=== PATIENT | female | born 1950 | race African-American/Black ===

== ENCOUNTER 2016-08-16 19:45 | Inpatient (IN) ==
[2016-08-16] MEDS ORDERED: ASPIRIN PO STA (20:44)
[2016-08-16 21:14] LABS: MANUAL DIFF NEEDED? NO
[2016-08-16] MEDS ORDERED: NAPROSYN PO ONE (21:27)
[2016-08-16 21:28] LABS: INR 0.93; PROTIME 9.7 Seconds (9.2-11.7); PTT 26.6 Seconds (22.0-36.0)
[2016-08-16] MEDS ORDERED: ROBAXIN PO ONE (21:28)
[2016-08-16 21:29] LABS: BASO% 1.8 % (0.0-0.8); EOS# 0.21 X1000 (0.0-0.7); EOS% 4.1 % (0.0-10.0); HEMATOCRIT 35.3 % (37.0-47.0); HEMOGLOBIN 11.6 g/dL (12.0-16.0); IMM GRAN# 0.02 X1000 (0.0-0.04); IMM GRAN% 0.4 % (0.0-0.5); LYMPH# 1.81 X1000 (1.2-3.4); LYMPH% 35.6 % (20.5-51.1); MCH 28.4 PG (27-31); MCHC 32.9 g/dL (33-37); MCV 86.5 FL (81-99); MONO% 7.9 % (1.7-9.3); MPV 11.9 FL (7.4-10.4); NEUT% 50.2 % (42.2-75.2); PLT 137 X1000 (130-400); RBC 4.08 XMIL (4.2-5.4)
[2016-08-16 21:48] LABS: ALBUMIN 4.1 g/dL (3.5-5.0); CALCIUM 8.9 mg/dL (8.8-10.2); MAGNESIUM 1.5 mg/dL (1.5-2.7); TOTAL BILIRUBIN 0.21 mg/dL (0.20-1.00); TOTAL PROTEIN 6.9 g/dL (6.3-8.3)
[2016-08-16 21:55] LABS: POTASSIUM 6.8 mmol/L (3.5-5.1)
[2016-08-16] MEDS ORDERED: LASIX IV ONE (21:58)
[2016-08-16] MEDS ORDERED: D50W SYRINGE IV ONE (21:58)
[2016-08-16] MEDS ORDERED: HUMULIN R IV ONE (21:59)
[2016-08-16] MEDS ORDERED: ZOFRAN IV ONE (22:01)
[2016-08-16 22:31] LABS: CK INDEX 2.4 (0.0-2.5); CK-MB 4.35 ng/mL (0.0-5.0)
[2016-08-16] MEDS ORDERED: SODIUM CHLORIDE 0.9% INJ ONE (23:44)
[2016-08-16] MEDS ORDERED: PHENERGAN IV ONE (23:44)
[2016-08-16] MEDS ORDERED: ROBAXIN 1,000 MG in NS 50 ML IV ONE (23:44)
[2016-08-16] MEDS ORDERED: CALCIUM CHLORIDE SYRINGE IV ONE (23:50)
--- NOTE | 2016-08-16 23:53 | PROVIDER DOCUMENTATION ---
This chart was entered by Cheyenne Farrell Scribe, acting as scribe for Bud Jameson MD. HPI-Musculoskeletal Pain/Inj - GENERAL Chief Complaint: General Adult Stated Complaint: FELL AT HOME/SHORT OF BREATH Time Seen by Provider: 08/16/16 20:51 Source: patient - HX OF PRESENT ILLNESS-MUSKULOSKELTAL Nature of Presenting Problem: 66 year old F presents to the ED with a cc of a fall with an onset of yesterday. PT states that she fell c/o upper right arm pain and chest pain with intermittent shortness of breath. Severity in ED: mild Onset/Duration: 24 hours ago Timing: still present Any recent injury?: Yes Locality of Occurance: Home Similar Symptoms Previously?: No Recently seen or treated by another doctor?: No - FALL INJURY Location of Pain/Injury: reports: chest, upper extremity Pain Radiation: reports: no radiation Reason for Fall: reports: tripped Symptoms prior to fall:: reports: none Loss of Consciousness: no loss of consciousness Injury Associated Symptoms: reports: chest pain, muscle aches Review of Systems - Adult - REVIEW OF SYSTEMS - ADULT Constitutional: denies: chills, fever Eyes: reports: no symptoms reported Ears, Nose, Mouth & Throat: reports: no symptoms reported Cardiovascular: reports: chest pain. denies: palpitations Respiratory: reports: shortness of breath. denies: cough Gastrointestinal: reports: no symptoms reported Genitourinary: reports: no symptoms reported Musculoskeletal: reports: muscle aches. denies: muscle weakness Integumentary: denies: skin sores/ulcer, skin thickening Neurological: reports: no symptoms reported Psychiatric: reports: no symptoms reported Endocrine: reports: no symptoms reported Hematologic/Lymphatic: reports: no symptoms reported Allergic/Immunologic: reports: no symptoms reported All Other Systems: Reviewed and Negative Past History - Adult - PAST MEDICAL HISTORY-ADULT Review of Records: reports: Nursing Assessment Review, Medications Reviewed Cardiovascular: reports: CAD, HTN, NC Genitourinary: reports: kidney stones Endocrine/Immune: reports: Diabetes - PRIOR SURGERIES/PROCEDURES Surgical/Procedure History: reports: EGD, colonoscopy, CABG, cardiac stent - PRIOR HOSPITALIZATIONS Prior Hospitalizations: reports: for similar symptoms - IMMUNIZATION STATUS Childhood Immunizations: See Nurse Assessment Flu Vaccine: See Nurse Assessment - FAMILY HISTORY Family History: reviewed, not pertinent - SOCIAL HISTORY Smoking: non-smoker Substance Use: none/never Alcohol Use Frequency: never Physical Exam-Injury Related - Physical Exam-Injury Related Initial Vital Signs Reviewed: Yes General Appearance: appears well, alert, no apparent distress Extremity: tenderness (right upper humerous) Integumentary: ecchymosis (right upper humerous) Psych/Mental Status: normal mood/affect, normal thought content, normal thought process, oriented x 3 Progress - PLAN OF CARE/RESULTS Progress/Plan/Lab Results: Vital Signs - 8 hr 08/16/16 19:51 08/16/16 23:11 Temperature 98.3 F Pulse Rate 65 56 L Respiratory Rate 14 18 Blood Pressure 224/86 179/97 O2 Sat by Pulse Oximetry 100 96 Laboratory Results - last 24 hr 08/16/16 08/16/16 08/16/16 20:48 20:48 20:48 WBC 5.09 RBC 4.08 L Hgb 11.6 L Hct 35.3 L MCV 86.5 MCH 28.4 MCHC 32.9 L RDW Std Deviation 13.1 Plt Count 137 MPV 11.9 H Immature Gran % (Auto) 0.4 Neut % (Auto) 50.2 Lymph % (Auto) 35.6 Bea[place]gard % (Auto) 7.9 Eos % (Auto) 4.1 Baso % (Auto) 1.8 H Immature Gran # (Auto) 0.02 Neut # (Auto) 2.56 Lymph # (Auto) 1.81 Bea[place]gard # (Auto) 0.40 Eos # (Auto) 0.21 Baso # (Auto) 0.09 PT INR PTT (Actin FS) D-Dimer 0.58 H Sodium 138 Potassium 6.8 H* Chloride 104 Carbon Dioxide 21 L Anion Gap 13 BUN 34 H Creatinine 2.1 H Estimated GFR/1.73 m2 28 BUN/Creatinine Ratio 16 Glucose 218 H POC Glucose Calculated Osmolality 290 Calcium 8.9 Magnesium 1.5 Total Bilirubin 0.21 AST 15 ALT 9 L Alkaline Phosphatase 184 H Creatine Kinase 179 H Creatine Kinase Index 2.4 CK-MB (CK-2) 4.35 Troponin T Gva-D-Lybxpwvynas Pept Total Protein 6.9 Albumin 4.1 Globulin 2.8 Albumin/Globulin Ratio 1.5 08/16/16 08/16/16 08/16/16 20:48 20:48 20:48 WBC RBC Hgb Hct MCV MCH MCHC RDW Std Deviation Plt Count MPV Immature Gran % (Auto) Neut % (Auto) Lymph % (Auto) Bea[place]gard % (Auto) Eos % (Auto) Baso % (Auto) Immature Gran # (Auto) Neut # (Auto) Lymph # (Auto) [place] # (Auto) Eos # (Auto) Baso # (Auto) PT 9.7 INR 0.93 PTT (Actin FS) 26.6 D-Dimer Sodium Potassium Chloride Carbon Dioxide Anion Gap BUN Creatinine Estimated GFR/1.73 m2 BUN/Creatinine Ratio Glucose POC Glucose Calculated Osmolality Calcium Magnesium Total Bilirubin AST ALT Alkaline Phosphatase Creatine Kinase Creatine Kinase Index CK-MB (CK-2) Troponin T < 0.010 Hkn-T-Lvogyyfdlce Pept 1673 H Total Protein Albumin Globulin Albumin/Globulin Ratio 08/16/16 23:26 WBC RBC Hgb Hct MCV MCH MCHC RDW Std Deviation Plt Count MPV Immature Gran % (Auto) Neut % (Auto) Lymph % (Auto) [place] % (Auto) Eos % (Auto) Baso % (Auto) Immature Gran # (Auto) Neut # (Auto) Lymph # (Auto) [place] # (Auto) Eos # (Auto) Baso # (Auto) PT INR PTT (Actin FS) D-Dimer Sodium Potassium Chloride Carbon Dioxide Anion Gap BUN Creatinine Estimated GFR/1.73 m2 BUN/Creatinine Ratio Glucose POC Glucose 329 H D Calculated Osmolality Calcium Magnesium Total Bilirubin AST ALT Alkaline Phosphatase Creatine Kinase Creatine Kinase Index CK-MB (CK-2) Troponin T Kfk-M-Kgoepmfrufc Pept Total Protein Albumin Globulin Albumin/Globulin Ratio Orders Category Date Time Status Cardiac Monitoring DIRECTED Care 08/16/16 20:44 Active Oxygen Therapy- ED Nursing DIRECTED Care 08/16/16 20:44 Active Saline Loc NOW Care 08/16/16 20:44 Active CHEST-2 VIEWS [RAD] Stat Exams 08/16/16 20:44 Taken CBC WITH ELECTRONIC DIFF [HEME] Stat Lab 08/16/16 20:48 Completed CK PROFILE [SP CHEM] Stat Lab 08/16/16 20:48 Completed COMPREHENSIVE METABOLIC PANEL [CHEM] Stat Lab 08/16/16 20:48 Completed D-DIMER [CHEM] Stat Lab 08/16/16 20:48 Completed MAGNESIUM [CHEM] Stat Lab 08/16/16 20:48 Completed POTASSIUM [CHEM] Stat Lab 08/16/16 22:47 Received PRO B-NATRIURETIC PEPTIDE Stat Lab 08/16/16 20:48 Completed PROTIME WITH INR [COAG] Stat Lab 08/16/16 20:48 Completed PTT [COAG] Stat Lab 08/16/16 20:48 Completed TROPONIN T Stat Lab 08/16/16 20:48 Completed Aspirin Med 08/16/16 20:44 Discontinued 325 mg PO STAT STA Calcium Chloride Syringe Med 08/16/16 23:50 Once 1 gm IV NOW ONE Dextrose 50% Syringe [D50w Syringe] Med 08/16/16 21:58 Discontinued 25 ml IV NOW ONE Furosemide [Lasix] Med 08/16/16 21:58 Discontinued 80 mg IV NOW ONE Insulin Human Regular [Humulin R] Med 08/16/16 21:59 Discontinued 10 unit IV NOW ONE Methocarbamol [Robaxin] Med 08/16/16 21:28 Discontinued 750 mg PO NOW ONE Methocarbamol [Robaxin] 1,000 mg Med 08/16/16 23:44 Ordered 0.9% Sodium Chloride Inj [Ns] 50 ml IV NOW Naproxen [Naprosyn] Med 08/16/16 21:27 Discontinued 500 mg PO NOW ONE Ondansetron [Zofran] Med 08/16/16 22:01 Discontinued 4 mg IV NOW ONE Promethazine [Phenergan] Med 08/16/16 23:44 Once 25 mg IV NOW ONE Sodium Chloride 0.9% Med 08/16/16 23:44 Once 10 ml INJ NOW ONE EKG [EKG] Stat Ther 08/16/16 19:50 Ordered Result Diagrams: 08/16/16 20:48 08/16/16 20:48 - REASSESSMENT Reassessment #1 Time Reassessed: 23:51 Status: unchanged (discussed muscle cramps and high potassium, will admit for treatment as lab is so slow tonight) - EKG 1 Time of EKG reading by physician:: 19:54 EKG Read and Signed by:: Bud Jameson EKG Interpretation (*Must complete 3 of following elements*): Abnormal Rate: 65 Rhythm: NSR Comments: possible LAE - CONSULTS/PCP/HOSPITALIST Notification #1 *Consult/PCP/Hospitalist*: Dr. López(Hospitalist) Time Discussed: 23:49 Consult Disposition: Admit Departure - Departure Date of Disposition Decision: 08/16/16 Time of Disposition Decision: 23:52 DIAGNOSIS: Hyperkalemia, Bruise Disposition: ADMITTED INPATIENT 09 Certified Medical Emergency: Emergent Condition: Stable Referrals and Follow-Ups: Sebastian James MD [Primary Care Provider] - - Critical Care Note This patient required my direct & personal management of CC.: No This chart was documented by the indicated scribe, (Cheyenne Farrell Scribe) and accurately reflects the services I performed and decisions made by me, Bud Jameson MD, as attested by the provider's signature.
[2016-08-17] MEDS ORDERED: CALCIUM GLUCONATE 1 GM in NS 50 ML IV ONE (00:21)
[2016-08-17] MEDS ORDERED: CALCIUM CHLORIDE 1 GM in NS 100 ML IV ONE (01:00)
[2016-08-17] MEDS ORDERED: NS 1,000 ML IV PRN (01:51)
[2016-08-17] MEDS ORDERED: KAYEXALATE PO ONE (01:51)
--- NOTE | 2016-08-17 02:00 | HISTORY AND PHYSICAL ---
PRIMARY CARE PHYSICIAN: Dr. James. CHIEF COMPLAINT: Status post fall, not feeling well. HISTORY OF PRESENTING ILLNESS: A 66-year-old female with a history of diabetes mellitus type 2, hypertension, coronary artery disease. Apparently, tripped over something and had a fall. She landed on her right arm. She had some bruising. She was evaluated in the ER. She was noted to have elevated potassium levels. Initially, it was thought that it was dilutional. However, repeat labs also showed that it was elevated. Subsequently, she was stabilized in the ER, she was given insulin and calcium gluconate, and it was thought that she would need hospitalization for further management. At the time of my examination, she had denied any headache, fever, chills, nausea, vomiting, diarrhea, hemoptysis, melena, weight changes. PAST MEDICAL HISTORY: Diabetes mellitus type 2, hypertension, coronary artery disease. PAST SURGICAL HISTORY: Coronary artery bypass, right BKA. ALLERGIES: Demerol and nitroglycerin. CURRENT MEDICATIONS: As listed in the MAR. SOCIAL HISTORY: She is a former smoker. Denies any history of alcohol or illicit drug use. FAMILY HISTORY: Positive for coronary artery disease in mother. REVIEW OF SYSTEMS: Twelve point review of systems is listed as in HPI. Other systems negative. PHYSICAL EXAMINATION: GENERAL: Cooperative, friendly female. She is resting comfortably now. VITAL SIGNS: Temperature 98.3 degrees, pulse 65, respiration 14. Blood pressure initially was 224/86, and repeat was 179/97. HEENT: Atraumatic, normocephalic. Extraocular movements intact. PERRLA. NECK: No masses. CHEST: Clear to auscultation. CARDIOVASCULAR: Regular rate and rhythm. ABDOMEN: Soft. Positive bowel sounds. EXTREMITIES: No edema. NEUROLOGIC: She is awake, alert, oriented x3. GENITOURINARY: No bladder distention. SKIN: Warm. LABORATORIES AND STUDIES: WBC 5.09, hemoglobin 11.6, hematocrit 35.3, platelets 137,000. Sodium 138, potassium 6.8, chloride 104, CO2 21, BUN is 34, creatinine is 2.1, glucose is 218. ASSESSMENT: A 66-year-old female with a history of diabetes mellitus type 2, hypertension, coronary artery disease, apparently tripped over something and had a fall. She landed on her right arm. She has some bruising there. She presented to our emergency department, where she was evaluated and noted to have elevated potassium level. Repeat labs were also elevated. Subsequently, she will need hospitalization for further management. 1. Hyperkalemia. 2. Diabetes mellitus type 2. 3. Hypertension. 4. Acute kidney injury. PLAN: 1. We will admit patient to medical floor with telemetry. 2. She was initially stabilized in the ER. Will continue with Kayexalate and monitor potassium. 3. We will monitor blood glucose and put patient on sliding scale insulin regimen. 4. Monitor blood pressure. Resume antihypertensive agents. 5. Monitor renal function. 6. Continue with gentle hydration. 7. Will put patient on DVT prophylaxis with SCDs. 8. We will continue to follow and reassess. cc: Johnathan López MD
--- NOTE | 2016-08-17 05:15 | EKG Report ---
Test Performed on : 08/16/2016 7:54:22 PM Test Reason : SOB Blood Pressure : / mmHG Vent. Rate : 065 BPM Atrial Rate : 065 BPM P-R Int : 154 ms QRS Dur : 086 ms QT Int : 416 ms P-R-T Axes : 057 000 041 degrees QTc Int : 432 ms Normal sinus rhythm. Possible Left atrial enlargement Borderline ECG When compared with ECG of 16-JAN-2015 01:43, No significant change was found Unconfirmed Result
[2016-08-17] MEDS: HUMULIN R SUBQ SCH ×4 (06:21→21:53)
--- NOTE | 2016-08-17 07:20 | Diag Imaging Result Doc PS360 ---
CHEST-2 VIEWS - 08/16/2016 INDICATION: CP TECHNIQUE: COMPARISON: 02/28/2015 FINDINGS: Stable CABG changes. There is moderate cardiomegaly and pulmonary vascular congestion. No infiltrates or edema. Stable calcified granulomas in the right midlung and hilum. No pneumothorax or pleural effusion. IMPRESSION: Cardiomegaly with mild pulmonary vascular congestion. Electronically signed by Chauncey Whitmore 08/17/2016 7:18 AM
[2016-08-17] MEDS ORDERED: LOPRESSOR PO SCH (09:00)
[2016-08-17] MEDS ORDERED: IMODIUM PO ONE (09:31)
[2016-08-17] MEDS: TOPROL XL PO SCH (09:44)
[2016-08-17] MEDS ORDERED: INSULIN LISPRO SUBQ SCH (09:45)
--- NOTE | 2016-08-17 09:53 | PROGRESS NOTE ---
DATE: 08/17/2016 SUBJECTIVE: The patient was admitted last night after falling. Was noted to have worsening renal insufficiency and hyperkalemia. Patient complains of diarrhea this morning after having Kayexalate. OBJECTIVE: Vital signs: 98.4, 146/66, 79, 18, 100% saturated on room air. Lungs: Clear. Cardiovascular: Regular. The patient has a fairly large area of ecchymosis on her right triceps and shoulder area from where she fell prior to admission. She has full range of motion of the shoulder and hand on both sides. ASSESSMENT AND PLAN: 1. The patient's potassium will be recheck. We have consulted Nephrology. They will likely need to be involved for long-term care. 2. The patient's home medications have been continued as previously. 3. The patient has fingerstick blood sugars with basal insulin and sliding scale insulin applied appropriately. 4. We will write for some Imodium for diarrhea. cc: Sebastian James MD
--- NOTE | 2016-08-17 10:45 | Diag Imaging Result Doc PS360 ---
US RENAL 2 (RETROPER) COMPLETE - 08/17/2016 INDICATION: decreased renal function TECHNIQUE: COMPARISON: 02/28/2015 FINDINGS: There is some minimal, questionable hydronephrosis versus peripelvic cysts on the left side. This appears identical to the prior ultrasound from 2014. Otherwise, the kidneys and urinary bladder are normal. Renal sizes are normal. The right kidney measures 11.7 x 4.6 x 5 cm. The left kidney measures 11 x 4.2 x 5.1 cm. Cortex measures 1 cm bilaterally. IMPRESSION: Stable minimal, questionable hydronephrosis versus peripelvic cysts of the left kidney. Otherwise negative. Electronically signed by Chauncey Whitmore 08/17/2016 10:42 AM
--- NOTE | 2016-08-17 10:46 | CONSULTATION ---
DATE OF CONSULTATION: 08/17/2016 REASON FOR ADMISSION: Fall, hyperkalemia, acute kidney injury, hypertension. REASON FOR CONSULTATION: Acute/chronic kidney disease, hyperkalemia. CONSULTING PHYSICIAN: Dr. James. HISTORY OF PRESENT ILLNESS: This is a 66-year-old female with a past medical history of coronary artery disease with severe vascular disease, diabetes type 2, poorly controlled, hypertension. She is known CKD with her last creatinine of 1.9 noted back in her primary care's office in May of this year. She had been about 1.4 a year ago. The patient stated that she fell. She does not know if she passed out, if her blood sugar was low, if she tripped. She landed on her arm and had some bruising and came to the emergency room for evaluation. There she was noted to have extremely high potassium levels greater than 6. She was treated with Kayexalate, calcium gluconate, insulin. Her creatinine at that time was noted to be 2.1. She was admitted to the hospital for further workup and treatment. This morning, she has been able to ambulate to the bedside commode without difficulty. She has been having multiple bowel movements after the dosing and Kayexalate. She has chronic nausea and indigestion. She denies knowing if she has retinopathy but she does have poor eyesight. She has significant vascular disease and has a right BKA. She denies any change in urine or bowel output or changing color, consistency of her urine. She has never been worked up for chronic kidney disease in the past. PAST MEDICAL HISTORY: Type 2 diabetes. Peripheral vascular disease. Hypertension, hyperlipidemia and severe coronary artery disease. PAST SURGICAL HISTORY: She has had a CABG. She has had multiple stent placements in the past. She has had a right BKA. ALLERGIES: Demerol and nitroglycerin. HOME MEDICATIONS: Pletal, Lopressor, Nexium, Livalo, Plavix, Humalog, metoprolol, Lantus. SOCIAL HISTORY: She is a former smoker. No ETOH or illicit drug use. FAMILY HISTORY: Coronary artery disease in her mother. Her mother did have dialysis briefly while she was in the hospital prior to her . REVIEW OF SYSTEMS: As noted above. PHYSICAL EXAMINATION: Vital Signs: Temperature 98.4 degrees, pulse 79, respiratory rate 18, blood pressure 146/66. Intake 480 mL. Output 300 mL. General: This is a middle-aged female, resting in bed. She is awake and alert and able to give me an appropriate history. HEENT: Normocephalic, atraumatic. Conjunctivae are pink. [place], her oral mucosa is moist. Tongue is midline. Trachea midline. She has some trace JVD. Neck: Supple. Cardiovascular: She has old sternotomy incision scar noted. She has a regular rate and rhythm. Pulmonary: She has equal excursion. She is clear bilaterally. There is no increased work of breathing. Abdomen: Soft, positive bowel sounds. : Not inspected. She is voiding. Extremities: She has a right BKA with a well-healed stump. Left lower extremity with trace pretibial edema. There is no clubbing or cyanosis noted. Integumentary: Skin is warm and dry without rash or lesion. Neuro: Grossly nonfocal. LAB DATA: WBC of 5.0, hemoglobin 11.6, hematocrit 35.3, and a platelet count of 137,000. Chemistry panel from last night: Sodium 138, potassium 6.3, chloride 104, CO2 21, BUN 34, creatinine 2.1. Calcium 8.9, magnesium 1.5, albumin 4.1. She has not had any urine studies completed yet. IMAGING: Chest x-ray with cardiomegaly and mild pulmonary vascular congestion. ASSESSMENT AND PLAN: 1. Chronic kidney disease stage 3B to 4. The patient by report with the primary has apparent progressive kidney disease over the last year. She has no indication for dialysis at this time. However we will go ahead and workup her renal function to include an ultrasound and urine studies today. We will go ahead and recheck her renal panel since she has received Kayexalate and has been stooling so we can determine if we need to further treat her potassium. The patient will most definitely need to follow up with us in the office as an outpatient. 2. Electrolytes, acid-base balance. See #1 for plan. She has had multiple stools since receiving the Kayexalate so anticipate the potassium will be down. Hyperkalemia may be just simply secondary to her chronic kidney disease. 3. Blood pressure acceptable. Continue home medications. 4. Fluid volume. She is not overloaded. Dictated by MICHAEL Garibay for Doug Padilla MD cc: MD Sebastian Dean MD
[2016-08-17 11:41] LABS: ALBUMIN 3.9 g/dL (3.5-5.0); CALCIUM 8.9 mg/dL (8.8-10.2); POTASSIUM 4.6 mmol/L (3.5-5.1)
[2016-08-17] MEDS: PLAVIX PO SCH (12:37)
[2016-08-17] MEDS: ASPIRIN PO SCH (12:37)
[2016-08-17] MEDS: PLETAL PO SCH (12:38)
[2016-08-17] MEDS: NEXIUM PO SCH (12:38)
[2016-08-17] MEDS: LANTUS SUBQ SCH ×2 (12:41→21:53)
[2016-08-17 13:55] LABS: URINE MICRO REVIEW NEEDED? NO; URINE SOURCE VOIDED
[2016-08-17 14:02] LABS: BILIRUBIN URINE NEGATIVE (NEGATIVE); BLOOD URINE NEGATIVE (NEGATIVE); COLOR YELLOW; GLUCOSE URINE 70 mg/dL (NEGATIVE); LEUKOCYTES URINE MODERATE (NEGATIVE); NITRITE URINE NEGATIVE (NEGATIVE); PH URINE 5.5; PROTEIN URINE 100 mg/dL (NEGATIVE); SP GRAVITY URINE 1.012; TURBIDITY URINE CLEAR (CLEAR); UROBILINOGEN URINE NORMAL (NORMAL)
[2016-08-17 14:04] LABS: UR EPITHELIAL CELLS <10 /HPF (<10); URINE BACTERIA NEGATIVE /HPF; URINE RBC <10 /HPF (<10)
[2016-08-17 14:12] LABS: PROTEIN CREAT RATIO 1.9; UR CREAT RANDOM 60.6 mg/dL (11-20); UR CREAT RANDOM 61.7 mg/dL (11-20); UR PROT RANDOM 115.2 mg/dL; UR PROT RANDOM 116.1 mg/dL
[2016-08-17] MEDS: LIVALO PO SCH (21:54)
[2016-08-18 05:42] LABS: MANUAL DIFF NEEDED? NO
[2016-08-18 05:57] LABS: BASO% 1.8 % (0.0-0.8); EOS# 0.27 X1000 (0.0-0.7); HEMATOCRIT 30.4 % (37.0-47.0); HEMOGLOBIN 9.7 g/dL (12.0-16.0); LYMPH# 2.74 X1000 (1.2-3.4); LYMPH% 50.3 % (20.5-51.1); MCH 27.9 PG (27-31); MCHC 31.9 g/dL (33-37); MCV 87.4 FL (81-99); MONO# 0.33 X1000 (0.11-0.59); MONO% 6.1 % (1.7-9.3); MPV 11.6 FL (7.4-10.4); NEUT% 36.8 % (42.2-75.2); PLT 118 X1000 (130-400); RBC 3.48 XMIL (4.2-5.4)
[2016-08-18 06:06] LABS: ALBUMIN 3.1 g/dL (3.5-5.0); CALCIUM 8.1 mg/dL (8.8-10.2); POTASSIUM 4.5 mmol/L (3.5-5.1)
[2016-08-18] MEDS: HUMULIN R SUBQ SCH (06:57)
[2016-08-18] MEDS: NEXIUM PO SCH (09:23)
[2016-08-18] MEDS: TOPROL XL PO SCH (09:23)
[2016-08-18] MEDS: PLAVIX PO SCH (09:23)
[2016-08-18] MEDS: PLETAL PO SCH (09:24)
[2016-08-18] MEDS: LEVAQUIN PO SCH (09:24)
[2016-08-18] MEDS: ASPIRIN PO SCH (09:24)
[2016-08-18] MEDS: LANTUS SUBQ SCH ×3 (09:27→21:44)
[2016-08-18] MEDS ORDERED: ZOFRAN PO PRN (11:33)
--- NOTE | 2016-08-18 11:40 | PROGRESS NOTE ---
DATE: 08/18/2016 SUBJECTIVE: Patient is resting in bed. She has no complaints this morning. She has been ambulatory to the bedside commode. OBJECTIVE: Vital Signs: Temperature 98.2 degrees, pulse 68, respiratory rate 14, blood pressure 114/41. Intake 1.1 L. Output 2750 mL plus multiple voids plus not measured multiple bowel movements. General: This is a middle-aged female, resting in bed. She is awake and alert, in no acute distress. HEENT: Normocephalic and atraumatic. Conjunctivae are pink. Oral mucosa moist. Neck: Supple. Trachea midline. Trace JVD. Cardiovascular: Regular rate and rhythm. There is no murmur appreciated. Pulmonary: She has equal excursion. She is clear bilaterally. She has no increased work of breathing on room air. Abdomen: Soft, with positive bowel sounds. Genitourinary: Not inspected. She is voiding without difficulty. Extremities: No pretibial edema. Right tgnpv-nnsk-ujjkrwvtns noted. Integumentary: Skin is warm and dry. LABORATORY DATA: WBC of 5.4, hemoglobin 9.7, hematocrit 30.4, and platelet count of 118,000. Sodium 145, potassium 4.5, CO2 of 23, BUN 39, creatinine 2.8, calcium 8.1, and albumin 3.1. IMAGING: She had a renal ultrasound that indicated kidney size 11 x 11 cm. The left side has a stable minimal questionable hydronephrosis versus pelvic cyst on the left kidney. These have been present since 2015. It is unchanged. ASSESSMENT AND PLAN: 1. Chronic kidney disease, stage 3B to 4. She does have diabetic nephropathy. Urine protein along with ultrasound imaging noted. She has no indication for intervention at this time. We would continue to follow her. Need to see her in the office in 2 weeks post discharge. 2. Electrolytes, acid-base balance. Her hyperkalemia is resolved. Continue to monitor. Hyperkalemia is likely secondary to her chronic kidney disease. 3. Fluid volume. She is not overloaded. 4. Blood pressure in target. Continue home medications. Dictated by MICHAEL Garibay for Doug Padilla MD cc: MD Sebastian Dean MD
[2016-08-18] MEDS ORDERED: INSULIN PEN NEEDLES ONE (11:41)
--- NOTE | 2016-08-18 13:23 | PROGRESS NOTE ---
DATE: 08/18/2016 SUBJECTIVE: The patient's chart was reviewed. In summary, patient presented to the emergency department on 08/17/2016 with a fall. Upon arrival, a full evaluation was pursued. The patient was found to have hyperkalemia, acute on chronic kidney disease, and a urinary tract infection. The patient was treated acutely for her underlying hyperkalemia with Kayexalate and calcium gluconate. The patient's potassium has improved. Her urinary tract infection is being treated with levofloxacin therapy. She denies significant symptoms. Since admission, patient states she has slowly improved. Today, she complains of weakness and some intermittent nausea, but feels better than yesterday. She denies fevers, chills, shortness of breath, and chest discomfort. P.o. intake is reasonable. OBJECTIVE: T-max 98.4 degrees, heart rate 64-79, respirations 14-18, blood pressure 111 to 146 over 41 to 66.General: Chronically ill appearing, no acute distress. Cardiovascular: Regular rate and rhythm. No significant murmurs, rubs, or gallops. Pulmonary: Clear to auscultation bilaterally. Abdomen: Soft, nontender, nondistended. Positive bowel sounds. Extremities: Moves her left lower extremity well. She is status post amputation of the right lower extremity. No clubbing, cyanosis or edema is identified. Dermatologic: Evaluation reveals no evidence of rash. LABORATORY DATA: White blood cell count 5.45, hemoglobin 9.7, hematocrit 30.4, platelet count is 118,000. Sodium 145, potassium 4.5, chloride 109, bicarb 23, BUN 39, creatinine 2.8. Glucose 155. Calcium 8.1, albumin 3.1. ASSESSMENT AND PLAN: 1. Hyperkalemia - the patient has achieved improvement. This likely was secondary to acute on chronic kidney disease. We will treat kidney dysfunction further as described below. 2. Urinary tract infection - patient's urinalysis returned slightly abnormal. She is being treated with Levaquin therapy. We will remain aware. 3. Acute on chronic kidney disease - The patient's creatinine continues to rise. Upon admission, creatinine was 2.1. Today this it is 2.8. We will start patient on a cautious hydration. We will follow this closely. We will encourage p.o. intake. 4. Diabetes - Patient has longstanding disease. We will continue Lantus therapy. We will start a lispro sliding scale. 5. Profound weakness - we will encourage activity. We will treat acute conditions as described above. 6. Coronary artery disease - patient has longstanding disease. We will continue her on optimum medical management. 7. Hypertension - patient's blood pressure is reasonably controlled at present time. We will continue her current regimen. 8. Disposition - at this point, patient continues to require intermediate care in a hospital setting. We will plan discharge home once appropriate. cc: MD Sebastian Desai MD
[2016-08-18] MEDS: HUMALOG SUBQ SCH ×2 (17:04→21:44)
[2016-08-18] MEDS: LIVALO PO SCH (21:44)
[2016-08-18] MEDS: NS 1,000 ML IV SCH (21:46)
[2016-08-19 06:09] LABS: MANUAL DIFF NEEDED? NO
[2016-08-19 06:14] LABS: BASO% 1.6 % (0.0-0.8); EOS# 0.27 X1000 (0.0-0.7); EOS% 4.8 % (0.0-10.0); HEMOGLOBIN 10.2 g/dL (12.0-16.0); LYMPH# 2.25 X1000 (1.2-3.4); LYMPH% 39.7 % (20.5-51.1); MCH 28.8 PG (27-31); MCHC 32.9 g/dL (33-37); MCV 87.6 FL (81-99); MONO# 0.36 X1000 (0.11-0.59); MONO% 6.3 % (1.7-9.3); MPV 11.6 FL (7.4-10.4); NEUT% 47.6 % (42.2-75.2); PLT 120 X1000 (130-400); RBC 3.54 XMIL (4.2-5.4)
[2016-08-19 06:36] LABS: ALBUMIN 3.5 g/dL (3.5-5.0); CALCIUM 8.3 mg/dL (8.8-10.2); POTASSIUM 4.6 mmol/L (3.5-5.1)
[2016-08-19] MEDS: HUMALOG SUBQ SCH ×4 (06:54→22:40)
[2016-08-19] MEDS: PLETAL PO SCH (09:24)
[2016-08-19] MEDS: TOPROL XL PO SCH (09:24)
[2016-08-19] MEDS: ASPIRIN PO SCH (09:24)
[2016-08-19] MEDS: PLAVIX PO SCH (09:24)
[2016-08-19] MEDS: NEXIUM PO SCH (09:24)
[2016-08-19] MEDS: LEVAQUIN PO SCH (09:24)
[2016-08-19] MEDS: LANTUS SUBQ SCH ×2 (09:25→22:40)
--- NOTE | 2016-08-19 10:22 | PROGRESS NOTE ---
DATE: 08/19/2016 SUBJECTIVE: Over the course of the last 24 hours, patient states he has done reasonably well. Yesterday, we initiated IV fluids secondary to worsening renal function. The patient's kidney function has improved, although not back to baseline. Her p.o. intake has been marginal. She remains weak, but is slowly improving. She denies fevers, chills, nausea, vomiting, shortness of breath, or chest discomfort. OBJECTIVE: Vital signs: T-max 98.5 degrees, heart rate 73-77, respirations 14-18 blood pressure 111-179 over 41-63. General: Well nourished, well developed, no acute distress. Cardiovascular: Regular rate and rhythm. No significant murmurs, rubs, or gallops. Pulmonary: Clear to auscultation bilaterally. Abdomen: Soft, nontender, nondistended. Positive bowel sounds. Extremities: Moves her left lower extremity well. She is status post amputation of the right lower extremity. No clubbing, cyanosis, or edema is identified. Dermatologic: Evaluation reveals no evidence of rash. LABORATORY DATA: White blood cell count 5.67, hemoglobin 10.2, hematocrit 31.0, platelet count 120,000. Sodium 142, potassium 4.6, chloride 108, bicarb 22, BUN 32, creatinine 2.2, glucose 219, calcium 8.3, phosphorus 3.4, albumin 3.5. ASSESSMENT AND PLAN: 1. Hyperkalemia - Patient has achieved improvement. This likely is secondary to her underlying chronic kidney disease and urinary tract infection. We will continue to follow. We will treat above-mentioned conditions as described below. 2. Urinary tract infection - Upon admission, patient's urinalysis was slightly abnormal. Her culture is pending. We will continue levofloxacin therapy for now. 3. Acute on chronic kidney disease - Yesterday, patient's creatinine had increased to 2.8. She is down to 2.2 today. Baseline appears to be between 1.2 and 1.6. For now, we will continue cautious hydration. I appreciate nephrology consultation. 4. Diabetes - The patient has longstanding disease. We will continue patient on Lantus and sliding scale insulin. 5. Profound weakness - We will continue to encourage activity. Her energy level is slowly improving. 6. Coronary artery disease - The patient has longstanding disease. We will continue to optimize her medical and nonmedical management. 7. Hypertension - Patient's blood pressure is reasonably controlled on her current regimen. 8. Prophylaxis - We will initiate Lovenox therapy. 9. Disposition - At this point, patient continues to require penitentiary care in a hospital setting. We will plan discharge home once appropriate. cc: MD Sebastian Desai MD
[2016-08-19] MEDS: LOVENOX SUBQ SCH (10:41)
[2016-08-19] MEDS ORDERED: TYLENOL PO PRN (16:22)
[2016-08-19] MEDS: NS 1,000 ML IV SCH (16:48)
--- NOTE | 2016-08-19 17:37 | PROGRESS NOTE ---
DATE: 08/19/2016 TIME SEEN: 1445 SUBJECTIVE: Ms Sanchez is resting quietly in bed. She has no complaints. She states that she is feeling well today. She denies chest pain, increased work of breathing. No nausea, vomiting. OBJECTIVE: Her most recent vital signs temperature 98.5 degrees, blood pressure 134/40, heart rate 66, respirations 16. She is on room air. Last recorded saturation 100%. She has had 248 in. She has had 0 recorded out though she states she has voided. LABORATORY DATA: Sodium 142, potassium 4.6, chloride 108, CO2 22, BUN 32, creatinine 2.2, glucose 219. Anion gap 12, calcium 8.3, phosphorus 3.4, albumin 3.5. Her PTH is 268. Urine culture is still pending. Her white count 5.67, hemoglobin 10.2, hematocrit 31, platelet count 120,000. PHYSICAL EXAMINATION: General: This is a 66-year-old female. She is currently resting in bed. She is in no acute distress. Skin: Warm and dry. HEENT: Normocephalic, atraumatic. Conjunctivae pale. She has DAKOTA. Mucous membranes moist. Neck: Supple. Trachea midline. No JVD. Cardiovascular: She is regular rate and rhythm. She has no murmur or gallop appreciated. She has a sternotomy incision scar noted. Pulmonary: Equal excursion. Clear to auscultation anterior. She is on room air. Abdomen: Soft, nontender. Positive bowel sounds. Extremities: She has a BKA on the right, well-healed stump. Left has trace pretibial edema. No clubbing or cyanosis. Integumentary: No rashes or lesions evident. Genitourinary: Not inspected. Patient is voiding adequate amount. Neurological: Alert and oriented x3. ASSESSMENT AND PLAN: 1. Chronic kidney disease stage 3B. Patient continues to have a slight improvement to her creatinine. She has had fluid volume resuscitation. We will plan to follow her electrolytes on a daily basis and plan for followup within 2 weeks on discharge with a urine electrolytes and possible 24-hour urine. 2. Electrolytes. Patient had mild hyperkalemia. She received Kayexalate and potassium is now normal range. 3. Acid-base balance. This is stable. 4. Fluid volume. Patient remains euvolemic. 5. Blood pressure. This is stable. I would like to thank you for allowing us to follow with this patient. Dictated by MICHAEL House for Doug Padilla MD cc: MICHAEL House MD Timothy P. Weirich, MD
[2016-08-19] MEDS: LIVALO PO SCH (22:41)
[2016-08-20 03:52] VITALS: BP 127/54
[2016-08-20 06:08] LABS: ALBUMIN 3.3 g/dL (3.5-5.0); CALCIUM 8.1 mg/dL (8.8-10.2); POTASSIUM 4.3 mmol/L (3.5-5.1)
[2016-08-20] MEDS: HUMALOG SUBQ SCH (07:05)
[2016-08-20] MEDS ORDERED: LANTUS SUBQ SCH (07:09)
[2016-08-20] MEDS ORDERED: INSULIN PEN NEEDLES ONE (09:09)
[2016-08-20] MEDS: ASPIRIN PO SCH (09:10)
[2016-08-20] MEDS: PLETAL PO SCH (09:10)
[2016-08-20] MEDS: LEVAQUIN PO SCH (09:11)
[2016-08-20] MEDS: LOVENOX SUBQ SCH (09:11)
[2016-08-20] MEDS: TOPROL XL PO SCH (09:11)
[2016-08-20] MEDS: PLAVIX PO SCH (09:11)
[2016-08-20] MEDS: NEXIUM PO SCH (09:11)
--- NOTE | 2016-08-20 11:42 | PROGRESS NOTE ---
DATE: 08/20/2016 SUBJECTIVE: Ms. Sanchez is resting quietly in bed. She denies chest pain or increased work of breathing. She denies any increased weakness. OBJECTIVE: Her most recent vital signs: Temperature 98.5 degrees, blood pressure 127/54, heart rate 68, respirations are 16. She is on room air. Last recorded saturation is 98%. She has had 770 in and she has voided multiple times. LABORATORY: Her most recent labs sodium 143, potassium 4.3, chloride 111, CO2 21, BUN 31, creatinine 2.1, glucose 148, her anion gap is 11, her calcium 8.1, phosphorus 3 , albumin 3.3. Previous hemoglobin was 10.2 on the . PHYSICAL EXAM: This is a 66-year-old female. She is resting quietly in bed. She is in no acute distress.Skin: Warm and dry. HEENT: Normocephalic, atraumatic. Conjunctivae pale. She has DAKOTA. Mucous membranes moist. Neck: Supple. Trachea midline. No JVD. Cardiovascular: Regular rate and rhythm. No murmur or gallop appreciated. Lungs: Clear to auscultation anteriorly. Equal excursion. Abdomen: Soft, nontender. Positive bowel sounds. Genitourinary: Not inspected. Adequate void. The patient has been getting up to go to the bathroom. Extremities: Right BKA. Left has no edema present. No clubbing, or cyanosis. Integumentary: No rashes or lesions evident. Neurological: Alert and oriented x3. ASSESSMENT AND PLAN: 1. Chronic kidney disease. Patient is not quite to her baseline as noted on previous labs in the hospital. We have discussed that if she is discharged she is to follow up in our office within 2 weeks with follow up labs. 2. Electrolytes and acid-base balance. These are stable with correction of her hyperkalemia. 3. Anemia. This remains close to target. 4. Fluid volume overload. No indications for problems. 5. Recent fall. Patient's hyperkalemia has improved. No further weakness. I would to thank you for allowing us to follow with this patient. Seen, data reviewed, discussed with Yoselyn Marei on 08/20/16. I agree with the above assessment and plan of care. rg Dictated by MICHAEL House for Doug Padilla MD cc: MICHAEL House MD Timothy P. Weirich, MD [facility]
--- NOTE | 2016-08-21 05:09 | DISCHARGE SUMMARY ---
ADMISSION DATE: 08/17/2016 DISCHARGE DATE: 08/20/2016 DISCHARGE DIAGNOSES: 1. Fall, with contusion to her right shoulder. 2. Chronic renal failure, or chronic kidney, stage 3. 3. Hypertension. 4. Diabetes mellitus, with hyperglycemia. 5. Hypercholesterolemia. 6. Peripheral vascular disease. 7. Status below the knee amputation on the right side. HOSPITAL COURSE: A 66-year-old black female who fell at home, injuring her shoulder. She came to the emergency room seeking help for that, to make sure that she had not fractured her shoulder. Apparently, x-rays were normal, but it was noted that her BUN and creatinine had crept up, and her sugar was poorly-controlled. She was also feeling very weak, and was admitted to the hospital. The patient was very slowly rehydrated, but her creatinine showed no real improvement. We consulted Dr. Padilla for help with nephrology. The patient is likely to be a chronic renal patient at some point due to her diabetes, and we wanted to get her established with him. Negative renal ultrasound, which was fairly unremarkable, and other studies, which would establish a baseline kidney function for future followup. The patient's blood sugar was out of control on her 15 units of Lantus twice daily. We upped her dose to 20 units by the time of discharge, so she will go home taking Lantus 20 units subcutaneously twice daily. The remainder of the patient's home medications remain as they were previously. She has a followup scheduled for the in my office, and we will note her progress at that time. She has been made aware that if at any time she has any problems, she may contact the office for support. The bruising on the patient's right shoulder was showing signs of distinct resolution by the time of discharge. cc: Sebastian James MD
== END 2016-08-20 10:10 | disposition home or self-care (01) ==
LOC: ED 19:45 → 4N 08-17 01:00
PROVIDERS: ADMIT Internal Medicine; ATTEND Internal Medicine

== ENCOUNTER 2018-10-17 17:14 | Inpatient (IN) ==
[2018-10-17] MEDS ORDERED: ZOFRAN IV ONE (17:33)
[2018-10-17] MEDS ORDERED: MORPHINE IV ONE (17:33)
--- NOTE | 2018-10-17 17:58 | Diag Imaging Result Doc PS360 ---
EXAM: CHEST-1 VIEW 10/17/2018 HISTORY: SOB TECHNIQUE: AP portable at 1737 COMMENT: There are bilateral pleural effusions which were not present on 05/13/2018. The heart size remains enlarged. There is increased interstitial markings. The pulmonary vascularity is prominent. IMPRESSION: Pulmonary edema, cardiomegaly and bilateral pleural effusions. Electronically signed by Misbah Kirkland 10/17/2018 5:56 PM
--- NOTE | 2018-10-17 18:13 | Diag Imaging Result Doc PS360 ---
EXAM: CT ABDOMEN/PELVIS W/O CONTRAST 10/17/2018 HISTORY: FLANK PAIN TECHNIQUE: This exam was performed using automated exposure control, adjustment of mA or kV according to patient size, and/or use of iterative reconstruction technique. COMMENT: The current study is compared with 12/30/2017. There are bilateral pleural effusions. This was not the case on the previous study. There is anasarca. There is cardiomegaly. There are vascular calcifications. There is no evidence of hydronephrosis. There is a calcified mass anterior to the left kidney which was also present at the time the previous study. The urinary bladder is not distended. There is no evidence of bowel obstruction. There are perirectal inflammatory changes present which was not the case at the time the previous study. There is some mucosal thickening in the sigmoid colon generally. This may also be true in the splenic flexure region. The regional skeleton appears to be stable. There is no evidence of appendicitis. IMPRESSION: 1. Colitis and proctitis. 2. Anasarca. Cardiomegaly and bilateral pleural effusions. Electronically signed by Misbah Kikrland 10/17/2018 6:11 PM
[2018-10-17] MEDS ORDERED: FLAGYL 500 MG/NS 500 MG/100 ML IVPB IV ONE (18:35)
--- NOTE | 2018-10-17 18:41 | PROVIDER DOCUMENTATION ---
This chart was entered by Aleena Giles Scribe, acting as scribe for Rome Crawley MD. HPI-Abdominal Pain/GI Problem - General Source: patient - History of Present Illness-ABD Nature of Presenting Problems: Patient is a 68 year old female who presents with generalized abdominal pain. States nausea, vomiting, diarrhea, weight loss and weakness. Reports being diagnosed with C. Diff and was prescribed Flagyl. Denies fever. Abdominal Pain Onset Location: reports: generalized abdomen Pain Radiation: reports: no radiation Quality of Pain: reports: aching Severity in ED: reports: mild Onset/Duration: reports: gradual Timing: reports: still present Activities at Onset: reports: light activity Associated Symptoms: reports: diarrhea, nausea, vomiting, weakness, other (weight loss) Bruising or Bleeding Gums?: No Similar Symptoms Previously?: Yes Recently seen or treated by another doctor?: Yes <Rome Crawley - Last Filed: 10/17/18 18:39> <Aurelio Luna - Last Filed: 10/17/18 20:59> - General Chief Complaint: Abdominal Pain Stated Complaint: DR SONG REFERRED Time Seen by Provider: 10/17/18 17:16 Allergies/Adverse Reactions: Patient Allergies Allergy/AdvReac Type Severity Reaction Status Date / Time meperidine HCl * Allergy Severe Unknown Verified 10/17/18 18:24 [From Demerol] nitroglycerin Allergy Intermediate Unknown Verified 10/17/18 18:24 Home Medications: Home Medication List Medication Instructions Recorded Confirmed Last Taken Type Cilostazol [Pletal] 50 mg PO BID 12/23/12 05/13/18 1 Day Ago History ~05/12/18 Esomeprazole [Nexium] 40 mg PO QAM 01/15/15 05/13/18 1 Day Ago History ~05/12/18 Metoprolol [Lopressor] 50 mg PO QAM 01/15/15 05/13/18 1 Day Ago History ~05/12/18 Pitavastatin [Livalo] 2 mg PO QHS #0 tablet 01/21/15 05/13/18 1 Day Ago Rx ~05/12/18 Aspirin 325 mg PO QAM 02/07/17 05/13/18 1 Day Ago History ~05/12/18 Clopidogrel [Plavix] 75 mg PO QAM 02/07/17 05/13/18 1 Day Ago History ~05/12/18 Spironolact/Hydrochlorothiazid 0.5 tab PO DAILY 12/04/17 05/13/18 05/12/18 History [Spironolactone-Hctz 25-25 Tab] Insulin Glargine [Basaglar] 15 unit SUBQ QHS insuln.pen 01/08/18 05/13/18 1 Day Ago Rx ~05/12/18 LISINOpril [Prinivil] 2.5 mg PO DAILY #30 tab 01/08/18 05/13/18 1 Day Ago Rx ~05/12/18 Metoclopramide [Reglan] 10 mg PO AC + HS tablet 01/08/18 05/13/18 1 Day Ago Rx ~05/12/18 Methocarbamol [Robaxin] 500 mg PO 0900,1500,2100 PRN 02/25/18 05/13/18 1 Day Ago History ~05/12/18 Acetaminophen [Tylenol] 650 mg PO Q6H PRN PRN tablet 03/02/18 05/13/18 3 Days Ago Rx ~05/10/18 Collagenase Clostridium Oint 1 gm TOP DAILY #30 oint 03/02/18 05/13/18 1 Day Ago Rx [Santyl Oint] ~05/12/18 Hydrocodone/APAP 5 mg/325 mg 0.5 each PO TID PRN PRN #15 tablet 03/02/18 05/13/18 2 Days Ago Rx [[place]-5] ~05/11/18 Mirtazapine [Remeron] 15 mg PO QHS #30 tablet 03/02/18 05/13/18 1 Day Ago Rx ~05/12/18 Nitrofurantoin Monohyd/M-Cryst 100 mg PO BID 10 Days #20 cap 05/13/18 Unknown Rx [Macrobid 100 mg Capsule] Loperamide [Imodium] 2 mg PO PRN PRN #20 cap MDD 6 10/05/18 Unknown Rx capsules Review of Systems - Adult - REVIEW OF SYSTEMS - ADULT Constitutional: reports: see HPI, weight loss. denies: chills, fever, fatique Eyes: reports: no symptoms reported Ears, Nose, Mouth & Throat: reports: no symptoms reported Cardiovascular: reports: no symptoms reported Respiratory: reports: no symptoms reported Gastrointestinal: reports: see HPI, abdominal pain (generalized), diarrhea, nausea, vomiting Genitourinary: reports: no symptoms reported Musculoskeletal: reports: see HPI, muscle weakness. denies: back pain, neck pain Integumentary: reports: no symptoms reported Neurological: reports: no symptoms reported Psychiatric: reports: no symptoms reported Endocrine: reports: no symptoms reported Hematologic/Lymphatic: reports: no symptoms reported Allergic/Immunologic: reports: no symptoms reported All Other Systems: Reviewed and Negative <Rome Crawley - Last Filed: 10/17/18 18:39> Past History - Adult - PAST MEDICAL HISTORY-ADULT Review of Records: reports: Old Records Reviewed, Nursing Assessment Review, M edications Reviewed, Social history reviewed & non-contributory. Major Childhood Illnesses: reports: denies history Cardiovascular: reports: CAD, HTN, [place] Respiratory: reports: denies history Gastrointestinal: reports: GERD Obstetrical/Gynecological: reports: denies history Genitourinary: reports: dialysis, ESRD, kidney disease, kidney stones Musculoskeletal: reports: denies history Neurological: reports: denies history Psychiatric: reports: denies history Endocrine/Immune: reports: Diabetes Other Conditions: reports: denies history - PRIOR SURGERIES/PROCEDURES Surgical/Procedure History: reports: EGD, colonoscopy, CABG, cardiac stent - PRIOR HOSPITALIZATIONS Prior Hospitalizations: reports: for similar symptoms - IMMUNIZATION STATUS Childhood Immunizations: See Nurse Assessment Flu Vaccine: See Nurse Assessment - FAMILY HISTORY Family History: reviewed, not pertinent - SOCIAL HISTORY Smoking: cigarettes (former) Substance Use: denies <Rome Crawley - Last Filed: 10/17/18 18:39> Physical Exam-General - PHYSICAL EXAM-ADULT Initial Vital Signs Reviewed: Yes - CONSTITUTIONAL General Appearance: alert, no apparent distress, thin. negative: obese - EYES Eyes: PERRL/EOMI, pink conjunctivae. negative: scleral icterus - HEAD, EARS, NOSE, MOUTH & THROAT HENMT: normocephalic/atraumatic, other (dry mucous membranes). negative: hearing deficit - RESPIRATORY Respiratory: chest non-tender, lungs clear, normal breath sounds. negative: crackles, stridor - CARDIOVASCULAR Cardiovascular: normal peripheral pulses, regular rate, rhythm. negative: tachycardia - GASTROINTESTINAL (ABDOMEN) Abdominal Exam: normal bowel sounds, soft, tenderness (diffuse). negative: guarding - MUSCULOSKELETAL Extremity: non-tender, other (right BKA). negative: erythema - SKIN Integumentary: normal color, normal turgor, warm/dry. negative: cyanosis, ecchymosis, jaundice - NEUROLOGIC Neurologic: grossly normal. negative: aphasia, facial droop - PSYCHIATRIC Psych/Mental Status: normal mood/affect, oriented x 3. negative: anxious <Rome Crawley - Last Filed: 10/17/18 18:39> Progress - PLAN OF CARE/RESULTS Progress/Plan/Lab Results: Vital Signs - 8 hr 10/17/18 17:25 Temperature 98.7 F Pulse Rate 79 Respiratory Rate 17 Blood Pressure 198/72 O2 Sat by Pulse Oximetry 92 L Orders Category Date Time Status Finger Stick Blood Sugar (ED) DIRECTED Care 10/17/18 17:17 Active Saline Loc NOW Care 10/17/18 17:17 Active CHEST-1 VIEW [RAD] Stat Exams 10/17/18 17:[address] ABDOMEN/PELVIS W/O CONTRAST [CT] Stat Exams 10/17/18 17:34 Ordered BLOOD CULTURE [BLDCUL] Stat Lab 10/17/18 17:17 Uncollected CBC WITH ELECTRONIC DIFF [HEME] Stat Lab 10/17/18 17:17 Ordered COMPREHENSIVE METABOLIC PANEL [CHEM] Stat Lab 10/17/18 17:17 Uncollected LACTATE, PLASMA [CHEM] Stat Lab 10/17/18 17:17 Uncollected Morphine Med 10/17/18 17:33 Discontinued 3 mg IV NOW ONE Ondansetron [Zofran] Med 10/17/18 17:33 Discontinued 4 mg IV NOW ONE EKG [EKG] Stat Ther 10/17/18 17:18 Ordered - CHANGE OF SHIFT REPORT (ED Provider) 1 Report Given and Care Transferred to:: DR LUNA Time of Transfer: 19:00 Items Pending: Labs <Rome Crawley - Last Filed: 10/17/18 18:39> - PLAN OF CARE/RESULTS Progress/Plan/Lab Results: Vital Signs - 8 hr 10/17/18 17:25 10/17/18 18:30 10/17/18 18:40 Temperature 98.7 F Pulse Rate 79 Respiratory Rate 17 Blood Pressure 198/72 O2 Sat by Pulse Oximetry 92 L 100 100 10/17/18 18:50 10/17/18 19:00 10/17/18 20:30 Temperature Pulse Rate Respiratory Rate Blood Pressure O2 Sat by Pulse Oximetry 100 100 100 Laboratory Results - last 24 hr 10/17/18 10/17/18 10/17/18 19:30 19:30 19:30 WBC 7.50 RBC 4.47 Hgb 12.8 Hct 40.5 MCV 90.6 MCH 28.6 MCHC 31.6 L RDW Std Deviation 13.9 Plt Count 87 L MPV 11.7 H Immature Gran % (Auto) 0.0 Neut % (Auto) 85.4 H Lymph % (Auto) 10.0 L Maverick % (Auto) 3.3 Eos % (Auto) 0.8 Baso % (Auto) 0.5 Immature Gran # (Auto) 0.00 Neut # (Auto) 6.40 Lymph # (Auto) 0.75 L Maverick # (Auto) 0.25 Eos # (Auto) 0.06 Baso # (Auto) 0.04 Sodium 140 Potassium 3.5 Chloride 100 Carbon Dioxide 30 Anion Gap 10 BUN 6 L Creatinine 2.1 H Estimated GFR/1.73 m2 28 BUN/Creatinine Ratio 3 Glucose 200 H Calculated Osmolality 283 Calcium 8.9 Total Bilirubin 0.69 AST 16 ALT 5 L Alkaline Phosphatase 77 Total Protein 6.6 Albumin 3.8 Globulin 2.8 Albumin/Globulin Ratio 1.4 Plasma Lactate 0.9 Orders Category Date Time Status Finger Stick Blood Sugar (ED) DIRECTED Care 10/17/18 17:17 Active Saline Loc NOW Care 10/17/18 17:17 Active CHEST-1 VIEW [RAD] Stat Exams 10/17/18 17:[address] ABDOMEN/PELVIS W/O CONTRAST [CT] Stat Exams 10/17/18 17:34 Completed BLOOD CULTURE [BLDCUL] Stat Lab 10/17/18 19:30 Results CBC WITH ELECTRONIC DIFF [HEME] Stat Lab 10/17/18 19:30 Completed COMPREHENSIVE METABOLIC PANEL [CHEM] Stat Lab 10/17/18 19:30 Completed LACTATE, PLASMA [CHEM] Stat Lab 10/17/18 19:30 Completed Metronidazole 500 mg/Ns [Flagyl 500 mg/Ns] Med 10/17/18 18:35 Discontinued 500 mg in 100 ml IV NOW Morphine Med 10/17/18 17:33 Discontinued 3 mg IV NOW ONE Ondansetron [Zofran] Med 10/17/18 17:33 Discontinued 4 mg IV NOW ONE EKG [EKG] Stat Ther 10/17/18 17:18 Ordered Result Diagrams: 10/17/18 19:30 10/17/18 19:30 - CONSULTS/PCP/HOSPITALIST Notification #1 *Consult/PCP/Hospitalist*: d/w DR LOJA Time Discussed: 20:54 Consult Disposition: Admit <Aurelio Luna - Last Filed: 10/17/18 20:59> Departure - Departure Date of Disposition Decision: 10/17/18 Time of Disposition Decision: 18:39 Certified Medical Emergency: Emergent - Critical Care Note This patient required my direct & personal management of CC.: No <Rome Crawley - Last Filed: 10/17/18 18:39> - Departure Time of Disposition Decision: 20:56 <Aurelio Luna - Last Filed: 10/17/18 20:59> - Departure DIAGNOSIS: C. difficile colitis, ESRD (end stage renal disease) on dialysis Disposition: ADMITTED INPATIENT 09 Condition: Fair Referrals and Follow-Ups: Sebastian James MD [Primary Care Provider] - Attestation - Physician/ BARBARA Attestation Patient care was provided by Advanced Practice Provider:: No The physician spent face to face time with patient:: Yes Advanced Practice Provider documentation review:: Supervising physician onsite and consulted in the evaluation and care of this patient. The physician did have a face to face encounter with the patient. <Rome Crawley - Last Filed: 10/17/18 18:39> This chart was documented by the indicated scribe, (Aleena Giles Scribe) and accurately reflects the services I performed and decisions made by me, Rome Crawley MD, as attested by the provider's signature.
[2018-10-17 19:53] LABS: BASO# 0.04 X1000 (0.0-0.2); BASO% 0.5 % (0.0-0.8); EOS# 0.06 X1000 (0.0-0.7); EOS% 0.8 % (0.0-10.0); HEMATOCRIT 40.5 % (37.0-47.0); HEMOGLOBIN 12.8 g/dL (12.0-16.0); LYMPH# 0.75 X1000 (1.2-3.4); MCH 28.6 PG (27-31); MCHC 31.6 g/dL (33-37); MCV 90.6 FL (81-99); MONO# 0.25 X1000 (0.11-0.59); MONO% 3.3 % (1.7-9.3); MPV 11.7 FL (7.4-10.4); NEUT% 85.4 % (42.2-75.2); PLT 87 X1000 (130-400); RBC 4.47 XMIL (4.2-5.4); RDW 13.9 % (11.5-14.5)
[2018-10-17 20:28] LABS: ALB/GLOB RATIO 1.4; ALBUMIN 3.8 g/dL (3.5-5.0); CALCIUM 8.9 mg/dL (8.8-10.2); CREATININE 2.1 mg/dL (0.5-0.9); POTASSIUM 3.5 mmol/L (3.5-5.1); TOTAL BILIRUBIN 0.69 mg/dL (0.20-1.00); TOTAL PROTEIN 6.6 g/dL (6.3-8.3)
[2018-10-17] MEDS: FLAGYL 500 MG/NS 500 MG/100 ML IVPB IV SCH (21:45)
--- NOTE | 2018-10-17 22:13 | HISTORY AND PHYSICAL ---
PRIMARY CARE PHYSICIAN: Dr. James. CHIEF COMPLAINT: Abdominal pain, nausea, vomiting and diarrhea x3 weeks. HISTORY OF PRESENTING ILLNESS: A 68-year-old female with a history of endstage renal disease, on renal dialysis Saturday, Saturday and Saturday; diabetes mellitus type 2; hypertension; coronary disease; C. difficile, currently on treatment with Flagyl. She presented to the emergency department complaining of persistent nausea, vomiting and diarrhea. She states that recently she was getting more abdominal cramping. She was evaluated in the emergency department. She had imaging done which did show colitis. Due to her presenting symptoms, it was thought that she would require admission for further management. At the time of my examination, the patient denied any headache, fever, chills, chest pain or shortness of breath, but complained of abdominal pain, nausea, vomiting and diarrhea. PAST MEDICAL HISTORY: Includes endstage renal disease, diabetes mellitus type 2, hypertension, coronary artery disease. PAST SURGICAL HISTORY: Right BKA, coronary bypass, cataract surgery. ALLERGIES: Demerol and nitroglycerin. CURRENT MEDICATIONS: Aspirin 325 mg p.o. q.a.m.; Pletal 50 mg p.o. b.i.d.; Plavix 75 mg p.o. q.a.m.; Nexium 40 mg p.o. daily; [place] 5 one-half tablet p.o. t.i.d.; insulin glargine 15 units subcutaneous at bedtime; lisinopril 2.5 mg p.o. daily; metoprolol 50 mg p.o. q.a.m.; Remeron 15 mg p.o. at bedtime; Livalo 2 mg p.o. at bedtime; spironolactone/hydrochlorothiazide 20/25 half tablet p.o. daily. SOCIAL HISTORY: She is a former smoker. No history of alcohol or illicit drug use. FAMILY HISTORY: No history of coronary disease. REVIEW OF SYSTEMS: Fourteen-point review of systems is as per the HPI. Other systems negative. PHYSICAL EXAMINATION: GENERAL: Cooperative, friendly female. She is resting comfortably now. VITAL SIGNS: Temperature 98.7 degrees, pulse 79, respirations 17, blood pressure 198/72. She is saturating 92%. HEENT: Atraumatic, normocephalic. Extraocular movements intact. PERRLA. NECK: No masses. CHEST: Bibasilar rales. CARDIOVASCULAR: Regular rate and rhythm. ABDOMEN: Soft. Diffuse tenderness. EXTREMITIES: Trace edema. Right BKA. NEUROLOGIC: She is awake, alert, oriented x3. GENITOURINARY: No bladder distention. SKIN: Warm. LABORATORY DATA: Sodium 140, potassium 3.5, chloride 100, CO2 is 30, BUN is 6, creatinine is 2.1, glucose 200. WBC 7.50, hemoglobin 12.8, hematocrit 40.5, platelets 87,000. DIAGNOSTIC DATA: CT of the abdomen and pelvis shows colitis and proctitis. ASSESSMENT: A 68-year-old female with a history of endstage renal disease, diabetes mellitus type 2, hypertension, coronary artery disease and Clostridium difficile, currently on treatment with Flagyl. She presented to the emergency department complaining of worsening abdominal pain. She was evaluated in the emergency department. She had imaging done which did show colitis and proctitis. Due to her presenting symptoms, she will require admission for further management. 1. Nausea, vomiting, diarrhea. Currently on treatment for Clostridium difficile. 2. Colitis. 3. Diabetes mellitus type 2. 4. Endstage renal disease. 5. Hypertension. PLAN: 1. We will admit the patient to the medical floor with telemetry. 2. We will put the patient in C. difficile isolation. 3. Continue with IV Flagyl. 4. We will consult Gastroenterology. 5. Consult Nephrology for dialysis. 6. We will put the patient on glycemic protocol with sliding scale insulin regimen. 7. Monitor blood pressure. Resume antihypertensive agent. 8. We will continue the patient on DVT prophylaxis with heparin. 9. We will continue to follow and reassess, and make further recommendation based on the patient's clinical course. cc: Johnathan López MD MTDD
[2018-10-18] MEDS: MORPHINE IV PRN ×2 (04:00→09:41)
[2018-10-18] MEDS: HUMULIN R SUBQ SCH ×4 (05:59→21:01)
[2018-10-18 07:20] LABS: BASO# 0.04 X1000 (0.0-0.2); BASO% 0.4 % (0.0-0.8); EOS# 0.08 X1000 (0.0-0.7); EOS% 0.9 % (0.0-10.0); HEMATOCRIT 34.2 % (37.0-47.0); HEMOGLOBIN 10.7 g/dL (12.0-16.0); LYMPH# 1.05 X1000 (1.2-3.4); LYMPH% 11.2 % (20.5-51.1); MCH 28.4 PG (27-31); MCHC 31.3 g/dL (33-37); MCV 90.7 FL (81-99); MONO# 0.51 X1000 (0.11-0.59); MONO% 5.4 % (1.7-9.3); MPV 11.9 FL (7.4-10.4); NEUT% 82.1 % (42.2-75.2); PLT 70 X1000 (130-400); RBC 3.77 XMIL (4.2-5.4); RDW 13.9 % (11.5-14.5); WBC 9.38 X1000 (4.8-10.8)
[2018-10-18 07:28] LABS: CALCIUM 7.9 mg/dL (8.8-10.2); CREATININE 2.3 mg/dL (0.5-0.9); POTASSIUM 2.7 mmol/L (3.5-5.1)
[2018-10-18] MEDS ORDERED: TYLENOL PO PRN (08:44)
[2018-10-18] MEDS ORDERED: VANCOCIN PO SCH (08:45)
[2018-10-18] MEDS ORDERED: KLOR-CON PO ONE (08:52)
[2018-10-18] MEDS ORDERED: ASPIRIN PO SCH (09:00)
[2018-10-18] MEDS ORDERED: PLAVIX PO SCH (09:00)
[2018-10-18] MEDS: FLAGYL 500 MG/NS 500 MG/100 ML IVPB IV SCH ×2 (09:41→16:08)
[2018-10-18] MEDS: CULTURELLE PO SCH ×2 (09:42→21:01)
[2018-10-18] MEDS: LOPRESSOR PO SCH (09:42)
[2018-10-18] MEDS: PLETAL PO SCH ×2 (09:42→21:01)
--- NOTE | 2018-10-18 09:42 | PROGRESS NOTE ---
DATE: 10/18/2018 SUBJECTIVE: Mrs. Sanchez was admitted to [facility] with crampy abdominal pain and explosive watery diarrhea. She had just completed a 2 week course of oral Flagyl for C. difficile colitis. She had been taking Imodium and Lomotil to prevent the diarrhea. Repeat stool studies were positive for both C. difficile toxin and antigen. She continues with crampy abdominal pain and explosive diarrhea. She does have a longstanding history of hypertension. Her blood pressure is fluctuating. Systolic blood pressures have ranged from 170 to 185 whereas her diastolic blood pressures have been in the 60s. She denies any chest pain, palpitations, or anginal equivalents. OBJECTIVE: Vital signs: Temperature 98.5 degrees, pulse 78, respirations 20, blood pressure 170/67. Cardiovascular: Regular rate and rhythm. Lungs: Faint crackles in the bases bilaterally. Abdomen: Soft, diffusely tender. No rebound or guarding. She has good bowel sounds. LABORATORY DATA: Various laboratory studies were obtained. A BMP demonstrates the following. Sodium 139, potassium 2.7, chloride 99, BUN 7, creatinine 2.3, glucose 128. A CBC demonstrated a white count 9.38, hemoglobin 10.7, hematocrit 34.2 and a platelet count of 70,00. ASSESSMENT AND PLAN: 1. Clostridium difficile colitis. Stool studies were positive for C difficile toxin and antigen and a CT scan of the abdomen and pelvis demonstrated colitis and proctitis. I will continue Flagyl 500 mg IV q.8 hours and add Vancocin 125 mg p.o. q.6 hours as she failed outpatient therapy with oral Flagyl. We will stop all medicines such as ammonium on Lomotil which will only prolong the colitis. We will begin Culturelle 1 packet b.i.d. We will advance her diet as tolerated. 2. Essential hypertension. Blood pressure is quite labile. I will resume lisinopril 2.5 mg daily, metoprolol XR 50 mg daily. We will monitor her blood pressure closely. 3. Hypokalemia. I will give her KCl 40 mEq p.o. x1 dose and recheck a BMP in the morning. 4. Thrombocytopenia. I will hold aspirin, Plavix and Lovenox. We will use intermittent compression hose on the lower extremity. I will recheck a CBC in the morning. cc: M. MD Sebastian Almazan MD
[2018-10-18] MEDS: PRINIVIL PO SCH (09:43)
[2018-10-18] MEDS ORDERED: DILAUDID IV PRN (13:29)
[2018-10-18] MEDS ORDERED: DIFICID PO ONE (15:12)
--- NOTE | 2018-10-18 16:00 | NEPHROLOGY CONSULTATION ---
DATE: 10/18/2018 REASON FOR CONSULTATION: ESRD/dialysis. HISTORY OF PRESENT ILLNESS: Ms Sanchez is a 68-year-old woman who is well known to us. She has diabetes, hypertension, coronary disease, CKD 5D, peripheral vascular disease status post amputation. She currently has clostridium enterocolitis diagnosed on October 05. She states her diarrhea is no better. She is anorexic, nauseated with poor p.o. intake. As such, she was directed to the emergency room and admitted. She currently has no shortness of breath, nausea, vomiting. Diarrhea still present but improved. Generalized abdominal discomfort is persistent. She underwent CT of the abdomen which demonstrated colitis and proctitis as well as anasarca. OBJECTIVE: Vital Signs: Blood pressure 150/54, heart rate 61, respiration 18, afebrile. General: She is a thin, chronically ill-appearing woman in no acute distress. Skin is warm and dry. Conjunctivae are pink. Neck veins are distended. Pupils are equal. Heart: Regular. Murmur present. No gallops. Lungs: Have equal breath sounds shallow. No crackles. Abdomen: Soft, mildly tender diffusely. Bowel sounds present. Extremities: With minimal edema. No clubbing or cyanosis. IMPRESSION: 1. Chronic kidney disease 5D. She had her routine dialysis yesterday so we will withhold treatment today. She is clinically volume overloaded so I will not add IV fluids. Dialysis is needed for management of her volume status. 2. I have reviewed her medications and no changes are required currently. She is receiving morphine and so I will change that to hydromorphone. cc: MD Sebastian Dean MD
--- NOTE | 2018-10-18 18:22 | GASTROENTEROLOGY CONSULTATION ---
DATE: 10/18/2018 CONSULTING PHYSICIAN: Dr. James. REASON FOR CONSULT: Diarrhea and abdominal pain. HISTORY: This is a 68-year-old, -[place] lady, with multiple medical problems. She has a history of renal failure, currently on hemodialysis. She also has underlying history of diabetes, peripheral vascular disease, coronary artery disease, status post coronary artery bypass graft and stent placed earlier. She tells me that she was in good health considering all of the other medical issues. She started having some diarrhea 3 weeks ago, which has persisted. Now, the diarrhea is worse and she is also complaining of some abdominal pain. She points towards the upper part of the abdomen across. She tells me the pain is cramp-like with no radiation. The diarrhea and cramps has continued despite treatment. She denies any fever or chills. She has been feeling weak, and has not had any nausea or vomiting associated with it. She denies any blood or mucus in her stool. Her appetite is poor because of the pain and discomfort as well as diarrhea. With these complaints, she was brought to the emergency room and a CT scan of the abdomen done, which revealed evidence of colitis involving the left colon, and her stool studies confirmed C. difficile colitis toxins still present in her stool. She was admitted for further evaluation and treatment. Since admission, she has been hydrated and has felt some better, but continues to have some abdominal pain. PAST MEDICAL HISTORY: Again, significant for diabetes, hypertension, peripheral vascular disease, coronary artery disease, and end-stage renal disease, currently on hemodialysis. PAST SURGICAL HISTORY: She has had cataract surgery, coronary artery bypass graft surgery and stent placement. Also, has a history of right below-knee amputation. MEDICATIONS: Prior to hospitalization, she has been on Livalo, Zofran, Remeron, Lopressor, Robaxin, Imodium, Prinivil, also gets insulin, Nexium, [place], Plavix, Pletal, and Tylenol. She is also on regular dose aspirin. ALLERGIES: Claims to be allergic to Demerol and nitroglycerin. SOCIAL HISTORY: She is and lives by herself. She does not smoke. Does not drink. No illicit drugs. FAMILY HISTORY: Noncontributory. REVIEW OF SYSTEMS: As per HPI as above. PHYSICAL EXAMINATION: General: A very pleasant, -[place] female. I know her from my practice as well as her working in the hospital. 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 Patient is conscious, alert, appears to be in no distress. vital signs: Temperature 98.2 degrees, pulse 61 per minute, breathing at 18, blood pressure is 150/54. HEENT: Head is atraumatic, normocephalic. Eyes: Conjunctivae normal. Sclerae anicteric. Nares are patent, no discharge. Mouth: Buccal mucosa is moist. Throat is normal. Neck: Supple. No lymphadenopathy or thyromegaly. Chest: Bilaterally symmetrical. It is moving with respirations. Breath sounds audible bilaterally. No rhonchi or crepitations could be heard. Heart: Audible. No murmur could be appreciated. Abdomen: Slightly distended, soft, but tender. She has diffuse tenderness on palpation, but no rebound tenderness or guarding noted. Bowel sounds are audible. No pedal edema, cyanosis, clubbing is noted. Central nervous system: Grossly intact. No sensory or motor deficit. There is evidence of right below-knee amputation. LABORATORY: Reviewed, which showed WBC of 9.838, hemoglobin 10.7, hematocrit 34.2, MCV is 90.7, platelets are 70,000. Sodium 139, potassium 2.7, chloride 99, bicarbonate is 28, BUN is 7, creatinine 2.3. LFTs done yesterday were normal. Stool C. difficile toxin was positive. Blood cultures so far, preliminary results were negative. IMPRESSION/PLAN: This is a 68-year-old, -[place] female, with multiple medical problems. She has presented with abdominal pain and diarrhea. She has a history of peripheral vascular disease and has multiple other medical problems. Considering her age, considering her comorbid condition, and her Clostridium difficile toxin, she appears to have severe Clostridium difficile colitis, and she has high risk disease. She needs to be treated appropriately and has been started on Flagyl as well as p.o. vancomycin, and that needs to be continued. In the meantime, we need to check and replenish electrolytes, hydrate her appropriately considering her renal failure, but I would change her vancomycin to Dificid because of dose alteration that has to be done for vancomycin because of her renal failure, whereas Dificid does not require that. I would continue her on a full liquid diet at this point, advised her to avoid milk and cheese for now, and encourage her to take p.o. as much as possible, especially fluids. Continue her other medical treatment. Will follow and depending on her progress, we will decide further plans. I have explained the findings and plan to the patient. She understands. All pertinent questions were answered. cc: MD Sebastian Mcmahon MD
[2018-10-18] MEDS: LIVALO PO SCH (21:01)
[2018-10-18] MEDS: DIFICID PO SCH (21:01)
[2018-10-18] MEDS ORDERED: SODIUM CHLORIDE 0.9% INJ PRN (21:14)
[2018-10-18] MEDS: PHENERGAN IV PRN (22:24)
[2018-10-19] MEDS: FLAGYL 500 MG/NS 500 MG/100 ML IVPB IV SCH ×4 (02:21→23:54)
[2018-10-19] MEDS: HUMULIN R SUBQ SCH ×4 (06:28→20:22)
[2018-10-19 08:08] LABS: HEMATOCRIT 35.3 % (37.0-47.0); MCH 28.3 PG (27-31); MCHC 31.2 g/dL (33-37); MCV 90.7 FL (81-99); MPV 12.1 FL (7.4-10.4); RBC 3.89 XMIL (4.2-5.4); RDW 13.6 % (11.5-14.5); WBC 9.27 X1000 (4.8-10.8)
[2018-10-19] MEDS: PRINIVIL PO SCH (08:10)
[2018-10-19] MEDS: CULTURELLE PO SCH ×2 (08:10→20:21)
[2018-10-19] MEDS: PLETAL PO SCH ×2 (08:11→20:21)
[2018-10-19] MEDS: DIFICID PO SCH ×2 (08:11→20:21)
[2018-10-19] MEDS: LOPRESSOR PO SCH (08:12)
[2018-10-19 08:22] LABS: CALCIUM 8.3 mg/dL (8.8-10.2); CREATININE 3.3 mg/dL (0.5-0.9)
[2018-10-19] MEDS ORDERED: KLOR-CON PO ONE (09:05)
--- NOTE | 2018-10-19 09:31 | PROGRESS NOTE ---
DATE: 10/19/2018 Ms. Sanchez was admitted to [facility] with C. difficile colitis. She is currently taking intravenous Flagyl as well as Dificid 200 mg b.i.d. She reports that she has less abdominal cramping and diarrhea this morning. She reports that her appetite is improved. Her nausea and vomiting are better with intravenous Phenergan. Her blood pressure is still fluctuating. This morning, her blood pressure was 158/50. We had resumed both the metoprolol and lisinopril yesterday. PHYSICAL EXAMINATION: Temperature 98.1 degrees, pulse 57, respirations 18, BP 158/50. CV: Regular rate and rhythm. Lungs: Clear. Abdomen: Soft. Less tenderness is noted. No rebound or guarding. She has good bowel sounds. LABS: Various laboratory studies were obtained. A CBC demonstrated a white count of 9.2, hemoglobin 11, hematocrit 35.3, and a platelet count of 72,000. Electrolytes demonstrated the following: Sodium 139, potassium 3.0, carbon dioxide 26, chloride 102, BUN 11, creatinine 3.3. ASSESSMENT AND PLAN: 1. Clostridium difficile colitis. Clinically, she seems a little bit better this morning. We will continue a full liquid diet, as well as Flagyl 500 mg intravenous every 6 hours and Dificid 200 mg twice a day. We will advance her diet as tolerated. 2. Blood pressure is trending down. We will continue lisinopril and metoprolol, and adjust her medicines as needed. 3. Hypokalemia. I will give her KCl 20 mEq by mouth x1 dose now. 4. End-stage renal disease. She dialyzes on Saturday, Saturday, and Saturday. Dr. Padilla is seeing her in consultation. cc: MD Sebastian Siegel MD
--- NOTE | 2018-10-19 12:19 | GASTROENTEROLOGY PROGRESS NOTE ---
DATE: 10/19/2018 SUBJECTIVE: The patient states she has had less diarrhea today. She is receiving Flagyl and Dificid. She has had some problems with elevated blood pressure. Dr. Haider has resumed her blood pressure medication. OBJECTIVE: Vital Signs: Temperature 98.1 degrees, pulse 57, respirations 18, blood pressure 158/50. General: The patient is awake and alert, in no acute distress. So far today, she states she has had 2 loose stools. Laboratory: Hematology: WBC 9.27, hemoglobin 11.0, hematocrit 35.3, MCV 90.7, platelets 72,000. Chemistry: Sodium 139, potassium 3.0, chloride 102, CO2 of 26, BUN 11, creatinine 3.3, glucose 110. ASSESSMENT AND PLAN: 1. Clostridium difficile colitis. Continue antibiotics, Flagyl and Dificid. 2. Diarrhea is improving. 3. Hypertension. Patient has been restarted on her blood pressure medications. 4. End-stage renal disease. Dr. Padilla is following. PLAN: Continue liquid diet for now, avoiding dairy products. Continue antibiotics. We will continue to monitor. Further plans to be made according to her progress. I have discussed this case with Dr. Figueroa. Dictated by MICHAEL Gloria for Celio Figueroa MD cc: MICHAEL Mora MD Timothy P. Weirich, MD
[2018-10-19] MEDS: LIVALO PO SCH (20:21)
[2018-10-20] MEDS: HUMULIN R SUBQ SCH ×4 (06:25→21:00)
[2018-10-20] MEDS: PHENERGAN IV PRN (06:29)
[2018-10-20 07:12] LABS: AGAP 12; BUN 14 mg/dL (8-22); CALCIUM 7.9 mg/dL (8.8-10.2); CHLORIDE 106 mmol/L (98-107); COSMO 273; GLUCOSE 79 mg/dL (70-104); POTASSIUM 3.1 mmol/L (3.5-5.1); SODIUM 137 mmol/L (136-145); TCO2 19 mmol/L (25-35)
[2018-10-20 07:13] LABS: CREATININE 3.8 mg/dL (0.5-0.9)
[2018-10-20] MEDS ORDERED: TIGHT: 0.2 ML/HR FOR DIALYSIS MISC PRN (07:17)
[2018-10-20] MEDS ORDERED: HEPARIN IV PRN (07:17)
[2018-10-20] MEDS ORDERED: NS 2,000 ML MISC PRN (07:17)
[2018-10-20] MEDS: PRINIVIL PO SCH (08:54)
[2018-10-20] MEDS: LOPRESSOR PO SCH (08:54)
[2018-10-20] MEDS: FLAGYL 500 MG/NS 500 MG/100 ML IVPB IV SCH ×3 (08:54→23:59)
[2018-10-20] MEDS: CULTURELLE PO SCH ×2 (08:54→20:48)
[2018-10-20] MEDS: DIFICID PO SCH ×2 (08:54→20:48)
[2018-10-20] MEDS: PLETAL PO SCH ×2 (08:54→20:48)
--- NOTE | 2018-10-20 11:25 | NEPHROLOGY PROGRESS NOTE ---
DATE: 10/20/2018 SUBJECTIVE: The patient is resting in bed. She states that her abdomen hurts significantly. OBJECTIVE: Vital Signs: Temperature 97.5 degrees, pulse 59, respiratory rate 18, blood pressure 156/42. Intake and output: Intake 1.4 L. Output not measured. She continues with liquid stools. General: This is a chronically ill-appearing, elderly female, resting in bed. She is in no acute distress. HEENT: Normocephalic, atraumatic. Her conjunctivae are pink. Oral mucosa is dry. Neck: Supple. She does have positive JVD. Cardiovascular: Regular rate and rhythm with a systolic murmur. Pulmonary: Equal excursion. She has decreased breath sounds, but no wheeze or rhonchi. Abdomen: Soft, with mild tenderness throughout. Genitourinary: Minimal void. Extremities: She has a right BKA. Integumentary: Skin is warm and dry. Neurologic: Grossly nonfocal. LABORATORY DATA: Sodium 137, potassium 3.1, CO2 of 19, creatinine 3.8. ASSESSMENT AND PLAN: 1. Chronic kidney disease, 5D. Today is her routine dialysis day. She will dialyze on a 3 K bath/UF to her dry weight, 3-1/2-hour treatment. 2. Electrolytes, acid-base balance. See above for plan. 3. Medication review. No changes are needed for current medications. Dictated by MICHAEL Garibay for Doug Padilla MD Face to face encounter, data reviewed, discussed with Jessica Patel on 10/20/18. I agree with the above assessment and plan of care. cc: MD Sebastian Dean MD [facility] [place]
--- NOTE | 2018-10-20 13:25 | GASTROENTEROLOGY PROGRESS NOTE ---
DATE: 10/20/2018 SUBJECTIVE: The patient was asleep at the time of my evaluation. She was in no acute distress. I have spoken with the nurse, who states she has had 2 loose stools today. OBJECTIVE: Vital Signs: Temperature 98 degrees, pulse 66, respirations 15, blood pressure 172/65. General: The patient was asleep, in no acute distress. LABORATORY DATA: Hematology: WBC 9.27, hemoglobin 11.0, hematocrit 35.3, MCV 90.7. Chemistry: Sodium 137, potassium 3.1, chloride 106, CO2 of 19, BUN 14, creatinine 3.8, glucose 79, calcium 7.9. ASSESSMENT AND PLAN: 1. Clostridium difficile colitis. Continuing on antibiotics, Flagyl and Dificid. 2. Diarrhea is improving. 3. End-stage renal disease. She has been seen by Dr. Padilla. I believe she will have her routine dialysis today. 4. Her diarrhea is improving. Continue liquid diet, and avoiding dairy products for now. Continue antibiotics. Will continue to follow, and further plans will be made according to her progress. I have discussed this case with Dr. Figueroa. Dictated by MICHAEL Gloria for Celio Figueroa MD cc: MICHAEL Mora MD Timothy P. Weirich, MD
--- NOTE | 2018-10-20 15:06 | PROGRESS NOTE ---
DATE: 10/20/2018 SUBJECTIVE: The patient states, that she still feels terrible, that her abdomen hurts. She had some diarrhea this morning. She feels nauseated but has not vomited this morning. OBJECTIVE: Vital Signs: Temperature 97.5, pulse 59, blood pressure 156/42, saturating 100% on room air. Lungs: Clear. Cardiovascular: Regular. General: It appears that she has lost weight and she is down to only a shadow of her former self. LABORATORY DATA: Potassium 3.1, BUN 14, creatinine 3.8, blood sugar 79. ASSESSMENT AND PLAN: 1. The patient has documented Clostridium difficile positivity. We will continue to maintain her in Isolation. I am going to order a stool fat and pancreatic elastase to see if she has any pancreatic enzymes, as this may be contributing to her symptomatology, but of course not to her Clostridium difficile. She is on appropriate medications and followed by Gastroenterology. 2. The patient's blood sugar is well controlled. 3. Hypertension, well controlled. 4. End-stage renal disease. The patient has Saturday, Saturday, and Saturday dialysis. Dr. Padilla and his team is following. cc: Sebastian James MD
[2018-10-20] MEDS: LIVALO PO SCH (20:48)
[2018-10-21] MEDS: FLAGYL 500 MG/NS 500 MG/100 ML IVPB IV SCH ×3 (03:56→18:42)
[2018-10-21] MEDS: HUMULIN R SUBQ SCH ×3 (07:00→18:43)
--- NOTE | 2018-10-21 08:49 | NEPHROLOGY PROGRESS NOTE ---
DATE: 10/21/2018 SUBJECTIVE: Patient resting in bed. She states her blood sugars have been dropping in the middle of the night. She remains on a clear liquid diet. OBJECTIVE: Vital Signs: Temperature 98.5 degrees, pulse 68, respiratory rate 17, blood pressure 184/54. Intake 478 mL, output 2 L. General: Elderly female resting in bed, chronically ill- appearing. She has no acute distress. HEENT: Normocephalic, atraumatic. [place]. Neck: Supple with trace JVD. Cardiovascular: Regular rate and rhythm with a murmur. Pulmonary: She has equal excursion, clear bilaterally. Abdomen: Soft, with positive bowel sounds. Continues with mild tenderness. : Minimal void. Extremities: Right BKA. Integumentary: Skin is warm and dry. LAB DATA: Pending. ASSESSMENT AND PLAN: 1. Chronic kidney disease 5D. She dialyzed yesterday. She had 2 L removed on hemodialysis. Plan to dialyze her again tomorrow. 2. Clostridium difficile colitis. Followed by Primary and GI. She remains on clear liquid diet. States that her diarrhea has improved slightly. 3. Fluid volumes. Again, we removed 2 L yesterday. Will plan to dialyze again tomorrow to help with fluid management. Dictated by MICHAEL Garibay for Doug Padilla MD Face to face encounter, data reviewed, discussed with Jessica Patel on 10/21/18. I agree with the above assessment and plan of care. cc: MD Sebastian Dean MD [facility]
[2018-10-21] MEDS: CULTURELLE PO SCH ×2 (09:39→20:35)
[2018-10-21] MEDS: DIFICID PO SCH ×2 (09:39→20:35)
[2018-10-21] MEDS: PRINIVIL PO SCH (09:40)
[2018-10-21] MEDS: PLETAL PO SCH ×2 (09:40→20:35)
[2018-10-21] MEDS: LOPRESSOR PO SCH (09:40)
[2018-10-21] MEDS: DILAUDID IV PRN (09:57)
--- NOTE | 2018-10-21 13:31 | GASTROENTEROLOGY PROGRESS NOTE ---
DATE: 10/21/2018 SUBJECTIVE: The patient was awake, alert and in no acute distress. She states she has had 2 loose stools today. She still reports some abdominal pain, but it has improved. OBJECTIVE: Vital Signs: Temperature 98.5 degrees, pulse 92, respirations 16, blood pressure 172/67. General: Patient is awake, alert, in no acute distress. LABORATORY: Hematology: WBC 9.27, hemoglobin 11.0, hematocrit 35.3, MCV 90.7. Chemistry: Sodium 137, potassium 3.1, chloride 106, CO2 19. BUN 14, creatinine 3.8, glucose 79, calcium 7.9. ASSESSMENT AND PLAN: 1. Clostridium difficile colitis. Continuing on antibiotics, Flagyl and Dificid. 2. Diarrhea is improving. 3. End-stage renal disease, following with Dr. Padilla. Following her routine dialysis. 4. Diarrhea, improving. 5. Abdominal pain, improving. Continue current medications. Avoid dairy products for now. Will continue to follow. Further plans will be made according to her progress. I have discussed this case with Dr. Figueroa. Dictated by MICHAEL Gloria for Celio Figueroa MD cc: MICHAEL Mora MD Timothy P. Weirich, MD
--- NOTE | 2018-10-21 19:22 | PROGRESS NOTE ---
DATE: 10/21/2018 SUBJECTIVE: The patient states that she is feeling a little bit better, and her abdominal pain has decreased slightly. Her appetite is poor. She is still a bit nauseated. She had 2 diarrheal stools yesterday. OBJECTIVE: Vital Signs: 97.4, 66, 18, 181/57, 100% saturated on 2 L nasal cannula. Lungs: Clear. Cardiovascular: Regular with ectopy. Extremities: No peripheral edema. LABORATORY: No laboratory scheduled today, but she did have several blood sugar checks. These were ranging rather low at 103, 67, and 73. ASSESSMENT/PLAN: 1. Clostridium difficile colitis continues. She is improving clinically and desires for us to advance her diet. Hopefully, if she is going to eat more, then her blood sugars will perk up as well. I want to hold her sliding scale insulin until she starts eating a little bit better. 2. Stool fat and pancreatic elastase studies are pending. 3. The patient's blood sugars are trending low. 4. Hypertension. The patient's blood pressure shows a wide pulse pressure. This seems to fluctuate with her fluid volume status between dialysis. 5. The patient continues with Saturday, Saturday, Saturday dialysis per Dr. Padilla and his team. cc: Sebastian James MD
[2018-10-21] MEDS: LIVALO PO SCH (21:53)
[2018-10-22] MEDS: PHENERGAN IV PRN (00:57)
[2018-10-22] MEDS: FLAGYL 500 MG/NS 500 MG/100 ML IVPB IV SCH ×3 (01:00→18:30)
[2018-10-22] MEDS ORDERED: HEPARIN IV PRN (06:20)
[2018-10-22] MEDS ORDERED: TIGHT: 0.2 ML/HR FOR DIALYSIS MISC PRN (06:20)
[2018-10-22] MEDS ORDERED: NS 2,000 ML MISC PRN (06:20)
--- NOTE | 2018-10-22 08:57 | PROGRESS NOTE ---
DATE: 10/22/2018 SUBJECTIVE: The patient states that she had a really rough night. She states "I feel like I was dying". She stated that her abdominal pain was bad last night and she was very uncomfortable. She became nauseated at one point, but did not vomit. She states that she has loose bowel movements every morning. PHYSICAL EXAMINATION: Vital Signs: 99.3 degrees, 71, 18, 209/72. Lungs: Clear. Cardiovascular: Regular. Extremities: Show no peripheral edema. The patient is alert, oriented, conversive and appropriate. LABORATORY: Fingerstick blood sugar was 86. ASSESSMENT AND PLAN: 1. Dr. Figueroa advanced the patient's diet yesterday, although she is still not having any dairy. Her Clostridium difficile colitis continues. She is on appropriate antibiotics and medications for relief of that. 2. Stool fat pancreatic elastase and lactoferrin are still pending. 3. Blood sugars continue to be in acceptable range. I held her insulin yesterday and will continue to do so until she is eating a little bit better. 4. The patient's blood pressure fluctuates pretty wildly depending on her level of pain and where she is in her cycle of dialyses during the week. 5. The patient has dialysis today. cc: Sebastian James MD
[2018-10-22] MEDS: PLETAL PO SCH ×2 (09:50→20:20)
[2018-10-22] MEDS: DIFICID PO SCH ×2 (09:50→20:20)
[2018-10-22] MEDS: LOPRESSOR PO SCH (09:50)
[2018-10-22] MEDS: PRINIVIL PO SCH (09:51)
[2018-10-22] MEDS: CULTURELLE PO SCH ×2 (09:51→20:20)
--- NOTE | 2018-10-22 13:44 | NEPHROLOGY PROGRESS NOTE ---
DATE: 10/22/2018 SUBJECTIVE: Patient states that her diarrhea became worse overnight. She continues with some low blood sugars. OBJECTIVE: Vital Signs: Temperature 98.4 degrees, pulse 63, respiratory rate 18, blood pressure 145/52. Intake 1.2 L. Output none other than liquid stool. General: Chronically ill-appearing elderly female, sitting up on the side of the bed. She is awake and alert. She appears to feel poorly but no acute distress. HEENT: Normocephalic, atraumatic. Oral mucosa dry. Neck: Supple. No JVD. Cardiovascular: Regular rate and rhythm with a murmur. Pulmonary: She has equal excursion. She has no increased work of breathing and is clear. Abdomen: Soft, with positive bowel sounds. : Minimal void. Extremities: Right BKA. Left, no edema. Integumentary: Skin is warm and dry. LAB DATA: Pending. PLAN: 1. Chronic kidney disease 5D. Today is her routine dialysis day. We will have dialysis nurses give her a couple of liters during HD. Today it appears that she is actually in negative territory secondary to the liquid stools that have worsened. 2. Clostridium difficile colitis. Followed by primary and GI. Dictated by MICHAEL Garibay for Doug Padilla MD Face to face encounter, data reviewed, discussed with Jessica Patel on 10/22/18. I agree with the above assessment and plan of care. cc: MD Sebastian Dean MD [facility]
--- NOTE | 2018-10-22 14:02 | GASTROENTEROLOGY PROGRESS NOTE ---
DATE: 10/22/2018 SUBJECTIVE: Patient states she is feeling better now. She states she had a bad night with some nausea and some abdominal pain. She reports having 2 loose stools today. She is asking about advancing her diet. She seemed to be in good spirits today. She is on the phone talking to a friend or family member at the time on my visit. OBJECTIVE: Vital Signs: Temperature 98.2 degrees, pulse 67, respirations 18, blood pressure 138/87. General: Patient is awake, alert, in no acute distress. LABORATORY: Hematology: WBC 9.27, hemoglobin 11.0 hematocrit 35.3, MCV 90.7. Chemistry: Sodium 137, potassium 3.1 chloride 106, CO2 19, BUN 14, creatinine 3.8, glucose 79. ASSESSMENT AND PLAN: 1. Clostridium difficile colitis, on antibiotics. 2. Abdominal pain, nausea. Seemed to have improved. 3. End-stage renal disease. Patient receiving her regularly scheduled dialysis. PLAN: Patient is asking for advancement of her diet. We will advance to a GI soft diet but avoid milk or dairy products except for she can have yogurt. Further plans to be made according to her progress. I have discussed this case with Dr. Figueroa. Dictated by MICHAEL Gloria for Celio Figueroa MD cc: MICHAEL Mora MD Timothy P. Weirich, MD
[2018-10-22] MEDS: LIVALO PO SCH (20:20)
[2018-10-22] MEDS: HUMULIN R SUBQ SCH (21:22)
[2018-10-23] MEDS: FLAGYL 500 MG/NS 500 MG/100 ML IVPB IV SCH ×2 (02:58→09:14)
[2018-10-23] MEDS: HUMULIN R SUBQ SCH ×2 (06:50→19:02)
[2018-10-23 08:54] LABS: BASO# 0.13 X1000 (0.0-0.2); BASO% 3.4 % (0.0-0.8); EOS# 0.07 X1000 (0.0-0.7); EOS% 1.8 % (0.0-10.0); HEMATOCRIT 36.4 % (37.0-47.0); HEMOGLOBIN 11.4 g/dL (12.0-16.0); IMM GRAN# 0.04 X1000 (0.0-0.04); LYMPH# 1.08 X1000 (1.2-3.4); LYMPH% 28.1 % (20.5-51.1); MCH 28.2 PG (27-31); MCHC 31.3 g/dL (33-37); MCV 90.1 FL (81-99); MONO# 0.31 X1000 (0.11-0.59); MONO% 8.1 % (1.7-9.3); MPV 11.5 FL (7.4-10.4); NEUT# 2.21 X1000 (1.4-6.5); NEUT% 57.6 % (42.2-75.2); PLT 87 X1000 (130-400); RBC 4.04 XMIL (4.2-5.4); RDW 13.1 % (11.5-14.5); WBC 3.84 X1000 (4.8-10.8)
[2018-10-23] MEDS: PRINIVIL PO SCH (09:11)
[2018-10-23] MEDS: DIFICID PO SCH ×2 (09:12→21:35)
[2018-10-23] MEDS: CULTURELLE PO SCH ×2 (09:12→21:35)
[2018-10-23] MEDS: LOPRESSOR PO SCH (09:12)
[2018-10-23] MEDS: PLETAL PO SCH ×2 (09:12→21:35)
--- NOTE | 2018-10-23 14:22 | GASTROENTEROLOGY PROGRESS NOTE ---
DATE: 10/23/2018 The patient was resting comfortably. Still complaining of some nausea and has had mild abdominal pain, mostly in the right side but denies any vomiting. She has had 3 loose bowel movements today. Overall, she is feeling better and wants to eat regular diet. She was prescribed a GI soft diet last night. Apparently, she has not gotten it yet.Vital signs: Temperature 98.7 degrees, pulse 72 per minute, breathing 12, blood pressure 187/68. Abdomen: Full, soft, mildly tender right lower quadrant area. No rebound, tenderness, guarding noted. Bowel sounds are audible. LABORATORIES: Reviewed which showed WBC now is 3.84, hemoglobin 11.4, hematocrit 36.4, MCV is 90.5, and platelets were 87. IMPRESSION: Clostridium difficile colitis. The frequency of her bowel movements have come down to 2 to 3 bowel movements a day but consistency remains loose. She has been on combination of IV Flagyl and Dificid. She continues to have nausea and does not feel good. I would stop her Flagyl. I think at this point, Dificid alone will suffice. In the meantime, I would advance her diet and encourage her to ambulate. Of course, she has below-knee amputation. She needs assistance with ambulation and she can ambulate in the room and when she gets stabilized enough, she can be discharged to be followed up at the office. cc: MD Sebastian Mcmahon MD
--- NOTE | 2018-10-23 14:24 | NEPHROLOGY PROGRESS NOTE ---
DATE: 10/23/2018 SUBJECTIVE: Patient states that her diarrhea has returned. She states that her blood sugars have dropped, but not as badly overnight. OBJECTIVE: Vital Signs: Temperature 99.4 degrees, pulse 78, respiratory rate 18, blood pressure 160/56. Intake and Output: Intake 2.5 L. 2 L of this was given in hemodialysis per plan yesterday. General: Elderly female, resting in bed. Awake and alert. She is in no acute distress. HEENT: Normocephalic, atraumatic. D[place]. Neck: Supple with no JVD. Cardiovascular: Regular rate and rhythm with no murmur. Pulmonary: Clear bilaterally, has equal excursion. Abdomen: Soft with slight tenderness. Genitourinary: Not inspected. Minimal void. Extremities: She has a right BKA. Continues with no edema. Integumentary: Skin remains warm and dry. DIAGNOSTIC STUDIES: WBC is 3.8, Hemoglobin 11.4. ASSESSMENT AND PLAN: 1. Chronic kidney disease, stage 5D. We will continue her on her Saturday/Saturday/Saturday schedule while she remains in the hospital. We will need to monitor for her fluids while she is here, and she may require additional treatment if she continues with significantly liquid stools. 2. Clostridium difficile colitis. Followed by primary and Gastroenterology. There is some question as far as whether she has cleared the C difficile or not. We will order a specimen. If she has cleared the C difficile, then it may adjust our treatment plan. Dictated by MICHAEL Garibay for Doug Padilla MD Face to face encounter, data reviewed, discussed with Jessica Patel on 10/23/18. I agree with the above assessment and plan of care. cc: MD Sebastian Dean MD [facility]
--- NOTE | 2018-10-23 21:24 | PROGRESS NOTE ---
DATE: 10/23/2018 SUBJECTIVE: The patient states that she is feeling a little bit better today. Her abdominal pain is less. She still has loose stools. Her appetite is slightly improved. OBJECTIVE: Vital Signs: Temperature 98.7, 75, 16, 200/70, 93% saturated on room air. OBJECTIVE: Lungs: Clear. Cardiovascular: Regular. Neuropsychiatric: The patient is alert, oriented, conversive, and appropriate. LABORATORY: White cell count 3.8, hematocrit 36.4. ASSESSMENT AND PLAN: 1. The patient's diet continues to advance. She is still having antibiotics. We will probably check a surveillance stool sample for C. difficile. Abdominal pain is improving. 2. Stool fat and pancreatic elastase are still pending, but lactoferrin was positive. 3. Blood sugars continue to be low considering the fact that she is on no insulin. We will continue to hold insulin until she is eating better. 4. The patient's blood pressure in wildly erratic with elevated pulse pressure. 5. Dr. Padilla and his team are following in relation to end-stage renal disease and dialysis treatment. cc: Sebastian James MD
[2018-10-23] MEDS: LIVALO PO SCH (21:35)
[2018-10-24] MEDS ORDERED: TIGHT: 0.2 ML/HR FOR DIALYSIS MISC PRN (07:24)
[2018-10-24] MEDS ORDERED: HEPARIN IV PRN (07:24)
[2018-10-24] MEDS ORDERED: NS 2,000 ML MISC PRN (07:24)
--- NOTE | 2018-10-24 10:06 | PROGRESS NOTE ---
DATE: 10/24/2018 SUBJECTIVE: The patient states that she is feeling a little bit better. This was made evident by the fact that she was sitting up in the chair. She had her prosthetic leg on and was eating breakfast. She states that she still has diarrhea, which usually occurs in the morning and seems to correlate with drops in blood sugar. This occurred this morning as well. OBJECTIVE: Vital Signs: 98.3, 74, 16, 192/73, 100% saturated on 2 L nasal cannula. General: On physical examination, the patient is alert, oriented, conversive and appropriate. Lungs: Clear. Cardiovascular: Regular. LABORATORY: None. Blood sugar this morning was 64. ASSESSMENT AND PLAN: 1. The patient's diet has been advanced. She is still on antibiotics for Clostridium difficile. Her most recent Clostridium difficile toxin monitoring was negative. Her abdominal pain is improving. She still has diarrhea. 2. Stool fat and pancreatic elastase are still pending. 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 I am going to start her empirically on some Creon 3 times a day to see if this will improve her nutritional status. It would certainly fit the total picture in a certain sense that her weight loss was due to malabsorption. 3. Blood sugars continue to trend low and sometimes she has symptomatic hypoglycemia as she did this morning. She has not had any insulin in multiple days. If she indeed has a full pancreatic burnout, I find it almost hard to believe that the only thing functioning of that organ is her alpha cells. 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 We will continue to hold her insulin. 4. Patient's blood pressure continues, but is very sporadic in its levels. I am not terribly comfortable trying to reduce her systolic blood pressure because the pulse pressure is so wide. 5. Dr. Padilla and his team are handling her end-stage renal disease. 6. As I was leaving, the patient mentioned that she was having some "breakdown" on her bottom from having diarrhea. I want to have enterostomal nurse therapist look at that or at least a direct support specialist and get their opinion. We may want to launch some physical therapy as well. cc: Sebastian James MD
[2018-10-24] MEDS: LOPRESSOR PO SCH (11:04)
--- NOTE | 2018-10-24 12:21 | GASTROENTEROLOGY PROGRESS NOTE ---
DATE: 10/24/2018 SUBJECTIVE: The patient was seen in the Dialysis Unit. She was receiving dialysis at that time of my evaluation. She states her abdominal pain has improved some. So far, today she has had 4 loose stools. She states her blood sugar has been low, and she was given orange juice and noticed some increased diarrhea after that. She had a repeat Clostridium difficile toxin stool test on 10/23/2018 that was negative. She is continued on antibiotics. OBJECTIVE: Vital Signs: Temperature 98.8 degrees, pulse 74, respirations 16, blood pressure 192/73. General: On physical exam, patient is awake and alert, in no acute distress. She is currently receiving dialysis. LABORATORY: Hematology on 10/23/2018: WBC 3.84, hemoglobin 11.4, hematocrit 36.4, MCV 90.1. Chemistry: Sodium 137, potassium 3.1, chloride 106, CO2 19. BUN 14, creatinine 3.8, glucose 79, calcium 7.9. Her blood sugar this morning was 64. ASSESSMENT: 1. Clostridium difficile colitis on antibiotics. Repeat Clostridium difficile toxin was negative. Abdominal pain has improved. She has had some increased diarrhea today. 2. Hypoglycemia. 3. End-stage renal disease on dialysis. The patient is currently having her routine dialysis at the time of my evaluation. 4. Hypertension. PLAN: Continue current antibiotics. Continue to avoid milk or dairy products for now. Clostridium difficile toxin stool test on 10/23 was negative. We will continue symptomatic management and treatment, along with antibiotics. Will continue to follow. Further plans will be made according to her progress. I have discussed this case with Dr. Figueroa. Dictated by MICHAEL Gloria for Celio Figueroa MD cc: MICHAEL Mora MD Timothy P. Weirich, MD
[2018-10-24] MEDS: CREON PO SCH ×2 (14:00→17:02)
[2018-10-24] MEDS: PRINIVIL PO SCH (14:00)
[2018-10-24] MEDS: CULTURELLE PO SCH ×2 (14:00→20:08)
[2018-10-24] MEDS: PLETAL PO SCH ×2 (14:01→20:07)
[2018-10-24] MEDS: DIFICID PO SCH ×2 (14:01→20:08)
--- NOTE | 2018-10-24 14:19 | NEPHROLOGY PROGRESS NOTE ---
DATE: 10/24/2018 SUBJECTIVE: She is about the same. She is having 2 to 3 liquid bowel movement today. She states she already has 3 bowel movements this morning. Her right lower quadrant remains tender. OBJECTIVE: Vital Signs: Blood pressure 192/73, heart rate 74, respirations 16, afebrile. General: No acute distress. Skin: Warm and dry. Neck: Neck veins are not distended. Heart: Regular. Gallop is present. Lungs: Equal. No crackles. Abdomen: Soft. Minimally tender. Bowel sounds present. Extremities: Have no edema, clubbing or cyanosis. IMPRESSION: Chronic kidney disease, 5D. Today is her routine dialysis day. A 3 K bath. Minimal UF. Anemia is within target. Euvolemic. No other changes. cc: MD Sebastian Dean MD
[2018-10-24] MEDS: LIVALO PO SCH (20:08)
[2018-10-25] MEDS: CATAPRES PO PRN (01:51)
[2018-10-25] MEDS: NORVASC PO SCH (08:55)
[2018-10-25] MEDS: LOPRESSOR PO SCH (08:56)
[2018-10-25] MEDS: PLETAL PO SCH ×2 (08:56→20:12)
[2018-10-25] MEDS: DIFICID PO SCH ×2 (08:56→20:12)
[2018-10-25] MEDS: CREON PO SCH ×3 (08:56→16:21)
[2018-10-25] MEDS: CULTURELLE PO SCH ×2 (08:56→20:12)
[2018-10-25] MEDS: PRINIVIL PO SCH (08:57)
[2018-10-25] MEDS: LIVALO PO SCH (20:12)
[2018-10-25] MEDS: PHENERGAN IV PRN (20:12)
[2018-10-25] MEDS: DILAUDID IV PRN (20:12)
[2018-10-25] MEDS: HUMULIN R SUBQ SCH (22:02)
[2018-10-26] MEDS: HUMULIN R SUBQ SCH ×4 (06:26→21:10)
[2018-10-26] MEDS: CREON PO SCH ×3 (07:56→16:08)
[2018-10-26] MEDS: CULTURELLE PO SCH ×2 (08:23→21:11)
[2018-10-26] MEDS: PRINIVIL PO SCH (08:23)
[2018-10-26] MEDS: DIFICID PO SCH ×2 (08:23→21:11)
[2018-10-26] MEDS: NORVASC PO SCH (08:24)
[2018-10-26] MEDS: PLETAL PO SCH ×2 (08:26→21:11)
[2018-10-26] MEDS: LOPRESSOR PO SCH (08:26)
--- NOTE | 2018-10-26 14:38 | EKG Report ---
Test Performed on : 10/26/2018 06:30:50 AM Test Reason : irregular HR Blood Pressure : / mmHG Vent. Rate : 070 BPM Atrial Rate : 070 BPM P-R Int : 150 ms QRS Dur : 084 ms QT Int : 402 ms P-R-T Axes : 078 004 075 degrees QTc Int : 434 ms Sinus rhythm. with premature supraventricular complexes. Nonspecific T wave abnormality Abnormal ECG When compared with ECG of 13-MAY-2018 12:37, Nonspecific T wave abnormality now evident in Inferior leads T wave inversion no longer evident in Anterior leads QT has shortened Confirmed by Vitaly CRYSTAL MZoë Iyer ([id number]) on 10/28/2018 12:05:57 PM
[2018-10-26] MEDS: LIVALO PO SCH (21:11)
[2018-10-27] MEDS: PHENERGAN IV PRN (02:19)
[2018-10-27] MEDS ORDERED: TIGHT: 0.2 ML/HR FOR DIALYSIS MISC PRN (06:24)
[2018-10-27] MEDS ORDERED: HEPARIN IV PRN (06:24)
[2018-10-27] MEDS ORDERED: NS 2,000 ML MISC PRN (06:24)
[2018-10-27] MEDS: HUMULIN R SUBQ SCH ×4 (06:57→20:58)
[2018-10-27 08:06] LABS: ALBUMIN 3.2 g/dL (3.5-5.0); CALCIUM 8.6 mg/dL (8.8-10.2); CREATININE 4.3 mg/dL (0.5-0.9); POTASSIUM 3.1 mmol/L (3.5-5.1)
--- NOTE | 2018-10-27 10:05 | NEPHROLOGY PROGRESS NOTE ---
DATE: 10/27/2018 TIME SEEN: 0740. SUBJECTIVE: Ms. Sanchez is resting quietly in bed. She has been sleeping soundly. She has no complaints, thinks she is feeling better. LABORATORY DATA: Sodium is 140, potassium 3.1, chloride 103, CO2 of 27, BUN 20, creatinine 4.3, glucose 182. Her anion gap is 10, calcium 8.6, phosphorus 2, albumin 3.2. Previous hemoglobin 11.4. OBJECTIVE: Vital Signs: Temperature 98.4 degrees, blood pressure 176/79, heart rate is 77, respirations 20. She is on room air. Last recorded saturation 95%. She has had 650 in. She has had 0 out with need for dialysis. General: This is a 68-year-old female, resting quietly in bed. No acute distress. Skin: Warm and dry. HEENT: Atraumatic. Conjunctiva pale, pink. She has D[place]. Mucous membranes dry. Neck: Supple. Trachea midline. She does have trace JVD. Cardiovascular: She is regular rate and rhythm. Slightly tachycardic. Lungs: Clear to auscultation bilaterally. Equal excursion. Abdomen: Soft, nontender. Genitourinary: Not inspected. Minimal void with dialysis assist. Neurological: Alert and oriented x3. ASSESSMENT AND PLAN: 1. Chronic kidney disease stage 5D. Today is the patient's routine dialysis treatment today. We will place her on a 3-potassium bath. She is to dialyze for 3-1/2 hours. We will pull her to her outpatient dry weight. 2. Electrolytes and acid-base balance with correction on dialysis. 3. Anemia. This is acceptable. 4. Positive Clostridium difficile. This continues to be followed by Dr. Figueroa. Her last Clostridium difficile toxin stool test was negative on 10/23/2018. She does remain slightly symptomatic. No note of continued antibiotics at this time. She does remain on lactobacillus, Culturelle. I would like to thank you for allowing us to follow with this patient. Dictated by MICHAEL House for Doug Padilla MD Face to face encounter, data reviewed, discussed with Yoselyn Marie on 10/27/18. I agree with the above assessment and plan of care. cc: MICHAEL House MD Sebastian P. Weirich, MD [facility]
[2018-10-27] MEDS: LOPRESSOR PO SCH (10:19)
[2018-10-27] MEDS: NORVASC PO SCH (10:19)
[2018-10-27] MEDS: DIFICID PO SCH ×2 (10:20→20:58)
[2018-10-27] MEDS: CULTURELLE PO SCH ×2 (10:20→20:58)
[2018-10-27] MEDS: PLETAL PO SCH ×2 (10:20→20:58)
[2018-10-27] MEDS: PRINIVIL PO SCH (10:20)
[2018-10-27] MEDS: CREON PO SCH ×2 (12:19→18:11)
--- NOTE | 2018-10-27 13:43 | GASTROENTEROLOGY PROGRESS NOTE ---
DATE: 10/27/2018 SUBJECTIVE: The patient reports still having some loose stools. She usually has about 2 to 3 loose stools daily. She reports some right-side abdominal pain. I believe she will receive her regularly scheduled dialysis today. OBJECTIVE: Vital Signs: Temperature 98.3 degrees, pulse 77, respirations 20, blood pressure 163/77. General: Patient is awake and alert. No acute distress. LABORATORY: Hematology: WBC 3.84, hemoglobin 11.4, hematocrit 36.4. Chemistry: Sodium 140, potassium 3.1, chloride 103, CO2 27, BUN 20, creatinine 4.3. Glucose 182. ASSESSMENT AND PLAN: 1. Clostridium difficile colitis. Flagyl was discontinued due to some side effects. Continue Dificid and probiotics. 2. End-stage renal disease. I believe she will have her routine dialysis today. PLAN: Continue current diet. Avoid milk or dairy products for now. Her Clostridium difficile toxin stool test on 10/23 was negative. Continue Dificid. We will continue to follow during her hospital course and further plans will be made according to her progress. I have discussed this case with Dr. Figueroa. Dictated by MICHAEL Gloria for Celio Figueroa MD cc: MICHAEL Mora MD Timothy P. Weirich, MD
--- NOTE | 2018-10-27 16:47 | PROGRESS NOTE ---
DATE: 10/27/2018 SUBJECTIVE: The patient states she is feeling better. She has less abdominal pain. She continues to have diarrheal stools, typically after eating. She has not had any fever. She has not vomited any. Her p.o. intake has gone up some and so has her blood sugar. She is back on sliding scale. OBJECTIVE: Vital Signs: 98.4, 70, 15, 173/59, 98% saturated on room air. Lungs: Clear. Cardiovascular: Regular. Neuropsychiatric: The patient is more animated than she has been in previous days. She clearly is eating more of her food and is a little more energized. We discussed discharge planning for a day or 2 in the future. LABORATORIES: BUN 20, creatinine 4.3. Blood sugar has ranged from 93 to 192. She has received sliding scale insulin in small doses. ASSESSMENT AND PLAN: 1. The patient's Clostridium difficile colitis seems to be improving. She also has exocrine pancreatic insufficiency and is on appropriate medications for that. We will continue antibiotics per the GI team and the patient's diet is advanced and she will continue to eat that. We will monitor for further diarrhea. I have asked the nursing staff to make sure that her pancreatic enzyme replacement is given prior to meals. 2. The patient's blood sugar has come up with increased p.o. intake. None of the levels are dangerous. I still am not settled as to how much if any insulin to send her home on when that time comes. I would like to have a couple more days to decide just how much insulin she actually needs. 3. End-stage renal disease. Per Dr. Padilla and his team. cc: Sebastian James MD
[2018-10-27] MEDS: LIVALO PO SCH (20:58)
[2018-10-28] MEDS: PHENERGAN IV PRN (00:24)
[2018-10-28] MEDS: HUMULIN R SUBQ SCH ×4 (06:12→21:18)
[2018-10-28 08:06] LABS: ALBUMIN 3.4 g/dL (3.5-5.0); CALCIUM 8.2 mg/dL (8.8-10.2); CREATININE 3.1 mg/dL (0.5-0.9); PHOSPHORUS 1.3 mg/dL (2.7-4.5); POTASSIUM 3.1 mmol/L (3.5-5.1)
[2018-10-28] MEDS: LOPRESSOR PO SCH (08:48)
[2018-10-28] MEDS: CREON PO SCH ×3 (08:48→17:05)
[2018-10-28] MEDS: PRINIVIL PO SCH (08:49)
[2018-10-28] MEDS: CULTURELLE PO SCH ×2 (08:49→21:18)
[2018-10-28] MEDS: DIFICID PO SCH ×2 (08:49→21:18)
[2018-10-28] MEDS: NORVASC PO SCH (08:49)
[2018-10-28] MEDS: PLETAL PO SCH ×2 (08:49→21:18)
[2018-10-28] MEDS ORDERED: KLOR-CON PO ONE (12:39)
--- NOTE | 2018-10-28 13:24 | NEPHROLOGY PROGRESS NOTE ---
DATE: 10/28/2018 SUBJECTIVE: Ms. Sanchez is resting quietly in bed. She states that she is very weak. She has had over 9 stools during the night and is just fatigued. OBJECTIVE: Temperature 98.5 degrees, blood pressure 174/54, heart rate 72, respirations 16. She is on room air. Last recorded saturation 99%. She has had 240 in, she has had 0 recorded out. LABORATORY DATA: Sodium 142, potassium 3.1, chloride 105, CO2 30, BUN 12, creatinine 3.1, glucose 214. Her anion gap is 7, calcium 8.2, phosphorus 1.3, albumin 3.4. Previous hemoglobin 11.4. PHYSICAL EXAMINATION: General: This is a 68-year-old female resting quietly in bed. She appears in no acute distress though she appears chronically ill. Skin: Warm and dry. HEENT: Normocephalic, atraumatic. Conjunctiva is pale. She has D[place]. Mucous membranes dry. Neck: Supple. Trachea midline. No JVD. Cardiovascular: Regular rate and rhythm. Slightly tachycardic overnight, stable this a.m. Lungs: Clear to auscultation bilaterally. Equal excursion on room air. Abdomen: Soft, nontender, positive bowel sounds. Genitourinary: Not inspected. Minimal void with dialysis assist. Neurological: Alert and oriented x3. ASSESSMENT AND PLAN: 1. Chronic kidney disease stage 5D. Patient tolerated her dialysis treatment yesterday. We will plan for treatment again in the a.m. 2. Electrolytes and acid-base balance. Patient's potassium is at 3.1. We will give her potassium supplement with correction again on dialysis in the morning. 3. Acid-base balance. This is stable. 4. Anemia. This is close to target. 5. Positive C. difficile. The patient did have a negative stool test on 10/23/2008. Continues with loose stools overnight, worse in the last 24 hours. Followed by primary care and GI. I would like to thank you for allowing us to follow with this patient. Dictated by MICHAEL House for Doug Padilla MD Face to face encounter, data reviewed, discussed with Yoselyn Marie on 10/28/18. I agree with the above assessment and plan of care. cc: MICHAEL House MD Timothy P. Weirich, MD [facility]
--- NOTE | 2018-10-28 13:43 | GASTROENTEROLOGY PROGRESS NOTE ---
DATE: 10/28/2018 The patient was asleep at the time of my evaluation. She was in no acute distress. Per intake and output reports, she has had 3 loose stools today. Recent repeat stool for C. difficile toxin was negative. OBJECTIVE: Vital Signs: Temperature 98.2 degrees, pulse 72, respirations 20, blood pressure 168/61. General: The patient was asleep, in no acute distress. LABORATORY: Chemistry: Sodium 142, potassium 3.1 chloride 105, CO2 30, BUN 12, creatinine 3.1, glucose 214, calcium 8.2, phosphorus 1.3, albumin 3.4. ASSESSMENT AND PLAN: 1. Clostridium difficile colitis, improving. Continue on Dificid. Also continuing on Creon for pancreatic insufficiency. 2. Hypokalemia has improved. Continue current management. 3. End-stage renal disease. She receives dialysis on Saturday, Saturday, and Saturday, continuing to follow with Dr. Padilla. Gastroenterology will continue to follow. Symptoms are improving as far as GI is concerned, I believe what is holding her in the hospital is regulation of her insulin. Further plans will be made according to her progress. I have discussed this case with Dr. Figueroa. Dictated by MICHAEL Gloria for Celio Figueroa MD cc: MICHAEL Mora MD Timothy P. Weirich, MD
--- NOTE | 2018-10-28 16:32 | PROGRESS NOTE ---
DATE: 10/28/2018 SUBJECTIVE: The patient complains of having a bad night. She had multiple diarrheal stools last night, although she did not have any abdominal pain, nausea, or vomiting. In fact, her p.o. intake according to nursing records shows that she is eating a lot more and doing quite well with it. The patient had no other complaints. OBJECTIVE: Vital signs: Temperature 98.4, 72, 22, 147/53, and 95% saturated on room air. Lungs: Clear. Cardiovascular: Regular. Neuropsychiatric: Patient is alert, oriented, conversive, and appropriate. LABORATORY: BUN 12 and creatinine 3.1. Blood sugars have ranged from 129 to 218. ASSESSMENT AND PLAN: 1. I am rather surprised that the patient's diarrhea has continued. Her C. Diff has been treated rather definitively and her exocrine pancreatic insufficiency has been addressed with enzyme replacement. She has less in the way of abdominal pain and certainly has been advancing in her diet quite well. I will wait for any other recommendations by the GI team. 2. The patient's blood sugar is running up compared to previous days, but she is really requiring minimal insulin. I am not sure how we are going to address her insulin use at home. We may have to talk with Dr. Padilla as to see if he has any recommendations given her 3 times a week dialysis. 3. The patient continues Saturday, Saturday, Saturday dialysis per Dr. Padilla and his team. cc: Sebastian James MD
[2018-10-28] MEDS: LIVALO PO SCH (21:18)
[2018-10-29] MEDS ORDERED: NS 2,000 ML MISC PRN (06:10)
[2018-10-29] MEDS ORDERED: HEPARIN IV PRN (06:10)
[2018-10-29] MEDS ORDERED: TIGHT: 0.2 ML/HR FOR DIALYSIS MISC PRN (06:10)
[2018-10-29] MEDS: HUMULIN R SUBQ SCH ×4 (06:33→20:29)
[2018-10-29 07:49] LABS: CALCIUM 8.2 mg/dL (8.8-10.2); CREATININE 4.3 mg/dL (0.5-0.9); PHOSPHORUS 1.7 mg/dL (2.7-4.5); POTASSIUM 3.6 mmol/L (3.5-5.1)
--- NOTE | 2018-10-29 08:53 | NEPHROLOGY PROGRESS NOTE ---
DATE: 10/29/2018 DATE AND TIME OF EXAM: 10/29/2018 at 0710 hours. SUBJECTIVE: Ms. Sanchez is resting quietly in bed. States that she had a better evening last night, though this a.m. she has continued with her diarrhea stools. Continues to state she feels weak. OBJECTIVE: Vital Signs: Temperature 98.7 degrees, blood pressure 161/68, heart rate 77 respirations 14. She is on room air. Last recorded saturation 96%. She has had 120 in; she has had 100 out with need for dialysis today. General: This is a 68-year-old female. She is resting quietly in bed. She appears chronically ill. She is in no acute distress. Skin: Warm and dry. HEENT: Normocephalic, atraumatic. Conjunctiva is pale. She has DAK[place]. Mucous membranes are dry. Neck: Supple. Trachea midline. No evidence of JVD. Cardiovascular: She is regular rate and rhythm. No murmur or gallop. Lungs: Clear to auscultation bilaterally. Equal excursion. She is on room air. Abdomen: Soft, slight tenderness noted to the left lower quadrant upon palpation. Genitourinary: Not inspected. Minimal void with dialysis assist. Neurological: She is alert and oriented x3. LABS: Her sodium is 140, her potassium is 3.6, her chlorides are 107, CO2 of 26, BUN of 20, creatinine of 4.3 with a glucose of 203. Patient's anion gap is 8, calcium is 8.2, phosphorus is 1.7, albumin of 3. Previous hemoglobin 11.4. ASSESSMENT AND PLAN: 1. Chronic kidney disease stage 5 D. Patient is in need of her dialysis treatment today. We will place her on a 4 potassium bath; she is to dialyze for 3-1/2 hours. We will attempt to pull her to her last patient dry weight. 2. Electrolytes and acid-base balance with correction on dialysis. 3. Anemia. This remains fairly stable at 11.4. 4. Diarrhea. Clostridium difficile was negative on last check of stool. She continues to be followed by primary care and Dr. Colunga. I would like to thank you for allowing us to follow with this patient. Dictated by MICHAEL House for Doug Padilla MD Face to face encounter, data reviewed, discussed with Yoselyn Marie on 10/29/18. I agree with the above assessment and plan of care. cc: MICHAEL House MD Timothy P. Weirich, MD MTDD
[2018-10-29] MEDS: LOPRESSOR PO SCH (10:37)
[2018-10-29] MEDS: PLETAL PO SCH ×2 (10:37→20:28)
[2018-10-29] MEDS: NORVASC PO SCH (10:37)
[2018-10-29] MEDS: CULTURELLE PO SCH ×2 (10:38→20:28)
[2018-10-29] MEDS: DIFICID PO SCH ×2 (10:38→20:28)
[2018-10-29] MEDS: PRINIVIL PO SCH (10:38)
[2018-10-29] MEDS: CREON PO SCH ×3 (10:40→17:39)
[2018-10-29] MEDS: LANTUS INSULIN SUBQ SCH (10:52)
--- NOTE | 2018-10-29 15:06 | GASTROENTEROLOGY PROGRESS NOTE ---
DATE: 10/29/2018 SUBJECTIVE: Patient is sitting up in a chair, in no acute distress. She states she feels better today. So far she states she has only had 1 loose stool today. She is tolerating some of her diet. OBJECTIVE: Vital Signs: Temperature 98.1 degrees, pulse 72, respirations 15, blood pressure 175/64. General: Patient is awake and alert. Sitting up in a chair, in no acute distress. LABORATORY: Chemistry: Sodium 141, potassium 3.6, chloride 107, CO2 26, BUN 20, creatinine 4.3, glucose 203, calcium 8.2, phosphorus 1.7, albumin 3.0. ASSESSMENT AND PLAN: 1. Clostridium difficile colitis, on antibiotics. Recent C. difficile toxin stool test was negative. Continue current medications. 2. Pancreatic insufficiency. Patient is receiving Creon. 3. Diarrhea seems to have improved some today. Continue current medications. Will continue to follow. 4. End-stage renal disease, on dialysis. Following with Nephrology. 5. We will continue to follow during her hospital course. Her diarrhea seems to be improving. Further plans will be made according to her progress. She is hoping to go home by the end of the week. I have discussed this case with Dr. Figueroa. Dictated by MICHAEL Gloria for Celio Figueroa MD cc: MICHAEL Mora MD Timothy P. Weirich, MD
--- NOTE | 2018-10-29 17:22 | PROGRESS NOTE ---
DATE: 10/29/2018 SUBJECTIVE: The patient states that she is feeling a little bit better. She stated that she only had 2 stools overnight. The nursing notes are somewhat confusing in the way that they had noted her bowel movements, and they have listed more than Ms. Sanchez actually claims to have had. Nevertheless, the patient is having less in the way of abdominal pain. She is eating. Her blood sugars have come up. OBJECTIVE: Vital Signs: 97.2, 55, 150/50, 98% saturated on room air. General: The patient is lying in bed. She is easily aroused. She answers questions appropriately. Lungs: Clear. Cardiovascular: Regular. ASSESSMENT AND PLAN: 1. Clostridium difficile has been treated appropriately. She still has a little bit of diarrhea. I plan to increase her Creon dose and hopefully stem further diarrhea. She has less abdominal pain. 2. Blood sugar has come up a bit. I want to start her on 10 units of Lantus daily and see how that goes. 3. The patient continues Saturday, Saturday, and Saturday dialysis. 4. The patient seems to be doing fairly well with physical therapy, according to the notes provided in the chart. Hopeful for discharge Saturday. cc: Sebastian James MD
[2018-10-29] MEDS: LIVALO PO SCH (20:28)
[2018-10-30] MEDS: HUMULIN R SUBQ SCH ×4 (06:14→20:26)
[2018-10-30 07:38] LABS: ALBUMIN 2.9 g/dL (3.5-5.0); CALCIUM 7.4 mg/dL (8.8-10.2); CREATININE 2.8 mg/dL (0.5-0.9); PHOSPHORUS 1.7 mg/dL (2.7-4.5); POTASSIUM 4.2 mmol/L (3.5-5.1)
[2018-10-30] MEDS: CREON PO SCH ×3 (09:09→17:37)
[2018-10-30] MEDS: DIFICID PO SCH ×2 (09:09→20:21)
[2018-10-30] MEDS: LOPRESSOR PO SCH (09:10)
[2018-10-30] MEDS: NORVASC PO SCH (09:10)
[2018-10-30] MEDS: CULTURELLE PO SCH ×2 (09:10→20:21)
[2018-10-30] MEDS: PRINIVIL PO SCH (09:10)
[2018-10-30] MEDS: PLETAL PO SCH ×2 (09:17→20:21)
[2018-10-30] MEDS: LANTUS INSULIN SUBQ SCH (09:18)
--- NOTE | 2018-10-30 10:22 | PROGRESS NOTE ---
DATE: 10/30/2018 SUBJECTIVE: The patient had no complaints. She said she only had one diarrheal stool yesterday. She has not had any abdominal pain. She is eating reasonably well. No problems with her blood sugar. OBJECTIVE: 98.4, 72, 20, 167/61, and 96% saturated on room air. PHYSICAL EXAMINATION: The patient is alert, oriented, conversive and appropriate.Lungs: Clear. Cardiovascular: Regular. Extremities: No edema. ASSESSMENT AND PLAN: 1. C. Difficile colitis and pancreatic exocrine insufficiency have been addressed, and she seems to be improving on a nearly daily basis. She had no abdominal pain yesterday. Her overall appetite is still somewhat marginal at times. 2. Blood sugar was well controlled on 10 units of Lantus daily. This will likely be her discharge dosing. 3. Saturday, Saturday, Saturday dialysis. 4. A consult was put in for home health by social work. I was told this by the home health agency who contacted our office. Ms. Sanchez said that no one had come by yet. I will put the order in again myself, and make sure that that is followed prior to discharge. 5. Overall disposition: If the patient continues along this path, hopefully we can discharge her home after dialysis tomorrow. cc: Sebastian James MD
[2018-10-30] MEDS: CATAPRES PO PRN (11:25)
--- NOTE | 2018-10-30 18:20 | NEPHROLOGY PROGRESS NOTE ---
DATE: 10/30/2018 TIME SEEN: 0720. SUBJECTIVE: Ms. Sanchez is resting in bed. She has no complaints. States that she is hoping to go home tomorrow. She does continue with diarrhea stools, less during the night than the night before. Her most recent vital signs, temperature 98.4 degrees, blood pressure 155/44, heart rate 67, respirations 20. She is on room air. Last recorded saturation is 100%. She has had 460 in, 0 recorded out. LABORATORY: Sodium 142, potassium 4.2, chloride is 107, CO2 is 29, BUN 13, creatinine 2.8, glucose is 160, anion gap is 6, her calcium is 7.4, phosphorus 1.7, albumin 2.9. The patient has a previous hemoglobin of 11.4 on the . PHYSICAL EXAMINATION: This is a 68-year-old, -[place] female, resting quietly in bed. She appears chronically ill, in no acute distress.Skin: Warm and dry. HEENT: Normocephalic, atraumatic. Conjunctivae pale. She has D[place]. Mucous membranes dry. Neck: Supple. Trachea midline. No JVD. Cardiovascular: Regular rate and rhythm. She is without murmur or gallop. Lungs: Clear to auscultation bilaterally. Equal excursion on room air. Abdomen: Soft, nontender. Positive bowel sounds today. Genitourinary: Not inspected. Minimal void with dialysis assist. Integumentary: No rashes or lesions noted. 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 Neurologic: Alert and oriented x3. ASSESSMENT AND PLAN: 1. Chronic kidney disease stage 5D. The patient had her routine dialysis treatment yesterday. She tolerated this well. We will plan for dialysis in the a.m. 2. Electrolytes, acid-base balance, with plans for correction on dialysis. 3. Anemia. This has been stable. 4. Diarrhea with Clostridium difficile. Negative on last stool check. Followed by Dr. Colunga and the primary care. I would like to thank you for allowing us to follow with this patient. Dictated by MICHAEL House for Doug Padilla MD Face to face encounter, data reviewed, discussed with Yoselyn Marie on 10/30/18. I agree with the above assessment and plan of care. cc: MICHAEL House MD Timothy P. Weirich, MD MTDD
--- NOTE | 2018-10-30 19:19 | GASTROENTEROLOGY PROGRESS NOTE ---
DATE: 10/30/2018 SUBJECTIVE: Patient was awake and alert. No acute distress. She states so far, she has only had 1 bowel movement today. OBJECTIVE: Vital Signs: Temperature 98.1 degrees, pulse 61, respirations 20, blood pressure 150/61. General: The patient was awake and alert in no acute distress. LABORATORY: Chemistry: Sodium 142, potassium 4.2, chloride 107, CO2 29, BUN 13, creatinine 2.8, glucose 160. ASSESSMENT AND PLAN: 1. Clostridium difficile colitis on antibiotics. Diarrhea has improved. 2. Pancreatic insufficiency. Patient is receiving Creon. 3. Diarrhea has improved. 4. End-stage renal disease on dialysis. Following with Nephrology. PLAN: We will continue to follow. Her diarrhea has improved. Continue current medications. Further plans to be made as needed. I have discussed this case with Dr. Figueroa. Dictated by MICHAEL Gloria for Celio Figueroa MD cc: MICHAEL Mora MD Timothy P. Weirich, MD MTDD
[2018-10-30] MEDS: LIVALO PO SCH (20:21)
[2018-10-31] MEDS: HUMULIN R SUBQ SCH ×2 (06:02→13:48)
[2018-10-31] MEDS ORDERED: TIGHT: 0.2 ML/HR FOR DIALYSIS MISC PRN (07:06)
[2018-10-31] MEDS ORDERED: HEPARIN IV PRN (07:06)
[2018-10-31] MEDS ORDERED: NS 2,000 ML MISC PRN (07:06)
--- NOTE | 2018-10-31 07:15 | DISCHARGE SUMMARY ---
ADMISSION DATE: 10/17/2018 DISCHARGE DATE: 10/31/2018 DISCHARGE DIAGNOSES: 1. Clostridium difficile colitis. 2. Pancreatic exocrine insufficiency with steatorrhea. 3. Diabetes mellitus. 4. End-stage renal disease on dialysis. 5. Chronic ischemic heart disease. 6. Peripheral vascular disease of the lower extremities. 7. Weight loss. CONSULTATIONS: Dr. Figueroa and Dr. Padilla. HOSPITAL COURSE: A 68-year-old black female who was admitted with diarrhea. She was found to be C. Diff positive, and was put in appropriate contact isolation. GI Medicine was consulted, and had her on a probiotic agent as well as BIficid. She had slow improvement with this. Because her diabetes had been so difficult in the past, I wondered if she had exocrine pancreatic insufficiency and ordered a pancreatic elastase and stool fat. Her stool fat was high and pancreatic elastase was non-existent. She was started on some Creon in higher doses and seemed to improve even more at this point. Her recovery was slow. She continued to have diarrhea at night, but this has dissipated on the day prior to discharge. Dr. Padilla and his team managed her Saturday, Saturday, Saturday dialysis, and she seemed to tolerate this fairly well. She did have a little bit of difficulty with blood pressure lability, but that was handled with her usual home medications, and this too settled down over the course of her hospitalization. When the patient presented, she was noted that she had lost considerable weight and hopefully that the pancreatic enzyme replacement will afford her an opportunity to get some of this weight back. She is encouraged to eat. The patient's diabetes has always been brittle, but she has required less and less in the way of insulin over time. We actually held her insulin for several days here when she was not eating well, and she really did not have any difficulty with that. We eventually settled upon the Lantus 10 mg daily as long as she is eating, and this kept her within a reasonable range. We will see if this holds true at home, but she was not on much more than that to begin with. The patient reached maximal hospital benefit, and was discharged home after dialysis on Saturday. I am going to leave further prescription of antibiotics for the C. Diff as a decision point for the GI team prior to discharge. cc: Sebastian James MD [facility]
[2018-10-31 07:30] LABS: ALBUMIN 2.9 g/dL (3.5-5.0); CALCIUM 7.9 mg/dL (8.8-10.2); CREATININE 3.9 mg/dL (0.5-0.9); PHOSPHORUS 2.9 mg/dL (2.7-4.5); POTASSIUM 4.1 mmol/L (3.5-5.1)
[2018-10-31 07:56] VITALS: BP 151/68
[2018-10-31] MEDS: CULTURELLE PO SCH (08:02)
[2018-10-31] MEDS: CREON PO SCH ×2 (08:02→13:49)
[2018-10-31] MEDS: DIFICID PO SCH (08:02)
[2018-10-31] MEDS: PRINIVIL PO SCH (08:02)
[2018-10-31] MEDS: NORVASC PO SCH (08:02)
[2018-10-31] MEDS: PLETAL PO SCH (08:02)
[2018-10-31] MEDS: LOPRESSOR PO SCH (08:03)
[2018-10-31] MEDS: LANTUS INSULIN SUBQ SCH (08:07)
--- NOTE | 2018-10-31 12:05 | NEPHROLOGY PROGRESS NOTE ---
DATE: 10/31/2018 SUBJECTIVE: She states she is doing better. She has been able to ambulate in the hallway. Less diarrhea. She is anticipating discharge after dialysis. OBJECTIVE: Vital Signs: Blood pressure 151/68, heart rate 66, respirations 19, afebrile. General: No acute distress. Skin: Warm and dry. Neck: Neck veins are not distended. Heart: Regular. Lungs: Equal. No crackles. Abdomen: Soft, nontender. Bowel sounds present. Extremities: No edema, clubbing or cyanosis. IMPRESSION: Chronic kidney disease 5D. She will have her routine dialysis today. A 3K bath today. Okay for discharge from my perspective after her treatment is completed. Electrolytes/acid base/anemia all in target. cc: MD Sebastian Dean MD
--- NOTE | 2018-10-31 13:21 | GASTROENTEROLOGY PROGRESS NOTE ---
DATE: 10/31/2018 SUBJECTIVE: Patient states she is feeling better. She is having less diarrhea. She states the plans are for her to be discharged home after her dialysis today. Patient was seen in the dialysis unit. OBJECTIVE: Vital Signs: Temperature 98.2 degrees, pulse 66, respirations 19, blood pressure 151/68. General: Patient is awake, alert, no acute distress. LABORATORY: Chemistry: Sodium 138, potassium 4.1, chloride 106, CO2 25, BUN 23, creatinine 3.9, glucose 167. ASSESSMENT AND PLAN: 1. C. difficile colitis. Patient has received 14 days of Dificid. Dificid antibiotic can be stopped now. She does not need further antibiotics. A stool for C. difficile toxin on 10/23/2018 was negative. 2. Chronic kidney disease. Patient receives routine dialysis on Mondays, Wednesdays, and Fridays. The patient is currently receiving dialysis today and hopefully will be discharged after her dialysis treatment. 3. Diarrhea has improved. 4. Dificid has been stopped. Patient has received 14 days of Dificid. Recommend she continue to follow a soft diet over the next week or so. Continue to hold milk or dairy products for now and slowly advance as her symptoms improve. I have given her contact information to make a follow up appointment as needed. I have discussed this case with Dr. Figueroa. Dictated by MICHAEL Gloria for Celio Figueroa MD cc: MICHAEL Mora MD Timothy P. Weirich, MD
== END 2018-10-31 14:20 | disposition home health service (06) | DRG 371 ==
LOC: ED 17:14 → 3N 22:20 → SUATTDRO 22:20 → 1N 10-18 18:43
PROVIDERS: ADMIT Internal Medicine; ATTEND Internal Medicine

== ENCOUNTER 2018-12-04 22:31 | Inpatient (IN) ==
[2018-12-04 23:54] LABS: BASO# 0.08 X1000 (0.0-0.2); BASO% 1.5 % (0.0-0.8); EOS# 0.12 X1000 (0.0-0.7); EOS% 2.3 % (0.0-10.0); HEMATOCRIT 30.5 % (37.0-47.0); HEMOGLOBIN 9.6 g/dL (12.0-16.0); IMM GRAN# 0.02 X1000 (0.0-0.04); IMM GRAN% 0.4 % (0.0-0.5); LYMPH# 1.67 X1000 (1.2-3.4); LYMPH% 32.1 % (20.5-51.1); MCH 28.8 PG (27-31); MCHC 31.5 g/dL (33-37); MCV 91.6 FL (81-99); MONO# 0.48 X1000 (0.11-0.59); MONO% 9.2 % (1.7-9.3); MPV 12.5 FL (7.4-10.4); NEUT# 2.84 X1000 (1.4-6.5); NEUT% 54.5 % (42.2-75.2); PLT 92 X1000 (130-400); RBC 3.33 XMIL (4.2-5.4); RDW 15.3 % (11.5-14.5); WBC 5.21 X1000 (4.8-10.8)
[2018-12-05] LABS: INR 1.12; PROTIME 14.6 Seconds (11.0-16.0)
[2018-12-05 00:01] LABS: PTT 30.5 Seconds (22.3-41.8)
--- NOTE | 2018-12-05 00:15 | EKG Report ---
Test Performed on : 12/04/2018 10:42:34 PM Test Reason : sob Blood Pressure : / mmHG Vent. Rate : 069 BPM Atrial Rate : 069 BPM P-R Int : 160 ms QRS Dur : 084 ms QT Int : 432 ms P-R-T Axes : 046 007 033 degrees QTc Int : 462 ms Normal sinus rhythm. Nonspecific T wave abnormality Abnormal ECG When compared with ECG of 03-DEC-2018 02:59, (Unconfirmed) T wave inversion no longer evident in Anterior leads Unconfirmed Result
[2018-12-05] MEDS ORDERED: HUMULIN R IV ONE (00:54)
[2018-12-05 00:55] LABS: ALB/GLOB RATIO 1.8; ALBUMIN 4.2 g/dL (3.5-5.0); CALCIUM 8.6 mg/dL (8.8-10.2); CREATININE 4.1 mg/dL (0.5-0.9); POTASSIUM 4.3 mmol/L (3.5-5.1); TOTAL BILIRUBIN 0.55 mg/dL (0.20-1.00); TOTAL PROTEIN 6.6 g/dL (6.3-8.3)
--- NOTE | 2018-12-05 01:17 | PROVIDER DOCUMENTATION ---
This chart was entered by Aylin Lopez Scribe, acting as scribe for Migue Diaz MD. HPI-Respiratory General - General Chief Complaint: Shortness of Breath Stated Complaint: STRUGGLING TO BREATHE Time Seen by Provider: 12/04/18 22:51 Source: patient Allergies/Adverse Reactions: Patient Allergies Allergy/AdvReac Type Severity Reaction Status Date / Time meperidine HCl * Allergy Intermediate RASH Verified 12/03/18 03:33 [From Demerol] nitroglycerin AdvReac Intermediate HYPOTENSION Verified 12/03/18 03:33 Home Medications: Home Medication List Medication Instructions Recorded Confirmed Last Taken Type Cilostazol [Pletal] 50 mg PO BID 12/23/12 12/03/18 1 Day Ago History ~05/12/18 Esomeprazole [Nexium] 40 mg PO QAM 01/15/15 12/03/18 1 Day Ago History ~05/12/18 Metoprolol [Lopressor] 50 mg PO QAM 01/15/15 12/03/18 1 Day Ago History ~05/12/18 Pitavastatin [Livalo] 2 mg PO QHS #0 tablet 01/21/15 12/03/18 1 Day Ago Rx ~05/12/18 Aspirin 325 mg PO QAM 02/07/17 12/03/18 1 Day Ago History ~05/12/18 Clopidogrel [Plavix] 75 mg PO QAM 02/07/17 12/03/18 1 Day Ago History ~05/12/18 LISINOpril [Prinivil] 2.5 mg PO DAILY #30 tab 01/08/18 12/03/18 1 Day Ago Rx ~05/12/18 Mirtazapine [Remeron] 15 mg PO QHS #30 tablet 03/02/18 12/03/18 1 Day Ago Rx ~05/12/18 Ondansetron Odt [Zofran Odt] 4 mg PO Q6H PRN PRN 10/17/18 12/03/18 Unknown History Amlodipine [Norvasc] 2.5 mg PO DAILY #30 tab 10/30/18 12/03/18 Unknown Rx Insulin Glargine [Lantus Insulin] 10 unit SUBQ DAILY unit 10/30/18 12/03/18 Unknown Rx Lactobacillus Rhamnosus GG 1 ea PO BID #60 cap 10/30/18 12/03/18 Unknown Rx [Culturelle] Lipase/Protease/Amylase [Creon] 24,000 units PO TID CC #180 cap 10/30/18 12/03/18 Unknown Rx Nitrofurantoin Monohyd/M-Cryst 100 mg PO BID 10 Days #20 cap 12/03/18 Unknown Rx [Macrobid 100 mg Capsule] - History of Present Illness-Resp Nature of Presenting Problem: pt is a 68 yr old female presenting with complaint of worsening shortness of breath. pt reports she has some dyspnea today but it had improved, tonight after jayson to bed she woke having worsened dyspnea. pt denies chest pain. pt admits worsening edema. pt is a MWF dialysis pt, next tx tomorrow. Quality of Pain: reports: none Severity in ED: reports: moderate Onset/Duration: reports: just prior to arrival Timing: reports: still present Exposure: reports: unknown cause Cough Quality/Degree: reports: no cough Episode Frequency: frequent episodes Current Respiratory Medication Therapy: Initiated see nurses note Modifying Factors: improves with: exertion (worsens), deep breath (no improvement), lying down (worsens), oxygen (no improvement) Associated Symptoms: reports: shortness of breath. denies: chest pain/soreness, cough, fever/chills Similar Symptoms Previously?: Yes Recently seen or treated by another doctor?: Yes Review of Systems - Adult - REVIEW OF SYSTEMS - ADULT Constitutional: reports: margie. denies: fever Eyes: reports: no symptoms reported Ears, Nose, Mouth & Throat: reports: no symptoms reported Cardiovascular: denies: chest pain, palpitations, syncope Respiratory: reports: dyspnea on exertion, shortness of breath, wheezing Gastrointestinal: reports: abdominal pain. denies: diarrhea, nausea, vomiting Genitourinary: reports: no symptoms reported Musculoskeletal: reports: no symptoms reported Integumentary: reports: no symptoms reported Neurological: denies: dizziness/vertigo, headache/migraines Psychiatric: reports: no symptoms reported Endocrine: reports: no symptoms reported Hematologic/Lymphatic: reports: no symptoms reported Allergic/Immunologic: reports: no symptoms reported All Other Systems: Reviewed and Negative Past History - Adult - PAST MEDICAL HISTORY-ADULT Review of Records: reports: Old Records Reviewed, Nursing Assessment Review, Medications Reviewed, Social history reviewed & non-contributory. Major Childhood Illnesses: reports: denies history Cardiovascular: reports: CAD, HTN, [place] Respiratory: reports: denies history Gastrointestinal: reports: GERD Obstetrical/Gynecological: reports: denies history Genitourinary: reports: dialysis, ESRD, kidney disease, kidney stones Musculoskeletal: reports: denies history Neurological: reports: denies history Psychiatric: reports: denies history Endocrine/Immune: reports: Diabetes Other Conditions: reports: denies history - PRIOR SURGERIES/PROCEDURES Surgical/Procedure History: reports: EGD, colonoscopy, CABG, cardiac stent - PRIOR HOSPITALIZATIONS Prior Hospitalizations: reports: for similar symptoms - IMMUNIZATION STATUS Childhood Immunizations: See Nurse Assessment Flu Vaccine: See Nurse Assessment - FAMILY HISTORY Family History: reviewed, not pertinent - SOCIAL HISTORY Smoking: denies Substance Use: denies Living Situation: family Physical Exam-General - PHYSICAL EXAM-ADULT Initial Vital Signs Reviewed: Yes - CONSTITUTIONAL General Appearance: appears well, alert, no apparent distress - EYES Eyes: PERRL/EOMI - HEAD, EARS, NOSE, MOUTH & THROAT HENMT: normocephalic/atraumatic, moist mucous membranes, normal ENT inspection - NECK Neck: non-tender, full range of motion, supple, normal inspection - RESPIRATORY Respiratory: chest non-tender, lungs clear, decreased breath sounds - CARDIOVASCULAR Cardiovascular: normal peripheral pulses, regular rate, rhythm, no edema - GASTROINTESTINAL (ABDOMEN) Abdominal Exam: normal bowel sounds, non tender, soft - LYMPHATIC Lymphatic: no adenopathy - MUSCULOSKELETAL Back Exam: normal inspection, no CVA tenderness, no vertebral tenderness Extremity: normal range of motion, non-tender, normal capillary refill, pedal edema, other (RAKA, 3+pitting edema LLE) - SKIN Integumentary: normal color, normal turgor, warm/dry - NEUROLOGIC Neurologic: grossly normal - PSYCHIATRIC Psych/Mental Status: normal mood/affect Progress - PLAN OF CARE/RESULTS Progress/Plan/Lab Results: Vital Signs - 8 hr 12/04/18 22:35 12/04/18 23:02 12/04/18 23:05 Temperature 97.8 F Pulse Rate 66 69 71 Respiratory Rate 22 25 H 20 Blood Pressure 207/71 194/84 O2 Sat by Pulse Oximetry 96 100 100 12/04/18 23:15 12/04/18 23:30 12/04/18 23:45 Temperature Pulse Rate 69 68 66 Respiratory Rate 17 16 15 Blood Pressure O2 Sat by Pulse Oximetry 100 100 100 12/05/18 00:00 Temperature Pulse Rate 68 Respiratory Rate 20 Blood Pressure O2 Sat by Pulse Oximetry 100 Laboratory Results - last 24 hr 12/04/18 12/04/18 12/04/18 23:27 23:27 23:27 WBC 5.21 RBC 3.33 L Hgb 9.6 L D Hct 30.5 L MCV 91.6 MCH 28.8 MCHC 31.5 L RDW Std Deviation 15.3 H Plt Count 92 L MPV 12.5 H Immature Gran % (Auto) 0.4 Neut % (Auto) 54.5 Lymph % (Auto) 32.1 [place] % (Auto) 9.2 Eos % (Auto) 2.3 Baso % (Auto) 1.5 H Immature Gran # (Auto) 0.02 Neut # (Auto) 2.84 Lymph # (Auto) 1.67 [place] # (Auto) 0.48 Eos # (Auto) 0.12 Baso # (Auto) 0.08 PT INR PTT (Actin FS) Sodium 132 L Potassium 4.3 D Chloride 91 L Carbon Dioxide 24 L Anion Gap 17 BUN 27 H Creatinine 4.1 H Estimated GFR/1.73 m2 13 BUN/Creatinine Ratio 7 Glucose 455 H* D Calculated Osmolality 290 Calcium 8.6 L Total Bilirubin 0.55 AST 17 ALT 22 Alkaline Phosphatase 108 H Troponin T Fzi-A-Kagnebhuhlv Pept > 59578 H Total Protein 6.6 Albumin 4.2 Globulin 2.4 Albumin/Globulin Ratio 1.8 12/04/18 12/04/18 23:27 23:27 WBC RBC Hgb Hct MCV MCH MCHC RDW Std Deviation Plt Count MPV Immature Gran % (Auto) Neut % (Auto) Lymph % (Auto) [place] % (Auto) Eos % (Auto) Baso % (Auto) Immature Gran # (Auto) Neut # (Auto) Lymph # (Auto) [place] # (Auto) Eos # (Auto) Baso # (Auto) PT 14.6 INR 1.12 PTT (Actin FS) 30.5 Sodium Potassium Chloride Carbon Dioxide Anion Gap BUN Creatinine Estimated GFR/1.73 m2 BUN/Creatinine Ratio Glucose Calculated Osmolality Calcium Total Bilirubin AST ALT Alkaline Phosphatase Troponin T 0.018 Mvs-E-Psmsigirlhi Pept Total Protein Albumin Globulin Albumin/Globulin Ratio Orders Category Date Time Status FSBS [Finger Stick Blood Sugar (ED)] DIRECTED Care 12/05/18 00:54 Active CHEST-1 VIEW [RAD] Stat Exams 12/04/18 22:52 Taken BNP [PRO B-NATRIURETIC PEPTIDE] Stat Lab 12/04/18 23:27 Completed CBC WITH ELECTRONIC DIFF [HEME] Stat Lab 12/04/18 23:27 Completed COMPREHENSIVE METABOLIC PANEL [CHEM] Stat Lab 12/04/18 23:27 Completed PROTIME WITH INR [COAG] Stat Lab 12/04/18 23:27 Completed PTT [COAG] Stat Lab 12/04/18 23:27 Completed TROPONIN T Stat Lab 12/04/18 23:27 Completed URINALYSIS W/POSS RFLX CULT [URINALYSIS] Stat Lab 12/04/18 22:52 Uncollected Insulin Human Regular [Humulin R] Med 12/05/18 00:54 Discontinued 10 unit IV NOW ONE EKG [EKG] Stat Ther 12/04/18 22:35 Draft Result Diagrams: 12/04/18 23:27 12/04/18 23:27 - EKG 1 Time of EKG reading by physician:: 22:42 EKG Read and Signed by:: Migue Diaz EKG Interpretation (*Must complete 3 of following elements*): Abnormal (non specific t wave abnormality) Rate: 69 Rhythm: nsr [place]: normal QRS: normal [place] Interval: normal - XRAY 1 XRAY Study: Chest Impression: See EMR Report - CONSULTS/PCP/HOSPITALIST Notification #1 *Consult/PCP/Hospitalist*: Dr López Time Discussed: 01:10 Reason/Comments: discussed plan of care for pt admit Consult Disposition: Admit Departure - Departure Date of Disposition Decision: 12/05/18 Time of Disposition Decision: 01:15 DIAGNOSIS: ESRD (end stage renal disease) on dialysis, CHF (congestive heart failure), Uncontrolled diabetes mellitus, Anemia, Hyponatremia Disposition: ADMITTED INPATIENT 09 Certified Medical Emergency: Emergent Condition: Fair Referrals and Follow-Ups: Cameron Tipton MD [Primary Care Provider] - - Critical Care Note This patient required my direct & personal management of CC.: No Attestation - Physician/ BARBARA Attestation Patient care was provided by Advanced Practice Provider:: No The physician spent face to face time with patient:: Yes Advanced Practice Provider documentation review:: Supervising physician onsite and consulted in the evaluation and care of this patient. The physician did have a face to face encounter with the patient. This chart was documented by the indicated scribe, (Aylin Lopez Scribe) and accurately reflects the services I performed and decisions made by me, Migue Diaz MD, as attested by the provider's signature.
--- NOTE | 2018-12-05 02:26 | HISTORY AND PHYSICAL ---
PRIMARY CARE PHYSICIAN: Dr. James. CHIEF COMPLAINT: Shortness of breath. HISTORY OF PRESENTING ILLNESS: A 68-year-old female with a history of end-stage renal disease, diabetes mellitus type 2, hypertension, coronary artery disease, who presented to the emergency department with several days history of worsening shortness of breath. The patient states that she was having difficulty breathing. Patient states that she had her dialysis done on Saturday, however, she did not feel it was complete. She was evaluated in the emergency department. Seemed that the patient was volume overloaded and due to her presenting symptoms, it was thought that she would need admission for further management. At the time of my examination, patient denied any headache, fever, chills, chest pain, hemoptysis, melena, but complained of shortness of breath. PAST MEDICAL HISTORY: Includes end-stage renal disease, on renal dialysis Saturday, Saturday, Saturday, diabetes mellitus type 2, hypertension, coronary artery disease. PAST SURGICAL HISTORY: Right BKA, coronary bypass, cataract surgery. ALLERGIES: Demerol and nitroglycerin. CURRENT MEDICATIONS: Amlodipine 2.5 mg p.o. daily, aspirin 325 mg p.o. q.a.m. Pletal 50 mg p.o. b.i.d., Plavix 75 mg p.o. q.p.m. Nexium 40 mg p.o. q.a.m., Lantus 10 units subcu daily, lisinopril 2.5 mg p.o. daily, metoprolol 50 mg p.o. q.a.m. Remeron 15 mg p.o. at bedtime, Livalo 2 mg p.o. at bedtime. SOCIAL HISTORY: She is a former smoker. No history of alcohol or illicit drug use. FAMILY HISTORY: No history of coronary disease. REVIEW OF SYSTEMS: Fourteen-point review of systems is as in HPI. Other systems negative. PHYSICAL EXAMINATION: GENERAL: Cooperative, friendly female. She is resting more comfortably now. VITAL SIGNS: Temperature 97.8 degrees, pulse 66, respirations 22, blood pressure 207/71. HEENT: Atraumatic, normocephalic. Extraocular movements intact. PERRLA. NECK: No masses. CHEST: Bibasilar rales. CARDIOVASCULAR: Regular rate and rhythm. ABDOMEN: Soft, positive bowel sounds. EXTREMITIES: She has a right BKA. GENITOURINARY: No bladder distention. NEUROLOGIC: Nonfocal. SKIN: Warm. LABORATORIES AND STUDIES: WBCs 5.21, hemoglobin 9.6, hematocrit 30.5, platelets 92,000. Sodium 132, potassium 4.3, chloride 91, CO2 is 24, BUN 27, creatinine 4.1. Glucose is 455. ProBNP is 35,000. ASSESSMENT: A 68-year-old female with a history of end-stage renal disease, diabetes mellitus type 2, hypertension, coronary artery disease, had presented to the emergency department with complaint shortness of breath for the past day or so. She was evaluated in the emergency department. It was suspected she was volume overloaded, and subsequently, she will require admission for further management. 1. Shortness of breath/volume overload. 2. End-stage renal disease. 3. Diabetes mellitus type 2 with hyperglycemia. 4. Hypertension. PLAN: 1. We will admit patient to medical floor with telemetry. 2. We will consult Nephrology for dialysis. 3. Put patient on supplemental oxygen. 4. Monitor blood glucose and put patient on sliding scale insulin regimen. 5. Monitor blood pressure. Resume antihypertensive agent. 6. We will use heparin for DVT prophylaxis. 7. We will continue to follow and reassess, make further recommendation based on patient's clinical course. cc: Johnathan López MD
[2018-12-05] MEDS: NORCO-7.5 PO PRN ×2 (04:09→11:37)
--- NOTE | 2018-12-05 06:11 | Diag Imaging Result Doc PS360 ---
EXAM: CHEST-1 VIEW HISTORY: sob TECHNIQUE: Chest single view COMPARISON: 10/17/2018 FINDINGS: The lungs are well expanded. The heart is enlarged. There are sternal wires and surgical clips. The vessels are distended. There are no infiltrates. No effusion identified. IMPRESSION: Cardiomegaly with pulmonary edema. Follow-up PA and lateral recommended. Electronically signed by Pierre Zapata 12/05/2018 6:09 AM
[2018-12-05] MEDS: HUMULIN R SUBQ SCH ×4 (06:23→20:33)
[2018-12-05] MEDS ORDERED: TIGHT: 0.2 ML/HR FOR DIALYSIS MISC PRN (07:38)
[2018-12-05] MEDS ORDERED: NS 2,000 ML MISC PRN (07:38)
[2018-12-05] MEDS ORDERED: HEPARIN IV PRN (07:38)
--- NOTE | 2018-12-05 10:37 | PROGRESS NOTE ---
DATE: 12/05/2018 SUBJECTIVE: The patient's history was reviewed. She states that she had been short of breath for a day or so. She may or may not have had some type of chest pain associated with that as she stated that she had been coughing. Today, she is breathing a little bit better. She is scheduled for dialysis. OBJECTIVE: Vital Signs: 97.9, 62, 20, 185/65, 100% saturated on room air. General: On physical examination, the patient is alert, oriented, conversive. She seems appropriate and oriented. Lungs: There are slightly diminished breath sounds in both bases, which may be consistent with a pleural effusion. I do not hear any wet crackling which would correlate with her x-ray findings of acute pulmonary edema and cardiomegaly. Cardiovascular: Regular. Extremities: There is no peripheral edema. LABORATORY: Pertinent findings from yesterday include a proBNP of greater than 35,000. BUN of 27, creatinine 4.1, glucose was 455. ASSESSMENT AND PLAN: 1. I think the patient's shortness of breath is indicative of some fluid overload and pulmonary edema. We will see if they can take a significant amount of fluid off of her, whether this relieves her symptomatology. Over the past several weeks, since she got out of the hospital the last time, she has had a recurring issue with elevated blood pressure the day after dialysis and acceptable blood pressures on days of dialysis after the procedure. This may have put some stress on her already-diseased heart and caused a fluid overload state where she cannot breathe. If this does not relieve her symptomatology, we will have to consult Cardiology to get their input on any further workup. Because of her multiple disease insults that are ongoing, including end-stage renal disease, ischemic heart disease, cardiomegaly with congestive failure, and insulin-dependent diabetes which is poorly controlled, she will be difficult to manage, but hopefully this is simple fluid overload that can be addressed through dialysis. 2. The patient's blood sugar earlier this week had dropped as low as 38, even though we have dropped her insulin requirements to nearly non-existent levels. Since that time of course, her blood sugar has been running high. It is going to be difficult to manage with her renal failure, but we will have to reduce her baseline long-acting insulin yet again. 3. The patient's blood pressure has been quite fluctuant over the last few weeks. We will monitor this and see if there is any other way we can stabilize it. cc: Sebastian James MD
--- NOTE | 2018-12-05 13:54 | NEPHROLOGY CONSULTATION ---
DATE: 12/05/2018 REASON FOR ADMISSION: Shortness of breath. REASON FOR CONSULTATION: Assist with management, ESRD, fluid volume overload. CONSULTING PHYSICIAN: Dr. López. HISTORY OF PRESENT ILLNESS: This is a 68-year-old female known to our service for end-stage renal disease on dialysis Saturday, Saturday, Saturday. She presented to the dialysis clinic on Saturday but felt so poorly, was not able to complete her treatment. She had approximately 2 hours of therapy. She presented to the emergency room on with severe hypoglycemia. The patient was discharged at that time but then presented back later with severe shortness of breath and was found to be in fluid overload. She was admitted to the hospital for further workup and treatment. When I see her this morning, she is sitting up in bed. She obviously does not feel well. She has increased work of breathing and is on O2 supplementation. PAST MEDICAL HISTORY: End-stage renal disease, diabetes, hypertension, coronary artery disease. SURGICAL HISTORY: She has had a right BKA. She has had coronary bypass surgery multiple times. She has had multiple cardiac stenting. She has a cataract surgery. ALLERGIES: Demerol and nitroglycerin. HOME MEDICATIONS: Listed as amlodipine, aspirin, Pletal, Plavix, Nexium, lisinopril, metoprolol, and Livalo. See Medication Reconcillation for final list. SOCIAL HISTORY: Former smoker. No ETOH, tobacco or illicit drug use current. FAMILY HISTORY: None. REVIEW OF SYSTEMS: Pertinent positives noted above in the HPI. PHYSICAL EXAMINATION: Vital Signs: Temperature 97.4 degrees, pulse 68, respiratory rate 15, blood pressure 188/67. Intake and output not documented. General: This is a chronically ill- appearing, elderly female, sitting up in bed who obviously feels poorly today, is quite lethargic. HEENT: Normocephalic, atraumatic. [place]. Conjunctivae are pale. Her oral mucosa is dry. Neck: Supple. Positive JVD. Cardiovascular: Regular rate and rhythm. Pulmonary: She has significantly decreased breath sound but no rales. Abdomen: Soft with positive bowel sounds. Genitourinary: Not inspected. Extremities: Right BKA. Left lower extremity with trace edema. Integumentary: Skin is warm and dry. Neurologic: Drowsy but nonfocal. LABORATORY DATA: WBC of 5.2, hemoglobin 9.6. Sodium 132, potassium 4.3, CO2 24, creatinine 4.1. ASSESSMENT AND PLAN: 1. Chronic kidney disease 5D. We will dialyze her today. It is her routine dialysis day but because she has missed part of a treatment on Saturday, we will evaluate her Saturday morning and if we need to dialyze again for ultrafiltration only, we will be able to do that. 2. Electrolytes, acid-base balance, anemia. These are stable. 3. Fluid volume. See above for plan. Dictated by MICHAEL Garibay for Doug Padilla MD cc: MD Sebastian Dean MD MTDD
[2018-12-05] MEDS ORDERED: ZOFRAN ODT PO PRN (15:34)
[2018-12-05] MEDS ORDERED: LANTUS INSULIN SUBQ SCH (15:45)
[2018-12-05] MEDS ORDERED: LOPRESSOR PO ONE (15:53)
[2018-12-05] MEDS: NEXIUM PO SCH (18:58)
[2018-12-05] MEDS: CREON PO SCH (18:59)
[2018-12-05] MEDS: PRINIVIL PO SCH (18:59)
[2018-12-05] MEDS: NORVASC PO SCH (18:59)
[2018-12-05] MEDS: PLAVIX PO SCH (18:59)
[2018-12-05] MEDS: ASPIRIN PO SCH (19:02)
[2018-12-05] MEDS: LOPRESSOR PO SCH (19:03)
[2018-12-05] MEDS: REMERON PO SCH (20:33)
[2018-12-05] MEDS: PLETAL PO SCH (20:33)
[2018-12-05] MEDS: CULTURELLE PO SCH (20:33)
[2018-12-05] MEDS: MACROBID PO SCH (20:33)
[2018-12-05] MEDS: LIVALO PO SCH (20:33)
[2018-12-06 01:47] LABS: URINE SOURCE CLEAN CATCH
[2018-12-06 01:50] LABS: BILIRUBIN URINE NEGATIVE (NEGATIVE); BLOOD URINE SMALL (NEGATIVE); COLOR YELLOW; GLUCOSE URINE TRACE mg/dL (NEGATIVE); KETONE URINE NEGATIVE (NEGATIVE); LEUKOCYTES URINE LARGE (NEGATIVE); NITRITE URINE NEGATIVE (NEGATIVE); PH URINE 6.5; PROTEIN URINE 600 mg/dL (NEGATIVE); SP GRAVITY URINE 1.011; TURBIDITY URINE HAZY (CLEAR); UROBILINOGEN URINE NORMAL (NORMAL)
[2018-12-06 01:51] LABS: UR EPITHELIAL CELLS <10 /HPF (<10); URINE BACTERIA 1+ /HPF; URINE RBC <10 /HPF (<10); URINE WBC TNTC /HPF (<10)
[2018-12-06] MEDS: HUMULIN R SUBQ SCH ×4 (06:01→21:16)
--- NOTE | 2018-12-06 08:22 | Diag Imaging Result Doc PS360 ---
EXAM: CHEST-1 VIEW 12/06/2018 HISTORY: fluid overload TECHNIQUE: AP portable upright at 0808 COMMENT: Compared to the previous study of 12/04/2018 there is blunting of the left costophrenic angle which was not present previously and the effusion on the right which was present previously has apparently diminished. There continues to be cardiomegaly. There is patchy alveolar and interstitial opacity. IMPRESSION: Cardiomegaly and pulmonary edema with left pleural effusion plus minus lower lobe atelectasis. Electronically signed by Misbah Kirkland 12/06/2018 8:20 AM
[2018-12-06] MEDS ORDERED: TIGHT: 0.2 ML/HR FOR DIALYSIS MISC PRN (09:02)
[2018-12-06] MEDS ORDERED: HEPARIN IV PRN (09:02)
[2018-12-06] MEDS ORDERED: NS 2,000 ML MISC PRN (09:02)
--- NOTE | 2018-12-06 10:27 | PROGRESS NOTE ---
DATE: 12/06/2018 SUBJECTIVE: The patient states that she is feeling some better, that her breathing is not as labored. I reviewed yesterday's happenings with her and she seemed to understand. The dialysis nurse that was present, stated they took 3.5 L off yesterday and plan to take 3 L off today. OBJECTIVE: Vital Signs: 98.1, 62, 18, 160/44, 100% saturated on nasal cannula. PHYSICAL EXAM: Lungs: Clear. Cardiovascular: Is regular. Neuropsych: The patient is alert, oriented, conversive and appropriate. ASSESSMENT AND PLAN: 1. Attempts will be made today to pull another 3 L off which should improve the patient's blood pressure as well as improve her breathing. Repeat chest x-ray from today still showed pleural effusion and pulmonary edema. Hopefully, the removal of fluid volume will work towards improving her breathing overall. I had been unaware that she had not completed her dialysis on Saturday, which may have been a factor in her fluid overload. 2. The patient's blood sugar earlier this week was very low in the emergency room. She has not taken any insulin since then. We are monitoring this and will apply a very tiny bit of sliding scale insulin as needed. Her blood sugar is highly fluctuant. 3. Blood pressure has also been fluctuating over the last several weeks. I received a phone call at my office yesterday with a family member who was informing us that the patient has not been taking her blood pressure medication as prescribed and in fact has been refusing a lot of her medication of late. I asked the patient about this and she steadfastly denied it. Stated that she did need a refill of her Toprol, but beyond that she has been compliant. She states she has not taken any insulin since the ER visit. We will continue to monitor her blood pressure and such during her hospitalization and see that her usual medication regimen is reinforced to her prior to discharge. 4. A urinalysis was drawn yesterday, which showed bacteria and other white cell products. The patient is asymptomatic. I am very reluctant to start antibiotics given her history of C. difficile, which has been so difficult to manage. She has shown no other sign of infection including fever or elevation in white cell count. cc: Sebastian James MD
[2018-12-06] MEDS: CREON PO SCH ×3 (12:35→16:53)
[2018-12-06] MEDS: ASPIRIN PO SCH (13:05)
[2018-12-06] MEDS: LOPRESSOR PO SCH (13:06)
[2018-12-06] MEDS: CULTURELLE PO SCH ×2 (13:06→20:32)
[2018-12-06] MEDS: NEXIUM PO SCH (13:07)
[2018-12-06] MEDS: MACROBID PO SCH ×2 (13:07→20:32)
[2018-12-06] MEDS: NORVASC PO SCH (13:07)
[2018-12-06] MEDS: PLAVIX PO SCH (13:08)
[2018-12-06] MEDS: PRINIVIL PO SCH (13:09)
[2018-12-06] MEDS: PLETAL PO SCH ×2 (13:09→20:32)
--- NOTE | 2018-12-06 13:43 | NEPHROLOGY PROGRESS NOTE ---
DATE: 12/06/2018 SUBJECTIVE: Patient is sitting up in bed. She appears to just feel poorly. She continues to have modestly increased work of breathing. OBJECTIVE: Vital Signs: Temperature 98.1 degrees, pulse 62, respiratory rate 18, blood pressure 160/44. Intake 400 mL. Output 3.5 L. General: Elderly female, sitting up in the bed. She is trying to eat breakfast. She appears extremely tired and does have some work of breathing. HEENT: Normocephalic, atraumatic. [place]. Neck: Supple. Trachea midline. Cardiovascular: Regular rate and rhythm. There is a systolic murmur. Pulmonary: Decreased breath sounds. No rales. Slight increase of breathing. Abdomen: Soft, positive bowel sounds. : Not inspected. Extremities: Right BKA. Left lower extremity continues with trace edema. Integumentary: Skin is warm and dry. Neurologic: Again slightly drowsy, nonfocal and is alert, oriented and understanding of current events. LAB DATA: Have none today. IMAGING: We ordered a chest x-ray, it showed continued pulmonary edema and pleural effusion. ASSESSMENT AND PLAN: 1. Chronic kidney disease 5D in the setting of fluid volume overload. We dialyzed yesterday, removed right at 3-1/2 L off of her. We will dialyze again today for UF removal only in an effort to remove 3 more L for fluid management and see if this will assist with her fluid volumes and respiratory status. Her next routine treatment will be on Saturday after today. 2. Electrolytes, acid-base balance, anemia. These have been acceptable. 3. Hypertension. She had significantly elevated blood pressure yesterday during dialysis with a systolic greater than 200. Her nurses called me and orders were given to restart her home blood pressure medications and to go ahead and give her dose of metoprolol during dialysis. Blood pressure has been marginal but elevated since. Hopefully fluid removal today will assist with that. 4. Fluid volume. Again, see above for plan. 5. UTI. Agree with holding antibiotics unless she has other symptoms secondary to her recent episode of resistant C. diff. Dictated by MICHAEL Garibay for Doug Padilla MD cc: MD Sebastian Dean MD
[2018-12-06] MEDS: REMERON PO SCH (20:31)
[2018-12-06] MEDS: LIVALO PO SCH (20:32)
[2018-12-07] MEDS: HUMULIN R SUBQ SCH ×4 (06:02→20:24)
[2018-12-07] MEDS: CREON PO SCH ×3 (07:42→17:25)
[2018-12-07] MEDS: ASPIRIN PO SCH (09:17)
[2018-12-07] MEDS: CULTURELLE PO SCH ×2 (09:17→20:24)
[2018-12-07] MEDS: LOPRESSOR PO SCH (09:18)
[2018-12-07] MEDS: LANTUS INSULIN SUBQ SCH (09:18)
[2018-12-07] MEDS: NEXIUM PO SCH (09:18)
[2018-12-07] MEDS: MACROBID PO SCH ×3 (09:20→20:24)
[2018-12-07] MEDS: PLAVIX PO SCH (09:20)
[2018-12-07] MEDS: NORVASC PO SCH (09:20)
[2018-12-07] MEDS: PLETAL PO SCH ×2 (09:20→20:24)
[2018-12-07] MEDS: PRINIVIL PO SCH (09:24)
--- NOTE | 2018-12-07 10:28 | PROGRESS NOTE ---
DATE: 12/07/2018 SUBJECTIVE: The patient states that she is feeling better. She is having no trouble breathing. She is eating quite well as evidenced by her empty plate and her elevation in blood sugars. The patient had dialysis yesterday with approximately 3 L pulled off. That gives her a total of 6+ L removed over her 2 dialysis sessions. She is scheduled again tomorrow. OBJECTIVE: Vital Signs: Temperature 99.1 degrees, 66, 18, 170/47. Lungs: The patient has somewhat dry crackles in the bases of both lungs. She has good air movement. She is not tachypneic at all. There is no wheezing. Cardiovascular: Regular, approximately 72 beats per minute at time of my examination. Extremities: Show no peripheral edema. The patient had a prosthesis off. ASSESSMENT AND PLAN: 1. I will plan to recheck a chest x-ray today and then have her go to dialysis tomorrow. If we can pull off more fluid, we will see if that is adequate and hopefully be able to discharge her home in the afternoon. 2. The patient's blood sugar has been elevated. Earlier this week, she had an episode of hypoglycemia and she has been very difficult to control even on very low doses of Lantus. I reduced her Lantus dose and of course, she is eating quite well now and her blood sugars in the 300s and 400s continuously. She is still on sliding scale. I do not think she has ever really grasped the importance of scheduled eating along with her insulin and this leads her to eat inconsistently and to eat inconsistent quality of food, which affects her blood sugar greatly. I do not think she is aware of just how fluctuant her blood sugar actually is. We discussed this multiple times, but I do not think that the concept has sunk in very well. 3. Blood pressure again has been fluctuant. It is generally high despite having multiple sessions of dialysis and removal of fluid. We are going to continue to monitor her blood pressure and make adjustments as appropriate. 4. The patient's urinalysis showed infection. The Nephrology team started her on nitrofurantoin, which is hopefully unlikely to exacerbate her previous episodes of Clostridium difficile. cc: Sebastian James MD
--- NOTE | 2018-12-07 15:26 | NEPHROLOGY PROGRESS NOTE ---
DATE: 12/07/2018 SUBJECTIVE: Patient is sitting up in bed. She states that her breathing is significantly better. We were able to remove almost 3 L again yesterday. OBJECTIVE: Vital Signs: Temperature 99.1, pulse 66, respiratory rate 18, blood pressure 172/47. Intake 340 mL. Output 2.9 L. General: This is a chronically ill-appearing, elderly female, sitting up in bed. She is awake and alert. She is in no acute distress. She has been able to eat breakfast without difficulty this morning. HEENT: Normocephalic, atraumatic. Oral mucosa moist. Neck: Supple without JVD. Cardiovascular: Regular rate and rhythm with a systolic murmur. Pulmonary: Some slight decrease in both lungs, particularly posterior, and perhaps some crackles. No rales or wheezes. Abdomen: Soft, with positive bowel sounds. : Not inspected. Minimal void. Extremities: Right BKA. Left lower extremity, no edema. Moving all extremities otherwise. Integumentary: Skin is warm and dry. Neurologic: Grossly nonfocal. LABORATORY DATA: None today. ASSESSMENT AND PLAN: 1. Chronic kidney disease 5D in the setting of fluid volume overload. We ran her on UF yesterday as an extra treatment and we were able to remove right at 3 L. We have been able to get greater than 6 L off over the course of the last 48 hours. No dialysis today. We will plan to dialyze her tomorrow. Have labs ordered to determine her dialysis bath. 2. Hypertension, improved. 3. Fluid volume. Significantly improved. Plan to dialyze tomorrow. 4. Urinary tract infection. We have restarted her home medications of the nitrofurantoin. Unclear how much benefit she will actually get secondary to her kidney function. Again, agree with trying to withhold other antibiotics if able secondary to her recent resistant Clostridium difficile. 5. Electrolytes, acid-base balance, anemia. These have been stable. Again, we will check labs in the morning to determine her dialysis bath. Dictated by MICHAEL Garibay for Doug Padilla MD cc: MD Sebastian Dean MD
[2018-12-07] MEDS: LIVALO PO SCH (20:24)
[2018-12-07] MEDS: REMERON PO SCH (20:24)
[2018-12-08 05:37] LABS: HEMATOCRIT 30.3 % (37.0-47.0); HEMOGLOBIN 9.3 g/dL (12.0-16.0); MCH 28.5 PG (27-31); MCHC 30.7 g/dL (33-37); MCV 92.9 FL (81-99); MPV 11.9 FL (7.4-10.4); RBC 3.26 XMIL (4.2-5.4); RDW 15.5 % (11.5-14.5); WBC 5.56 X1000 (4.8-10.8)
[2018-12-08] MEDS: HUMULIN R SUBQ SCH ×2 (06:03→14:26)
[2018-12-08 06:17] LABS: ALBUMIN 3.3 g/dL (3.5-5.0); CALCIUM 8.1 mg/dL (8.8-10.2); PHOSPHORUS 5.3 mg/dL (2.7-4.5); POTASSIUM 4.5 mmol/L (3.5-5.1)
[2018-12-08] MEDS ORDERED: TIGHT: 0.2 ML/HR FOR DIALYSIS MISC PRN (06:18)
[2018-12-08] MEDS ORDERED: HEPARIN IV PRN (06:18)
[2018-12-08] MEDS ORDERED: NS 2,000 ML MISC PRN (06:18)
--- NOTE | 2018-12-08 09:55 | NEPHROLOGY PROGRESS NOTE ---
DATE: 12/08/2018 TIME SEEN: 0710. SUBJECTIVE: Ms. Sanchez is resting quietly on the side of the bed. She states that she is feeling much better. She denies nausea or vomiting. Isolated diarrhea stool. LABORATORY DATA: Sodium is 136, potassium 4.5, chloride 98, CO2 of 23, BUN 40, creatinine 5, glucose 155. Her anion gap is 15, calcium 8.1, phosphorus 5.3, albumin 3.3. White count 5.5, hemoglobin 9.3, hematocrit 30.3, with a platelet count of 104,000. The patient had a urinalysis with gram-negative rods. OBJECTIVE: Vital Signs: Temperature 97.7 degrees, blood pressure 143/47, heart rate 63, respirations 18. She is on 2 L nasal cannula. Last recorded saturation was 100% after recheck. She has had 595 in. She has had 500 out to void. General: This is a 68-year-old, frail, female, who is awake and alert, in no acute distress. Skin: Warm and dry. HEENT: Normocephalic, atraumatic. Mucous membranes are moist. Neck: Supple. Trachea midline. No evidence of JVD. Cardiovascular: She is regular rate and rhythm. S4 is present. Lungs: The patient has a bibasilar crackles on O2 at 2 L nasal cannula. Abdomen: Soft, nontender. Positive bowel sounds. Genitourinary: Not inspected. The patient has voided adequate amount with dialysis assist. Extremities: Trace edema to the left extremity. Otherwise, she has a BKA to the right. Neurological: She is alert and oriented x3. ASSESSMENT AND PLAN: 1. Chronic kidney disease stage 5D in the context of fluid volume overload. The patient has dialyzed Saturday and Saturday inpatient with a total of greater than 6 liters of ultrafiltration. We will plan for dialysis today. She is to dialyze for 3.[address] her on a 2-potassium bath. We will attempt to challenge her dry weight. 2. Electrolytes and acid-base balance with correction on dialysis. 3. Anemia. This remains low, but stable. 4. Urinary tract infection. The patient is started on nitrofurantoin, followed by the primary care. 5. Fluid volume overload. We will check an CXR this am. May need an extra dialysis treatment tomorrow. I would like to thank you for allowing us to follow with this patient. Dictated by MICHAEL House for Doug Padilla MD Face to face encounter, data reviewed, discussed with Yoselyn Marie on 12/08/18. I agree with the above assessment and plan of care. cc: MICHAEL House MD Timothy P. Weirich, MD [facility]
[2018-12-08] MEDS ORDERED: MONUROL PO ONE (11:32)
[2018-12-08 14:08] VITALS: BP 173/64
[2018-12-08] MEDS: CREON PO SCH ×2 (14:25→15:04)
[2018-12-08] MEDS: ASPIRIN PO SCH (14:25)
[2018-12-08] MEDS: LOPRESSOR PO SCH (14:25)
[2018-12-08] MEDS: NEXIUM PO SCH (14:25)
[2018-12-08] MEDS: NORVASC PO SCH (14:26)
[2018-12-08] MEDS: PRINIVIL PO SCH (14:26)
[2018-12-08] MEDS: PLAVIX PO SCH (14:26)
[2018-12-08] MEDS: CULTURELLE PO SCH (15:05)
[2018-12-08] MEDS: LANTUS INSULIN SUBQ SCH (15:05)
[2018-12-08] MEDS: PLETAL PO SCH (15:06)
--- NOTE | 2018-12-08 22:46 | DISCHARGE SUMMARY ---
ADMISSION DATE: 12/05/2018 DISCHARGE DATE: 12/08/2018 DISCHARGE DIAGNOSES: 1. Acute pulmonary edema. 2. Congestive heart failure. 3. End-stage renal disease on dialysis, stage 5. 4. Brittle diabetes mellitus requiring insulin. 5. Diabetes type 1 with neurovascular complications. 6. Ischemic heart disease. 7. Peripheral vascular disease. 8. Hypertension. CONSULTATIONS: Doug Padilla. HOSPITAL COURSE: This 68-year-old black female with an extensive medical history had presented to the emergency room Saturday with hypoglycemia. She was treated there but as a result, not able to complete her dialysis on Saturday. She presented in the days following with increasing shortness of breath and signs and symptoms consistent with fluid overload and pulmonary edema. The patient was admitted to the hospital and Dr. Padilla was consulted. He dialyzed her 2 times on Saturday and Saturday removing approximately 6 L of fluid. Over the course of that treatment plan her breathing improved quite a bit. Followup chest x-ray still showed some pulmonary edema and cardiomegaly, but this is baseline. The patient had been struggling with brittle diabetes and had a couple of hypoglycemic episodes in the hospital despite reduced doses of Lantus. It was pretty clear that the even small doses of sliding scale insulin were throwing her into hypoglycemia despite a good appetite and some rather high sugars to boot. The patient's urine culture which was sent off showed Proteus mirabilis with a almost complete resistance pattern except high potency antibiotics typically used to treat resistant bacteria. Unfortunately, due to her recent history of C difficile, I do not feel confident that use of high potency antibiotics would be judicious in an otherwise asymptomatic patient. The patient had been given nitrofurantoin for several days by the nephrology team. I gave her a dose of Monurol prior to discharge. The patient underwent dialysis on Saturday and tolerated this well and she was discharged home in her baseline condition. She is aware that she needs follow up in 2 weeks with me and follow up with Dr. Padilla and the dialysis team regularly. cc: MD ALLEGRA Osuna
== END 2018-12-08 15:07 | disposition home health service (06) | DRG 291 ==
LOC: ED 22:31 → SUATTDRO 12-05 02:08 → EDIPHOLD 12-05 02:08 → 3N 12-05 04:50 → 1N 12-05 15:07
PROVIDERS: ADMIT Internal Medicine; ATTEND Internal Medicine

== ENCOUNTER 2019-01-13 14:22 | Inpatient (IN) ==
[2019-01-13] MEDS ORDERED: SALINE LOCK IV FLUID XX ONE (15:04)
[2019-01-13 15:34] LABS: BASO# 0.03 X1000 (0.0-0.2); BASO% 0.4 % (0.0-0.8); EOS# 0.01 X1000 (0.0-0.7); EOS% 0.1 % (0.0-10.0); HEMATOCRIT 39.5 % (37.0-47.0); HEMOGLOBIN 12.4 g/dL (12.0-16.0); IMM GRAN# 0.02 X1000 (0.0-0.04); IMM GRAN% 0.3 % (0.0-0.5); LYMPH# 0.63 X1000 (1.2-3.4); LYMPH% 8.2 % (20.5-51.1); MCH 28.9 PG (27-31); MCHC 31.4 g/dL (33-37); MCV 92.1 FL (81-99); MONO# 0.64 X1000 (0.11-0.59); MONO% 8.3 % (1.7-9.3); MPV 12.7 FL (7.4-10.4); NEUT# 6.37 X1000 (1.4-6.5); NEUT% 82.7 % (42.2-75.2); PLT 50 X1000 (130-400); RBC 4.29 XMIL (4.2-5.4); RDW 13.5 % (11.5-14.5)
[2019-01-13] MEDS: DUONEB (A & A) INH SCH ×2 (15:35→22:55)
[2019-01-13 15:51] LABS: ALB/GLOB RATIO 1.2; ALBUMIN 3.6 g/dL (3.5-5.0); CALCIUM 8.4 mg/dL (8.8-10.2); CREATININE 3.9 mg/dL (0.5-0.9); TOTAL BILIRUBIN 0.95 mg/dL (0.20-1.00); TOTAL PROTEIN 6.7 g/dL (6.3-8.3)
[2019-01-13] MEDS: ROCEPHIN 1 GM in NS 50 ML IV SCH (17:00)
[2019-01-13] MEDS: TYLENOL PO PRN (18:13)
[2019-01-14] MEDS: ZOFRAN IV PRN (04:09)
[2019-01-14] MEDS ORDERED: NS 2,000 ML MISC PRN (06:34)
[2019-01-14] MEDS ORDERED: TIGHT: 0.2 ML/HR FOR DIALYSIS MISC PRN (06:34)
[2019-01-14] MEDS ORDERED: HEPARIN IV PRN (06:34)
[2019-01-14] MEDS: DUONEB (A & A) INH SCH ×5 (08:19→23:05)
[2019-01-14] MEDS ORDERED: NORVASC PO SCH (09:00)
[2019-01-14] MEDS ORDERED: PLETAL PO SCH (09:00)
[2019-01-14] MEDS ORDERED: PRINIVIL PO SCH (09:00)
--- NOTE | 2019-01-14 09:24 | Diag Imaging Result Doc PS360 ---
EXAM: CHEST-2 VIEWS 01/14/2019 HISTORY: bronchitis TECHNIQUE: PA and lateral chest COMMENT: There is cardiomegaly. The lungs are better expanded than on 12/06/2018. There is apparently less pleural fluid on the left. There is still patchy ill-defined opacity in both lungs consistent with pulmonary edema plus minus pneumonia. IMPRESSION: Cardiomegaly with pulmonary edema. Electronically signed by Misbah Kirkland 01/14/2019 9:22 AM
[2019-01-14] MEDS: CREON PO SCH ×3 (10:00→17:29)
[2019-01-14] MEDS: CULTURELLE PO SCH ×2 (10:00→20:29)
[2019-01-14] MEDS: ASPIRIN PO SCH (10:01)
[2019-01-14] MEDS: PLAVIX PO SCH (10:01)
[2019-01-14] MEDS: LOPRESSOR PO SCH (10:01)
[2019-01-14] MEDS: NEXIUM PO SCH (10:07)
[2019-01-14] MEDS: LANTUS INSULIN SUBQ SCH (10:39)
[2019-01-14] MEDS: ROBITUSSIN-AC PO PRN (10:51)
[2019-01-14] MEDS: HUMALOG SUBQ SCH ×3 (12:01→20:22)
--- NOTE | 2019-01-14 14:34 | NEPHROLOGY CONSULTATION ---
DATE: 01/14/2019 Chief complaint: I have bronchitis, been sick about a week. HPI: Ms. Sanchez is a 68-year-old -[place] female known to our service for chronic kidney disease stage 5D with Dialysis on Saturday, Saturday, and Saturday. She reports a one-week history of nasal drainage, nausea, cough with productive clear sputum, and a low-grade temp. She had a niece that she lives with Who had the same symptoms last week. She went to her primary doctor yesterday and they diagnosed her with bronchitis and suggested she come to the emergency department. Currently she denies any fever or chills, vomiting, or chest pain. She has been having some nausea that is relieved with Zofran. She admits to having right sided pain upon inspiration with cough. In the summer she had Cdiff that caused weight loss. She voices having an appetite and eating however she continues to lose weight. Past medical history: chronic kidney disease stage 5D, diabetes mellitus type two, hypertension, coronary artery disease. Past surgical history: right BKA, coronary bypass surgery, multiple cardiac stenting, cataract surgery. Social history: Lives at home with her niece. Former smoker, denies alcohol, tobacco, and illicit drug use currently. Family history: positive for coronary artery disease. Allergies: demerol and nitroglycerin. Home medications: Norvasc, aspirin, Pletal, Plavix, Nexium, Lantus, culturelle, CREON, lisinopril, lopressor, Remeron, Livalo. Review of systems: neurological: Denies altered mental status and confusion. Eyes: denies blurriness, dryness, or change in visual acuity. ENT: denies tinnitus or change in hearing. Admits to nasal congestion.Integumentary: denies color change, rash or itch. Respiratory: admits to shortness of breath, denies orthopnea. Admits to productive cough last week but non productive today. Cardiovascular: denies palpitations or chest pain. GI: Denies constipation, nausea and vomiting, or abdominal distention. : denies any color change amount or odor in urine. Endocrine: denies excessive thirst or hunger. Musculoskeletal: denies any increase in weakness or general malaise. Labs: WBC 7.70, hemoglobin 12.4, hematocrit 39.5, platelet count 50, sodium 138, potassium 4, chloride 95, carbon dioxide 27, anion gap 16, BUN 16, creatinine 3.9, calcium 8.4, albumin 3.6. Intake 120, output zero. Imaging: chest x-ray shows cardiomegaly with pulmonary edema. Physical exam: vitals. Temperature 97.7, pulse 70, respirations 14, blood pressure 176/58, O2 sat 100% on 2 L nasal cannula. General: chronic Ill appearing elderly -[place] female lying in bed in no acute distress. HEENT: Normocephalic, atraumatic. Trachea midline. Mucous membranes dry. Pupils equal and reactive. Skin: thin, warm and dry. Neck: supple, No JVD. Cardiovascular: S1, S2, S4, regular rate. No gallop or murmur. Respiratory: Audible wheezing, good air movement, few inspiratory wheezes and crackles anteriorly Abdomen: soft, nontender, nondistended. Bowel sounds present. : non-inspected Extremities: No edema, clubbing, or cyanosis. Right fistula noted with positive thrill and bruit. Neurological: alert, oriented to person, place, and time. Assessment and Plan: CKD 5D. She will have her routine hemodialysis today. Seen during treatment. 15:30. Fluid volume status. Euvolemic on exam. Ordered an echocardiogram. Electrolytes and acid base balance. Stable. cc: MD Sebastian Dean MD MTDD
--- NOTE | 2019-01-14 14:38 | ECHO REPORT ---
ORDER DATE: 01/14/2019 INDICATION: Volume overload. FINDINGS: 1. The right atrium appears normal in size at 3.3 cm. 2. Mild tricuspid regurgitation. RV systolic pressure of 64 suggesting pulmonary hypertension. 3. Normal RV size with mild reduction in RV systolic function. 4. No significant pulmonic insufficiency. 5. Severe left atrial enlargement with a volume index of 50. 6. No mitral prolapse. Mild mitral regurgitation. Likely mild mitral stenosis with a mean gradient of 4.6. 7. Normal LV size, end-diastolic dimension of 4.7. Mild left ventricular hypertrophy with a posterior and interventricular septal wall thickness of 1.2 cm each. There is reduction in LV systolic function with an estimated EF of 40% and global hypokinesis. 8. Aortic valve opens well. There is mild insufficiency. No stenosis. 9. Aorta appears normal in visualized segments. 10. No pericardial effusion seen. 11. There is a suggestion of right to left shunting with injection of agitated saline contrast suggesting a possible PFO. cc: MD Doug Dunbar MD Timothy P. Weirich, MD
--- NOTE | 2019-01-14 15:35 | EKG Report ---
Test Performed on : 01/14/2019 3:30:11 PM Test Reason : dyspnea Blood Pressure : / mmHG Vent. Rate : 066 BPM Atrial Rate : 066 BPM P-R Int : 130 ms QRS Dur : 088 ms QT Int : 428 ms P-R-T Axes : 069 013 111 degrees QTc Int : 448 ms Sinus rhythm. with premature atrial complexes. Possible Left atrial enlargement ST & T wave abnormality, consider anterolateral ischemia Abnormal ECG Unconfirmed Result
--- NOTE | 2019-01-14 15:42 | CARDIOLOGY CONSULTATION ---
DATE: 01/14/2019 HISTORY OF PRESENT ILLNESS: Ms. Sanchez is a 68-year-old Afro-Micronesian lady with history of coronary artery disease, coronary artery bypass grafting, brittle diabetes, on insulin, peripheral vascular disease, end-stage renal disease, on dialysis, is admitted with increasing shortness of breath. The patient has been having cough with shortness of breath and left- sided chest pain for the last 1 week. Chest x-ray revealed pulmonary edema. She has some cough. There is no mucopurulent expectoration. She does not complain of any hemoptysis. There is no history of palpitations. There is no history of dizziness or syncope. She was orthopneic when she was admitted. As far as chest pains are concerned, there is no radiation to the back or down the arms. She was last admitted and discharged on 12/08/2018 with acute pulmonary edema. She had an echocardiogram done today which revealed LV dysfunction, ejection fraction of 40%, please see detailed echocardiogram report, change from previous echocardiogram. REVIEW OF SYSTEM: A 14-point review of systems was done. GI System: There is no history of nausea, vomiting, diarrhea. There is no history of hematemesis or melena. Central nervous system: No focal weakness to suggest a CVA or TIA. Genitourinary: There is no dysuria or hematuria. PAST MEDICAL HISTORY: 1. Coronary artery disease, status post coronary artery bypass grafting 01/22/2014 with HOOKER to left anterior descending artery, saphenous vein graft to OM2, saphenous vein graft to RCA. 2. Brittle diabetes, on insulin. 3. History of pulmonary edema, congestive heart failure. 4. Chronic kidney disease status post dialysis which she has been undergoing since February 2018. 5. Hypertension. 6. Hyperlipidemia. 7. Hypertriglyceridemia. SOCIAL HISTORY: She does not smoke. Does not drink. HOME MEDICATIONS: Include Pletal 50 mg p.o. b.i.d., metoprolol 50 mg q.a.m., Nexium 40 mg a day, Livalo 2 mg p.o. at bedtime, Plavix 75 mg a day, lisinopril 2.5 mg a day, Creon, amlodipine 2.5 mg a day, insulin as directed, aspirin 81 mg a day. ALLERGIES: She is allergic to meperidine. PHYSICAL EXAMINATION: Vital signs: Blood pressure was 174/47. Cardiovascular: First and second heart sounds were heard. There was a soft murmur. Respiratory: Bilateral inspiratory crepitations over both lung cazares noted. Abdomen: Soft non tender, bowel sounds heard. Central nervous system: Alert, oriented. Was moving all 4 extremities. Extremities: Examination of extremities revealed mild pedal edema. Patient was undergoing dialysis. LABORATORY: Sodium 138, potassium 4.0, BUN 16, creatinine 3.9, glucose 400. WBC 7.7, hemoglobin 12.4, hematocrit 39.5, platelet count of 50,000. Chest x-ray: Pulmonary edema with cardiomegaly. ASSESSMENT AND PLAN: Ms. Agueda Sanchez is a 68-year-old Afro-[place]ron[place] lady with a history of brittle diabetes, on dialysis, hypertension, coronary artery disease, status post coronary artery bypass grafting, 3 vessel, was recently admitted and discharged with acute pulmonary edema. This was in November 2018. She is admitted with increasing shortness of breath, cough with left-sided chest pain. Patient is in pulmonary edema and is undergoing dialysis. She has LV dysfunction which is new compared to the previous old echocardiograms. RECOMMENDATIONS: 1. We will get an electrocardiogram. We will get serial cardiac enzymes. 2. Given her recurrent heart failure, past medical history, once she is euvolemic we will plan for a left heart catheterization to evaluate her coronary anatomy and her grafts as well. 3. As far as her current medications are concerned, her blood pressure was elevated. However, she had not received her morning medicines. I have not made any changes at the present time. We will continue all of her home medications. 4. Diabetes. Continue with insulin. 5. She is on Livalo for her hyperlipidemia and as an outpatient we can plan for Repatha or praluent depending on her lipid profile. We will check a fasting lipid profile in the morning. 6. She has new LV dysfunction. She is on beta-blockers and ARLYN inhibitors. I have not made any changes. Would recommend stopping her Norvasc and adjusting her ARLYN inhibitors given her new LV dysfunction. Thank you for the consult. We will follow hospital course. cc: MD Sebastian Cruz MD MTDD
[2019-01-14] MEDS: ROCEPHIN 1 GM in NS 50 ML IV SCH (17:29)
[2019-01-14] MEDS: PRINIVIL PO SCH (17:29)
[2019-01-14] MEDS: LIVALO PO SCH (20:29)
--- NOTE | 2019-01-14 20:52 | PROGRESS NOTE ---
DATE: 01/14/2019 SUBJECTIVE: This morning when I came in, the patient was still coughing pretty badly. She was wheezing, but more so on the right. She stated she had not slept all night because of the cough. OBJECTIVE: Vital Signs: 97.7, 70, 14, 176/58. Lungs: The patient continues to have a rattly cough which is somewhat uncontrollable. The right lung has more wheezing than the left, but there some on both sides. She is moving air fairly well, although struggling because of the cough. Cardiovascular: Regular. Neuropsychiatric: She is alert, oriented, conversive, and appropriate. LABORATORY: From yesterday: White cell count 7.7, hematocrit 39.5, BUN 16, creatinine 3.9. Initial glucose was 391. ASSESSMENT AND PLAN: 1. I still think the patient has reactive airway disease, most likely acute bronchitis, which is driving her cough. There is a possibility of congestive failure, but she otherwise shows very little in the way of fluid overload. She is scheduled for dialysis today, and if that is of any question, then hopefully they can draw off a little more fluid. Certainly, her blood pressure would support it at this point. 2. The patient's diabetes is being handled with sliding scale insulin only. I am not sure how much she is eating. We have to monitor blood sugars closely. She is on protocol. 3. Hypertension. As from previous visits, the patient's blood pressure fluctuates pretty wildly based on how far she is out from dialysis. We will continue to monitor this closely. She is on telemetry. 4. The patient has a history of Clostridium difficile and exocrine pancreatic insufficiency. Those medications have been continued. We will monitor for signs of any downturn. cc: Sebastian James MD MTDD
[2019-01-15] MEDS: DUONEB (A & A) INH SCH ×6 (03:23→23:18)
[2019-01-15] MEDS: ROBITUSSIN-AC PO PRN (04:13)
[2019-01-15 05:50] LABS: CHOLESTEROL 95 mg/dL (0-200); HDL 49 mg/dL (45-65); LDL 30 mg/dL; TRIGLYCERIDES 78 mg/dL (35-135); VLDL 16 mg/dL
[2019-01-15] MEDS: NEXIUM PO SCH (06:00)
[2019-01-15] MEDS: HUMALOG SUBQ SCH ×4 (06:01→20:36)
[2019-01-15] MEDS ORDERED: NS 2,000 ML MISC PRN (06:15)
[2019-01-15] MEDS ORDERED: HEPARIN IV PRN (06:15)
[2019-01-15] MEDS ORDERED: TIGHT: 0.2 ML/HR FOR DIALYSIS MISC PRN (06:15)
--- NOTE | 2019-01-15 07:32 | EKG Report ---
Test Performed on : 01/15/2019 06:42:22 AM Test Reason : dyspnea Blood Pressure : / mmHG Vent. Rate : 087 BPM Atrial Rate : 087 BPM P-R Int : 144 ms QRS Dur : 098 ms QT Int : 358 ms P-R-T Axes : 039 -10 032 degrees QTc Int : 430 ms Sinus rhythm. with premature atrial complexes. Minimal voltage criteria for LVH, may be normal variant Nonspecific T wave abnormality Abnormal ECG Unconfirmed Result
[2019-01-15] MEDS: LANTUS INSULIN SUBQ SCH ×2 (10:46→10:51)
[2019-01-15] MEDS: PRINIVIL PO SCH (10:47)
[2019-01-15] MEDS: PLAVIX PO SCH (10:47)
[2019-01-15] MEDS: LOPRESSOR PO SCH (10:47)
[2019-01-15] MEDS: CULTURELLE PO SCH ×2 (10:47→22:01)
[2019-01-15] MEDS: CREON PO SCH ×3 (10:47→17:19)
[2019-01-15] MEDS: ASPIRIN PO SCH (10:47)
[2019-01-15] MEDS: PULMICORT INH SCH ×2 (11:55→20:23)
--- NOTE | 2019-01-15 14:38 | NEPHROLOGY PROGRESS NOTE ---
DATE: 01/15/2019 Subjective: patient sitting up in the bed leaning forward. Complains of shortness of breath, headache, and nausea with decreased appetite compared to yesterday. She remains on 2 1/2 L nasal cannula. Objective: vitals. Temperature 97.8, pulse 90, respirations 17, blood pressure 157/53, O2 sat 100% on 2 L nasal cannula. General: chronic Ill appearing elderly -[place] female lying in bed in no acute distress. HEENT: Normocephalic, atraumatic. Trachea midline. Mucous membranes dry. Pupils equal and reactive. Skin: thin, warm and dry. Neck: supple, 6 cm JVD. Cardiovascular: S1, S2, S4, regular rate. No gallop or murmur. Respiratory: Audible wheezing, good air movement, few inspiratory wheezes and crackles anteriorly and prominent throughout posterior. Abdomen: soft, nontender, nondistended. Bowel sounds present. : non-inspected Extremities: No edema, clubbing, or cyanosis. Right fistula noted with positive thrill and bruit. Neurological: alert, oriented to person, place, and time. Labs: CK 49, troponin 0.036, intake 650, output 484. Assessment and Plan: Chronic kidney disease stage 5D. She received her routine hemodialysis yesterday but because of fluid volume status and echocardiogram results, we will dialyze her again today. Electrolytes and acid base balance. Stable. Blood pressure. Slightly above target. Will continue to monitor for now as we challenge her volume status. cc: MD Sebastian Dean MD MTDD
[2019-01-15] MEDS: ROCEPHIN 1 GM in NS 50 ML IV SCH (17:19)
[2019-01-15] MEDS: ZOFRAN IV PRN (17:19)
--- NOTE | 2019-01-15 17:40 | PROGRESS NOTE ---
DATE: 01/15/2019 SUBJECTIVE: The patient states that she feels a little bit better. She is coughing a little bit less. She stated that she did not feel that she was wheezing any more. She had a low sugar yesterday which she blamed on the fact that sliding scale called for 10 units of Humalog which was just simply too much for her. I promised her that we would make adjustments in this regard. OBJECTIVE: Vital Signs: 98.3, 59, 14, 149/54. Lungs: The patient has bilateral expiratory wheezes. She has fair air movement. Cardiovascular: Regular. Neuropsychiatric: She is alert, oriented, conversive, and appropriate. LABORATORY: Lowest blood sugar was 45, highest was in the 390s, and presently she is at 211. ASSESSMENT AND PLAN: 1. The patient continues to have reactive airway. This may be all fluid driven. But she may also have a viral syndrome or other bronchitis. We will continue antibiotics. I have added some budesonide to her aerosols on a twice daily basis and we will see if this will improve her air movement. If this is driven completely by congestive failure, our only recourse is going to be to take off a little more fluid with dialysis. She was scheduled to go back for that today. 2. Cardiology consultation resulted in the determination that the patient may have additional ischemic burden and the likelihood of a heart catheterization in the near future is pretty likely. At present, we will try and equilibrate her fluid balance, manage blood pressure and other risk factors. 3. Blood pressure is reasonably controlled. 4. No problems with the gastrointestinal tract at the present time. cc: Sebastian James MD MTDJavan
[2019-01-15 19:47] LABS: URINE SOURCE CLEAN CATCH
[2019-01-15 19:51] LABS: BILIRUBIN URINE NEGATIVE (NEGATIVE); BLOOD URINE MODERATE (NEGATIVE); COLOR ORANGE; GLUCOSE URINE >1000 mg/dL (NEGATIVE); KETONE URINE NEGATIVE (NEGATIVE); LEUKOCYTES URINE LARGE (NEGATIVE); NITRITE URINE NEGATIVE (NEGATIVE); PROTEIN URINE >600 mg/dL (NEGATIVE); SP GRAVITY URINE 1.023; TURBIDITY URINE TURBID (CLEAR); UR EPITHELIAL CELLS >10 /HPF (<10); URINE BACTERIA 4+ /HPF; URINE RBC <10 /HPF (<10); URINE WBC TNTC /HPF (<10); UROBILINOGEN URINE NORMAL (NORMAL)
[2019-01-15] MEDS: LIVALO PO SCH (22:01)
[2019-01-16] MEDS: DUONEB (A & A) INH SCH ×6 (03:08→23:19)
[2019-01-16 05:25] LABS: HEMATOCRIT 35.6 % (37.0-47.0); HEMOGLOBIN 11.1 g/dL (12.0-16.0); MCH 28.9 PG (27-31); MCHC 31.2 g/dL (33-37); MCV 92.7 FL (81-99); MPV 13.1 FL (7.4-10.4); RBC 3.84 XMIL (4.2-5.4); RDW 13.6 % (11.5-14.5); WBC 4.55 X1000 (4.8-10.8)
[2019-01-16 05:49] LABS: ALBUMIN 3.2 g/dL (3.5-5.0); CALCIUM 8.2 mg/dL (8.8-10.2); CREATININE 2.7 mg/dL (0.5-0.9); PHOSPHORUS 2.9 mg/dL (2.7-4.5); POTASSIUM 2.9 mmol/L (3.5-5.1)
[2019-01-16] MEDS: HUMALOG SUBQ SCH ×4 (06:34→20:15)
[2019-01-16] MEDS: NEXIUM PO SCH (06:34)
--- NOTE | 2019-01-16 06:59 | Diag Imaging Result Doc PS360 ---
EXAM: CHEST-PORTABLE 01/16/2019 HISTORY: dyspnea TECHNIQUE: AP portable at 0541 COMMENT: There is cardiomegaly. There is pleural thickening bilaterally. This has not changed since 01/14/2019. The lung bases are slightly clearer than they were. IMPRESSION: Improved pulmonary edema. Electronically signed by Misbah Kirkland 01/16/2019 6:57 AM
[2019-01-16] MEDS: PULMICORT INH SCH ×2 (08:14→19:15)
[2019-01-16] MEDS ORDERED: KLOR-CON PO ONE (08:53)
[2019-01-16] MEDS: LANTUS INSULIN SUBQ SCH (09:10)
[2019-01-16] MEDS: PLAVIX PO SCH (09:10)
[2019-01-16] MEDS: CULTURELLE PO SCH ×2 (09:10→20:16)
[2019-01-16] MEDS: LOPRESSOR PO SCH (09:10)
[2019-01-16] MEDS: CREON PO SCH ×4 (09:10→17:38)
[2019-01-16] MEDS: PRINIVIL PO SCH (09:11)
[2019-01-16] MEDS: ASPIRIN PO SCH (09:11)
--- NOTE | 2019-01-16 10:11 | PROGRESS NOTE ---
DATE: 01/16/2019 SUBJECTIVE: The patient states that she feels a little bit better. She is still coughing and still wheezing. She has not had any fever. OBJECTIVE: Vital Signs: 98.1, 82, 16, 170/43, 100% saturated on 2 L nasal cannula. PHYSICAL EXAMINATION: The patient is doing an aerosol treatment at the time of my examination, which was making her cough. Nothing was coming out. Neuropsych: She is alert, oriented, conversive and appropriate. Lungs: Bilateral expiratory wheeze with only fair air movement. Cardiovascular appears regular. Slightly hyperdynamic to palpation. LABORATORY: White cell count 4.5, hemoglobin 11.1, potassium 2.9, creatinine 2.7. ASSESSMENT AND PLAN: 1. Despite improved chest x-ray, the patient continues to wheeze and cough. My initial diagnosis on admission was a bronchitis or pneumonitis of some sort, likely viral given what is in the community these days. I have covered her with some Rocephin. She has never had a fever or white count. I am going to consult Dr. Gonzalez for his help on trying to get her respiratory status improved. It is likely that the Rocephin is doing nothing and that Dr. Gonzalez may want to use other antibiotics or a different aerosol management strategy. 2. The decline in the patient's LV function is being followed by Dr. Mills and his team. There was mention of doing cardiac catheterization at some point. I do not know what that timeframe he is. She had a negative fluid balance yesterday and improved chest x-ray, but her symptomology has not improved at all. 3. Nephrology team is handling the patient's dialysis. She had about 2 L out yesterday, although I think that the floor nursing input and output are somewhat inaccurate in their totality. 4. The patient's diabetes was reasonably well controlled yesterday. I made a custom sliding scale for her. This may need to be adjusted if Dr. Gonzalez adds any steroids. 5. The patient's blood pressure continues to fluctuate. She has a wide pulse pressure. I do not hear any type of new murmur to explain this. 6. The patient has not had any diarrhea. Her appetite is fair to poor. We will continue to monitor this. cc: Sebastian James MD
[2019-01-16] MEDS: ZOFRAN IV PRN (11:59)
--- NOTE | 2019-01-16 13:11 | Diag Imaging Result Doc PS360 ---
BA SWALLOW-ESOPHAGUS - 01/16/2019 INDICATION: dysphagia TECHNIQUE: Single contrast esophagram COMPARISON: None FINDINGS: The esophagus is extremely dilated. There was no passage of contrast through the gastroesophageal junction. This is completely obstructed. There were diffuse spastic waves throughout the esophagus itself. IMPRESSION: Complete obstruction at the gastroesophageal junction. Most likely represents severe achalasia, however stricturing esophageal cancer is not excluded. Electronically signed by Chauncey Whitmore 01/16/2019 1:08 PM
[2019-01-16] MEDS: ROCEPHIN 1 GM in NS 50 ML IV SCH (17:38)
[2019-01-16] MEDS: LIVALO PO SCH (20:16)
--- NOTE | 2019-01-16 21:16 | NEPHROLOGY PROGRESS NOTE ---
DATE: 01/16/2019 SUBJECTIVE: She is very weak today, still coughing. OBJECTIVE: Vital Signs: Blood pressure 159/68, heart rate 70, respirations 16, afebrile. General: No acute distress. Skin: Warm and dry. Neck: Neck veins are not appreciated. Heart: Regular with S4. Lungs: Have equal breath sounds with a few scattered wheezes. Abdomen: Soft, nontender. Extremities: No edema. IMPRESSION: 1. Shortness of breath and cough. Chest x-ray today with improved pulmonary edema. She is very weak and so we will hold her dialysis and treat her again tomorrow. Again we will challenge her dry weight tomorrow. 2. Hypokalemia. This may require replacement. cc: MD Sebastian Dean MD
--- NOTE | 2019-01-16 22:17 | GASTROENTEROLOGY CONSULTATION ---
DATE: 01/16/2019 REASON FOR CONSULTATION: Dysphagia. HISTORY OF PRESENT ILLNESS: Ms. Agueda Sanchez is a 68-year-old woman with past medical history of hypertension, hyperlipidemia, coronary artery disease, status post bypass in 2013, peripheral arterial disease, status post right BKA, end-stage renal disease, on hemodialysis Saturday, Saturday, Saturday; insulin-dependent diabetes, and CHF, who presents with one week of productive cough, congestion, shortness of breath, and nausea. The patient was recently hospitalized here last month with episode of C. difficile that got better with antibiotics. She reports having intermittent dysphagia primarily to solids over the last several months. She has lost about 40 pounds in the last 4 to 6 months. She denies any dysphagia to liquids. She denies any hematemesis, melena, or rectal bleeding. She does have some abdominal discomfort with nausea, which she attributes to gallstones. Her last EGD was about 15 to 20 years ago. Her last colonoscopy was also before the age of 49. No family history of GI malignancies. No prior workup for achalasia. She says today, she has not been able to tolerate solid foods very well and has been vomiting that up. Of note, she had an esophagram earlier today, that showed complete obstruction at the GE junction, most likely represents severe achalasia. However, stricturing esophageal cancer is not excluded. There are diffuse spastic waves throughout the esophagus itself, which is extremely dilated. REVIEW OF SYSTEMS: As per HPI. Otherwise, a 12-point review of systems is negative. PAST MEDICAL HISTORY: As per HPI. Other history includes hypertension, hypertriglyceridemia. PAST SURGICAL HISTORY: Coronary artery bypass in 2013, AV fistula in left upper extremity, a right BKA, arthrectomy of the lower legs bilaterally, pericardiectomy in 1985. SOCIAL HISTORY: She is a former smoker in the past. No alcohol or drug use. FAMILY HISTORY: No family history of GI malignancies. Positive for hypertension, heart attacks, and diabetes. HOME MEDICATIONS: Include Creon, Culturelle, Dificid which she completed, Lantus, Livalo, Norvasc, Plavix, Protonix, Toprol-XL, aspirin, calcitriol, cilostazol, Reglan, lisinopril. ALLERGIES: Demerol and nitroglycerin. PHYSICAL EXAMINATION: Vital Signs: Temperature is 98.1 degrees, heart rate 72, respiratory rate 18, blood pressure 162/56, O2 saturation 100% on 2 L nasal cannula. General: Patient is chronically ill-appearing, in no acute distress, pleasant. HEENT: Sclerae anicteric. Moist mucous membranes. Extraocular movement intact. Neck: Supple. No JVD or lymphadenopathy. Cardiac: Regular rate and rhythm. No murmurs. Lungs: Coarse breath sounds bilaterally that clear with cough. No wheezing. Abdomen: Soft, nontender, nondistended. Normoactive bowel sounds. No rebound or guarding. Extremities: She has a right BKA. No edema. Warm and well perfused. She has a left upper extremity AV fistula with palpable thrill. Neurologic: Nonfocal. LABORATORY DATA: White count is 4.5, hemoglobin is 11.1, platelets of 68,000. Sodium of 139, potassium of 2.9, chloride of 97, bicarbonate 27, BUN of 8, creatinine of 2.7, glucose of 210. LFTs from the , are within normal limits. Albumin of 3.2. UA shows proteinuria, glucose, blood, leukocytes, and epithelial cells. Urine culture is pending. IMAGING: Chest x-ray on 01/16/2019, showed improved pulmonary edema. There is pleural thickening bilaterally. This is not changed from prior. Cardiomegaly. Barium esophagram: Complete obstruction at the GE junction, most likely represents severe achalasia. However, stricturing esophageal cancer is not excluded. ASSESSMENT AND PLAN: Ms. Agueda Sanchez is a 68-year-old woman with a past medical history of coronary artery disease, status post coronary artery bypass graft, insulin- dependent diabetes, end- stage renal disease on hemodialysis, gastroesophageal reflux disease, who presents with acute bronchitis, being seen by Pulmonary, and nausea, vomiting, dysphagia. Barium esophagram shows findings classic of achalasia with bird's beak and dilated esophagus. No obvious luminal obstruction was noted. She does report having dysphagia to solids, but not liquids. Therefore, she probably does not have a complete obstruction. No evidence of food impaction based off of the esophagram. We will treat her conservatively for now with PPI and full liquids as tolerated. She will need a diagnostic EGD on Saturday, with Dr. Howell, to rule out secondary achalasia from a luminal lesion. If negative, she would likely need outpatient esophageal manometry to confirm motility disorder. Other labs notable, she has hemoglobin with anemia, normocytic of 11.1, hypokalemia of 2.9, thrombocytopenia of 68,000, unclear etiology. She has a low albumin consistent with malnutrition. Her BMI is 17. She has had abnormal weight loss concerning for possibly underlying malignancy. # Dysphagia # GERD # N/V # ESRD # Abnormal GI imaging # Anemia # Hypokalemia # Thrombocytopenia # Severe protein calorie malnutrition Thank you for this consult. We will follow with you. Please call with any questions or concerns. cc: Sebastian James MD [facility]
[2019-01-16] MEDS: ROBITUSSIN-AC PO PRN (22:43)
--- NOTE | 2019-01-17 01:08 | PULMONOLOGY CONSULTATION ---
DATE: 01/16/2019 REQUESTING CLINICIAN: Dr. Sebastian James. REASON FOR CONSULTATION: Wheezing. HISTORY OF PRESENT ILLNESS: Ms. Sanchez is a 68-year-old black female, prior history of tobacco use, coronary artery disease, peripheral vascular disease, with end-stage renal disease, who was admitted to the hospital 01/14/2019 with a several day history of cough, sputum production, and generalized weakness. She reports she has had several episodes of emesis following meals without significant nausea. PAST MEDICAL HISTORY: 1. Long history of insulin-requiring diabetes mellitus. 2. End-stage renal disease, on hemodialysis. 3. Coronary artery disease status post bypass grafting. 4. History of cardiac stenting. 5. Status post right [id number]-[id number] amputation. 6. History of cataract surgery. 7. History of C difficile colitis in November. FAMILY HISTORY: Positive for coronary artery disease. 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 She has a prior history for tobacco but none recently. No alcohol use noted. No drug history. REVIEW OF SYSTEMS: Notable for recurrent vomiting, which is sometime delayed and demonstrates material from prior meal, wheezing, cough, shortness of breath with subjective fevers. PHYSICAL EXAMINATION: General: Reveals a thin black female in no distress. Vital signs: Blood pressure 163/56, heart rate 72, respiratory rate 18, oxygen saturation 100% on 2 L per nasal cannula. HEENT: Pupils are equal and reactive. Oropharynx appears clear. Neck: Supple. Chest: Reveals scattered rhonchi and wheezing throughout all lung cazares. Cardiac: S1, S2. Abdomen: Soft. Extremities: Reveal prior amputation on the right. LABORATORIES: After history was obtained this, I obtained a barium swallow. I was notified by the radiologist that the barium swallow reveals extreme dilation of the esophagus with no passage of contrast through the GE junction, consistent with severe achalasia or esophageal stricture from malignancy. IMPRESSION: 1. Acute bronchitis. 2. Wheezing. 3. Hypoxemic respiratory failure. 4. Significant esophageal dysfunction related to achalasia or other causes of esophageal stricture. RECOMMENDATIONS: 1. NPO except for liquids at this juncture, as directed by Dr. Diaz. 2. Consult Dr. Saud Diaz. He was contacted by phone and the case was discussed, he will see her later today. 3. Anticipate need for EGD. 4. Continue bronchodilators and antibiotics. cc: MD Sebastian Wilkes MD
[2019-01-17] MEDS: DUONEB (A & A) INH SCH ×6 (03:28→23:03)
[2019-01-17] MEDS: HUMALOG SUBQ SCH ×4 (06:12→22:07)
[2019-01-17] MEDS: NEXIUM PO SCH (06:38)
[2019-01-17] MEDS ORDERED: NS 2,000 ML MISC PRN (07:19)
[2019-01-17] MEDS: CREON PO SCH ×3 (07:32→17:20)
[2019-01-17] MEDS: ZOFRAN IV PRN ×2 (07:48→12:03)
[2019-01-17] MEDS: CULTURELLE PO SCH ×2 (12:10→21:27)
[2019-01-17] MEDS: ASPIRIN PO SCH (12:10)
[2019-01-17] MEDS: LOPRESSOR PO SCH (12:11)
[2019-01-17] MEDS: LANTUS INSULIN SUBQ SCH (12:11)
[2019-01-17] MEDS: PLAVIX PO SCH (12:12)
[2019-01-17] MEDS: PRINIVIL PO SCH (12:12)
[2019-01-17] MEDS ORDERED: D50W SYRINGE ONE (12:35)
--- NOTE | 2019-01-17 13:27 | PROGRESS NOTE ---
DATE: 01/17/2019 SUBJECTIVE: Ms. Agueda Sanchez says she is not breathing any better than in yesterday, still coughing, bronchial irritation. OBJECTIVE: Vital signs: Temperature 97.5 degrees, remains afebrile, pulse 85, respirations 18, blood pressure 145/87. HEENT: Pupils are equal and round. Lungs: Clear in all lung cazares. Cardiovascular: Regular rhythm and rate without murmur or S3. LABORATORY DATA: Blood sugar 186, 13, 80 and 58. ASSESSMENT AND PLAN: 1. Acute bronchitis and wheezing, hypoxemic respiratory failure. She has significant esophageal dysfunction related to achalasia and other causes of esophageal stricture, so she is n.p.o. at this juncture. Dr. Diaz is inner turbine assembler and anticipate need for EGD. Continue bronchodilators and antibiotics. 2. Despite improved chest x-ray, patient continues to have wheezing and cough and initial diagnosis was bronchitis and questionable pneumonitis, likely viral source but covering for bacterium with Rocephin. She has never had a fever or elevated white count. 3. Decline in the patient's left ventricular function. Cardiology evaluating. 4. Nephrology is handling patient's dialysis. She had about 2 L out the day before yesterday so follow her input and output closely. 5. History of diabetes mellitus type 2. Continue blood sugar monitoring. 6. The patient has not had any further diarrhea, but appetite is poor and course having trouble swallowing. REVIEW OF ORDERS: Patient on Livalo which is pitavastatin 2 mg p.o. at bedtime, Tylenol 650 mg p.o. q.6 hours p.r.n., albuterol ipratropium inhalations q.4 hours, aspirin 81 mg a day, Pulmicort 0.5 mg b.i.d., Plavix 75 mg q.a.m., Nexium 40 mg a day, Lantus insulin 7 units subcutaneous daily, lactobacillus 1 p.o. b.i.d., lipase protease amylase combination 16575 units p.o. b.i.d. t.i.d., Prinivil 5 mg a day, Lopressor 50 mg a day. REVIEW OF LABS: Yesterday, white count 4550, hematocrit 35, blood sugars 107, 80, 66 and 58. Note platelet count is at 68,000. cc: MD Sebastian Esqueda MD
[2019-01-17] MEDS: PULMICORT INH SCH ×2 (15:05→19:12)
[2019-01-17] MEDS: PROTONIX IV SCH (15:17)
[2019-01-17] MEDS: ROCEPHIN 1 GM in NS 50 ML IV SCH (17:20)
--- NOTE | 2019-01-17 18:43 | NEPHROLOGY PROGRESS NOTE ---
DATE: 01/17/2019 SUBJECTIVE: She is still coughing, remains weak. OBJECTIVE: Blood pressure 165/61, heart rate 84, respirations 14, afebrile. Generally chronically ill, thin, in no distress. Neck veins are distended. Heart is regular. Lungs have equal breath sounds, but rhonchi and wheezes. Abdomen soft, nontender. Bowel sounds present.Extremities: Minimal edema. No clubbing or cyanosis. IMPRESSION AND PLAN: Chronic kidney disease 5 D. She still has shortness of breath. Her chest x- ray is improving, but still has evidence of pulmonary edema. We will attempt 3 L ultrafiltration today. cc: MD Sebastian Dean MD
--- NOTE | 2019-01-17 20:44 | CARDIOLOGY PROGRESS NOTE ---
DATE: 01/17/2019 SUBJECTIVE: Patient denies shortness of breath. She has had some persistent tendency for cough, as well as some atypical left-sided chest discomfort. OBJECTIVE: Blood pressure 145/87, heart rate 85, oxygen saturation 98% on nasal cannula oxygen at 2 L/minute. There is no significant jugular venous distention. Auscultation of the chest reveals a few scattered rhonchi bilaterally.Cardiac: Regular rate and rhythm without appreciable murmur or gallop. Extremities: Without edema. LABORATORY DATA: Includes recent white blood cell count 4.55, hematocrit 35.6, hemoglobin 11.1, platelet count 68,000. Sodium 139, potassium 2.9, chloride 97, carbon dioxide 27, BUN 8, creatinine 2.7, glucose 107. IMPRESSION: 1. Acute respiratory difficulty with shortness of breath, atypical chest pain, and wheezing. Bronchitis suspected. 2. Atherosclerotic coronary disease with history of previous coronary artery bypass graft in 2013. Recent echocardiography indicates left ventricular dysfunction with left ejection fraction of 40%. 3. Esophageal dysmotility. 4. Chronic kidney disease/chronic kidney failure. Patient is on hemodialysis, beginning in February 2018. 5. Diabetes mellitus. Requiring insulin for control. 6. Hypertension. 7. Hyperlipidemia. RECOMMENDATIONS: 1. Continue current medical regimen with metoprolol and lisinopril. 2. Following further GI evaluation for esophageal dysmotility, further evaluation of patient's of coronary disease planned. cc: MD Sebastian Han MD
[2019-01-17] MEDS: DULCOLAX PR SCH ×2 (21:27→21:36)
[2019-01-17] MEDS: LIVALO PO SCH (21:27)
--- NOTE | 2019-01-17 21:51 | GASTROENTEROLOGY PROGRESS NOTE ---
DATE: 01/17/2019 Patient is resting in bed. Her family at the bedside. The patient is keeping some liquids down. She has not thrown up so far today. She has not moved her bowels yet. She denies any fevers, rigors, chills. She does have cough. She is being followed by Dr. Gonzalez. OBJECTIVE: Vital signs: Temperature 97.5 degrees, pulse of 85, respiratory 20, blood pressure 140/87, saturating 98% on 2 L nasal cannula. Body weight of 101 pounds, BMI of 17.3 kg/m2. General: Patient is thinly built, lying in bed, in no acute distress. HEENT: Pale conjunctivae. No icterus. Neck: Supple. Abdomen: Soft, nondistended. No guarding. Extremities: No cyanosis, clubbing. Status post right below-knee amputation from infection a few years ago. Neurologic: She is alert, awake, oriented. LABS: Hemoglobin and hematocrit 11.1 and 35.9, white count of 4.5, platelet count of 68, sodium 139, potassium 2.9, chloride 97, bicarb of 27, anion gap of 15, BUN of 8, creatinine 2.7, glucose of 210, calcium is 8.2, phosphorus 2.9, albumin 3.2. Urinalysis positive protein, positive glucose. Moderate blood, large leukocytes. Urine culture showing gram-negative rods. Further speciation is pending. Barium x-ray showed complete obstruction at the gastroesophageal junction. Most likely represents a severe achalasia, however stricturing esophageal cancer is not excluded. IMPRESSION AND PLAN: 1. Acute bronchitis and wheezing. 2. Chronic cough. 3. Gastroesophageal junction obstruction seen on the barium study suggesting achalasia versus pseudo achalasia. 4. Thrombocytopenia. 5. Anemia. 6. End-stage renal disease, on hemodialysis. 7. Type 2 diabetes. 8. Dysphagia secondary to above. 9. Thrombocytopenia, currently level of 68. 10. Chronic anticoagulation with Plavix, which we need to hold. RECOMMENDATIONS: She will continue on liquid diet for now. We will start her on bowel regimen with Dulcolax at bedtime. She has not moved bowels for a few days. She is on aspirin and Plavix. This needs to be withheld if okay with the primary care team in order to proceed with EGD on Saturday morning. I have spoken to the nurse about this, who will call the primary care attending to discuss holding her blood thinners and antiplatelet agents. She is on sliding scale Humalog she will continue on. Zofran as needed. We will continue on Protonix once daily. She is on ceftriaxone for UTI. She is getting hemodialysis per Dr. Padilla. The above plans discussed with the patient and family at bedside. All questions answered. We will tentatively schedule for EGD on Saturday under anesthesia. The risks, benefits, indications, and alternatives to the procedure discussed with the patient and family at bedside. All questions answered. Please call us with any further questions. cc: MD Sebastian Yeager MD [facility] E. Boyle, MD
--- NOTE | 2019-01-17 22:04 | PULMONOLOGY PROGRESS NOTE ---
DATE: 01/17/2019 SUBJECTIVE: The patient is currently on dialysis. She reports she vomited earlier today. She is having difficulty even with liquids. OBJECTIVE: The patient has been afebrile for the last 24 hours. Blood pressure 145/87, heart rate 85, respiratory rate 18, oxygen saturation 98% on nasal cannula. HEENT: Pupils are equal and reactive. Oropharynx is clear. Neck is supple. Chest reveals scattered wheezing and rhonchi bilaterally. Cardiac exam: S1, S2. Abdomen is soft. Extremities are without edema. IMPRESSION: A 68-year-old with: 1. Acute bronchitis with recurrent aspiration. 2. Ongoing wheezing. 3. Ongoing emesis, likely due to esophageal dysfunction/obstruction. PLAN: 1. PO intake to be minimized. 2. Anticipate EGD per GI Medicine. 3. Continue antibiotics and bronchodilators. cc: MD Sebastian Wilkes MD
[2019-01-17] MEDS: ROBITUSSIN-AC PO PRN (23:29)
[2019-01-18] MEDS: DUONEB (A & A) INH SCH ×6 (03:14→23:06)
[2019-01-18] MEDS: HUMALOG SUBQ SCH ×4 (06:42→21:33)
[2019-01-18] MEDS: PULMICORT INH SCH ×2 (07:42→19:20)
[2019-01-18] MEDS: LANTUS INSULIN SUBQ SCH (08:22)
[2019-01-18] MEDS: CULTURELLE PO SCH ×2 (08:24→21:34)
[2019-01-18] MEDS: PRINIVIL PO SCH (08:24)
[2019-01-18] MEDS: ASPIRIN PO SCH (08:24)
[2019-01-18] MEDS: LOPRESSOR PO SCH (08:24)
[2019-01-18] MEDS: CREON PO SCH ×3 (08:31→17:03)
[2019-01-18] MEDS: ZOFRAN IV PRN (08:31)
--- NOTE | 2019-01-18 09:50 | PROGRESS NOTE ---
DATE: 01/18/2019 SUBJECTIVE: Ms. Sanchez is still coughing quite a bit. Having trouble with swallowing. Breathing seems to be doing fine, by her report. No real pain. OBJECTIVE: Temperature 97.4 degrees, pulse 79, respirations 13, blood pressure 150/51. Pupils are equal and round. No distended neck veins. Lungs are clear anterior, lateral, and posterior. Cardiovascular Examination: Regular rhythm and rate without murmur or S3. Abdomen is soft. Skin is warm and dry. Urine output is 2500 mL. Blood sugar 81, 333, 171. ASSESSMENT AND PLAN: 1. Acute respiratory difficulty with shortness of breath, atypical chest pain, wheezing, and bronchitis suspected. 2. Atherosclerotic coronary artery disease, history of previous coronary artery bypass graft in 2013. Recent echocardiography shows left ventricular function and left ejection fraction about 40%. 3. Esophageal dysmotility. I think plan is an esophagogastroduodenoscopy tomorrow. We held her Plavix. 4. Chronic kidney disease, chronic kidney failure. The patient is on hemodialysis which began February 2018. 5. Diabetes mellitus type 2. Sugar under good control. 6. Hypertension. 7. Hyperlipidemia. REVIEW OF HER ORDERS: She is on Dulcolax 10 mg per rectum at bedtime, Livalo which is pitavastatin 2 mg at bedtime, aspirin 81 mg a day, Pulmicort 0.5 mg b.i.d., Lantus insulin 7 units daily, lactobacillus rhamnosus 1 b.i.d., lipase/protease/amylase 24 units t.i.d., Prinivil 5 mg a day, Lopressor 50 mg q.a.m., Protonix 40 mg IV daily, ceftriaxone 1 g IV q.24 hours, and Plavix 75 mg which we are holding. cc: MD Sebastian Esqueda MD
--- NOTE | 2019-01-18 11:49 | GASTROENTEROLOGY PROGRESS NOTE ---
DATE: 01/18/2019 SUBJECTIVE: The patient is resting in bed. She is having coughing spells. She is keeping liquids down. She has not had a bowel movement for many days. OBJECTIVE: Vital Signs: Temperature 97.4 degrees, pulse of 79, respiratory rate 13, blood pressure 150/51, saturating 100% on nasal cannula at 2 L. Body weight of 101 pounds. BMI 17.3 kg. General Appearance: Thinly built, lying in bed in no acute distress. HEENT: Mild pallor. No icterus. Neck: Supple. Abdomen: Protuberant. No rebound or guarding. Extremities: She is status post right below-knee amputation. Neurologic: She is alert, awake, oriented x3. LABORATORY DATA: Her blood glucose is 78 today. Her urine culture is showing gram-negative rods. Further speciation is pending. IMPRESSION AND PLAN: 1. Acute respiratory difficulty with shortness of breath secondary to bronchitis and with a question of aspiration. 2. Bird beak appearance on the barium swallow. Will schedule her for esophagogastroduodenoscopy tomorrow. 3. Arthrosclerotic coronary disease and history of previous coronary bypass graft in 2013. Aware. 4. Chronic kidney disease and chronic kidney failure. She is on hemodialysis, which began in 02/[address] Padilla. 5. Diabetes type 2, currently undergoing sliding scale per the primary team. 6. Hypertension. 7. Hyperlipidemia. 8. Constipation. 9. Mild anemia. 10. Thrombocytopenia, on chronic antiplatelet treatment with Plavix, which is on hold for the last 2 days. RECOMMENDATIONS: We will continue on liquid diet for now. We will increase the bowel regimen with Dulcolax twice daily. Her Plavix has been withheld. Will schedule for EGD tomorrow under anesthesia. The risks, benefits, indications, and alternatives to the procedure were discussed with the patient, and all questions were answered. I also spoke to the nursing staff. She will continue on sliding-scale Humalog for diabetes. She is on Protonix once daily for GI prophylaxis. She is continuing hemodialysis with Dr. Padilla. The patient is a slightly high risk of aspiration, anesthesia risk with EGD, and she is high risk of bleeding as she was on aspirin and Plavix until about 2 days ago. I discussed with the patient. All questions answered. Please call us with any further questions. cc: MD Sebastian Yeager MD
[2019-01-18] MEDS: DULCOLAX PR SCH ×2 (13:18→21:35)
[2019-01-18] MEDS: PROTONIX IV SCH (14:54)
[2019-01-18] MEDS: ROCEPHIN 1 GM in NS 50 ML IV SCH (17:04)
[2019-01-18] MEDS: LIVALO PO SCH (21:35)
[2019-01-19] MEDS: DUONEB (A & A) INH SCH ×6 (02:59→23:04)
[2019-01-19] MEDS: ZOFRAN IV PRN ×2 (03:23→13:17)
[2019-01-19] MEDS ORDERED: D50W SYRINGE IV ONE ×2 (04:42→05:05)
[2019-01-19] MEDS: HUMALOG SUBQ SCH ×3 (06:07→16:58)
[2019-01-19] MEDS ORDERED: TIGHT: 0.2 ML/HR FOR DIALYSIS MISC PRN (06:17)
[2019-01-19] MEDS ORDERED: NS 2,000 ML MISC PRN (06:17)
[2019-01-19] MEDS ORDERED: HEPARIN IV PRN (06:17)
[2019-01-19] MEDS: PULMICORT INH SCH ×2 (08:03→19:38)
[2019-01-19] MEDS ORDERED: DIPRIVAN 1% ONE (08:52)
[2019-01-19] MEDS ORDERED: XYLOCAINE-MPF 2% ONE (09:06)
--- NOTE | 2019-01-19 09:09 | ENDOSCOPY OPERATIVE NOTE ---
[facility] ENDOSCOPY OPERATIVE NOTE , PATIENT: Agueda Sanchez ADMISSION DATE: MR#: [id number] : 1950 EGD PROCEDURE REPORT PROCEDURE DATE: 01/19/2019 SURGEON: Chris Howell MD STATUS: inpatient [employer] SAL[employer] ASSOCIATE: Cayla Hinds and Jennifer Mcdonald PREOPERATIVE DIAGNOSIS: The patient is a 68 yr old female here for an EGD due to Dysphagia, Bird elisabet k appearance on Barium swallow, DM. PROCEDURE PERFORMED: EGD, diagnostic MEDICATIONS: Per Anesthesia TOPICAL ANESTHETIC: none CONSENT: The patient understands the risks and benefits of the procedure and understands that these r isks include, but are not limited to: sedation, allergic reaction, infection, perforation and/or bleeding. Alternative means of evaluation and treatment include, among others: physical exam, x-rays, and/or surgical intervention. The patient elects to proceed with this endoscopic procedure. HISORY AND PHYSICAL: 01/19/2019 DESCRIPTION OF PROCEDURE: During intra-op preparation period all mechanical and medical equipment was checked for proper function. Hand hygiene and appropriate measures for infection prevention was taken. After the risks, benefits and alternatives of the procedure were thoroughly explained, Informed consent was verified, confirmed and timeout was successfully executed by the treatment team. The patient was anesthetized with topical anesthesia and the [id number] ([id number]) endoscope was introduced through the mouth and advanced to the second portion of the duoden um. Retroflexion was performed in the stomach and revealed no abnormalities. The gastroscope was then slowly withdraw n and removed. ESOPHAGUS: Severe esophagitis noted in the entire esophagus-combination Grade IV reflux esophagitis a nd Candidial esophagitis. Z line noted at 44 cms. STOMACH: Moderate amount of retained food in the stomach body, fundus was noted suggesting gastropare sis-partly evacuated. Fundus could not be completely cleared. Mild gastritis noted in the distal body and antr um. DUODENUM: Mild duodenal inflammation was found in the duodenal bulb. The duodenal mucosa showed no abnormalities in the 1st part of the duodenum and 2nd part duodenum. SPECIMENS REMOVED: No ADVERSE EVENTS: There were no complications. POSTOPERATIVE DIAGNOSIS: 1. Severe esophagitis noted in the entire esophagus-combination Grade I V reflux esophagitis and Candidial esophagitis. Z line noted at 44 cms 2. Moderate amount of retained food in the stomach body, fundus was noted suggesting gastroparesis-p artly evacuated. Fundus could not be completely cleared. Mild gastritis noted in the distal body and antrum 3. Duodenal inflammation was found in the duodenal bulb 4. The duodenal mucosa showed no abnormalities in the 1st part of the duodenum and 2nd part duodenum RECOMMENDATIONS: 1. Start Gastroparesis diet-small frequent meals 4-5 times per day, Keep good c ontrol of diabetes. Start Fluconazole 100 mg every day for 2 weeks. Continue PPI once daily for 3 months. Continue Neda lax 17g for constipation. 2. Start anti-reflux diet. REPEAT EXAM: Chris Howell MD eSigned: Chris Howell MD 01/19/2019 9:08 AM cc: PATIENT NAME: Agueda Sanchez MR#: [id number]
[2019-01-19] MEDS: CULTURELLE PO SCH ×2 (11:00→21:17)
[2019-01-19] MEDS: CREON PO SCH ×3 (11:00→16:48)
[2019-01-19] MEDS: DULCOLAX PR SCH ×2 (11:01→21:17)
[2019-01-19] MEDS: LOPRESSOR PO SCH (11:01)
[2019-01-19] MEDS: ASPIRIN PO SCH (11:01)
[2019-01-19] MEDS: DIFLUCAN 100 MG/NS 100 MG/50 ML IVPB IV SCH (11:01)
[2019-01-19] MEDS: PRINIVIL PO SCH (11:02)
[2019-01-19] MEDS: MIRALAX PO SCH (11:07)
--- NOTE | 2019-01-19 11:21 | NEPHROLOGY PROGRESS NOTE ---
DATE: 01/19/2019 Subjective: lying in bed resting aroused to verbal stimuli. Had a 32 FSBS during the night and was given 1 amp d50. Responded well. Objective: vitals. Temp 97.5, pulse 77, respiration 16, blood pressure 180/43, O2 sat 100% on 2 L nasal cannula. General: chronic Ill appearing elderly -Maltese female lying in bed in no acute distress. HEENT: Normocephalic, atraumatic. Trachea midline. Mucous membranes dry. Pupils equal and reactive. Skin: thin, warm and dry. Neck: supple, no JVD. Cardiovascular: S1, S2. No gallop or murmur. Respiratory: bilateral Scattered wheezes and rhonchi posteriorly Abdomen: soft, nontender, nondistended. Bowel sounds present. : non-inspected. Extremities: No edema, clubbing, or cyanosis. Right fistula noted with positive thrill and bruit. Neurological: alert, oriented to person, place, and time. Labs: intake 948, output 0 Impression: 1. Chronic kidney disease stage 5D. She Will receive her routine hemodialysis treatment today. 2. Medications reviewed. No change. 3. Cough/SOB. Likely aspiration more than pulmonary edema. Continue to challenge dry weight. 4. Acid base/electrolytes. In target. cc: MD Sebastian Dean MD MTDD
[2019-01-19] MEDS: LANTUS INSULIN SUBQ SCH (14:03)
[2019-01-19] MEDS: REGLAN PO SCH ×2 (15:03→16:48)
--- NOTE | 2019-01-19 16:45 | PROGRESS NOTE ---
DATE: 01/19/2019 SUBJECTIVE: The patient is still coughing. She states that she is a little less short of breath and her cough is improved somewhat. She is scheduled for an EGD today due to achalasia versus esophageal obstruction. OBJECTIVE: Vital Signs: 97.5, 81, 18, 180/43, 100% saturated on 2 L nasal cannula. Neuropsychiatric: The patient is alert, oriented, conversive, and appropriate. Lungs: Show bilateral mild expiratory wheezes which are improved from previous examination. She has fair air movement. She has a rattly cough which persists. Cardiovascular: Regular. LABORATORY: Blood sugars are reasonably controlled. Her p.o. intake is relatively poor, though. ASSESSMENT AND PLAN: 1. Esophagogastroduodenoscopy today to see if we can nail down a reason for her esophageal dysmotility. This may be contributing to chronic aspiration and wheezing. She admitted to me today for the first time that she has actually been throwing up almost every time she eats. Every time I had asked her if she is eating well prior to this, she stated that she was doing so without difficulty. 2. Cardiology is following the patient for her LV function decline and is considering cardiac catheterization. 3. Nephrology is following her end-stage renal disease. She is scheduled for dialysis today. She is at or approaching dry weight. 4. Diabetes is reasonably well controlled today. She has been n.p.o. for most of the day. She is not on steroids. 5. Blood pressure fluctuates according to fluid status. 6. No evidence of diarrhea. cc: Sebastian James MD
[2019-01-19] MEDS: PROTONIX IV SCH (16:48)
[2019-01-19] MEDS: LIVALO PO SCH (21:17)
[2019-01-20] MEDS: DUONEB (A & A) INH SCH ×5 (03:10→22:23)
[2019-01-20] MEDS: HUMALOG SUBQ SCH ×5 (05:46→21:22)
--- NOTE | 2019-01-20 06:40 | PULMONOLOGY PROGRESS NOTE ---
DATE: 01/19/2019 SUBJECTIVE: The patient is awake and alert. She underwent an EGD today which revealed severe esophagitis along with a moderate amount of retained fluid in the stomach consistent with gastroparesis. She is now trying liquids. OBJECTIVE: Vital signs: The patient has been afebrile for the last 24 hours. Blood pressure 130/52, heart rate 82, respiratory rate 15, oxygen saturation 100% on 2 L per nasal cannula. HEENT: Pupils are equal and reactive. Oropharynx is clear. Neck: Supple. Chest: Reveals occasional rhonchi bilaterally with marginal improvement. Cardiac Exam: S1, S2. Abdomen: Soft. IMPRESSION: 1. A 68-year-old with acute bronchitis, likely related to aspiration. 2. Severe esophagitis and gastroparesis. 3. End-stage renal disease. 4. Diabetes mellitus. PLAN: 1. Continue current antibiotics. 2. Continue bronchodilators. 3. Management of esophagitis and gastroparesis as per GI Service. cc: MD Sebastian Wilkes MD
[2019-01-20] MEDS: PULMICORT INH SCH ×2 (07:53→22:23)
[2019-01-20] MEDS: ASPIRIN PO SCH (09:24)
[2019-01-20] MEDS: REGLAN PO SCH ×3 (09:24→17:58)
[2019-01-20] MEDS: CREON PO SCH ×3 (09:24→17:58)
[2019-01-20] MEDS: CULTURELLE PO SCH ×2 (09:24→21:21)
[2019-01-20] MEDS: LOPRESSOR PO SCH (09:24)
[2019-01-20] MEDS: DIFLUCAN 100 MG/NS 100 MG/50 ML IVPB IV SCH (09:25)
[2019-01-20] MEDS: PRINIVIL PO SCH (09:25)
--- NOTE | 2019-01-20 09:25 | PROGRESS NOTE ---
DATE: 01/20/2019 SUBJECTIVE: The patient states that she is feeling a little better. She is trying to eat. Her cough is diminished. We reviewed the findings of yesterday's upper endoscopy. OBJECTIVE: Vital Signs: 97.8, 54, 20, 144/49. Physical Examination: The patient still has a rattly cough but it is not as nearly as intense as previous days. She has a faint end-expiratory wheeze but is moving air quite well and is not struggling to breathe. Cardiovascular: Regular at approximately 64 beats per minute at the time of my examination. ASSESSMENT AND PLAN: 1. Esophagogastroduodenoscopy revealed severe erosive esophagitis and candidal esophagitis. Orders have been written for appropriate medications and the patient's diet has been altered. When asked again, she stated that she has been throwing up for "about a month". 2. The patient's heart workup, as initiated by the cardiology team, is supposed temporarily on hold. 3. Nephrology status is stable. She continues Saturday, Saturday, Saturday dialysis. 4. Diabetes is still quite fluctuant but reasonably well-controlled. 5. Blood pressure is improved today. It continues to fluctuate according to fluid status. 6. No evidence of diarrhea. 7. Although I forgot to list it in my note yesterday, I discussed the patient's asymptomatic bacteriuria with Dr. Logan Colunga. In the absence of fever or other issues, and given the significant resistance pattern, we are opting not to treat that. We will certainly be aware of that and move to treat with the few high potency antibiotics left to our disposal. cc: Sebastian James MD
[2019-01-20] MEDS: DULCOLAX PR SCH (09:26)
[2019-01-20] MEDS: MIRALAX PO SCH (09:27)
[2019-01-20] MEDS: LANTUS INSULIN SUBQ SCH (09:28)
[2019-01-20] MEDS: TYLENOL PO PRN (09:35)
[2019-01-20] MEDS: PLAVIX PO SCH (09:35)
--- NOTE | 2019-01-20 11:02 | NEPHROLOGY PROGRESS NOTE ---
DATE: 01/20/2019 Subjective: sitting up in bed receiving a breathing treatment. Voice is feeling a little better today. Able to eat with less difficulty. Objective: vitals. Temp 97.9, pulse 80, blood pressure 144/75, O2 sat 100% on nasal cannula at 2 L General: chronic Ill appearing elderly -Beninese female lying in bed in no acute distress. HEENT: Normocephalic, atraumatic. Trachea midline. Mucous membranes dry. Pupils equal and reactive. Skin: thin, warm and dry. Neck: supple, no JVD. Cardiovascular: S1, S2. No gallop or murmur. Respiratory: bilateral wheezing posteriorly but improved from yesterday Abdomen: soft, nontender, nondistended. Bowel sounds present. : non-inspected. Extremities: No edema, clubbing, or cyanosis. Right fistula noted with positive thrill and bruit. Left BKA Neurological: alert, oriented to person, place, and time. Labs: intake 0, output 2000 Impression: Chronic kidney disease stage 5D. She received her routine hemodialysis treatment yesterday. No change. Nutrition. Will start on Nepro. Medications reviewed. No change. cc: MD Sebastian Dean MD MTDD
--- NOTE | 2019-01-20 13:40 | GASTROENTEROLOGY PROGRESS NOTE ---
DATE: 01/20/2019 SUBJECTIVE: Ms. Agueda Sanchez is a 68-year-old female resting in bed. She has denied any nausea, vomiting, or abdominal pain. She mentioned she had one bowel movement yesterday and it was liquid in consistency. OBJECTIVE: Vital Signs: Temperature 97.8 degrees, pulse 54, respirations 20, blood pressure 144/49, oxygen saturation is 100%. She is on 2.5 L nasal cannula. Her weight is 101 pounds. BMI is 17.3 kg/m2. General: She is alert, oriented x3, and in no acute distress. HEENT: Pale conjunctivae. No icterus. PERRL. Neck: Supple. Lungs: Wheezing heard in the anterior lobes. Cardiovascular: Patient is tachycardic. Abdomen: Soft, nontender, nondistended. Active bowel sounds heard in all 4 quadrants. Extremities: The patient has a right [id number] amputation. No clubbing, no cyanosis, no edema. Pedal pulses 2+ present in the left lower extremity. Neurologic: She is alert, oriented x3. Laboratory Data: WBCs 4.55, RBCs 3.84, hemoglobin 11.1, hematocrit 35.6, platelet count 68,000. The patient's chemistries as of 01/16/2019, sodium 139, potassium 2.9, chloride 97, carbon dioxide 27, anion gap 15, BUN 8, creatinine 2.7, calcium 8.2, phosphorus 2.9, albumin 3.2. ASSESSMENT AND PLAN: Dysphagia GERD Constipation Anemia Reflux/Candidal esophagitis Gastroparesis ESRD on dialysis Insulin dependent type II diabetes CAD s/p coronary artery bypass graft in 2013 PLAN: We did an endoscopy yesterday, findings were severe esophagitis in the entire esophagus with grade 4 reflux esophagitis and candidal esophagitis. Stomach had moderate amount of retained food in the fundus suggesting gastroparesis, which was partly evacuated. Duodenum showed mild duodenal inflammation. No biopsies were taken. Patient is receive Diflucan 100 mg at 50 mL per hour and we will continue it for 3 weeks. Patient is on Protonix 40 mg daily for her GERD. Her constipation is managed by Dulcolax 10 mg suppository twice a day and MiraLAX 17 g p.o. twice a day, it is getting resolved. Her H & H is 11.1 and 35.6, she is hemodynamically stable. Patient has denied any swallowing problems, her dysphagia is under control. We will continue to monitor the patient and follow the plan if care per PCP. This plan was discussed with Dr. Diaz. Please call us for any further question or concerns. Dictated by MICHAEL Crowley for Saud Diaz MD cc: Sebastian James MD Physician Attestation I have seen and examined the patient. I have discussed and reviewed the the note by Maryjane RODRIGUEZ and agree with findings and plan as documented. In brief, Ms. Agueda Sanchez is a 68 year old woman with MMP who presents to GI service with dysphagia found to have severe james esophagitis and gastric retention suggestive for gastroparesis. She is tolerating full liquids. +BMs. Recommend continued fluconazole for 3 weeks, PPI daily, advance to mechanical soft diet, small frequent meals, antiemetics prn, and bowel regimen. Will follow with you. Please call with questions. MTDD
[2019-01-20] MEDS: PROTONIX IV SCH (14:30)
[2019-01-20] MEDS: LIVALO PO SCH (21:21)
--- NOTE | 2019-01-21 03:24 | PULMONOLOGY PROGRESS NOTE ---
DATE: 01/20/2019 SUBJECTIVE: The patient is awake and alert. She reports her coughing and shortness of breath have diminished. She is now eating a mechanical diet. She does report she has developed some loose stools, which she attributes to the Nepro. OBJECTIVE: Vital signs: The patient has been afebrile for the last 24 hours. Blood pressure 149/48, heart rate 56, respiratory rate 12, oxygen saturation 95% on 2 L per nasal cannula. HEENT: Pupils are equal and reactive. Oropharynx appears clear. Neck: Supple. Chest: Reveals good air entry bilaterally. The wheezing and rhonchi have markedly improved. Cardiac: S1, S2. Abdomen: Soft. Extremities: Without edema. IMPRESSION: A 68-year-old with: 1. Acute bronchitis. 2. Severe esophagitis with gastroparesis. 3. Aspiration. 4. End-stage renal disease. 5. Diabetes mellitus. 6. Coronary artery disease with cardiac catheterization planned for 01/23/2019. 7. Worsening diarrhea with a history of C difficile colitis. PLAN: 1. Continue bronchodilators. 2. Continue current antibiotic regimen. 3. Continue treatment of esophagitis and gastroparesis as per the Gastroenterology service. 4. Send stool for C difficile toxin and antigen. cc: MD Sebastian Wilkes MD
[2019-01-21] MEDS: DUONEB (A & A) INH SCH ×6 (03:34→21:31)
[2019-01-21] MEDS: DULCOLAX PR SCH ×2 (04:35→08:57)
[2019-01-21 05:21] LABS: HEMATOCRIT 35.2 % (37.0-47.0); HEMOGLOBIN 10.9 g/dL (12.0-16.0); MCH 28.2 PG (27-31); MCV 91.2 FL (81-99); MPV 11.5 FL (7.4-10.4); RBC 3.86 XMIL (4.2-5.4); RDW 13.6 % (11.5-14.5); WBC 5.34 X1000 (4.8-10.8)
[2019-01-21 05:34] LABS: ALBUMIN 3.3 g/dL (3.5-5.0); CALCIUM 8.7 mg/dL (8.8-10.2); CREATININE 4.3 mg/dL (0.5-0.9); PHOSPHORUS 2.4 mg/dL (2.7-4.5)
[2019-01-21] MEDS: HUMALOG SUBQ SCH ×4 (06:21→21:09)
[2019-01-21] MEDS ORDERED: HEPARIN IV PRN (07:31)
[2019-01-21] MEDS ORDERED: TIGHT: 0.2 ML/HR FOR DIALYSIS MISC PRN (07:31)
[2019-01-21] MEDS ORDERED: NS 2,000 ML MISC PRN (07:31)
[2019-01-21] MEDS: PULMICORT INH SCH ×2 (08:05→21:31)
[2019-01-21] MEDS: REGLAN PO SCH ×3 (08:56→17:56)
[2019-01-21] MEDS: PLAVIX PO SCH (08:56)
[2019-01-21] MEDS: PRINIVIL PO SCH (08:56)
[2019-01-21] MEDS: ASPIRIN PO SCH (08:56)
[2019-01-21] MEDS: CULTURELLE PO SCH ×2 (08:56→20:25)
[2019-01-21] MEDS: LOPRESSOR PO SCH (08:56)
[2019-01-21] MEDS: CREON PO SCH ×3 (08:56→17:56)
[2019-01-21] MEDS: LANTUS INSULIN SUBQ SCH (08:57)
--- NOTE | 2019-01-21 09:49 | PROGRESS NOTE ---
DATE: 01/21/2019 SUBJECTIVE: The patient states that she is breathing better. She states that she had diarrhea last night after drinking a Nepro. She states that always happens, and is not going to drink those anyone. She states that her breathing is better. Cough persists, but is not nearly as aggressive. OBJECTIVE: Vital Signs: Temperature 98.4, pulse 83, respirations 18, blood pressure 145/52, saturating 100% on 2 L nasal cannula. Lungs: The patient has the faintest of expiratory wheezes in the right side. Left side seems generally clear. Cardiovascular: Regular. Neuropsychiatric: The patient is alert, oriented, conversive, and appropriate. LABORATORY DATA: White cell count 5.3, hematocrit 35, BUN 24, creatinine 4.3. ASSESSMENT AND PLAN: 1. Upper endoscopy results were noted. She is being treated for candidal and erosive esophagitis. Gastroenterology mentions in their notes that they are treating her constipation, but I am unaware of any constipation that is taking place. In fact, she had a long bout of diarrhea, which was driven by Clostridium difficile as well as exocrine pancreatic insufficiency. I am not exactly sure what we are doing with the MiraLAX and other things that they have ordered. 2. There appears to be a heart catheterization scheduled for 01/2015. 3. The patient's kidney function is stable. She is doing Saturday, Saturday, Saturday dialysis. 4. The diabetes is fluctuant. 5. Blood pressure is stable. 6. Asymptomatic bacteriuria is noted. She is not being treated with antibiotics. 7. Her original presentation with bronchitis has improved dramatically. I am going to decrease albuterol treatments to every 6 hours for the time being. 8. I have written an order for physical therapy so that she can maintain her general mobility and strength in anticipation of discharge at some point. cc: Sebastian James MD
[2019-01-21] MEDS: MIRALAX PO SCH (10:51)
[2019-01-21] MEDS: DIFLUCAN 100 MG/NS 100 MG/50 ML IVPB IV SCH (11:58)
--- NOTE | 2019-01-21 15:01 | GASTROENTEROLOGY PROGRESS NOTE ---
DATE: 01/21/2019 SUBJECTIVE: Ms. Agueda Sanchez is a 68-year-old female resting in bed. She has denied any nausea, vomiting, or abdominal pain, but she did mention that she has been having diarrhea. Patient complained that her diarrhea is due to the medication Nepro which she had it yesterday and stated that it always causes her to have diarrhea. OBJECTIVE: Vital Signs: Temperature 98.4 degrees, pulse 83, respirations 81, blood pressure is 145/52, oxygen saturation 100%. She is on 2 L nasal cannula. Her weight is 93 pounds. BMI is 16.0 kg/m2. General: She is alert, oriented x3, and in no acute distress. HEENT: Pale conjunctivae. No icterus. PERRL. Neck: Supple. Lungs: Wheezing heard in the anterior lobes. Cardiovascular: Regular rate and rhythm. Abdomen: Soft, nontender, nondistended. Active bowel sounds heard in all 4 quadrants. Extremities: The patient has a right [id number] amputation. No clubbing, no cyanosis, no edema. Pedal pulses 2+ present in the left lower extremity. Neurologic: She is alert, oriented x3. LABS: WBC 5.34, RBC 3.86, hemoglobin 10.9, hematocrit 35.2, platelet count is 97,000. Sodium is 132, potassium 4.0, chloride 94, carbon dioxide 26, anion gap is 12, BUN is 24, creatinine 4.3, glucose 171, calcium 8.7, phosphorus 2.4, albumin is 3.3. IMPRESSION: Dysphagia GERD Constipation Anemia Reflux candidal/esophagitis ESRD on dialysis Insulin dependent type II diabetes CAD PLAN: Ms. Sanchez is a 68-year-old female being seen by GI for dysphagia. We performed an endoscopy on 01/19 and she had severe esophagitis with reflux esophagitis and candidal esophagitis. She is currently on Diflucan 100 mg at 50 mL/h and we will continue it for 3 weeks. The patient has denied any problems swallowing and is able to tolerate her diet well, Her diet has been changed to renal diet per curb setter helper. We will continue her Gi prophylaxis protonix for GERD, Dulcolax 10 mg suppository twice a day and MiraLAX 17 grams p.o. twice a day for her constipation. Her H & H today was 10.9 & 35.2. We will continue to monitor the patient and follow the plan of care for PCP and curb setter helper. This plan was discussed with Dr. Diaz. Please call us for any further questions or concerns. Dictated by MICHAEL Crowely for Saud Diaz MD cc: Sebastian James MD Physician Attestation I have seen and examined the patient. I have discussed and reviewed the note by Maryjane RODRIGUEZ and agree with findings and plan as documented. MTDD
--- NOTE | 2019-01-21 15:36 | PROVIDER PROGRESS NOTE ---
Progress Note Subjective: sitting up in bed eating breakfast, voices feeling better today. Denies any uremic complaints. Objective: vitals. Temp temp 98.0, pulse 84, respirations 16, blood pressure 136/58, that 100% on 2 L nasal cannula. General: chronic Ill appearing elderly -Polish female lying in bed in no acute distress. HEENT: Normocephalic, atraumatic. Trachea midline. Mucous membranes dry. Pupils equal and reactive. Skin: thin, warm and dry. Neck: supple, no JVD. Cardiovascular: S1, S2. No gallop or murmur. Respiratory: bilateral wheezing posteriorly Abdomen: soft, nontender, nondistended. Bowel sounds present. : non-inspected. Extremities: No edema, clubbing, or cyanosis. Right fistula noted with positive thrill and bruit. Left BKA Neurological: alert, oriented to person, place, and time. Labs: WBC 5.34, hemoglobin 10.9, hematocrit 35.2, platelet count 97, sodium 132, potassium 4.0, chloride 94, carbon dioxide 26, anion gap 12, BUN 24, creatinine 4.3, calcium 8.7. Impression: Chronic kidney disease stage 5D. She will have her routine hemodialysis today with no change. Nutrition. Nepro caused diarrhea so we will stop it. Changed diet to Renal mechanical soft. Blood pressure. In goal. Acid base balance and electrolytes. Stable. Anemia. Stable. Medications reviewed. No change.
[2019-01-21] MEDS: ZOFRAN IV PRN (16:14)
[2019-01-21] MEDS: PROTONIX IV SCH (17:56)
[2019-01-21] MEDS: LIVALO PO SCH (20:25)
[2019-01-22] MEDS: DULCOLAX PR SCH ×3 (00:10→21:10)
[2019-01-22] MEDS: DUONEB (A & A) INH SCH ×4 (03:28→19:36)
[2019-01-22] MEDS: HUMALOG SUBQ SCH ×4 (06:17→20:48)
[2019-01-22] MEDS: LANTUS INSULIN SUBQ SCH (08:29)
[2019-01-22] MEDS: MIRALAX PO SCH (08:31)
[2019-01-22] MEDS: ASPIRIN PO SCH (08:32)
[2019-01-22] MEDS: LOPRESSOR PO SCH (08:32)
[2019-01-22] MEDS: PRINIVIL PO SCH (08:32)
[2019-01-22] MEDS: CREON PO SCH ×3 (08:32→17:00)
[2019-01-22] MEDS: PLAVIX PO SCH (08:32)
[2019-01-22] MEDS: REGLAN PO SCH ×3 (08:32→17:00)
[2019-01-22] MEDS: CULTURELLE PO SCH ×2 (08:32→20:26)
[2019-01-22] MEDS: PULMICORT INH SCH ×2 (09:53→19:36)
[2019-01-22] MEDS: DIFLUCAN 100 MG/NS 100 MG/50 ML IVPB IV SCH (10:52)
--- NOTE | 2019-01-22 15:03 | PROVIDER PROGRESS NOTE ---
Progress Note Subjective: Lying in bed awake. Denies any uremic complaints. Objective: vitals. Temp 97.7, pulse 79, respirations 17, blood pressure 149/52, and she sat 100% on 2 L nasal cannula. General: chronic Ill appearing elderly -[place] female lying in bed in no acute distress. HEENT: Normocephalic, atraumatic. Trachea midline. Mucous membranes dry. Pupils equal and reactive. Skin: thin, warm and dry. Neck: supple, no JVD. Cardiovascular: S1, S2. No gallop or murmur. Respiratory: bilateral wheezing posteriorly Abdomen: soft, nontender, nondistended. Bowel sounds present. : non-inspected. Extremities: No edema, clubbing, or cyanosis. Right fistula noted with positive thrill and bruit. Left BKA Neurological: alert, oriented to person, place, and time. Labs: intake 390, output 2079 Impression: Chronic kidney disease stage 5D. She had hemodialysis yesterday with no change. Nutrition. Nepro started. Renal mechanical soft. Blood pressure. In goal. Acid base balance and electrolytes. Stable. Anemia. Stable. Medications reviewed. No change. Left heart cath tomorrow. We will call the heart center and ask if they want us to dialyze her first before transferring her.
[2019-01-22] MEDS: PROTONIX IV SCH (15:38)
--- NOTE | 2019-01-22 18:18 | GASTROENTEROLOGY PROGRESS NOTE ---
DATE: 01/22/2019 SUBJECTIVE: Ms. Sanchez 68-year-old female who was sitting in the bed. She has denied any nausea, vomiting, or abdominal pain. She denied having any bowel movements today, and patient stated that she was able to tolerate her breakfast well, and had no problems swallowing. OBJECTIVE: Vital Signs: Temperature 98.1 degrees, pulse 76, respirations 14, blood pressure 140/47, and oxygen saturation 100%. The patient is on 2 L nasal cannula. Her weight is 93 pounds. BMI 16.0 kg per m squared. General: She is alert and oriented x3, and in no acute distress. HEENT: Pale conjunctivae. No icterus. PERRL. Neck: Neck is supple. Lungs: Clear to auscultation in the anterior and posterior cazares. Cardiovascular: Regular rate and rhythm. Abdomen: Soft, nontender, and nondistended. Active bowel sounds heard in all 4 quadrants. Extremities: The patient has a right [id number] amputation. No clubbing, no cyanosis, no edema. Pedal pulses 2+ present in the left lower extremities. Neurologic: She is alert and oriented x3. LABORATORY DATA: WBCs 5.34, RBC 3.86, hemoglobin 10.9, hematocrit 13.2, and platelet count 97,000. Sodium 132, potassium 4.0, chloride 94, carbon dioxide 20, anion gap 12, BUN 24, creatinine 4.3, glucose 171, calcium 8.7, phosphorus 2.4, and albumin 3.3. IMPRESSION AND PLAN: Dysphagia GERD Constipation Anemia Reflux esophagitis Candidal esophagitis ESRD on dialysis Insulin dependent type II diabetes CAD PLAN: Ms. Sanchez is a 68-year-old female who is seen by GI for dysphagia. Her dysphagia is currently getting resolved. Patient has denied any nausea, any vomiting, or any trouble swallowing. She has been able to tolerate her diet well. Her constipation is also getting better. The patient's hemoglobin and hematocrit yesterday was 10.9 and 35.2. She is hemodynamically stable. We will continue with the GI prophylaxis, Protonix for her GERD, Dulcolax and MiraLAX for her constipation. The patient has a heart catheterization procedure tomorrow. We will continue to monitor the patient, and follow the plan of care per PCP and research assoc. This plan was discussed with Dr. Howell. Please call us for any further questions or concerns. Dictated by MICHAEL Crowley for Chris Howell MD -3 cc: MD Sebastian Yeager MD I have seen and examined the patient myself and I agree with the above plan of care. I discussed the above plan of care with the patient at bedside and all questions were answered. Please call us with any further questions or concerns. MISBAHD
[2019-01-22] MEDS ORDERED: MAGNESIUM SULFATE 3 GM in NS 100 ML IV PRN (18:40)
[2019-01-22] MEDS ORDERED: TYLENOL PO PRN (18:40)
[2019-01-22] MEDS ORDERED: XANAX PO PRN (18:40)
[2019-01-22] MEDS ORDERED: NITROGLYCERIN SL PRN (18:40)
[2019-01-22] MEDS ORDERED: DULCOLAX PR PRN (18:40)
[2019-01-22] MEDS ORDERED: KLOR-CON PO PRN ×3 (18:40)
[2019-01-22] MEDS ORDERED: CEPACOL SORE THROAT LOZENGE MT PRN (18:40)
[2019-01-22] MEDS ORDERED: MILK OF MAGNESIA PO PRN (18:40)
[2019-01-22] MEDS ORDERED: MAGNESIUM SULFATE 2 GM in STERILE WATER INJ. 50 ML IV PRN ×4 (18:40)
[2019-01-22] MEDS ORDERED: RESTORIL PO PRN (18:40)
[2019-01-22] MEDS ORDERED: ZOFRAN IV PRN (18:40)
--- NOTE | 2019-01-22 19:23 | PROGRESS NOTE ---
DATE: 01/22/2019 SUBJECTIVE: The patient was bathing in the chair when I came in, so I stood behind the curtain to give her privacy. I asked a few questions. I did not perform an examination today. She stated that her cough was improved. She is not short of breath. Her wheezing has decreased significantly. She feels better. She is aware that she is going to have a heart catheterization tomorrow. OBJECTIVE: Vital signs: 98.3, 63, 18, 161/93, 100% saturated on nasal cannula. Physical exam not performed. LABORATORY: Blood sugars are falling in the 100s to less than 250 range. ASSESSMENT AND PLAN: 1. The patient's upper endoscopy results have been noted and treated. She is swallowing better. She denies any difficulty with her food at present time. 2. Heart catheterization scheduled for tomorrow. 3. Kidney function is stable. She is doing Saturday, Saturday, Saturday dialysis. 4. Diabetes is adequately controlled. 5. Blood pressure stable. 6. Asymptomatic bacteriuria is noted. 7. Improved respiratory status for initial presentation and symptomatology. 8. Physical therapy was scheduled to begin today. cc: Sebastian James MD
[2019-01-22] MEDS: LIVALO PO SCH (20:26)
[2019-01-23] MEDS: DUONEB (A & A) INH SCH ×6 (01:37→22:54)
[2019-01-23 05:18] LABS: INR 1.09; PROTIME 14.3 Seconds (11.0-16.0)
[2019-01-23 05:20] LABS: HEMATOCRIT 33.9 % (37.0-47.0); HEMOGLOBIN 10.9 g/dL (12.0-16.0); MCH 29.2 PG (27-31); MCHC 32.2 g/dL (33-37); MCV 90.9 FL (81-99); RBC 3.73 XMIL (4.2-5.4); RDW 13.6 % (11.5-14.5); WBC 4.31 X1000 (4.8-10.8)
[2019-01-23 05:35] LABS: CALCIUM 8.3 mg/dL (8.8-10.2); CREATININE 3.9 mg/dL (0.5-0.9); MAGNESIUM 1.2 mg/dL (1.5-2.7); POTASSIUM 3.8 mmol/L (3.5-5.1)
[2019-01-23] MEDS: HUMALOG SUBQ SCH ×4 (06:04→21:30)
[2019-01-23] MEDS: PULMICORT INH SCH ×2 (07:49→19:21)
[2019-01-23] MEDS ORDERED: TIGHT: 0.2 ML/HR FOR DIALYSIS MISC PRN (08:42)
[2019-01-23] MEDS ORDERED: HEPARIN IV PRN (08:42)
[2019-01-23] MEDS ORDERED: NS 2,000 ML MISC PRN (08:42)
[2019-01-23] MEDS ORDERED: HEPARIN 1000 UNITS/NS 2,000 UNIT/1,000 ML IV.SOLN ONE (08:46)
[2019-01-23] MEDS ORDERED: NITROGLYCERIN ONE (08:46)
[2019-01-23] MEDS ORDERED: XYLOCAINE 1% ONE (08:51)
[2019-01-23] MEDS ORDERED: CLAVE TWINSITE 32 IN 11959 ONE (09:32)
[2019-01-23] MEDS ORDERED: CLAVE PUMP SET NO FILTER 12260 ONE (09:32)
[2019-01-23] MEDS ORDERED: NS 250 ML ONE (09:33)
[2019-01-23] MEDS ORDERED: VERSED ONE (09:39)
[2019-01-23] MEDS: DIFLUCAN 100 MG/NS 100 MG/50 ML IVPB IV SCH (11:31)
[2019-01-23] MEDS: ASPIRIN PO SCH (11:32)
[2019-01-23] MEDS: DULCOLAX PR SCH ×2 (11:32→21:31)
[2019-01-23] MEDS: CREON PO SCH ×3 (11:32→18:05)
[2019-01-23] MEDS: CULTURELLE PO SCH ×2 (11:32→21:30)
[2019-01-23] MEDS: MIRALAX PO SCH (11:33)
[2019-01-23] MEDS: LOPRESSOR PO SCH (11:33)
[2019-01-23] MEDS: PRINIVIL PO SCH (11:33)
[2019-01-23] MEDS: LANTUS INSULIN SUBQ SCH (11:33)
[2019-01-23] MEDS: PLAVIX PO SCH (11:33)
[2019-01-23] MEDS: REGLAN PO SCH ×3 (11:34→18:05)
--- NOTE | 2019-01-23 14:08 | CARDIAC CATH REPORT ---
DATE: 01/23/2019 PROCEDURES PERFORMED: 1. Left heart catheterization. 2. Selective bilateral coronary angiography. 3. Left ventriculography. 4. Opacification of the left subclavian artery. 5. Opacification of the saphenous vein graft to the right coronary artery. 6. Opacification of the saphenous vein graft to the obtuse marginal system. 7. Opacification of right femoral artery with deployment of a 6 [place] Angio- Seal device. HISTORY: This 68-year-old female presented with "congestive heart failure". Previous coronary bypass surgery. Dr. Mills evaluated the patient and recommended a followup heart catheterization to determine the patency of her grafts because of the high likelihood of progression of disease. The patient is a diabetic and has been a smoker and she has peripheral vascular disease. The benefits, risks, and complications were discussed. She understood and requested to proceed. DESCRIPTION OF PROCEDURE: The patient came into the cardiac lab aide in the fasting state. The right groin was prepped and draped in sterile fashion and anesthetized with lidocaine 1%. Versed 1 mg was given for sedation. A 6 [place] sheath was inserted into the right femoral artery by following a modified Seldinger technique. Using a 6 [place] left Aishwarya 4, the left and right coronary arteries were sequentially opacified. Then, the vein graft to the right coronary artery was opacified. Then, the vein graft to the obtuse marginal branch of the circumflex was opacified. Then, I switched over to a mammary artery catheter, however, the ostium of the mammary artery was not accessible. I switched to a 6 [place] right Aishwarya 4 and 6 [place] right Aishwarya 3.5 and again I was not able to get into the ostium of the left mammary artery. At that point, I switched over to a 6 [place] 3.5 right Aishwarya and I performed a nonselective injection of the mammary through opacification of the entire left subclavian. The left mammary was noted to be patent, however, the flow appeared to preferentially go down into the main left subclavian axillary artery and then into a shunt that is created for purposes of dialysis with rapid visualization of the venous system on the left side. At the end of the procedure all the catheters were removed, the sheath was flushed, the right femoral artery opacified, and then an Angio-Seal device was deployed. Good hemostasis was accomplished. The patient tolerated the procedure well without obvious complications. The patient is suppose to have hemodialysis later on today. SUMMARY OF HEMODYNAMIC FINDINGS: Central aortic pressure was 182/65, mean 111. Left ventricular pressure was 188/16, post LV gram 195/18. Final central aortic pressure was 198/64. This is hypertension with borderline diastolic dysfunction. SUMMARY OF ANGIOGRAPHIC FINDINGS: 1. Left main coronary artery: This vessel appears to be anatomically normal as far as its origin from the left coronary cusp. It divided into the LAD and circumflex. The left main probably has mild disease on the order of 10% or 20%. 2. Left anterior descending coronary artery: This vessel shows mild diffuse disease and gives rise to a septal branch that has an 80% to 90% ostial stenosis. It gives rise to a diagonal branch that is diffusely diseased with an 80% to 90% stenosis in the mid section. Then, the LAD proper shows evidence of a stent and it is totally occluded. There is competition of flow in the [id number]-[id number] LAD. 3. Circumflex: The circumflex is totally occluded proximally. There is a 95% ostial stenosis to proximal stenosis. It gives rise to 2 marginal vessels and then it becomes completely occluded. There is competition of flow into the most distal marginal branch which comes from the vein graft. 4. Right coronary artery: The right coronary artery is a small diffusely diseased dominant vessel. It shows tandem lesions of 90% to 95% in its proximal mid section. The distal portion is anastomosed to the vein graft and there is competition of flow at that level. 5. Saphenous vein graft to the right coronary artery: The saphenous vein graft to the right coronary artery is patent. It shows mild diffuse disease especially in its mid section. It is anastomosed to the distal right coronary artery with good antegrade and retrograde flow. There is a long segment of disease in the right coronary artery on the order of 60% to 70%. The terminal vessels are very small. 6. Vein graft to the obtuse marginal system: This vessel is patent. It shows some mild diffuse degeneration. It is attached to the terminal portion of the left marginal branch of the circumflex. After the anastomosis there is an 80% to 90% stenosis. The vessel is very small at that level. There is retrograde perfusion into a more proximal segment of the vessel where there is an additional 70% diffuse stenosis. OPACIFICATION OF THE MAMMARY GRAFT: The mammary graft could not be opacified directly. There was some sort of distorsion of the vessel or rotation of the vessel so the ostium of the mammary artery was not in the usual position. I performed a nonselective injection via opacification of the left subclavian artery with optimal opacification of at least the proximal third of the mammary graft. It appeared to go all the way down to the LAD, however, I cannot absolutely rule out the possibility of a stenosis at the level of distal anastomosis. The flow into the left subclavian artery appears to be diverted swiftly and preferentially into the arteriovenous fistula that the patient has in the left arm. I cannot rule out the possibility of some sort of a steal syndrome here. LEFT VENTRICULOGRAM: The left ventricle is somewhat dilated with global hypokinesis. Ejection fraction is about 40% to 45%. OPACIFICATION OF RIGHT FEMORAL ARTERY: The right femoral artery shows some diffuse atherosclerotic changes. FLUOROSCOPY: Fluoroscopy reveals the presence of sternal wires, surgical clips around the LAD, and also stents within the coronary vessels, especially the LAD. CONCLUSIONS: In summary, this study shows: 1. Severe diffuse 3-vessel coronary artery disease, multiple stenoses along the course of the right coronary artery, circumflex, and left anterior descending and its branches. 2. Patent vein graft to the obtuse marginal system. 3. Patent vein graft to the right coronary artery. 4. Patent mammary artery graft to the left anterior descending. 5. Hypokinesis of the left ventricle. Ejection fraction is grossly estimated at 40%. 6. Relatively normal left ventricular end-diastolic pressure. 7. Patent right femoral artery with successful deployment of Angio-Seal device. RECOMMENDATIONS: At this time, I would suggest to continue medical therapy as suggested by Dr. Mills. I do not find this patient a suitable candidate for any percutaneous intervention. We will be glad to discuss the case with Interventional Cardiology. Thank you for asking us to participate in her evaluation. cc: MD Sebastian Madden MD MTDD
--- NOTE | 2019-01-23 14:59 | GASTROENTEROLOGY PROGRESS NOTE ---
DATE: 01/23/2019 SUBJECTIVE: Ms. Sanchez is a 68-year-old female sitting in bed. Family at the bedside. She has denied any nausea, vomiting, or abdominal pain. The patient has denied having any bowel movements so far. She is currently NPO today for her heart catheterization and she will also be receiving dialysis today. OBJECTIVE: Vital Signs: Temperature 98.3 degrees, pulse 78, respirations 18, blood pressure 148/44, oxygen saturation 100% on 2 L nasal cannula. The patient's weight is 94 pounds. BMI is 16.0 kg/m2. General: She is alert, oriented x3, and in no acute distress. HEENT: Pale conjunctivae, no icterus, PERRL. Neck: Neck is supple. Lungs: Clear to auscultation in the anterior and posterior cazares. Cardiovascular: Regular rate and rhythm. Abdomen: Soft, nontender, nondistended. Active bowel sounds heard in all 4 quadrants. Extremities: No clubbing, no cyanosis. The patient has a right adrfh-[id number] amputation. Pedal pulses 2+ present of the left lower extremity. Neurologic: Alert and oriented x3. LABORATORY DATA: WBC 4.31, RBC 3.73, hemoglobin 10.9, hematocrit 33.9, platelet count 105,000. PT 14.3, INR 1.09, sodium 130, potassium 3.8, chloride 91, carbon dioxide 26, anion gap 13, BUN 21, creatinine 3.9, glucose 122, calcium 8.3, magnesium 1.2. IMPRESSION AND PLAN: Dysphagia GERD Constipation Anemia Reflux esophagitis Candidal esophagitis ESRD on dialysis Insulin dependent type II diabetes CAD PLAN: Ms. Sanchez is a 68-year-old female, GI is seeing her for dysphagia. Her dysphagia has currently resolved. The patient has denied nausea, vomiting, or any trouble swallowing. She is NPO today for her heart catheterization procedure, her EF is 40%-45% and there was arthrosclerotic changes in the right femoral artery. Patient's constipation is also getting resolved. Her H & H today was 10.9 and 33.9. She is hemodynamically stable. We will continue with the GI prophylaxis, Protonix for GERD and reflux esophagitis. She is on fluconazole for three week for her candidal esophagitis. Dulcolax and MiraLAX for constipation. Will continue to monitor her CBC, BMP and follow the plan of care per PCP. This plan was discussed with Dr. Diaz. Please call us for any further questions or concerns. Dictated by MICHAEL Crowley for Saud Diaz MD cc: Sebastian James MD Physician Attestation I have seen and examined the patient. I have discussed and reviewed the the note by Maryjane RODRIGUEZ and agree with findings and plan as documented. Patient denies dysphagia, odynophagia, constipation, abdominal pain, or rectal bleeding. She is tolerating PO. However, currently NPO for heart cath. Will sign off. Please call with questions. MTDD
[2019-01-23] MEDS: PROTONIX IV SCH ×2 (15:54→18:19)
[2019-01-23] MEDS: PERCOCET-5 PO PRN (18:03)
--- NOTE | 2019-01-23 21:17 | NEPHROLOGY PROGRESS NOTE ---
DATE: 01/23/2019 SUBJECTIVE: She had a left heart catheterization today. Medical management only. Significant amount of steel away from her left FELIPE graft to her fistula. She is tolerating dialysis well. OBJECTIVE: Blood pressure 176/55, heart rate 75, respirations 18, afebrile. Generally chronically ill-appearing, but in no acute distress. Skin is warm and dry. Neck veins are not distended. Heart is regular. Lungs are equal. No crackles. Abdomen soft, nontender.Extremities: No edema, clubbing or cyanosis. IMPRESSION AND PLAN: Pulmonary edema, improved. Continue routine hemodialysis. Electrolytes/acid base/anemia/hypertension in target. cc: MD Sebastian Dean MD
[2019-01-23] MEDS: LIVALO PO SCH (21:30)
[2019-01-24] MEDS: DUONEB (A & A) INH SCH ×2 (03:06→09:13)
[2019-01-24] MEDS: HUMALOG SUBQ SCH ×4 (06:08→21:02)
--- NOTE | 2019-01-24 07:39 | Diag Imaging Result Doc PS360 ---
CHEST-1 VIEW - 01/24/2019 INDICATION: SOB COMPARISON: 01/16/2019 FINDINGS: Stable CABG changes. Stable cardiomegaly. There has been slight decrease in the background interstitial pulmonary edema. Stable trace bilateral pleural effusions. IMPRESSION: Decrease in the interstitial pulmonary edema. Electronically signed by Chauncey Whitmore 01/24/2019 7:37 AM
[2019-01-24] MEDS: PULMICORT INH SCH (09:12)
[2019-01-24] MEDS: LANTUS INSULIN SUBQ SCH (10:36)
[2019-01-24] MEDS: MIRALAX PO SCH (10:36)
[2019-01-24] MEDS: LOPRESSOR PO SCH (10:36)
[2019-01-24] MEDS: PLAVIX PO SCH (10:36)
[2019-01-24] MEDS: CREON PO SCH ×3 (10:36→17:18)
[2019-01-24] MEDS: REGLAN PO SCH ×3 (10:36→17:18)
[2019-01-24] MEDS: ASPIRIN PO SCH (10:37)
[2019-01-24] MEDS: CULTURELLE PO SCH ×2 (10:37→21:00)
[2019-01-24] MEDS: PRINIVIL PO SCH (10:37)
[2019-01-24] MEDS: DULCOLAX PR SCH ×2 (10:38→21:02)
[2019-01-24] MEDS: DIFLUCAN 100 MG/NS 100 MG/50 ML IVPB IV SCH (11:18)
[2019-01-24] MEDS ORDERED: DUONEB (A & A) INH PRN (11:38)
--- NOTE | 2019-01-24 15:02 | PROGRESS NOTE ---
DATE: 01/23/2019 SUBJECTIVE: When I arrived in the patient's room, she had already been taken to the chemical processing laborer. I spent extensive amount of time speaking with her family as to possibilities. We are holding out hope that she would have a single lesion in her coronary vasculature that will be amenable to some type of percutaneous intervention. The whole family agreed that she was not a candidate for revascularization of any sort at the present time. The patient apparently had a good night. I tried to track her down in holding for the chemical processing laborer, but she was already back so I did not examine the patient this day. All orders will remain as previously when she is out of the chemical processing laborer. cc: Sebastian James MD
[2019-01-24] MEDS: PERCOCET-5 PO PRN (15:03)
[2019-01-24] MEDS: PROTONIX IV SCH (15:05)
--- NOTE | 2019-01-24 15:07 | PROGRESS NOTE ---
DATE: 01/24/2019 SUBJECTIVE: The patient is sitting in the bed. She has no complaints. She states she is breathing well, although her "lungs hurt" after having a heart catheterization. She denies any ongoing shortness of breath. She does have a dry cough. She is not wheezing. She has had no nausea or vomiting. She has had no diarrhea. OBJECTIVE: Vital Signs: 98.1, 105, 152/38, 100% saturated on room air. PHYSICAL EXAMINATION: The patient is alert, oriented, conversive and appropriate. She is smiling and laughing.Lungs: Clear to auscultation. No wheezing or rales. Cardiovascular: Regular. Extremities: No peripheral edema. LABORATORY: Perusal of blood sugars showed a general increase in her blood sugars. I think it is mostly due to her being able to eat and hold her food down better. ASSESSMENT AND PLAN: 1. The patient's upper endoscopy has been successful in alleviating any mechanical obstruction. She is able to eat and drink without vomiting. She has had no further evidence of aspiration. 2. The patient's heart catheterization yesterday revealed diffuse disease with multiple obstructions of her grafts. There was nothing amenable to percutaneous intervention and her ejection fraction was 40 to 45 percent. 3. The patient continues on Saturday, Saturday, Saturday dialysis. Kidney function is being followed by nephrology team. 4. The patient's diabetes has been well controlled with minimal insulin of late. She is still on a small dose of long-acting insulin with sliding scale. I would like to see how her diet and blood sugars meter out over the next couple of days. I think now that she can eat without vomiting, her sugars will likely go up just due to increased intake alone. We may have to make adjustments to her long-acting insulin. 5. Blood pressure is stable. It varies according to how many days from dialysis she is. 6. Asymptomatic bacteruria as noted. 7. The patient initially presented as a bronchitic picture which we think now was due mostly to aspiration. Her symptomology is drastically improved. I am changing her aerosol treatments to t.i.d. p.r.n. 8. Physical therapy has been ordered. cc: Sebastian James MD
[2019-01-24] MEDS: LIVALO PO SCH (21:00)
[2019-01-24] MEDS: ZOFRAN IV PRN (21:27)
[2019-01-25] MEDS: ZOFRAN IV PRN ×3 (04:22→13:23)
[2019-01-25] MEDS: HUMALOG SUBQ SCH ×4 (06:22→21:32)
--- NOTE | 2019-01-25 08:38 | PROGRESS NOTE ---
DATE: 01/25/2019 SUBJECTIVE: Yesterday was relatively uneventful until the afternoon. The patient received sliding scale insulin at approximately 5:17 p.m. according to the MAY. Her blood sugar by 8:00 was 68. The patient stated that she vomited sometime yesterday afternoon, at or before the sugar had actually dropped. She really cannot correlate that drop in sugar with the vomiting. She is a little bit nauseated this morning, and actually threw up before receiving any other medications or insulin. OBJECTIVE: Vital Signs: Temperature 97.6, pulse 62, respirations 16, blood pressure 168/53, 100% saturated on nasal cannula. General: The patient is alert, oriented, conversive, and appropriate. She seems to be in a good mood. Lungs: Clear to auscultation bilaterally. Cardiovascular: Regular. Extremities: No peripheral edema. ASSESSMENT AND PLAN: 1. The patient has vomited twice in the last 24 hours, which may have contributed to her blood sugar drop. We will continue to monitor this. She is still receiving fluconazole. She also has as needed antiemetics, as well as scheduled medications which should help with this. 2. Extensive macrovascular disease per heart catheterization, ejection fraction of 40% to 45%. 3. Dialysis Saturday, Saturday, and Saturday. 4. The patient's diabetes bears close watching, and I feel it is highly dependent on what her food intake is. Over the last 2 days, when she was eating better and not throwing up, her blood sugars went very high. She is very sensitive to sliding scale insulin, and I have made a slight adjustment in her sliding scale to reflect that. She remains on her long-acting Lantus at only 7 units per day. 5. Blood pressure is stable. 6. Asymptomatic bacteriuria as noted previously. 7. Overall respiratory status is stable. 8. Physical therapy will continue. cc: Sebastian James MD
[2019-01-25] MEDS: CREON PO SCH ×3 (09:13→17:58)
[2019-01-25] MEDS: PLAVIX PO SCH (09:14)
[2019-01-25] MEDS: LOPRESSOR PO SCH (09:14)
[2019-01-25] MEDS: CULTURELLE PO SCH ×2 (09:14→21:14)
[2019-01-25] MEDS: DULCOLAX PR SCH ×2 (09:14→23:05)
[2019-01-25] MEDS: ASPIRIN PO SCH (09:14)
[2019-01-25] MEDS: PRINIVIL PO SCH (09:14)
[2019-01-25] MEDS: LANTUS INSULIN SUBQ SCH (09:14)
[2019-01-25] MEDS: MIRALAX PO SCH (09:14)
[2019-01-25] MEDS: REGLAN PO SCH ×3 (09:14→17:58)
[2019-01-25] MEDS: DIFLUCAN 100 MG/NS 100 MG/50 ML IVPB IV SCH (09:15)
[2019-01-25] MEDS: SODIUM CHLORIDE 0.9% INJ SCH (15:29)
[2019-01-25] MEDS: PROTONIX IV SCH (15:29)
[2019-01-25] MEDS: LIVALO PO SCH (21:14)
[2019-01-26] MEDS: HUMALOG SUBQ SCH ×3 (06:02→20:43)
[2019-01-26] MEDS ORDERED: TIGHT: 0.2 ML/HR FOR DIALYSIS MISC PRN (07:48)
[2019-01-26] MEDS ORDERED: HEPARIN IV PRN (07:48)
[2019-01-26] MEDS ORDERED: NS 2,000 ML MISC PRN (07:48)
[2019-01-26] MEDS: MIRALAX PO SCH (08:47)
[2019-01-26] MEDS: LANTUS INSULIN SUBQ SCH (08:48)
[2019-01-26] MEDS: PLAVIX PO SCH (08:48)
[2019-01-26] MEDS: PERCOCET-5 PO PRN (08:48)
[2019-01-26] MEDS: CULTURELLE PO SCH ×2 (08:48→20:41)
[2019-01-26] MEDS: PRINIVIL PO SCH (08:49)
[2019-01-26] MEDS: ASPIRIN PO SCH (08:49)
[2019-01-26] MEDS: REGLAN PO SCH ×3 (08:49→16:59)
[2019-01-26] MEDS: CREON PO SCH ×3 (08:49→16:59)
[2019-01-26] MEDS: LOPRESSOR PO SCH (08:49)
[2019-01-26] MEDS: DULCOLAX PR SCH ×2 (08:49→20:43)
--- NOTE | 2019-01-26 09:11 | PROGRESS NOTE ---
DATE: 01/26/2019 SUBJECTIVE: The patient states that she did not vomit any yesterday, but she feels tired and unrested despite sleeping at night. She again complains that her "lung hurts." She points to the mid upper back at about the level of the scapula. The patient also had previously stated that she would be "ready to go home on Saturday." She is now campaigning to maybe move it back to Saturday for inexplicable reasons. OBJECTIVE: Vital Signs: 98.3, 62, 24, 140/39, 100% saturated on 2 L nasal cannula. General: On physical examination, the patient is sitting up in bed. She is alert, oriented, conversive and appropriate. Lungs: There is a faint wheeze in the lower lobe on the right side, and has no association with her pain that she has demonstrated on the left side. Her air movement is good. There is no rattling or coughing. There are no rales noted. Cardiovascular: Regular. Extremities: No peripheral edema. ASSESSMENT AND PLAN: 1. No further vomiting. I need to check with Dr. Howell as to how long she needs to receive fluconazole and in what format it would be appropriate. 2. Clostridium difficile studies were negative. 3. The patient's extensive macrovascular disease on heart catheterization showed ejection fraction 40 to 45 percent, and no indication for percutaneous intervention. 4. Dialysis Saturday, Saturday, and Saturday. 5. The patient's blood sugars have been variable, but improved yesterday. She did not have any further lows. 6. Blood pressure is stable. 7. Asymptomatic bacteriuria noted. 8. Respiratory status stable. 9. Physical therapy will continue. 10. The patient's social situation has long been known to be less than ideal. She is in charge of her care, even though she has the support of her family members. Her compliance when left to her own devices has been highly questionable in the past, and we discussed this in the office many times. Most everyone that has been associated with her understands that she is very dependent on others for help, and I think she delays her discharge from the hospital due to the simple fact that she actually gets better care with less effort than it takes at home. I do not think she is able or willing to make that type of effort for self-care. I do not think that she would entertain [facility] placement. We will try and arrange some other modality of help for her, but overall I do not hold out great hope that she will rally to the challenge of her own self-care. cc: Sebastian James MD
[2019-01-26] MEDS: DIFLUCAN 100 MG/NS 100 MG/50 ML IVPB IV SCH (10:44)
--- NOTE | 2019-01-26 13:03 | PROVIDER PROGRESS NOTE ---
Progress Note Subjective: Lying in bed awake. Voices eating a good breakfast, denies any recent diarrhea. Denies any uremic complaints. Objective: vitals. Temperature 98.3, pulse 62, respirations 24, blood pressure 140/39, 02 sat 100% on 2 L nasal cannula. General: chronic Ill appearing elderly -[place]ames[place] female lying in bed in no acute distress. HEENT: Normocephalic, atraumatic. Trachea midline. Mucous membranes dry. Pupils equal and reactive. Skin: thin, warm and dry. Neck: supple, no JVD. Cardiovascular: irregular. No gallop or murmur. Respiratory: bilateral wheezing posteriorly Abdomen: soft, nontender, nondistended. Bowel sounds present. : non-inspected. Extremities: No edema, clubbing, or cyanosis. Right fistula noted with positive thrill and bruit. Left BKA Neurological: alert, oriented to person, place, and time. Labs: Intake 750, output 0 Impression: Chronic kidney disease stage 5D. She Will have her routine hemodialysis today with no change. Blood pressure. In goal. Acid base balance and electrolytes. Stable. Anemia. Stable. Nutrition. Decreased appetite yesterday, but better today Ambulation. Uses bedside commode. Medications reviewed. No change.
[2019-01-26] MEDS: PROTONIX IV SCH (16:58)
[2019-01-26] MEDS: SODIUM CHLORIDE 0.9% INJ SCH (16:59)
[2019-01-26] MEDS: LIVALO PO SCH (20:41)
[2019-01-27] MEDS: HUMALOG SUBQ SCH ×3 (06:34→11:56)
--- NOTE | 2019-01-27 07:57 | GASTROENTEROLOGY PROGRESS NOTE ---
DATE: 01/24/2019 SUBJECTIVE: Ms. Sanchez is a 68-year-old female sitting in bed. Family at the bedside. She had just come back from her cardiac catheterization. The patient is complaining that her lungs are hurting. She has denied any shortness of breath. She does have a cough, but no wheezing. She has denied any nausea or vomiting. The patient also denied having any diarrhea. OBJECTIVE: Vital Signs: Temperature 98.1 degrees, pulse 105, respirations 18, blood pressure 152/38, oxygen saturation 100% on room air. Her weight is 94 pounds. BMI is 16.0 kg/m2. General: She is alert and oriented x3 and in no acute distress. HEENT: Pale conjunctivae. No icterus. PERRL. Neck: Supple. Lungs: Clear to auscultation in the anterior cazares. Cardiovascular: The patient is tachycardic. Abdomen: Soft, nontender, and nondistended. Active bowel sounds heard in all 4 quadrants. Extremities: No clubbing, no cyanosis, no edema. Pedal pulses 2+ present bilaterally. Neurologic: She is alert and oriented x3. LABORATORY DATA: WBCs 4.31, RBC 3.73, hemoglobin 10.9, hematocrit 33.9, and platelet count 105,000. PT 14.3, INR 1.09. The patient's chemistry is from 01/21. Sodium 132, potassium 4.0, chloride 94, carbon dioxide 26, anion gap 12, BUN 24, creatinine 4.3, glucose 171, calcium 8.7, and phosphorus 2.4. Chest x-ray showed decrease in the interstitial pulmonary edema. IMPRESSION AND PLAN: Dysphagia, GERD, constipation, anemia, reflux esophagitis, Brianna esophagitis, end-stage renal disease on dialysis, insulin-dependent type 2 diabetes, and CAD. PLAN: Patient had gone for her heart catheterization. She also has dialysis today. The patient's dysphagia has been resolved. Her constipation is also getting resolved. The patient is on GI prophylaxis and Protonix IV daily. She is also receiving Culturelle. The patient is on a bowel regimen of Dulcolax 10 mg suppository. The patient is getting Diflucan for her candidal esophagitis. She is also on MiraLAX 17 g for her bowel regimen. We will continue to monitor her CBC, BMP, and, follow the plan of care per PCP. This plan was discussed with Dr. Lopez. Please call us for any further questions or concerns. Dictated by MICHAEL Crowley for Onofre Lopez MD cc: MD Sebastian Hobson MD MTDD
[2019-01-27] MEDS: MIRALAX PO SCH (09:09)
[2019-01-27] MEDS: ASPIRIN PO SCH (09:09)
[2019-01-27] MEDS: CULTURELLE PO SCH (09:09)
[2019-01-27] MEDS: PLAVIX PO SCH (09:09)
[2019-01-27] MEDS: PRINIVIL PO SCH (09:09)
[2019-01-27] MEDS: CREON PO SCH ×2 (09:09→12:00)
[2019-01-27] MEDS: LOPRESSOR PO SCH (09:09)
[2019-01-27] MEDS: DULCOLAX PR SCH (09:10)
[2019-01-27] MEDS: LANTUS INSULIN SUBQ SCH (09:17)
[2019-01-27] MEDS: REGLAN PO SCH ×2 (10:13→12:00)
[2019-01-27] MEDS: DIFLUCAN 100 MG/NS 100 MG/50 ML IVPB IV SCH (12:03)
[2019-01-27 13:06] VITALS: BP 186/57
--- NOTE | 2019-01-27 16:02 | GASTROENTEROLOGY PROGRESS NOTE ---
DATE: 01/25/2019 SUBJECTIVE: Ms. Sanchez is a 68-year-old female who was sitting at the side of the bed complaining of nausea and vomiting. OBJECTIVE: Vital Signs: Temperature 98.2 degrees, pulse 65, respirations 14, blood pressure 170/59, oxygen saturation 100% on 2 L nasal cannula. The patient's weight is 93 pounds, BMI is 16.0 kg/m2. General: She is alert, oriented x3, in no acute distress. HEENT: Pale conjunctivae. No icterus. PERRL. Neck: Supple. Lungs: Clear to auscultation in the anterior cazares. Cardiovascular: Regular rate and rhythm. Abdomen: Soft, nontender, nondistended. Active bowel sounds heard in all 4 quadrants. Extremities: No clubbing. No cyanosis. No edema. Pedal pulses 2+ present bilaterally. Neurologic: She is alert and oriented x3. LABS: On 01/23 WBC 4.31, RBCs 3.73, hemoglobin 10.9, hematocrit 33.9, platelet count is 105,000. Her chemistry from 01/23 sodium is 130, potassium is 3.8, chloride is 91, carbon dioxide is 26, anion gap is 13, BUN 22, creatinine 3.9, glucose 172. Chest x-ray on 01/24 showed decrease in the interstitial pulmonary edema. IMPRESSIONS: 1. Dysphagia. 2. Gastroesophageal reflux disease. 3. Constipation. 4. Anemia. 5. Reflux esophagitis. 6. Candidal esophagitis. 7. End-stage renal disease, on dialysis. 8. Insulin-dependent type 2 diabetes. 9. Coronary artery disease. PLAN: The patient's dysphagia has been resolved. Her constipation has also resolved. The patient is on GI prophylaxis, Protonix IV daily. She is receiving Culturelle. She is on a bowel regimen of Dulcolax 10 mg suppository.and MiraLAX 17 g. The patient is receiving Diflucan for candidal esophagitis. We will continue to monitor the patient's CBC, BMP, and follow the plan of care per PCP. This plan was discussed with Dr. Lopez. Please call us for any further questions or concerns. Dictated by MICHAEL Crowley for Onofre Lopez MD cc: MD Sebastian Hobson MD [facility]ITAL[facility]
--- NOTE | 2019-01-27 16:20 | PROVIDER PROGRESS NOTE ---
Progress Note Subjective: Lying in bed awake and eating breakfast. Voices no nausea or vomiting. No uremic complaints. Objective: vitals. Temperature 98.5, pulse 63, respirations 16, blood pressure 159/42, O2 sat 100% nasal cannula at 2 L. General: chronic Ill appearing elderly -[place] female lying in bed in no acute distress. HEENT: Normocephalic, atraumatic. Trachea midline. Mucous membranes dry. Pupils equal and reactive. Skin: thin, warm and dry. Neck: supple, no JVD. Cardiovascular: irregular. No gallop or murmur. Respiratory: bilateral wheezing posteriorly Abdomen: soft, nontender, nondistended. Bowel sounds present. : non-inspected. Extremities: No edema, clubbing, or cyanosis. Right fistula noted with positive thrill and bruit. Left BKA Neurological: alert, oriented to person, place, and time. Labs: Intake 892, output 1305 Impression: Chronic kidney disease stage 5D. She has her routine hemodialysis yesterday with no change. Blood pressure. In goal. Acid base balance and electrolytes. Stable on last labs Anemia. Stable on last labs. Nutrition. Improving. Ambulation. Uses bedside commode. Medications reviewed. No change
--- NOTE | 2019-01-28 12:23 | DISCHARGE SUMMARY ---
ADMISSION DATE: 01/13/2019 DISCHARGE DATE: 01/27/2019 DISCHARGE DIAGNOSES: 1. Chronic aspiration pneumonitis. 2. Dysphagia. 3. Candidal esophagitis. 4. Chronic systolic congestive heart failure. 5. Type 1 diabetes, uncontrolled. 6. Chronic anemia. 7. End-stage renal disease on dialysis. 8. Peripheral vascular disease. 9. History of Clostridium difficile colitis. HOSPITAL COURSE: The patient presented to my office with feeling acutely ill with wheezing and shortness of breath. We initially thought that she had bronchitis, and admitted the patient to the hospital. She did not respond to typical treatments, and multiple consultants were engaged. Dr. Padilla was consulted for control of end-stage renal disease. Dr. Mills was consulted from Cardiology and thought that she had some congestive heart failure, and increased ischemic burden. Dr. Gonzalez was consulted, and discovered that the patient had been having difficulty swallowing. Barium swallow showed almost no emptying of the stomach in the esophagus. Later, Dr. Howell was consulted and did an upper endoscopy which showed candidal and erosive esophagitis. The patient was put on maximum therapy for both of those entities and responded rather quickly. Her breathing situation got considerably better after her esophagus was dilated, and treatment was begun. Her cough diminished over the course of days and improved. The outstanding question about whether the patient had additional ischemic burden was answered through a heart catheterization performed by Dr. Hebert. This showed extensive coronary disease with opacification of several of her grafts. There was nothing amenable to a single percutaneous intervention, and she was resigned to medical therapy. I do not think she is a candidate for revascularization of any sort. 1. The patient's end-stage renal disease was handled without incident throughout her hospitalization. 2. Chronic anemia is noted. 3. The patient's diabetes was quite questionable. We noted that she has been losing weight and having very little in the way of insulin requirements. This may have been due to swallowing difficulty and poor nutrition. We discussed this with the patient over the course of her hospitalization. She seemed to stabilize back down to her baseline. She was eating and drinking better, but we will have to watch her sugar diligently. 4. The patient is discharged home in good condition. She had physical therapy during her hospitalization as well. The only new medication is fluconazole which she will take for an additional 7 to 10 days. The patient will follow up within 2 weeks with me, and regular follow-up with Dialysis Clinic. cc: Sebastian James MD
== END 2019-01-27 13:22 | disposition home health service (06) | DRG 177 ==
LOC: DIRADM 14:22 → 1N 15:09
PROVIDERS: ADMIT Internal Medicine; ATTEND Internal Medicine

== ENCOUNTER 2019-03-21 17:04 | Inpatient (IN) ==
[2019-03-21] MEDS ORDERED: NITROGLYCERIN TOP ONE (17:20)
[2019-03-21] MEDS: LABETALOL IV ONE ×2 (17:20→18:25)
[2019-03-21] MEDS ORDERED: ZOFRAN IV ONE (17:20)
[2019-03-21] MEDS ORDERED: APRESOLINE IV ONE (17:20)
[2019-03-21] MEDS ORDERED: LASIX IV ONE (17:20)
[2019-03-21] MEDS ORDERED: MORPHINE IV ONE (17:20)
[2019-03-21] MEDS ORDERED: NS 1,000 ML IV ONE (17:21)
[2019-03-21] MEDS ORDERED: DUONEB (A & A) INH ONE (17:32)
[2019-03-21 17:38] LABS: BASO# 0.07 X1000 (0.0-0.2); BASO% 1.7 % (0.0-0.8); EOS# 0.07 X1000 (0.0-0.7); EOS% 1.7 % (0.0-10.0); HEMATOCRIT 36.4 % (37.0-47.0); HEMOGLOBIN 11.3 g/dL (12.0-16.0); LYMPH# 1.46 X1000 (1.2-3.4); LYMPH% 35.7 % (20.5-51.1); MCV 93.6 FL (81-99); MONO# 0.52 X1000 (0.11-0.59); MONO% 12.7 % (1.7-9.3); MPV 12.8 FL (7.4-10.4); NEUT# 1.97 X1000 (1.4-6.5); NEUT% 48.2 % (42.2-75.2); PLT 65 X1000 (130-400); RBC 3.89 XMIL (4.2-5.4); RDW 14.1 % (11.5-14.5); WBC 4.09 X1000 (4.8-10.8)
[2019-03-21 17:41] LABS: INR 1.18; PROTIME 15.2 Seconds (11.0-16.0)
[2019-03-21 17:42] LABS: PTT 28.3 Seconds (22.3-41.8)
[2019-03-21 17:52] LABS: ALLEN TEST YES; BE 1.5 mmoll (-3.0-3.0); BLOOD TYPE ARTERIAL; HCO3-(ACT) 26.1 mmoll (20.0-26.0); METHB 1.3 % (0.0-1.5); O2(CT) 15.6 mL/dL (15.0-23.0); PCO2(98.6) 43 mmHg (35-45); PO2(98.6) 217 mmHg (60-100); SAMPLE BLOOD; SAO2 98.9 % (95.0-100.0); THB 11.2 g/dL (11.5-17.4)
[2019-03-21 17:53] LABS: MODALITY BI PAP
[2019-03-21 18:04] LABS: AGAP 17; ALB/GLOB RATIO 1.4; ALBUMIN 3.8 g/dL (3.5-5.0); ALKALINE PHOSPHATASE 167 U/L (32-104); BUN 14 mg/dL (8-22); CALCIUM 8.4 mg/dL (8.8-10.2); CHLORIDE 90 mmol/L (98-107); CK PROFILE 60 U/L (24-173); COSMO 291; CREATININE 3.3 mg/dL (0.5-0.9); ESTIMATED GFR 12; GOT 19 U/L (10-30); GPT 19 U/L (10-36); MAGNESIUM 1.8 mg/dL (1.5-2.7); PHOSPHORUS 4.2 mg/dL (2.7-4.5); SODIUM 132 mmol/L (136-145); TCO2 25 mmol/L (25-35); TOTAL PROTEIN 6.5 g/dL (6.3-8.3)
[2019-03-21] MEDS ORDERED: HUMULIN R IV ONE (18:11)
[2019-03-21 18:12] LABS: GLUCOSE 552 mg/dL (70-104)
--- NOTE | 2019-03-21 18:17 | PROVIDER DOCUMENTATION ---
This chart was entered by Lupe Jara Scribe, acting as scribe for Eric Wise MD. HPI-Respiratory General - General Chief Complaint: Shortness of Breath Stated Complaint: RESPIRATORY DISTRESS Time Seen by Provider: 03/21/19 17:04 Source: patient, family (daughter), EMS Allergies/Adverse Reactions: Patient Allergies Allergy/AdvReac Type Severity Reaction Status Date / Time meperidine HCl * Allergy Intermediate RASH Verified 12/03/18 03:33 [From Demerol] meperidine [From Demerol] Allergy Unknown Unverified 03/21/19 17:36 nitroglycerin AdvReac Intermediate HYPOTENSION Verified 12/03/18 03:33 Home Medications: Home Medication List Medication Instructions Recorded Confirmed Last Taken Type Cilostazol [Pletal] 50 mg PO BID 12/23/12 01/13/19 01/13/19 09:00 History Esomeprazole [Nexium] 40 mg PO QAM 01/15/15 01/13/19 01/13/19 09:00 History Metoprolol [Lopressor] 50 mg PO QAM 01/15/15 01/13/19 01/13/19 09:00 History Pitavastatin [Livalo] 2 mg PO QHS #0 tablet 01/21/15 01/13/19 01/13/19 09:00 Rx Clopidogrel [Plavix] 75 mg PO QAM 02/07/17 01/13/19 01/13/19 09:00 History LISINOpril [Prinivil] 2.5 mg PO DAILY #30 tab 01/08/18 01/13/19 01/13/19 09:00 Rx Mirtazapine [Remeron] 15 mg PO QHS #30 tablet 03/02/18 12/05/18 1 Day Ago Rx ~05/12/18 Amlodipine [Norvasc] 2.5 mg PO DAILY #30 tab 10/30/18 01/13/19 01/13/19 09:00 Rx Lactobacillus Rhamnosus GG 1 ea PO BID #60 cap 10/30/18 01/13/19 01/13/19 09:00 Rx [Culturelle] Lipase/Protease/Amylase [Creon] 24,000 units PO TID CC #180 cap 10/30/18 1 03/15/18 01/13/19 09:00 Rx Insulin Glargine [Lantus Insulin] 7 unit SUBQ DAILY unit 12/08/18 01/13/19 01/09/19 09:00 Rx Aspirin 81 mg PO DAILY 01/13/19 01/13/19 01/13/19 09:00 History Metoclopramide [Reglan] 5 mg PO TID #30 tab 01/27/19 Unknown Rx - History of Present Illness-Resp Nature of Presenting Problem: 68yof presents to ED by EMS cc SOB. EMS reports pt pressed her Medic alert and when they arrived pt was barely moving air so they put on CPAP, gave albuterol in route. Pt is A&Ox3 upon exam. Pt is a dialysis pt M/W/F. Speaks only 1-2 wor ds at a time at this time. EMS reports FSBG read "high" Quality of Pain: reports: none Severity in ED: reports: severe Onset/Duration: reports: 4-6 hours ago Timing: reports: still present, constant, getting worse Exposure: reports: unknown cause Cough Quality/Degree: reports: mild Episode Frequency: rare episodes Current Respiratory Medication Therapy: Initiated see nurses note Modifying Factors: improves with: oxygen (CPAP en route by EMS) Associated Symptoms: reports: chest pain/soreness, shortness of breath, short of breath, sweaty Similar Symptoms Previously?: No Recently seen or treated by another doctor?: No Review of Systems - Adult - REVIEW OF SYSTEMS - ADULT Constitutional: reports: see HPI, fatique. denies: chills, fever Eyes: reports: no symptoms reported Ears, Nose, Mouth & Throat: reports: no symptoms reported Cardiovascular: reports: no symptoms reported Respiratory: reports: see HPI, shortness of breath, wheezing Gastrointestinal: reports: no symptoms reported Genitourinary: reports: no symptoms reported Musculoskeletal: reports: no symptoms reported Integumentary: reports: no symptoms reported Neurological: reports: no symptoms reported Psychiatric: reports: no symptoms reported Endocrine: reports: no symptoms reported Hematologic/Lymphatic: reports: no symptoms reported Allergic/Immunologic: reports: no symptoms reported All Other Systems: Reviewed and Negative Past History - Adult - PAST MEDICAL HISTORY-ADULT Review of Records: reports: Old Records Reviewed, Nursing Assessment Review, Medications Reviewed, Social history reviewed & non-contributory. Major Childhood Illnesses: reports: denies history Cardiovascular: reports: CAD, HTN, VT Respiratory: reports: denies history Gastrointestinal: reports: GERD Obstetrical/Gynecological: reports: denies history Genitourinary: reports: dialysis, ESRD, kidney disease, kidney stones Musculoskeletal: reports: denies history Neurological: reports: denies history Psychiatric: reports: denies history Endocrine/Immune: reports: Diabetes Diabetes Type: Type 2 Other Conditions: reports: denies history - PRIOR SURGERIES/PROCEDURES Surgical/Procedure History: reports: EGD, colonoscopy, CABG, cardiac stent, indwelling device (left UE AV fistula) - PRIOR HOSPITALIZATIONS Prior Hospitalizations: reports: for similar symptoms - IMMUNIZATION STATUS Childhood Immunizations: See Nurse Assessment Flu Vaccine: See Nurse Assessment - FAMILY HISTORY Family History: reviewed, not pertinent - SOCIAL HISTORY Smoking: non-smoker Substance Use: none/never Alcohol Use Frequency: never Living Situation: family Physical Exam-General - PHYSICAL EXAM-ADULT Initial Vital Signs Reviewed: Yes (severely hypertensive, tacypneic) - CONSTITUTIONAL General Appearance: alert, moderate distress. negative: anxious, combative - EYES Eyes: PERRL/EOMI, pink conjunctivae. negative: photophobia - HEAD, EARS, NOSE, MOUTH & THROAT HENMT: normocephalic/atraumatic. negative: angioedema - NECK Neck: non-tender, full range of motion, supple, normal inspection - RESPIRATORY Respiratory: chest non-tender, respiratory distress, decreased breath sounds, rhonchi (bilateral), wheezing (expiratory), dull on percussion, increased rate. negative: crackles, rales - CARDIOVASCULAR Cardiovascular: normal peripheral pulses, regular rate, rhythm, no edema, JVD (bilateral up to angle of mandible), gallop/S3, extra beats (ectopic beats, occasionally). negative: bradycardia, tachycardia - GASTROINTESTINAL (ABDOMEN) Abdominal Exam: normal bowel sounds, non tender, soft. negative: rigid, rebound - LYMPHATIC Lymphatic: no adenopathy - MUSCULOSKELETAL Back Exam: normal inspection Extremity: normal range of motion, non-tender, normal capillary refill, defo rmity (right BKAwith prosthesis in place), swelling (left lower leg 2+) Peripheral Pulses: radial (R): 4+, radial (L): 4+ - SKIN Integumentary: normal color, other (fistula in left upper arm with good thrill). negative: diaphoresis, jaundice - NEUROLOGIC Neurologic: delivery rep II-XII nml as tested, grossly normal - PSYCHIATRIC Psych/Mental Status: normal mood/affect, oriented x 3. negative: anxious, disheveled Progress - PLAN OF CARE/RESULTS Progress/Plan/Lab Results: Vital Signs - 8 hr 03/21/19 17:15 03/21/19 17:16 03/21/19 17:33 Temperature 98 F Pulse Rate 84 80 84 Respiratory Rate 24 23 19 Blood Pressure 221/201 157/93 O2 Sat by Pulse Oximetry 100 100 100 Laboratory Results - last 24 hr 03/21/19 03/21/19 03/21/19 17:24 17:24 17:24 WBC 4.09 L RBC 3.89 L Hgb 11.3 L Hct 36.4 L MCV 93.6 MCH 29.0 MCHC 31.0 L RDW Std Deviation 14.1 Plt Count 65 L MPV 12.8 H Immature Gran % (Auto) 0.0 Neut % (Auto) 48.2 Lymph % (Auto) 35.7 [place] % (Auto) 12.7 H Eos % (Auto) 1.7 Baso % (Auto) 1.7 H Immature Gran # (Auto) 0.00 Neut # (Auto) 1.97 Lymph # (Auto) 1.46 [place] # (Auto) 0.52 Eos # (Auto) 0.07 Baso # (Auto) 0.07 PT INR PTT (Actin FS) Specimen Type Sample Site pH pCO2 pO2 HCO3 Base Excess Oxyhemoglobin ABG O2 Sat (Calculated) ABG O2 Saturation ABG Carboxyhemoglobin ABG Methemoglobin Cameron Test A-a O2 Difference Total Hemoglobin Lactate Blood Gas Modality FiO2 % Inspiratory BiPAP Expiratory BiPAP Sodium 132 L Potassium 5.0 Chloride 90 L Carbon Dioxide 25 Anion Gap 17 BUN 14 Creatinine 3.3 H Estimated GFR/1.73 m2 12 BUN/Creatinine Ratio 4 Glucose 552 H* Calculated Osmolality 291 Calcium 8.4 L Phosphorus 4.2 Magnesium 1.8 Total Bilirubin 0.60 AST 19 ALT 19 Alkaline Phosphatase 167 H Creatine Kinase 60 Troponin T High Sens Meb-K-Eghsxleowgd Pept Total Protein 6.5 Albumin 3.8 Globulin 2.7 Albumin/Globulin Ratio 1.4 Plasma/Serum Ethyl Alc Acetone Level NEGATIVE 03/21/19 03/21/19 03/21/19 17:24 17:24 17:24 WBC RBC Hgb Hct MCV MCH MCHC RDW Std Deviation Plt Count MPV Immature Gran % (Auto) Neut % (Auto) Lymph % (Auto) [place] % (Auto) Eos % (Auto) Baso % (Auto) Immature Gran # (Auto) Neut # (Auto) Lymph # (Auto) [place] # (Auto) Eos # (Auto) Baso # (Auto) PT 15.2 INR 1.18 PTT (Actin FS) 28.3 Specimen Type Sample Site pH pCO2 pO2 HCO3 Base Excess Oxyhemoglobin ABG O2 Sat (Calculated) ABG O2 Saturation ABG Carboxyhemoglobin ABG Methemoglobin Cameron Test A-a O2 Difference Total Hemoglobin Lactate Blood Gas Modality FiO2 % Inspiratory BiPAP Expiratory BiPAP Sodium Potassium Chloride Carbon Dioxide Anion Gap BUN Creatinine Estimated GFR/1.73 m2 BUN/Creatinine Ratio Glucose Calculated Osmolality Calcium Phosphorus Magnesium Total Bilirubin AST ALT Alkaline Phosphatase Creatine Kinase Troponin T High Sens 70 H* Fwp-G-Kxnetylyphz Pept > 13468 H Total Protein Albumin Globulin Albumin/Globulin Ratio Plasma/Serum Ethyl Alc Acetone Level 03/21/19 17:45 WBC RBC Hgb Hct MCV MCH MCHC RDW Std Deviation Plt Count MPV Immature Gran % (Auto) Neut % (Auto) Lymph % (Auto) [place] % (Auto) Eos % (Auto) Baso % (Auto) Immature Gran # (Auto) Neut # (Auto) Lymph # (Auto) [place] # (Auto) Eos # (Auto) Baso # (Auto) PT INR PTT (Actin FS) Specimen Type ARTERIAL Sample Site R RADIAL pH 7.40 pCO2 43 pO2 217 H HCO3 26.1 H Base Excess 1.5 Oxyhemoglobin 96.0 ABG O2 Sat (Calculated) 15.6 ABG O2 Saturation 98.9 ABG Carboxyhemoglobin 1.60 ABG Methemoglobin 1.3 Cameron Test YES A-a O2 Difference 86.0 Total Hemoglobin 11.2 L Lactate 1.20 Blood Gas Modality BI PAP FiO2 % 50.0 Inspiratory BiPAP 18.0 Expiratory BiPAP 8.0 Sodium Potassium Chloride Carbon Dioxide Anion Gap BUN Creatinine Estimated GFR/1.73 m2 BUN/Creatinine Ratio Glucose Calculated Osmolality Calcium Phosphorus Magnesium Total Bilirubin AST ALT Alkaline Phosphatase Creatine Kinase Troponin T High Sens Lpf-A-Nqtdowkaozj Pept Total Protein Albumin Globulin Albumin/Globulin Ratio Plasma/Serum Ethyl Alc Acetone Level Orders Category Date Time Status Finger Stick Blood Sugar (ED) DIRECTED Care 03/21/19 17:18 Active Lemon Cath Insertion ORDERED Care 03/21/19 17:18 Active Nursing- Obtain EKG once Care 03/21/19 17:18 Active Saline Loc NOW Care 03/21/19 17:18 Active CHEST-PORTABLE [RAD] Stat Exams 03/21/19 17:20 Taken ABG [RESP] Routine Lab 03/21/19 17:45 Completed ACETONE SERUM [CHEM] Stat Lab 03/21/19 17:24 Completed ALCOHOL BLOOD Stat Lab 03/21/19 17:24 Completed BLOOD CULTURE [BLDCUL] Stat Lab 03/21/19 17:54 Ordered CBC WITH ELECTRONIC DIFF [HEME] Stat Lab 03/21/19 17:24 Completed CK PROFILE [SP CHEM] Stat Lab 03/21/19 17:24 Completed COMPREHENSIVE METABOLIC PANEL [CHEM] Stat Lab 03/21/19 17:24 Completed INFLUENZA SCREEN A/B Stat Lab 03/21/19 17:25 Ordered LACTATE, PLASMA [CHEM] Stat Lab 03/21/19 17:54 Received MAGNESIUM [CHEM] Stat Lab 03/21/19 17:24 Completed PRO B-NATRIURETIC PEPTIDE Stat Lab 03/21/19 17:24 Completed PROTIME WITH INR [COAG] Stat Lab 03/21/19 17:24 Completed PTT [COAG] Stat Lab 03/21/19 17:24 Completed SPUTUM CULTURE WITH GRAM STAIN [RM] Stat Lab 03/21/19 17:19 Uncollected TROPONIN T HIGH SENSITIVITY Stat Lab 03/21/19 17:24 Completed URINALYSIS W/POSS RFLX CULT [URINALYSIS] Stat Lab 03/21/19 18:21 Ordered URINE DRUG SCREEN Stat Lab 03/21/19 18:21 Ordered phos [PHOSPHORUS] [CHEM] Stat Lab 03/21/19 17:24 Completed 0.9% Sodium Chloride Inj [Ns] 1,000 ml Med 03/21/19 17:21 Active IV 125 mls/hr Albuterol 2.5MG/Ipratrop 0.5MG [Duoneb (A & A)] Med 03/21/19 17:32 Disc ontinued 3 ml INH NOW ONE Furosemide [Lasix] Med 03/21/19 17:20 Discontinued 80 mg IV NOW ONE Hydralazine [Apresoline] Med 03/21/19 17:20 Discontinued 10 mg IV NOW ONE Insulin Human Regular [Humulin R] Med 03/21/19 18:11 Discontinued 10 unit IV NOW ONE Labetalol Med 03/21/19 17:20 Discontinued 20 mg IV NOW ONE Morphine Med 03/21/19 17:20 Discontinued 4 mg IV NOW ONE Nitroglycerin Med 03/21/19 17:20 Discontinued 1 inch TOP NOW ONE Ondansetron [Zofran] Med 03/21/19 17:20 Discontinued 4 mg IV NOW ONE Aerosol Treatments Routine Oth 03/21/19 17:33 Active Aerosol Treatments Stat Oth 03/21/19 17:33 Active BIPAP Stat Oth 03/21/19 17:18 Active EKG [EKG] Stat Ther 03/21/19 17:18 Ordered Result Diagrams: 03/21/19 17:24 03/21/19 17:24 - REASSESSMENT Reassessment #1 Time Reassessed: 18:09 Status: improving (Better on Bipap, given also nitropaste, morphine/zofran, iv lasix, iv hydralazine and IV labetalol. BP improved, breathing much improved. Given IV insulin for hyperglycemia) - EKG 1 Time of EKG reading by physician:: 17:22 EKG Read and Signed by:: Eric Wise EKG Interpretation (*Must complete 3 of following elements*): Abnormal Rate: 80 Rhythm: Sinus w/ premature supraventricular complexes QRS: LVH ST Wave: non-specific ST changes (T wave) - XRAY 1 XRAY Study: Chest Impression: Abnormal (post-op CABG, massive CM, pulmonary edema.) - CONSULTS/PCP/HOSPITALIST Notification #1 *Consult/PCP/Hospitalist*: Jacob wheatley 1815 Time Discussed: 18:22 (Buster) Consult Disposition: Will see in ED (around [id number]) #2 Consult: Valerie wheatley 1816 Time Discussed: 18:22 Consult Disposition: other (will see if needs dialysis tomorrow.) Departure - Departure Date of Disposition Decision: 03/21/19 Time of Disposition Decision: 18:14 DIAGNOSIS: Flash pulmonary edema, Respiratory distress, ESRD (end stage renal disease) on dialysis, Hypertensive emergency, Type 2 diabetes mellitus with hyperglycemia, with long-term current use of insulin CHF (congestive heart failure) Qualifiers: Heart failure type: combined systolic and diastolic Heart failure chronicity: acute on chronic Qualified Code(s): I50.43 - Acute on chronic combined systolic (congestive) and diastolic (congestive) heart failure Disposition: ADMITTED INPATIENT 09 Certified Medical Emergency: Emergent Condition: Fair Referrals and Follow-Ups: Sebastian James MD [Primary Care Provider] - - Critical Care Note This patient required my direct & personal management of CC.: Yes Total Time (mins): 50 Critical Care Statement: This patient required my direct personal management to treat or rule out processes, the absence of which, could potentiallly result in sudden, clinically significant life or limb threatening deterioration. Attestation - Physician/ BARBARA Attestation Patient care was provided by Advanced Practice Provider:: No The physician spent face to face time with patient:: Yes Advanced Practice Provider documentation review:: Supervising physician onsite and consulted in the evaluation and care of this patient. The physician did have a face to face encounter with the patient. This chart was documented by the indicated scribe, (Lupe Jara Scribe) and accurately reflects the services I performed and decisions made by me, Eric Wise MD, as attested by the provider's signature.
[2019-03-21 18:20] LABS: ACETONE SERUM NEGATIVE (NEGATIVE)
[2019-03-21 18:30] LABS: BILIRUBIN URINE NEGATIVE (NEGATIVE); BLOOD URINE SMALL (NEGATIVE); COLOR YELLOW; GLUCOSE URINE >1000 mg/dL (NEGATIVE); KETONE URINE NEGATIVE (NEGATIVE); LEUKOCYTES URINE SMALL (NEGATIVE); NITRITE URINE NEGATIVE (NEGATIVE); PROTEIN URINE 300 mg/dL (NEGATIVE); SP GRAVITY URINE 1.023; TURBIDITY URINE HAZY (CLEAR); UR EPITHELIAL CELLS <10 /HPF (<10); URINE BACTERIA NEGATIVE /HPF; URINE RBC 20-40 /HPF (<10); URINE SOURCE CATH; URINE WBC TNTC /HPF (<10); UROBILINOGEN URINE NORMAL (NORMAL)
--- NOTE | 2019-03-21 18:32 | Diag Imaging Result Doc PS360 ---
EXAM: CHEST-PORTABLE INDICATION: resp distress TECHNIQUE: One view COMPARISON: 01/24/2019 FINDINGS: There are bilateral infiltrates with a mid and lower lung zone predominance most compatible with pulmonary edema. There is suggestion of small bilateral effusions. There is stable cardiomegaly and stable CABG changes. Central vasculature is somewhat prominent suggesting pulmonary venous congestion. IMPRESSION: Bilateral infiltrates most compatible with pulmonary edema as described. Electronically signed by Daniel Gillespie 03/21/2019 6:30 PM
[2019-03-21 18:45] LABS: UR AMPHETAMINES QUAL NONE DETECTED (NONE DETECT); UR BARBITUATES QUAL NONE DETECTED (NONE DETECT); UR BENZODIAZEPIN QUAL NONE DETECTED (NONE DETECT); UR CANNABINOIDS QUAL NONE DETECTED (NONE DETECT); UR COCAINE QUAL NONE DETECTED (NONE DETECT); UR METHADONE QUAL NONE DETECTED (NONE DETECT); UR OPIATES QUAL NONE DETECTED (NONE DETECT); UR OXYCODONE QUAL NONE DETECTED (NONE DETECT); UR PCP QUAL NONE DETECTED (NONE DETECT)
[2019-03-21] MEDS ORDERED: HEPARIN IV PRN (19:21)
[2019-03-21] MEDS ORDERED: NS 2,000 ML MISC PRN (19:21)
--- NOTE | 2019-03-21 22:08 | HISTORY AND PHYSICAL ---
PRIMARY CARE PHYSICIAN: Dr. Sebastian James. CHIEF COMPLAINT: Profound shortness of breath. HISTORY OF PRESENT ILLNESS: A 68-year-old white female with a very complicated past medical history presents for evaluation of above-mentioned symptoms. Pertinent history of present illness began yesterday. Patient states that she went to dialysis as previously arranged. While there, she noted having a fever associated with an episode of nausea and vomiting. Blood cultures were drawn. Patient was provided a dose of vancomycin. Per report, she dialyzed as expected. Yesterday evening, she had 1 episode of diarrhea but otherwise did reasonably well after dialysis. This morning, she awoke in her usual state of health. The patient states she carried on her routine activities. At approximately 5:30, she was watching a football game and wilton to walk to the kitchen. Upon doing so, she developed acute onset shortness of breath. She noted mild chest discomfort but denied palpitations, nausea, vomiting, or diaphoresis. Because of the acute change in her respiratory status, she pressed her Life Alert and EMS was contacted. Upon arrival, patient was noted to be significantly tachypneic. O2 saturation was noted to be 92 to 93 percent. This responded with supplemental oxygen. The patient was brought to the emergency department immediately. Upon arrival, blood pressure was noted to be profoundly elevated at 221/201. The patient was placed on BiPAP therapy. Chest x-ray revealed bilateral infiltrates most compatible with pulmonary edema. The patient was treated with labetalol, hydralazine, and Lasix therapy. Dr. Padilla was consulted and patient was taken immediately for hemodialysis. Unfortunately, while in dialysis, patient developed hypotension after removing only approximately 0.5 L of fluid. With discontinuing dialysis, her blood pressure recovered. Also of note, upon arrival, patient's glucose was noted to be grossly elevated at 552. Anion gap was not significantly elevated at 17. Bicarbonate was 25. The patient's troponin was also noted to be elevated at 70. CK, however, was 60. The patient's urinalysis returned abnormal. She denies significant dysuria, hematuria, or pyuria. The patient will be admitted to the hospital for full evaluation and management of each of these conditions. PAST MEDICAL HISTORY: 1. End-stage renal disease treated with hemodialysis on Saturday, Saturday and Saturday. 2. Type 2 diabetes. 3. Hypertension. 4. Coronary artery disease with left heart catheterization on 01/23/2019 revealing severe diffuse 3-vessel coronary artery disease, multiple stenoses along the course of the right coronary artery, circumflex, and left anterior descending and its branches. Patent vein graft to the obtuse marginal system. Patent vein graft to the right coronary artery. Patent mammary artery graft to the left anterior descending. Hypokinesis of the left ventricle with ejection fraction of 40%. Relatively normal left ventricular end-diastolic pressure. Recommended optimizing medical management as patient was not a suitable candidate for percutaneous intervention. 5. Peripheral vascular disease status post right kkaqq-qdm-ytop amputation. 6. Hyperlipidemia. 7. Reflux disease. 8. History of Clostridium difficile colitis. CURRENT MEDICATIONS: 1. Amlodipine 2.5 mg daily. 2. Aspirin 81 mg daily. 3. Pletal 50 mg twice daily. 4. Plavix 75 mg daily. 5. Nexium 40 mg daily. 6. Lantus 7 units daily. 7. Culturelle 1 capsule twice daily. 8. Creon 24,000 units 3 times daily with meals. 9. Lisinopril 2.5 mg daily. 10. Reglan 5 mg 3 times daily. 11. Lopressor 50 mg daily. 12. Remeron 15 mg at bedtime. 13. Livalo 2 mg at bedtime. ALLERGIES: Patient states she is allergic to Demerol and nitroglycerin. 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 She previously used tobacco products. She denies alcohol or illicit drug use. FAMILY HISTORY: Patient's family history is significant for hypertension, coronary artery disease, and diabetes. REVIEW OF SYSTEMS: A 12 point review of systems was performed. Pertinent positives and negatives are noted history present illness. PHYSICAL EXAMINATION: Temperature 98 degrees, heart rate 85, respirations 20, blood pressure is 123/45. GENERAL: Chronically ill appearing, no acute distress. HEENT: Normocephalic, atraumatic. Pupils equal, round, reactive to light. Extraocular muscles intact. Sclerae anicteric. [place] conjunctivae. Oral and nasopharynx clear without exudate. NECK: Supple. No lymphadenopathy. No thyromegaly. No bruits auscultated. CARDIOVASCULAR: Regular rate and rhythm. No significant murmurs, rubs, or gallops. PULMONARY: Crackles at bilateral bases. Adequate air movement. ABDOMEN: Soft, diffusely tender, worse in the right upper quadrant and left lower quadrant. No rebound or guarding. EXTREMITIES: Moves left lower extremity well. Right lower extremity with a jesad-pas-uryg amputation. No significant clubbing or cyanosis, 1+ left lower extremity edema. NEUROLOGIC: Cranial nerves 2-12 grossly intact. Motor and sensory grossly intact. PSYCHOLOGIC: Appropriate. LABORATORY DATA: White blood cell count 4.09, hemoglobin 11.3, hematocrit 36.4, platelet count 65,000. PT 15.2, INR is 1.18, PTT is 28.3, pH 7.40, pCO2 43, PO2 217, bicarbonate 26.1. Sodium 132, potassium 5.0, chloride 90, bicarb 25, BUN 14, creatinine 3.3, glucose 552, calcium 8.4, magnesium 1.8, phosphorus 4.2, total bilirubin 0.60, total protein 6.5, albumin 3.8, alkaline phosphatase 167, AST 19, ALT 19, CK total 60, troponin 70. ProBNP greater than 35,000, plasma lactate 1.2. Urinalysis revealed too many to count white blood cells. Chest x- ray suggests bilateral infiltrates most compatible with pulmonary edema. EKG suggests a normal sinus rhythm with premature ventricular contractions, nonspecific T-wave abnormalities primarily in the inferior leads. ASSESSMENT AND PLAN: A 68-year-old female with a very complicated past medical history presents for evaluation of acute onset shortness of breath. Chest x-ray is most consistent with pulmonary edema. Patient attempted hemodialysis, but did not tolerate secondary to hypotension. The patient will be admitted to the ICU for full evaluation and management of respiratory failure, volume overload, possible urinary tract infection in the setting of coronary artery disease, diabetes, and end-stage renal disease. 1. Admit to ICU. 2. Respiratory failure-with the acuity of patient's symptoms, ischemic etiology will certainly need to be considered. As above, patient recently had a full ischemic evaluation without acceptable sites for intervention. We will continue patient on her optimized medical regimen. Once her blood pressure recovers, we will plan hemodialysis. We will continue CPAP therapy as well as adding aspiration precautions, albuterol, and Atrovent. Antibiotics will be started for the possibility of aspiration as well as a possible urinary tract infection as described below. 3. Fever-yesterday during dialysis, patient was documented to have a fever as well as nausea and vomiting. At this point, the etiology is unknown. Blood cultures from yesterday so far are negative. Repeat blood cultures were drawn. Urinalysis returned abnormal. While I am hesitant to initiate antibiotic intervention secondary to her recent history of Clostridium difficile colitis, I do feel that it is warranted. We will treat patient with Zosyn therapy as described below. We will follow cultures. 4. Urinary tract infection-patient has too many to count white blood cells. We will send urine for culture. Most recent culture suggested a Proteus. She also has recently had an enterococcus. Each of these were susceptible to Zosyn therapy. We will initiate antibiotic intervention. 5. End-stage renal disease-the patient is treated with hemodialysis on Saturday, Saturday, and Saturday. As above, hemodialysis was aborted tonight secondary to hypotension. I suspect this likely was secondary to being provided labetalol, hydralazine, and Lasix prior to initiating hemodialysis. We will reevaluate patient tomorrow, likely resuming therapy. 6. Coronary artery disease with an elevated troponin-as above, patient's recent heart catheterization suggested significant disease. We will follow serial CK and troponin levels. At this point, I suspect this represents a troponin leak in the setting of flash pulmonary edema. 7. Diabetes-the patient's blood sugar is significantly elevated without evidence of an acidosis. We will resume sliding scale insulin every 4 hours. Historically, patient has had very brittle diabetes. 8. Hypotension-as above, I suspect this was a consequence of medications given to treat her excessive hypertension upon admission. We will follow this while hospitalized. We will hold antihypertensive agents for now. 9. History of Clostridium difficile colitis-we will continue a probiotic. As above, I am concerned with initiating antibiotics, however I feel the potential benefits outweigh the risk. We will check a C difficile toxin in the setting of episode of diarrhea yesterday. 10. Hyperlipidemia-we will continue patient on Livalo therapy. 11. Fluid, electrolytes, nutrition. We will monitor electrolytes, saline lock IV, NPO for now. 12. Prophylaxis. Patient will be placed on subcu Lovenox. Addendum: Upon repeat discussion with daughter present, she informed me of a new right lower extremity/ stump ulceration. Her prosthesis was removed and bandage was removed revealing a clean ulceration with purulence, but with a foul odor. Wound culture was performed. Antibiotics will be continued as above. Narciso#: [id number] cc: MD Sebastian Desai MD MTDD
[2019-03-21] MEDS: DUONEB (A & A) INH SCH (23:27)
[2019-03-21] MEDS ORDERED: ALBUTEROL NEB INH SCH (23:30)
[2019-03-22] MEDS: PLETAL PO SCH ×3 (00:41→21:18)
[2019-03-22] MEDS: LIVALO PO SCH ×2 (00:41→21:18)
[2019-03-22] MEDS: CULTURELLE PO SCH ×4 (00:41→21:29)
[2019-03-22] MEDS: ZOSYN 2.25 GM in NS 50 ML IV SCH ×3 (00:42→21:17)
[2019-03-22] MEDS: LOVENOX SUBQ SCH ×2 (00:42→21:21)
[2019-03-22] MEDS: HUMALOG SUBQ SCH ×6 (00:43→21:19)
[2019-03-22] MEDS: DUONEB (A & A) INH SCH ×5 (03:22→23:02)
[2019-03-22 03:32] LABS: BASO# 0.07 X1000 (0.0-0.2); BASO% 1.8 % (0.0-0.8); EOS# 0.07 X1000 (0.0-0.7); EOS% 1.8 % (0.0-10.0); HEMATOCRIT 34.5 % (37.0-47.0); HEMOGLOBIN 10.5 g/dL (12.0-16.0); LYMPH# 1.31 X1000 (1.2-3.4); LYMPH% 33.4 % (20.5-51.1); MCH 28.8 PG (27-31); MCHC 30.4 g/dL (33-37); MCV 94.5 FL (81-99); MONO# 0.46 X1000 (0.11-0.59); MONO% 11.7 % (1.7-9.3); MPV 13.1 FL (7.4-10.4); NEUT# 2.01 X1000 (1.4-6.5); NEUT% 51.3 % (42.2-75.2); PLT 65 X1000 (130-400); RBC 3.65 XMIL (4.2-5.4); RDW 14.3 % (11.5-14.5); WBC 3.92 X1000 (4.8-10.8)
[2019-03-22 04:18] LABS: BASO 1 % (0-1); EOS 1 % (1-10); LYMPHS 27 % (21-51); MONO 10 % (1-9); SEGS 61 % (42-75)
[2019-03-22 04:55] LABS: ALB/GLOB RATIO 1.1; ALBUMIN 3.1 g/dL (3.5-5.0); CALCIUM 8.4 mg/dL (8.8-10.2); CREATININE 3.4 mg/dL (0.5-0.9); POTASSIUM 3.5 mmol/L (3.5-5.1); TOTAL BILIRUBIN 0.44 mg/dL (0.20-1.00); TOTAL PROTEIN 5.8 g/dL (6.3-8.3)
--- NOTE | 2019-03-22 07:10 | Diag Imaging Result Doc PS360 ---
EXAM: CHEST-PORTABLE HISTORY: shortness of breath TECHNIQUE: Single view COMPARISON: 03/21/2019 FINDINGS: The heart is enlarged. The sternal wires and surgical clips. Small pleural effusions with mild pulmonary edema. There is basilar atelectasis. IMPRESSION: No interval improvement Electronically signed by Pierre Zapata 03/22/2019 7:07 AM
[2019-03-22] MEDS: PLAVIX PO SCH (08:04)
[2019-03-22] MEDS: CREON PO SCH ×3 (08:04→16:56)
[2019-03-22] MEDS: ASPIRIN PO SCH (08:05)
[2019-03-22] MEDS: REGLAN PO SCH ×3 (08:05→16:56)
[2019-03-22] MEDS: LOPRESSOR PO SCH (08:05)
[2019-03-22] MEDS: PRILOSEC PO SCH (08:05)
[2019-03-22] MEDS: ZOSYN 0.75 GM in NS 50 ML IV SCH (08:05)
--- NOTE | 2019-03-22 13:20 | PROGRESS NOTE ---
DATE: 03/22/2019 SUBJECTIVE: The patient was admitted yesterday with respiratory distress. Chest x-ray was consistent with volume overload state. The patient was treated with IV antihypertensive agents in the emergency department secondary to hypertensive urgency/emergency. She was then taken for dialysis; however, developed hypotension after taking approximately 0.5 L off. The patient was subsequently admitted to the ICU. She was treated with BiPAP therapy overnight. Today, the patient states she feels significantly better, although not back to her baseline. Dr. Padilla has evaluated the patient, and with improvement in her pulmonary status, hemodialysis has been scheduled for tomorrow. Temperature has been modestly elevated at 100.1. Her p.o. intake is improving. She has had no evidence of chest discomfort or palpitations. OBJECTIVE: Vital Signs: T-max 100.1 degrees, heart rate 68 to 80, respirations 14 to 16, blood pressure 79 to 113/40 to 56. General: Chronically ill appearing. No acute distress. Cardiovascular: Regular rate and rhythm. No significant murmurs, rubs, or gallops. Pulmonary: Diffuse wheezing bilaterally. Adequate air movement. Abdomen: Soft, nontender, nondistended. Positive bowel sounds. Extremities: Moves left lower extremity well. The patient has a right lower extremity hobex-zbu-ghsf amputation. Wound is dressed. Dermatologic: A dressed wound to the right jwwoa-lke-udcd amputation stump. IMAGING AND LABORATORY DATA: Sodium 136, potassium 3.5, chloride 97, bicarb 25, BUN 15, creatinine 3.4, glucose 238, calcium 8.4. Total bilirubin 0.44, total protein 5.8, albumin 3.1, alkaline phosphatase 134, AST 10, ALT 15. Troponin 71. White blood cell count 3.92, hemoglobin 10.5, hematocrit 34.5, platelet count 65,000. Chest x-ray reveals small pleural effusions with mild pulmonary edema. ASSESSMENT AND PLAN: 1. Respiratory failure. Differential diagnosis includes volume overload with associated pulmonary edema, pneumonia/aspiration, and ischemic etiologies. As above, the patient's overall condition has stabilized. She was treated with continuous positive airway pressure overnight. Chest x-ray suggests small pleural effusions and mild edema. For this reason, aggressive intervention with repeat hemodialysis has not been recommended. Examination is significant for diffuse bronchospasm. We will continue the patient on albuterol and Atrovent therapy. Zosyn has been initiated in the setting of possible aspiration. We will encourage incentive spirometry and aspiration precautions. 2. Fever. This was documented during hemodialysis on Saturday. Blood cultures from Saturday thus far are negative. Blood cultures from yesterday also demonstrate no growth. We will continue the patient on Zosyn therapy. She received a dose of vancomycin after hemodialysis. We will follow blood cultures and urine cultures. We will determine if further intervention is warranted. 3. Possible urinary tract infection. The patient's urinalysis suggested too many to count white blood cells. The patient's urine was sent for culture, and is negative thus far. Most recent cultures suggested Proteus and enterococcus. The patient will be continued on Zosyn therapy as this would cover each of these agents. We will remain aware that antibiotic intervention increases her risk of recurrent Clostridium difficile. 4. Right uapgc-tyw-gtzw stump wound infection. On examination yesterday, the wound appears clean and dry. The odor, however, was quite concerning for underlying infection. Wound culture was performed. We will continue treatment as above. We will consult Wound Care. 5. End-stage renal disease. As described above, the patient will resume hemodialysis tomorrow. Should she develop worsening volume retention today, we will pursue a more emergent intervention. At this point, her hemodynamics are stable. 6. Coronary artery disease with slightly elevated troponin. This likely is a consequence of her chronic kidney disease as her troponin has remained stable. We will continue to follow serial evaluations. 7. Diabetes. We will continue the patient on sliding scale insulin. Blood sugars are reasonably controlled. 8. Hypotension. This likely was a consequence of receiving antihypertensive interventions in the emergency department. Thus far, her blood pressure has remained marginal. For now, we will hold amlodipine and lisinopril therapy. We will follow this closely. We will remain aware that this may be a consequence of underlying infection with associated systemic inflammatory response syndrome/sepsis. 9. History of Clostridium difficile colitis. We will continue the patient on a probiotic. We will remain aware that she is at risk with the addition of antibiotic intervention. At this point, the potential benefits of antibiotics outweigh the risk. 10. Hyperlipidemia. We will continue the patient on Livalo therapy. 11. Disposition. At this point, the patient continues to require usp care in the intensive care unit setting. We will plan to discharge home or to the step-down unit once appropriate. cc: MD Sebastian Desai MD
--- NOTE | 2019-03-22 17:32 | EKG Report ---
Test Performed on : 03/22/2019 06:13:36 AM Test Reason : Elevated troponin Blood Pressure : / mmHG Vent. Rate : 085 BPM Atrial Rate : 113 BPM P-R Int : 000 ms QRS Dur : 092 ms QT Int : 380 ms P-R-T Axes : 000 001 -47 degrees QTc Int : 452 ms Atrial fibrillation. with a competing junctional pacemaker. T wave abnormality, consider inferior ischemia Abnormal ECG No previous ECGs available Confirmed by Fidel CRYSTAL, Austin Cornejo ([id number]) on 03/22/2019 6:55:50 PM
[2019-03-22 18:03] LABS: ALLEN TEST YES; BLOOD TYPE ARTERIAL; HCO3-(ACT) 24.9 mmoll (20.0-26.0); METHB 1.3 % (0.0-1.5); O2(CT) 15.9 mL/dL (15.0-23.0); O2HB 96.3 % (95.0-99.0); PCO2(98.6) 40 mmHg (35-45); PO2(98.6) 168 mmHg (60-100); SAMPLE BLOOD; SAO2 99.1 % (95.0-100.0); THB 11.5 g/dL (11.5-17.4)
[2019-03-22 18:04] LABS: MODALITY BI PAP
--- NOTE | 2019-03-22 18:13 | Diag Imaging Result Doc PS360 ---
EXAM: CHEST-PORTABLE HISTORY: unresponsive TECHNIQUE: Single view COMPARISON: 5:20 AM FINDINGS: Small pleural effusions with cardiomegaly and pulmonary edema remain. No significant change. IMPRESSION: Stable chest Electronically signed by Pierre Zapata 03/22/2019 6:10 PM
[2019-03-22 18:25] LABS: BASO# 0.04 X1000 (0.0-0.2); BASO% 1.1 % (0.0-0.8); EOS% 2.8 % (0.0-10.0); HEMATOCRIT 35.3 % (37.0-47.0); HEMOGLOBIN 10.8 g/dL (12.0-16.0); LYMPH% 24.8 % (20.5-51.1); MCH 28.6 PG (27-31); MCHC 30.6 g/dL (33-37); MCV 93.6 FL (81-99); MONO# 0.37 X1000 (0.11-0.59); MONO% 10.2 % (1.7-9.3); MPV 12.3 FL (7.4-10.4); NEUT# 2.22 X1000 (1.4-6.5); NEUT% 61.1 % (42.2-75.2); PLT 65 X1000 (130-400); RBC 3.77 XMIL (4.2-5.4); RDW 14.1 % (11.5-14.5); WBC 3.63 X1000 (4.8-10.8)
[2019-03-22 18:53] LABS: ALB/GLOB RATIO 1.4; ALBUMIN 3.3 g/dL (3.5-5.0); CREATININE 4.2 mg/dL (0.5-0.9); POTASSIUM 4.5 mmol/L (3.5-5.1); TOTAL BILIRUBIN 0.54 mg/dL (0.20-1.00); TOTAL PROTEIN 5.6 g/dL (6.3-8.3)
[2019-03-22] MEDS ORDERED: SOLU-MEDROL IV ONE (19:44)
[2019-03-22] MEDS ORDERED: SOLU-MEDROL ONE (19:47)
--- NOTE | 2019-03-22 20:06 | PROGRESS NOTE ---
DATE: 03/22/2019 SUBJECTIVE: I was called by nursing staff in regards to patient being unresponsive. History per nursing staff and patient's family was that the patient had a reasonable morning and afternoon. She sat up and noted increasing shortness of breath. She described her breathing as air becoming "trapped." Respiratory therapy was called. The nurse walked out to call me. Before doing so, BiPAP was placed and patient immediately went unresponsive. Multiple attempts with sternal rub were attempted without patient responding. Pupils were noted to be pinpoint. The patient's nurse then contacted me and I responded immediately to her room. Upon arrival, patient was examined. The patient was noted to have some eye and eyelid twitching. Her pupils were noted to be pinpoint. She had some rigidity, but no posturing. I was unable to elicit any meaningful response or movement. Laboratory data, including CBC, CMP, CK, CK-MB, troponin, and ABG were pursued. Chest x-ray and EKG were performed. Chest x-ray revealed no evidence of significant change from this morning. Small pleural effusion with cardiomegaly and pulmonary edema were stable. EKG revealed no significant EKG changes. With the mental status change, concern was raised for acute neurologic condition. I discussed case with Dr. Gonzalez and mechanical ventilation was decided to be most appropriate. I returned to the patient's room to informed family and upon doing so, I again attempted to arouse a response from the patient. This time, I did get a meaningful movement. Over the course of the next 15 minutes, patient was noted to have intermittent meaningful responses. Mechanical ventilation was aborted. Since that time, over the next 30 minutes, patient has become more consistently responsive. She is talking and is alert to person, place and situation. She continues to complain of shortness of breath. She continues to be treated with mechanical ventilation. OBJECTIVE: Temperature 100 degrees, heart rate 86, respirations 17, blood pressure is 115/75.General: Chronically ill appearing. No acute distress. Cardiovascular: Regular rate and rhythm with frequent ectopy. No significant murmurs, rubs, or gallops. Pulmonary: Diffuse rhonchi and wheezing bilaterally. Abdomen: Diffusely tender with voluntary guarding but no rebound. Positive bowel sounds. Extremities: No significant clubbing or cyanosis. Trace lower extremity edema on the right. Dermatologic: Evaluation reveals no evidence of rash. LABORATORY DATA: White blood cell count 3.63, hemoglobin 10.8, hematocrit 35.3, platelet count 65,000. Sodium 136, potassium 4.5, chloride 101, bicarb 23, BUN 18, creatinine 4.2, glucose 108, calcium 8.0, total bilirubin 0.54, total protein 5.6, albumin 3.3, alkaline phosphatase 131, AST 10, ALT 12, CK total 46, troponin 68, pH 7.40, pCO2 40, PO2 168, bicarbonate 25. ASSESSMENT AND PLAN: 1. Unresponsiveness/alteration of mental status-as above, upon my initial evaluation, patient was unresponsive to painful stimuli. Her exam however was complicated by inconsistent findings including intermittent rigidity and symmetric pinpoint pupils. With time, her overall condition has demonstrated improvement. Differential diagnosis is broad, but includes neurologic insult and seizure disorder. The patient had received a dose of Reglan prior to this occurrence suggesting the possibility that this could have precipitated the event. We will discontinue Reglan. At this point, we will continue Zosyn with the knowledge that it can cause seizures as the potential benefit outweighs the risk. We will consult Neurology in the a.m. Once her clinical condition is acceptable, we will plan further neurologic testing with CT scan versus MRI. 2. Respiratory failure-the patient continues to demonstrate compromised pulmonary status. Sputum culture will be drawn. We will continue DuoNeb and Zosyn therapy. At this point, BiPAP will be continued for symptomatic relief. As patient's condition is tenuous, I do feel asking Pulmonary Medicine, Dr. Gonzalez to assist with both pulmonary care as well as critical care in case mechanical ventilation is warranted. 3. End-stage renal disease-I suspect this is contributing to her respiratory compromise, however I am concerned that this is a contributor rather than the primary source. We will plan dialysis if able in the morning. cc: MD Sebastian Desai MD
--- NOTE | 2019-03-23 | EKG Report ---
Test Performed on : 03/22/2019 5:58:51 PM Test Reason : unresponsive Blood Pressure : / mmHG Vent. Rate : 085 BPM Atrial Rate : 085 BPM P-R Int : 142 ms QRS Dur : 080 ms QT Int : 374 ms P-R-T Axes : 072 005 021 degrees QTc Int : 445 ms Sinus rhythm. with premature atrial complexes. Otherwise normal ECG When compared with ECG of 22-MAR-2019 06:13, (Unconfirmed) Sinus rhythm. has replaced Atrial fibrillation. T wave inversion no longer evident in Inferior leads T wave inversion no longer evident in Anterior leads Confirmed by Fidel CRYSTAL, Austin Cornejo ([id number]) on 03/29/2019 10:24:34 PM
[2019-03-23] MEDS: DUONEB (A & A) INH SCH ×7 (00:46→23:21)
[2019-03-23] MEDS: HUMALOG SUBQ SCH ×6 (01:12→20:49)
--- NOTE | 2019-03-23 03:31 | PULMONOLOGY CONSULTATION ---
DATE: 03/22/2019 REQUESTING CLINICIAN: Dr. Js Rizvi. REASON FOR CONSULTATION: Respiratory distress. HISTORY OF PRESENT ILLNESS: Ms. Sanchez is a 68-year-old with diabetes mellitus, coronary artery disease with prior cardiac bypass grafting, end-stage renal disease on hemodialysis, peripheral vascular disease, who was evaluated by this practitioner in January for persistent wheezing. The patient was having episodes of emesis following meals. She underwent a barium swallow which revealed extreme dilation of the esophagus with no passage of the contrast through the GE junction consistent with severe achalasia or esophageal stricture. She underwent an EGD which revealed severe esophagitis with moderate amount of food retained in the stomach body along with duodenal inflammation. She reports her swallowing has improved some, but she continues to have episodes of emesis. The patient presented to the emergency room yesterday with worsening shortness of breath. She was evaluated by Nephrology and dialysis was attempted but she did not tolerate significant fluid removal. This morning she felt better, but then after eating lunch she started intractable coughing and subsequently became unresponsive. This lasted for approximately 45 minutes to an hour per Dr. Js Rizvi. She has slowly returned to her baseline. The patient reports she tolerates pudding and Jello, but with solid foods such as meat she has difficulty with swallowing. She did vomit today. PAST MEDICAL HISTORY: 1. Esophageal dysfunction as per above. 2. End-stage renal disease. 3. Diabetes mellitus. 4. Hypertension. 5. Coronary artery disease. 6. Peripheral vascular disease, status post right mosvk-kcr-serf amputation. 7. Dyslipidemia. 8. History of C difficile colitis. FAMILY HISTORY: Positive for coronary artery disease. 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 She has a prior history of tobacco use but none recently. No alcohol use. REVIEW OF SYSTEMS: Notable for shortness of breath. She has difficulty getting air in and out. She is having difficulty swallowing. PHYSICAL EXAMINATION: General: Reveals a thin, chronically ill-appearing female on 50% face mask. Vital Signs: Blood pressure 111/55, heart rate 93, respiratory rate 19, oxygen saturation 100%. HEENT: Pupils are equal and reactive. Oropharynx is clear. Neck: Supple. Chest: Reveals coarse wheezing throughout all lung cazares. Cardiac: S1, S2. Abdomen: Soft and without hepatosplenomegaly. Extremities: Without edema. LABORATORIES: Chest x-ray is reviewed at 17:53. She has generous cardiac silhouette, small effusion, mild vascular congestion. She also appears to have a dilated esophagus with an air- fluid level. IMPRESSION: A 68-year-old with: 1. Bronchospasm. 2. Esophageal dysfunction. 3. Hypoxemic respiratory failure. 4. Transient altered mental status. It is not clear if this was a syncopal type event, or a transient ischemic event or a seizure. PLAN: 1. CT scan of the thorax to evaluate the esophagus. I suspect that it is dilated and may be contributing to her current illness. 2. Keep NPO for now. cc: MD Sebastian Wilkes MD
[2019-03-23 06:24] LABS: BASO# 0.01 X1000 (0.0-0.2); BASO% 0.2 % (0.0-0.8); HEMATOCRIT 35.8 % (37.0-47.0); HEMOGLOBIN 10.9 g/dL (12.0-16.0); LYMPH# 0.35 X1000 (1.2-3.4); LYMPH% 8.7 % (20.5-51.1); MCH 28.5 PG (27-31); MCHC 30.4 g/dL (33-37); MCV 93.7 FL (81-99); MONO# 0.06 X1000 (0.11-0.59); MONO% 1.5 % (1.7-9.3); MPV 11.8 FL (7.4-10.4); NEUT# 3.62 X1000 (1.4-6.5); NEUT% 89.6 % (42.2-75.2); PLT 62 X1000 (130-400); RBC 3.82 XMIL (4.2-5.4); RDW 14.2 % (11.5-14.5); WBC 4.04 X1000 (4.8-10.8)
--- NOTE | 2019-03-23 06:25 | Diag Imaging Result Doc PS360 ---
CT HEAD W/O CONTRAST - 03/22/2019 INDICATION: AMS/ unresponsive COMPARISON: 12/03/2018 FINDINGS: The ventricles and sulci are normal in size and contour. No intracranial mass or hemorrhage. The skull is intact. The sinuses mastoids and middle ears are clear. IMPRESSION: Negative exam. This exam was performed using automated exposure control, adjustment of mA or kV according to patient size, and/or use of iterative reconstruction technique Electronically signed by Chauncey Whitmore 03/23/2019 6:23 AM
--- NOTE | 2019-03-23 06:29 | Diag Imaging Result Doc PS360 ---
CT THORAX W/O CONTRAST - 03/22/2019 INDICATION: resp failure COMPARISON: Several recent chest x-rays FINDINGS: Stable cardiomegaly. Stable CABG changes. No visible adenopathy. The esophagus is moderately dilated with some fluid. Upper abdominal images are unremarkable. There are small bilateral pleural effusions. There is some hazy interstitial pulmonary edema. No dense consolidations. Major airways are clear. There are moderate degenerative changes of the spine. No acute or suspicious bony lesion. IMPRESSION: 1. Congestive heart failure. 2. Esophagus is moderately distended with fluid, indeterminate. This may represent dysmotility such as achalasia. This exam was performed using automated exposure control, adjustment of mA or kV according to patient size, and/or use of iterative reconstruction technique Electronically signed by Chauncey Whitmore 03/23/2019 6:26 AM
[2019-03-23] MEDS: PRILOSEC PO SCH ×2 (06:38→06:42)
[2019-03-23 07:06] LABS: ALBUMIN 3.2 g/dL (3.5-5.0); CALCIUM 8.4 mg/dL (8.8-10.2); CREATININE 4.6 mg/dL (0.5-0.9); POTASSIUM 4.8 mmol/L (3.5-5.1); TOTAL BILIRUBIN 0.46 mg/dL (0.20-1.00); TOTAL PROTEIN 6.3 g/dL (6.3-8.3)
--- NOTE | 2019-03-23 08:24 | Diag Imaging Result Doc PS360 ---
EXAM: CHEST-PORTABLE 03/23/2019 HISTORY: dyspnea TECHNIQUE: AP portable semiupright at 0807 COMMENT: There is cardiomegaly and increased pulmonary vascularity. There is interstitial opacity and some alveolar opacity in both lower lobes. Compared to 03/22/2019 there is worsening opacification of the lower lobes. IMPRESSION: Worsened pulmonary edema plus minus pneumonia. Electronically signed by Misbah Kirkland 03/23/2019 8:21 AM
[2019-03-23] MEDS: ASPIRIN PO SCH (08:32)
[2019-03-23] MEDS: CREON PO SCH ×3 (08:32→17:39)
[2019-03-23] MEDS: CULTURELLE PO SCH ×2 (08:32→20:49)
[2019-03-23] MEDS ORDERED: NS 2,000 ML MISC PRN (08:41)
[2019-03-23] MEDS ORDERED: LOPRESSOR IV SCH (09:00)
[2019-03-23] MEDS: ZOSYN 2.25 GM in NS 50 ML IV SCH ×2 (09:10→20:43)
[2019-03-23] MEDS: PLAVIX PO SCH (09:10)
[2019-03-23] MEDS: LOPRESSOR PO SCH (09:10)
[2019-03-23] MEDS: PLETAL PO SCH ×2 (09:10→20:50)
--- NOTE | 2019-03-23 09:28 | NEPHROLOGY CONSULTATION ---
DATE: 03/23/2019 REASON FOR ADMISSION: Worsening shortness of breath. REASON FOR CONSULTATION: Assist with management, ESRD. CONSULTING PHYSICIAN: Dr. James. HISTORY OF PRESENT ILLNESS: This is a 68-year-old female, known to our service for end-stage renal disease, on hemodialysis Saturday, Saturday, Saturday. The patient has a long past medical history, and was recently in the hospital with pneumonia, fluid volume issues. The patient apparently was at home, doing well, and got up and developed an acute shortness of breath, had mild chest discomfort, and came into the EMS. She was significantly tachypneic. Her blood pressure was extremely elevated at greater than 200 systolic and diastolic in the ER. She had pulmonary edema. She was treated with labetalol, hydralazine, Lasix. She was taken for dialysis. In dialysis, she developed significant hypotension, and could not tolerate. She was transferred to the intensive care unit, where she has remained. Yesterday in the intensive care unit, the patient had some worsening shortness of breath. The patient became unresponsive. The patient, over the course of about 45 minutes, finally roused immediately prior to being intubated and mechanically ventilated. This morning, she continues with significant shortness of breath, feeling poorly. She has audible wheezing, this practitioner can hear upon entry to room without stethoscope. PAST MEDICAL HISTORY: CKD 5D, diabetes, hypertension, coronary artery disease, esophageal dysfunction, history of Clostridium difficile, dyslipidemia, peripheral vascular disease. PAST SURGICAL HISTORY: She has had coronary bypass surgery, multiple cardiac stenting, cardiac surgery. She has had a right BKA. She has a fistula, left upper extremity. ALLERGIES: Please see chart for complete listing, but appear to be Demerol and nitroglycerin. HOME MEDICATIONS: Please see chart for reconciliation. FAMILY HISTORY: Noncontributory. SOCIAL HISTORY: She lives with a niece. Former smoker. No ETOH, tobacco, or illicit drug use. REVIEW OF SYSTEMS: Shortness of breath. Overall feeling a general malaise. Pertinent positives noted above. PHYSICAL EXAMINATION: Vital Signs: Temperature 98.4 degrees, pulse 87, respiratory rate 24, blood pressure 132/87. Intake 460 mL, output 95 mL. General: Chronically ill- appearing, elderly female, resting in bed. She rouses to verbal and tactile stimuli. HEENT: Normocephalic, atraumatic. Oral mucosa is dry. Neck: Supple. There is positive JVD in a reclined position. Cardiovascular: S1, S2. No murmur. Pulmonary: She has coarse wheezing bilaterally. She is on O2 supplementation via nasal cannula. Abdomen: Soft. Positive bowel sounds. : Voiding. Extremities: Right BKA. Left, no edema. Integumentary: Skin is warm and dry. Neurologic: Nonfocal. LABORATORY DATA: WBC of 4.0, hemoglobin 10.9. Sodium 138, potassium 4.8, CO2 of 22, creatinine 4.6. ASSESSMENT AND PLAN: 1. Chronic kidney disease 5D. She had pulmonary edema noted on her chest x-ray yesterday. I will repeat CXR this morning. If it has worsened as I anticipate, we will go ahead and plan to run her on dialysis. Will likely run her with sustained low-efficiency dialysis today secondary to her issues with hypotension on her prior dialysis treatment. Will have a goal of 2 to 4 liters fluid removal if she tolerates this. 2. Electrolytes and acid-base balance. See above for plan. 3. Respiratory failure, followed by primary and Pulmonology. Dictated by MICHAEL Garibay for Doug Padilla MD Face to face encounter, data reviewed, discussed with Jessica Patel on 03/23/18. I agree with the above assessment and plan of care. cc: MD Sebastian Dean MD [facility]
[2019-03-23] MEDS: ZOFRAN IV PRN (12:56)
[2019-03-23] MEDS: PROTONIX IV SCH (12:56)
--- NOTE | 2019-03-23 13:08 | Diag Imaging Result Doc PS360 ---
EXAM: CHEST-PORTABLE 03/23/2019 HISTORY: poss aspiration TECHNIQUE: AP portable upright at 1255 COMMENT: There is cardiomegaly. There is alveolar opacity in both lower lung cazares particularly behind the heart. There may be some improvement with respect to the right base since 03/23/2019 at 0807. IMPRESSION: Pulmonary edema and/or pneumonia. Cardiomegaly. Electronically signed by Misbah Kirkland 03/23/2019 1:05 PM
[2019-03-23 13:20] LABS: ALLEN TEST YES; BE -2.4 mmoll (-3.0-3.0); BLOOD TYPE ARTERIAL; O2(CT) 15.8 mL/dL (15.0-23.0); O2HB 95.6 % (95.0-99.0); PCO2(98.6) 42 mmHg (35-45); PO2(98.6) 90 mmHg (60-100); SAMPLE BLOOD; SAO2 98.1 % (95.0-100.0); THB 11.7 g/dL (11.5-17.4); pH(98.6) 7.35 (7.35-7.45)
[2019-03-23 13:22] LABS: MODALITY CANNULA
--- NOTE | 2019-03-23 13:51 | Diag Imaging Result Doc PS360 ---
EXAM: CHEST-PORTABLE 03/23/2019 HISTORY: NG tube placement/ confirmation TECHNIQUE: Erect AP portable at 1343 COMMENT: The NG tube tip is in the midesophagus. Compared to 03/23/2019 the retrocardiac opacity is apparently somewhat improved. The heart size remains enlarged. IMPRESSION: NG tube in the midesophagus. Electronically signed by Misbah Kirkland 03/23/2019 1:49 PM
--- NOTE | 2019-03-23 14:57 | GASTROENTEROLOGY CONSULTATION ---
DATE: 03/23/2019 REASON FOR CONSULT: Dilated esophagus. HISTORY OF PRESENT ILLNESS: Ms. Sanchez is a 68-year-old, -[place] female with a history of hypertension, hyperlipidemia, coronary artery disease, status post bypass in 2013, peripheral artery disease, status post right fhjrn-bwr-inrp amputation, end-stage renal disease, on hemodialysis, insulin-dependent diabetes, and congestive heart failure, presented to the hospital with complaints of shortness of breath with nausea and vomiting. The patient mentioned that she had eaten some chicken bits and whatever she vomited was all the food that came out. The patient had been to dialysis yesterday and the patient complained that she had one episode of diarrhea. Along with SOB patient also complained of having chest discomfort but she has denied any chest pain. The patient just had one episode of nausea and vomiting. Patient mentioned that she noticed some blood in her sputum. She also complained of having fever and chills, and generalized abdominal tenderness. GI saw her last in January of 2019 where she had come in with complaints of dysphagia. Dr. Howell did an EGD on 01/19/2019 and the findings were severe esophagitis in the entire esophagus, combination of grade 4 reflux esophagitis and candidal esophagitis. Moderate amount of food was retained. Mild gastritis noted in the distal body and antrum. Duodenal inflammation was found in the duodenal bulb. The duodenal mucosa showed no abnormalities in the first part of the duodenum or the second part of the duodenum. The patient was then started on fluconazole 100 mg daily for 2 weeks and PPIs. The patient also had constipation at that time and she was on MiraLAX 17 g. On admission, her head CT has shown a negative exam. The patient's chest CT shows congestive heart failure. Esophagus is moderately distended with fluid indeterminate which may represent dysmotility. The patient's chest x-ray today has shown that she has NG tube in the mid esophagus. PAST MEDICAL HISTORY: End-stage renal disease, on dialysis, type 2 diabetes, hypertension, coronary artery disease, status post bypass surgery, peripheral vascular disease, status post right btsnn-ytn-fqpd amputation, hyperlipidemia, GERD, and a history of C- difficile colitis. PAST SURGICAL HISTORY: Coronary artery disease bypass in 2013, AV fistula in the left upper extremity, right bogvh-uef-pfsx amputation. SOCIAL HISTORY: The patient is retired. Was a former smoker. Denies any alcohol or illicit drug use. FAMILY HISTORY: Positive for hypertension, coronary artery disease, and diabetes. ALLERGIES: The patient is allergic to Demerol and nitroglycerin. MEDICATIONS: The patient's home medications are cilostazol 50 mg twice a day, metoprolol 50 mg in a.m., pitavastatin 2 mg at bedtime, Plavix 75 mg p.o. a.m., lisinopril 2.5 mg p.o. daily, Creon 24,000 units p.o. 3 times a day, lactobacillus which is Culturelle 1 tablet p.o. b.i.d., Norvasc 2.5 mg p.o. daily, Lantus insulin 7 units subcutaneously, aspirin 81 mg p.o. daily, Reglan 5 mg p.o. 3 times a day, and Protonix 40 mg p.o. daily. REVIEW OF SYSTEMS: As per HPI. Otherwise, 12 point review of systems is negative. PHYSICAL EXAMINATION: Vital Signs: Temperature 97.1, pulse 84, respirations 14, blood pressure 151/90, oxygen saturation 98% on 6 L nasal cannula. The patient's weight is 104 pounds. BMI is 17.8 kg/m2. General: She is alert, oriented x3, and in no acute distress. Answering questions appropriately. HEENT: Pale conjunctivae. No icterus. PERRL. Neck: Supple. Respiratory: Crackles heard in the anterior cazares. Cardiovascular: Regular rate and rhythm. Abdomen: Soft. Tender. Active bowel sounds heard in all 4 quadrants. Extremities: The patient has a right yknwj-fna-rhia amputation. Left lower extremity, no clubbing, no cyanosis, no edema. Pedal pulses 2+ present in the left lower extremity. Neurologic: She is alert, oriented x3. Nonfocal. Cranial nerves 2-12 grossly intact. LABORATORY DATA: WBCs of 4.04, RBCs 3.82, hemoglobin 10.9, hematocrit is 35.8, platelet count is 62,000. Sodium 138, potassium 4.8, chloride 100, carbon dioxide 22, anion gap 16, BUN 23, creatinine 4.6, glucose 164, calcium 8.4. Total bilirubin 0.46, AST 10, ALT 12, alkaline phosphatase is 126, albumin is 3.2. IMAGING: Chest x-ray today showed NG tube in the mid esophagus. Chest CT yesterday showed congestive heart failure. The esophagus is mildly distended with fluid, indeterminate, may represent dysmotility. Head CT yesterday showed negative exam. IMPRESSION: 1. Dilated esophagus. Rule out obstruction vs Achalasia. Patient coughs after eating;? Aspiration 2. Congestive heart failure. 3. Abnormal CT scan. 4. Coronary artery disease. 5. End-stage renal disease. 6. Diabetes type 2. 7. Altered mental status. PLAN: Ms. Sanchez is a 68-year-old, -[place] female with a history of end-stage renal disease, diabetes, coronary artery disease, congestive heart failure. GI has been consulted for her dilated esophagus. Will order Swallow evaluation. The plan is to do an EGD tomorrow. The patient is currently on Protonix 40 mg IV daily. The patient is receiving antibiotic, Zosyn, and she is also receiving Diflucan. The patient has an NG tube in place. Further plan of care will be based on the EGD findings. Discussed the risks, benefits, and alternatives of the procedure to the patient. The patient acknowledges understanding of the plan of care. We will continue to monitor the patient. This plan has been discussed with Dr. Howell. Thank you for your consult. Please call us for any further questions or concerns. Dictated by MICHAEL Crowley for Chris Howell MD cc: MD Sebastian Yeager MD I have seen and examined the patient myself and I agree with the above plan of care. I have discussed the above plan of care with the patient and all questions were answered. Please call us with any further questions. [facility]
--- NOTE | 2019-03-23 15:59 | PROGRESS NOTE ---
DATE: 03/23/2019 SUBJECTIVE: The patient is in the ICU. She is asleep but easily arousable. She answers questions appropriately. She states she is feeling a little bit better than she was the previous day. I had a long conversation with Dr. Js Rizvi about the patient's admission criteria and then the odd episode that she had the previous night with being unarousable. OBJECTIVE: Vital Signs: 97.3, 147/76, 80, and 15, 6 L nasal cannula. PHYSICAL EXAMINATION: The patient is awake, alert, oriented, conversive and appropriate.Lungs: Show wheezes in the left upper lobe, a little bit of wheezy character in the right, but overall good air movement. She is not struggling to breathe. Cardiovascular: Regular at approximately 90 beats per minute at the time of my examination. Extremities: Show no peripheral edema. I did not view the wound on her stump. LABORATORY: White cell count 4.0, hemoglobin 10.9. ABG this morning was 7.35, pCO2 42, PO2 of 90, 98% saturated on nasal cannula. BUN is 23, creatinine 4.6, blood sugar 164. ASSESSMENT AND PLAN: 1. The patient's alteration in mental status from the previous night is rather perplexing. She seems to recovered and neurological consultation was considered and ordered by Dr. Rizvi. Results on that consultation are pending. I do think we should do some urine drug screening. I am unaware that she was given any type of sedating medication that could have caused that. 2. The patient's respiratory failure is possibly multifactorial. She is getting aerosol treatments and Zosyn. Dr. Gonzalez had her on BiPAP for a time, but she was off that this morning. 3. End-stage renal disease. Aware. Dr. Padilla is following. 4. The patient had initial fever prior to coming to the hospital. I do not believe she has had any other fever. 5. Urine cultures are pending. 6. Right below the knee stump wound has been cultured and we will follow those cultures out and adjust antibiotics as appropriate. 7. Coronary artery disease. Aware. 8. Diabetes. For inexplicable reasons, the patient's blood sugar is always well controlled in the hospital and poorly controlled at home. 9. History of Clostridium difficile colitis. Aware. 10. Hyperlipidemia. Aware. cc: Sebastian James MD
--- NOTE | 2019-03-23 16:24 | PULMONOLOGY PROGRESS NOTE ---
DATE: 03/23/2019 SUBJECTIVE: The patient is on dialysis. She is she was seen earlier today and then had an episode of vomiting after reinstitution of diet. She is now having wheezing and bronchospasm. OBJECTIVE: Vital Signs: The patient has been afebrile for the last 24 hours. Blood pressure 142/77, heart rate 85, respiratory rate 28, oxygen saturation 96%. HEENT: HEENT: Pupils are equal and reactive. Oropharynx appears clear Neck: Supple. Chest: Reveals diffuse wheezing in all lung cazares. Cardiac: S1-S2. Abdomen: Soft. Extremities: Without edema. LABORATORIES: Chest x-ray reveals cardiomegaly. There is an air-fluid level again identified in the esophagus with dilation of the esophagus measuring 4 cm. White blood count 4.04, hemoglobin 10.9, platelet count 62,000 sodium 138, potassium 4.8, chloride 100, bicarbonate 22, BUN 23, creatinine 4.6. IMPRESSION: 68-year-old with 1. Recurrent aspiration. 2. Aspiration induced bronchospasm. 3. Hypoxemic respiratory failure. 4. Esophageal dysfunction. 5. Transient syncope with coughing and aspiration events. PLAN: 1. Convert the patient back to NPO again. 2. Attempt placement of a nasoesophageal tube for decompression of the esophagus to prevent additional emesis and aspiration. 3. Anticipate EGD tomorrow. cc: MD Sebastian Wilkes MD
[2019-03-23] MEDS ORDERED: ZOSYN 0.75 GM in NS 50 ML IV ONE (17:00)
[2019-03-23] MEDS: DIFLUCAN 100 MG/NS 100 MG/50 ML IVPB IV SCH (18:15)
[2019-03-23] MEDS ORDERED: ATIVAN IV ONE (20:35)
[2019-03-23] MEDS: LIVALO PO SCH (20:50)
[2019-03-23] MEDS: LOVENOX SUBQ SCH (20:50)
--- NOTE | 2019-03-23 20:51 | CONSULTATION ---
DATE OF CONSULTATION: 03/23/2019 REASON FOR CONSULT: Altered mental status/seizure? HISTORY OF PRESENT ILLNESS: This is a 68-year-old female with multiple medical problems, who was admitted 2 days ago after an abrupt onset of shortness of breath. She was tachypneics and her blood pressure was above 200 on arrival. Blood sugar was above 500. There was concern for pulmonary edema. The patient had attempted dialysis but became hypotensive. She was admitted to the ICU. Apparently, she stabilized until the evening, when she had acute unresponsiveness after coughing with shortness of breath. There was report of eye and eyelid twitching. Her pupils were pinpoint. There was some rigidity not certain about how long that lasted, but she began to come around over several minutes time. Head CT did not show acute findings. There was not report of michael shaking. The patient denies any history of stroke, seizure, or major neurologic event. On the day prior to onset of symptoms, she was at dialysis and had a documented fever along with an episode of nausea and vomiting. She went on to have some diarrhea later. She has had previous significant abnormal findings on an EGD and there is plan for repeat EGD. PAST MEDICAL HISTORY: Type 2 diabetes, end-stage renal disease on hemodialysis, hypertension, coronary artery disease, peripheral vascular disease status post right xuqdh-hlx-ohbd amputation, hyperlipidemia. FAMILY HISTORY: No seizures or strokes. 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 Previous tobacco. No alcohol or illicit. ALLERGIES: Listed to Demerol and nitroglycerin glycerin. REVIEW OF SYSTEMS: Balance of 12 conducted and otherwise negative except that detailed in the HPI. PHYSICAL EXAMINATION: Vital Signs: Currently afebrile actually a temperature of 97.1 degrees, yesterday a T max of 100.1. Blood pressures over today have been generally 109 to 170s over 60s to above 100. Pulse 80s to 90s, respirations 23. Ms Sanchez is supine in bed. Appears to be asleep. She is on dialysis. She awakens to voice plus light tactile stimulation. She remains alert during the encounter subsequently and is attentive. She is oriented. There is not language disturbance on brief bedside testing. She is soft-spoken without significant dysarthria. Pupils are pin point bilaterally equal and I did not get definite reaction to bright light. Gaze is conjugate. Extraocular movements are full. Visual cazares intact to direct confrontational testing. She can hear. Face symmetric with equal activation. Facial sensation reported intact. Tongue is midline. Palate elevates symmetrically. Shoulder shrug is full. No pronator drift. She has good power in the limbs. There is a right dgqyc-tvc-edyr amputation. She reports some preserved sensation over the limbs which is symmetric reflexes are absent. No clonus, plantar response is silent. Hzpeia-xh-nwbo is intact. Rapid alternating movements are slow bilaterally but symmetric. There is asterixis with the arms outstretched. At rest she has probably some multifocal myoclonus. I did not observe any twitching around the face during my time at the bedside. DIAGNOSTICS: Head CT noncontrast negative exam. LABORATORIES: She has a low white count, hemoglobin, hematocrit, and platelet count. Sodium 132 on admission now 138. Creatinine 3.3, now 4.6. BUN 14 now 23. Blood glucose 552 now 164. Calcium 8.4, normal magnesium and phosphorus. ALT, AST normal, too many to count white cells in the urine. Toxicology performed on the is negative including serum ethyl alcohol. ASSESSMENT AND PLAN: Episode of acute unresponsiveness of uncertain etiology, now recovered. Negative head CT is reassuring. I am not certain of the duration here but seizure is a possibility. Given reports of eye twitching although it is also possible that the twitching is also related to her kidney disease. Tussive syncope would typically have a very short duration without confusion following the incident. We will order routine EEG. I would also recommend a noncontrasted MRI of the brain once she is able to go for that. Continue treating her underlying medical conditions and my hope is that she will improve. Thank you for the consultation. cc: MD Sebastian Simpson MD [facility]
[2019-03-24] MEDS: HUMALOG SUBQ SCH ×6 (00:14→21:14)
[2019-03-24] MEDS: DUONEB (A & A) INH SCH ×6 (03:28→23:20)
[2019-03-24] MEDS ORDERED: D50W SYRINGE IV ONE ×2 (04:09→20:16)
[2019-03-24] MEDS ORDERED: DIPRIVAN 1% ONE (07:02)
[2019-03-24] MEDS ORDERED: FENTANYL ONE (07:04)
[2019-03-24] MEDS: SODIUM CHLORIDE 0.9% INJ SCH (07:54)
[2019-03-24] MEDS: ZOSYN 2.25 GM in NS 50 ML IV SCH ×3 (07:54→21:22)
[2019-03-24] MEDS: PROTONIX IV SCH ×2 (07:54→10:15)
--- NOTE | 2019-03-24 09:18 | Diag Imaging Result Doc PS360 ---
CHEST-PORTABLE - 03/24/2019 INDICATION: DR MARIE COMPARISON: 03/23/2019 FINDINGS: The nasogastric tube has been removed. Stable CABG changes. Stable significant cardiomegaly. Stable to slightly worsening central interstitial infiltrates compatible with pulmonary edema. There has been slight worsening in the small bilateral pleural effusions. IMPRESSION: Worsening congestive heart failure. Electronically signed by Chauncey Whitmore 03/24/2019 9:16 AM
[2019-03-24] MEDS ORDERED: CLINIMIX E 4.25%-5% SOLUTION 1,000 ML IV SCH (09:45)
[2019-03-24] MEDS: CREON PO SCH ×3 (10:13→18:17)
[2019-03-24] MEDS: ASPIRIN PO SCH (10:13)
[2019-03-24] MEDS: CULTURELLE PO SCH ×2 (10:14→21:13)
[2019-03-24] MEDS: LOPRESSOR PO SCH (10:14)
[2019-03-24] MEDS: PLAVIX PO SCH (10:14)
[2019-03-24] MEDS: PLETAL PO SCH ×2 (10:15→21:15)
--- NOTE | 2019-03-24 13:18 | NEPHROLOGY PROGRESS NOTE ---
DATE: 03/24/2019 SUBJECTIVE: Patient resting in bed. She is in mild distress secondary to respiratory status. Extremely weak but restless. OBJECTIVE: Vital Signs: Temperature 99.1 degrees, pulse 94, respiratory rate 33, blood pressure 137/90, intake 270 mL. Output 75 mL of urine output. She also had 3 L of UF on SLED yesterday. PHYSICAL EXAMINATION: General: Chronically ill-appearing, elderly female who appears critically ill as well. Currently resting in bed. She is restless. She is tossing her head side to side. HEENT: Normocephalic, atraumatic. Oral mucosa is dry. Neck: Supple. Positive JVD. Cardiovascular: Regular. Blood pressure targeted. Pulmonary: Continues with rales and rhonchi bilaterally. Continues with wheezing. Remains on O2 supplementation via nasal cannula. Abdomen: Soft, flat positive bowel sounds. : Minimal void. Extremities: Right BKA. Left lower extremity with no edema. Integumentary: Skin is warm and dry. Neuro: Awake, restless. LAB DATA: Pending. Prior to dialysis yesterday she had a WBC of 4.0, hemoglobin. 10.9. Sodium 138, potassium 4.8. CO2 22 creatinine 4.6, again this was prior to dialysis. IMAGING: Chest x-ray yesterday morning had worsened pulmonary edema plus minus pneumonia. ASSESSMENT/PLAN: 1. End-stage renal disease management. Patient dialyzed yesterday on SLED secondary to previous issues with hypotension during dialysis. We were able to remove 3 L of fluid. The patient continues with respiratory distress, but does not appear fluid overloaded on exam. Noted aspiration. Will hold HD today. 2. Aspiration induced bronchospasm. The patient had a NG tube placed yesterday to the esophagus for decompression to attempt to prevent additional emesis and aspiration. The patient has a consult with gastroenterology today and possible esophagogastroduodenoscopy. 3. Electrolytes, acid-base balance. These have been stable. Again, we will continue to treat with dialysis. Dictated by MICHAEL Garibay for Doug Padilla MD Face to face encounter, data reviewed, discussed with Jessica Patel on 03/24/18. I agree with the above assessment and plan of care. cc: MD Sebastian Dean MD [facility]US[facility]
--- NOTE | 2019-03-24 13:29 | PROGRESS NOTE ---
DATE: 03/24/2019 SUBJECTIVE: No major overnight events. There is not a report of any recurrent events. OBJECTIVE: Vital signs: Afebrile, blood pressure 140/68, pulse 80s to 90s. General: Ms Sanchez is supine in bed. She is asleep initially, easily awakened and remains reasonably alert and attentive. She seems tired but does not drift to sleep during my time at the bedside. She is oriented. She follows simple commands. Pupils still pinpoint and equal without definite reaction. DIAGNOSTIC DATA: EEG has been completed recently and I will review that once that is available. LABORATORY DATA: Reviewed in the chart. ASSESSMENT AND PLAN: Episode of acute unresponsiveness of uncertain etiology. She has not had further event. EEG was recently completed and I will review that once it is available. No further recommendations to add to my note from yesterday. ADDENDUM: EEG personally reviewed showing mild generalized slowing with triphasic waves indicative of a nonspecific encephalopathy. cc: MD Sebastian Simpson MD MTDD
--- NOTE | 2019-03-24 13:48 | PROGRESS NOTE ---
DATE: 03/24/2019 SUBJECTIVE: The patient had just left for a scheduled EGD at the time of my arrival in the ICU. I spoke at length with the nurse about her condition. Shortly after I left the ICU I got a call from Dr. Diaz, who along with anesthesia did not feel comfortable intubating the patient for the sake of an EGD given that she had one only 2 months ago. I agree with this and then she was scheduled to return to the ICU. VITAL SIGNS: 99.4, 86, 20, 171/86, 100% saturated on 3 L nasal cannula. Physical exam is not performed since the patient was gone. LABORATORY: White cell count 4.0, hemoglobin 10.9. ABG 7.35, 42, 90 and 98.1. BUN 23, creatinine 4.6, potassium 4.8, blood sugar 164. ASSESSMENT AND PLAN: 1. We still do not have a reason for the patient's altered mental status from this weekend. Dr. Atkinson has been consulted and ordered an EEG. We have not been able to correct any urine for urine drug screen. I did not see that any medication had been administered according to the MAR. According to the nurse last night though, the patient was agitated and could not sleep and required some Ativan. 2. The patient's respiratory failure likely has multiple etiologies contributing. X-ray appears to be pulmonary edema. The patient did have a witnessed difficulty with swallowing last night while trying to eat. This followed on the heels of a relatively normal swallowing evaluation by speech therapy. The patient has a history of candidal esophagitis and likely has some type of diabetic related dysmotility including diabetic gastroparesis and maybe even simple abnormal peristalsis of her esophagus as well. 3. End-stage renal disease. Dr. Padilla following. 4. I do not believe the patient has any fever since coming into the hospital. 5. Urine culture grew enterococcus faecalis which was resistant to Levaquin and tetracycline. We may want to consider consultation with Dr. Colunga or can write appropriate antibiotics for this as well. 6. The patient's culture of her stump ulceration showed Proteus mirabilis which had a significant resistance pattern as well. Again, Dr. Colunga will likely need to be consulted. 7. Coronary artery disease, aware. 8. Diabetes. The patient's blood sugar is reasonably well controlled. 9. History of Clostridium difficile, aware. 10. I am very worried that the patient may have a significant down turn during her hospitalization. Although she is fairly young in years, the overwhelming burden of her disease pathology makes her salvage in a resuscitation effort very tenuous. When I am able to speak with her and her family we may want to discuss resuscitation. cc: Sebastian James MD
--- NOTE | 2019-03-24 15:31 | INFECTIOUS DISEASE CONSULT REP ---
DATE: 03/24/2019 CONCLUSION: The patient has the patient has an enterococcal urinary tract infection and also on the posterior aspect of her right leg she has an area of cellulitis with an infected wound from which Proteus was isolated. RECOMMENDATIONS: I agree with treating the patient with Zosyn. I suggest continuing Zosyn for 10 more days. DISCUSSION: The patient tells me that she came in the hospital because she was having chills and a cough. She also was dyspneic. She did not complain of dysuria. She did say that she had a sore on the back of her right leg. Laboratory studies thus far show a CBC with a white count of 7350, PO2 is 90 and pCO2 is 42. Creatinine is 46. GFR is 11. Liver function studies are normal. Drug screen was negative. Urinalysis showed white cells but no bacteria. Urine culture grew Enterococcus. Chest x-ray shows worsening congestive heart failure. WARP HAULER HISTORY: She is a 5, para 2, AB 3. PREVIOUS HOSPITALIZATIONS AND OPERATIONS: The patient has had labor and deliveries and a miscarriage. She has had an amputation of her right leg. MEDICAL DISEASES: Positive for end-stage renal disease; the patient is on dialysis. Diabetes mellitus, hypertension, coronary artery disease, peripheral vascular disease, gastroesophageal reflux disease and hyperlipidemia. INFECTIOUS DISEASE HISTORY: Positive for pneumonia, urinary tract infection and Clostridium difficile diarrhea in the past. FAMILY HISTORY: Positive for diabetes mellitus, hypertension, myocardial infarction, stroke, and coronary artery disease. SOCIAL HISTORY: The patient is . She lives with her niece. She does not have any pets. She stopped smoking cigarettes 30 years ago. She does not drink alcoholic beverages or abuse drugs. ALLERGIES: The chart lists allergies to Demerol and nitroglycerin. HOME MEDICATIONS: Norvasc, Pletal, Plavix, insulin, Creon, lisinopril, Reglan, Lopressor, Protonix and Livalo. PHYSICAL EXAMINATION: Vital Signs: Temperature is 99.4 degrees, pulse 94, respirations 23, blood pressure 140/68. Patient weighs 102 pounds. General: This is a chronically ill and malnourished-appearing, elderly female. She frequently coughed during the exam but she could not bring up any sputum. Head/eyes/ears/nose/throat: She can hear my spoken words and see near objects. There is no drainage coming from the nose or ears. Neck: No meningismus. Lungs: Scattered rhonchi bilaterally. Cardiovascular: Heart rate is regular. Abdomen: Soft and nontender. Extremities: The patient has a functional left arm AV fistula. The patient also has a right [id number]-wlv-[id number] amputation. Posteriorly there is a wound that is tender and slightly swollen. Neurologic: The patient is somewhat lethargic. Her vision is not good. Her hearing seemed to be good. She could hear my spoken words. As mentioned above, I agree with giving the patient Zosyn. I would suggest giving it to her for 10 more days. I am signing off on the patient's case now. Thank you for the consult. cc: MD Sebastian Vernon MD MTDJavan
[2019-03-24] MEDS: DIFLUCAN 100 MG/NS 100 MG/50 ML IVPB IV SCH (18:30)
[2019-03-24] MEDS: OFIRMEV 1000 MG/ISOTONIC SOLN 1,000 MG/100 ML BOTTLE IV PRN (19:22)
[2019-03-24] MEDS ORDERED: TORADOL IV ONE (21:05)
--- NOTE | 2019-03-24 21:12 | EEG REPORT ---
DATE: 03/24/2019 REFERRING: Marcie Dye MD SYSTEM CONFIGURATION SPECIALIST: Deidra Sanchez. BACKGROUND INFORMATION: TECHNIQUE: This is a digitally recorded routine EEG with video. HISTORY: A 68-year-old, female patient with altered mental status. EEG is ordered to detect evidence of seizure. There was a period of acute unresponsiveness. EEG FINDINGS: A well-developed and sustained posterior dominant alpha rhythm is not seen. The background at maximal alertness consists of theta slowing with intermixed faster frequencies. Occasional broad-based, triphasic-like waves are seen diffusely during the study. No epileptiform discharges. No seizures. No definite persistent focal slowing. Hyperventilation is not performed. Photic stimulation does not alter the record. The patient becomes drowsy, but stage II sleep is not seen. EKG demonstrates regular intervals. IMPRESSION AND CLINICAL CORRELATION: Abnormal routine electroencephalogram due to mild diffuse slowing with triphasic waves indicative of a mild nonspecific encephalopathy. Generalized slowing is a nonspecific finding that can be seen in processes that diffusely affect the cerebrum, including toxic, metabolic, pharmacologic, post hypoxic and infectious etiologies amongst others. Triphasic waves are also a nonspecific finding seen with encephalopathies, more frequently with hepatic or renal derangements. No epileptiform discharges or seizures seen on the current study. This does not rule out an underlying seizure disorder. cc: MD Sebastian Simpson MD
[2019-03-24] MEDS: LIVALO PO SCH (21:15)
[2019-03-24] MEDS: LOVENOX SUBQ SCH (21:22)
--- NOTE | 2019-03-24 22:49 | PULMONOLOGY PROGRESS NOTE ---
DATE: 03/24/2019 INTERIM HISTORY: EGD was anticipated this morning but Anesthesia and Dr. Diaz felt that she would not tolerated this procedure and it was aborted. She was brought back to the ICU. She reports she is very weak. OBJECTIVE: Vital Signs: The patient has been afebrile for the last 24 hours. Blood pressure 139/65, heart rate 86, respiratory rate 16, oxygen saturation 98%. HEENT: Pupils are equal and reactive. Oropharynx appears clear. Neck: Is supple. Chest: Reveals scattered wheezing bilaterally. Cardiac exam: S1-S2. Abdomen: Is soft. Extremities: Are without edema. LABORATORIES: Chest x-ray reveals worsening bilateral infiltrates. IMPRESSION: A 68-year-old with 1. Recurrent aspiration. 2. Bronchospasm. 3. Esophageal dysfunction with possible achalasia. 4. Transient syncope with coughing and aspiration events. DISCUSSION: An unfortunate 68-year-old with diabetes, end-stage renal disease, peripheral vascular disease, coronary artery disease, who now is aspirating with p.o. intake. The possible treatments include Botox injection or myotomy. Currently she is too ill to undergo EGD or surgical intervention for which she would be a high risk. RECOMMENDATIONS: 1. Continue oxygen for hypoxemic respiratory failure. 2. Ask Dr. Padilla if he can initiate intradialytic parenteral nutrition. 3. Keep nothing by mouth except for ice chips. 4. Additional planning/treatment of her esophageal dysfunction pending improvement of clinical status. TIME SPENT IN CLINICAL CARE MANAGEMENT: 35 minutes. cc: MD Sebastian Wilkes MD [facility]
--- NOTE | 2019-03-24 23:24 | PROVIDER PROGRESS NOTE ---
Progress Note S: Patient had aspiration event overnight and brought to OR holding for diagnostic EGD. CXR showed worsening infiltrates and patient reported worsening SOB. Procedure was canceled given concerning needing intubation secondary to worsening respiratory status. O: Last Vital Signs Temp 99.2 F 03/24/19 20:00 Pulse 82 03/24/19 22:00 Resp 14 03/24/19 22:00 BP 140/67 03/24/19 21:59 Pulse Ox 100 03/24/19 22:00 Height 5 ft 4 in Weight 102 lb 2 oz GEN: chronically ill-appearing in mild respiratory distress, thin HEENT: anicteric, MMM CV: RRR, no murmurs PULM: decreased BS throughout, increased WOB, no wheezing ABD: soft NT/ND EXT: no cce NEURO: lethargic, non-focal LABS: None this AM CXR CHEST-PORTABLE - 03/24/2019 INDICATION: DR CYNTHIA COMPARISON: 03/23/2019 FINDINGS: The nasogastric tube has been removed. Stable CABG changes. Stable significant cardiomegaly. Stable to slightly worsening central interstitial infiltrates compatible with pulmonary edema. There has been slight worsening in the small bilateral pleural effusions. IMPRESSION: Worsening congestive heart failure. EGD 01/19/2019 ESOPHAGUS: Severe esophagitis noted in the entire esophagus-combination Grade IV reflux esophagitis and Candidial esophagitis. Z line noted at 44 cms. STOMACH: Moderate amount of retained food in the stomach body, fundus was noted suggesting gastroparesis-partly evacuated. Fundus could not be completely cleared. Mild gastritis noted in the distal body and antrum. DUODENUM: Mild duodenal inflammation was found in the duodenal bulb. The duodenal mucosa showed no abnormalities in the 1st part of the duodenum and 2nd part duodenum. A/P: Ms. 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 She is currently being treated for hypoxic respiratory failure in setting of aspiration pneumonia and CHF. She may have a component of achalasia; however, she is not a candidate for myotomy or pneumatic dilation. Botox is temporizing; however, she probably still has esophagitis, which in itself can cause dysphagia. She also is too unstable to tolerating anesthesia without requiring intubation. I discussed this with patient's daughter and primary team. We can consider EGD with botox +/- PEG when her respiratory symptoms improve. In meantime, I recommend parental nutrition, continue PPI, antiemetics prn, and diflucan. Swabs as tolerated. Continue to treat CHF and pneumonia per primary team recs. Continue GOC discussions.
[2019-03-25] MEDS: HUMALOG SUBQ SCH ×5 (01:32→16:05)
[2019-03-25] MEDS: DUONEB (A & A) INH SCH ×6 (03:22→23:30)
[2019-03-25] MEDS ORDERED: HEPARIN IV PRN (06:40)
[2019-03-25] MEDS ORDERED: NS 2,000 ML MISC PRN (06:40)
[2019-03-25] MEDS ORDERED: TIGHT: 0.2 ML/HR FOR DIALYSIS MISC PRN (06:40)
[2019-03-25] MEDS: OFIRMEV 1000 MG/ISOTONIC SOLN 1,000 MG/100 ML BOTTLE IV PRN ×2 (07:32→15:37)
[2019-03-25] MEDS: CREON PO SCH ×3 (08:44→16:02)
[2019-03-25] MEDS: ASPIRIN PO SCH (08:44)
[2019-03-25] MEDS: PLAVIX PO SCH (08:45)
[2019-03-25] MEDS: LOPRESSOR PO SCH (08:45)
[2019-03-25] MEDS: CULTURELLE PO SCH (08:45)
[2019-03-25] MEDS: PLETAL PO SCH (08:46)
[2019-03-25] MEDS: PROTONIX IV SCH (09:03)
[2019-03-25] MEDS: ZOSYN 2.25 GM in NS 50 ML IV SCH (09:03)
[2019-03-25] MEDS: SODIUM CHLORIDE 0.9% INJ SCH (09:03)
--- NOTE | 2019-03-25 11:26 | GASTROENTEROLOGY PROGRESS NOTE ---
DATE: 03/25/2019 SUBJECTIVE: Ms. Sanchez is a 68-year-old, female. She was resting in bed, getting her breathing treatments. The patient is still complaining of shortness of breath. She is on a Ventimask. OBJECTIVE: Vital Signs: Temperature 98 degrees, pulse 86, respirations 21, blood pressure 138/87, oxygen saturation 100% on Ventimask. The patient's weight is 103 pounds, BMI is 17.7 kg/m2. General: The patient is alert and oriented x1. HEENT: Pale conjunctivae. No icterus. PERRL. Neck: Supple. Lungs: Decreased breath sounds heard in the anterior cazares. Abdomen: Soft, nontender, nondistended. Active bowel sounds heard in all 4 quadrants. Extremities: The patient has a right ekric-vsl-yuzo amputation. Left lower extremity: No clubbing, no cyanosis, no edema. Pedal pulse 2+ present in the left lower extremity. Neurological: Alert and oriented x1. IMAGING AND LABORATORY DATA: Her hematology is from 03/23/2019. WBC 4.04, RBC 3.82, hemoglobin 10.9, hematocrit is 35.8, platelet count is 62,000. The patient's chemistries are from 03/23/2019. Sodium 138, potassium 4.8, chloride 100, carbon dioxide 22, anion gap 16, BUN 23, creatinine is 4.6, glucose 164, calcium 8.4. The patient's chest x-ray yesterday showed worsening congestive heart failure. IMPRESSION AND PLAN: - Dysphagia - Acute respiratory failure - Aspiration pneumonia - Acute CHF excerbation - ESRD - AMS - H/o esophagitis - IDDM2 - Chronic anemia - Thrombocytopenia PLAN: Ms. Sanchez is a 68-year-old, female with a history of end-stage renal disease, diabetes, coronary artery disease, and congestive heart failure. GI is following her for her dysphagia. An endoscopy was supposed to be done yesterday, but it had to be canceled given the patient's worsening shortness of breath. A speech evaluation and a swallow evaluation have been ordered. We will await the results of the speech evaluation and swallow evaluation test, and consider putting a PEG tube if the patient and the family agrees to it. We will continue to monitor the patient and follow the plan of care per PCP. This plan was discussed with Dr. Diaz. Please call us for any further questions or concerns. Dictated by MICHAEL Crowley for Saud Diaz MD cc: Sebastian James MD Physician Attestation I have seen and examined the patient. I have discussed and reviewed the note by Maryjane RODRIGUEZ and agree with findings and plan as documented. In brief, Ms. Aguead Sanchez is a 68 year old woman with MMP who presents to GI service with dysphagia previously found to have severe esophagitis, candidiasis, and gastric retention suggestive for gastroparesis. She is currently being treated for hypoxic respiratory failure in setting of aspiration pneumonia and CHF. She may have a component of achalasia; however, she is not a candidate for myotomy or pneumatic dilation. Botox is temporizing; however, she probably still has esophagitis, which in itself can cause dysphagia. We are awaiting speech evaluation prior to consider PEG placement. MTDD
[2019-03-25] MEDS: D50W 250 ML, AMINOSYN 15% 500 ML, LIPOSYN 20% 250 ML IV SCH ×3 (12:13)
[2019-03-25] MEDS: LOPRESSOR IV PRN (13:21)
--- NOTE | 2019-03-25 14:23 | PROGRESS NOTE ---
DATE: 03/25/2019 LOCATION: ICU, bed #10. SUBJECTIVE: Dr. Dye saw Ms. Sanchez earlier this week for Neurology. She had an episode with question of seizure. EEG showed generalized slowing and some triphasic waves, but no definite epileptiform discharge. She has not had any further seizure-like episodes. I discussed the EEG findings and recent improvement in neurologic function with patient and family at the bedside. We discussed potential for "multifactorial" encephalopathy. In light of that improvement, I do not think we have to make any changes from Neurology standpoint today. Thank you for asking us to see Ms. Sanchez. cc: MD Sebastian Moon III, MD MTDD
--- NOTE | 2019-03-25 16:17 | PROVIDER PROGRESS NOTE ---
Progress Note Subjective: Pt voices not feeling well and still having shortness of breath Objective: temperature 97.8, pulse 76, respirations 13, blood pressure 144/76, 02 sat 100% on 50% venturi mask General: chronically ill and frail -[place] female lying in bed in no acute distress HEENT: normocephalic, atraumatic, pupils equal and reactive, mucous membranes dry. Skin: warm and dry. Neck: supple, positive JVD Cardiovascular: S1S2 regular rate and rhythm, no murmur or gallop. Respiratory: Rales and rhonchi bilaterally anteriorly Abdomen: soft, nontender, nondistended, bowel sounds present. Extremities: Right BKA, no clubbing, edema, or cyanosis in left lower. : non inspected, Lemon in place with 40 ml output in 24 hours.. Neurological: awake, restless, easily forgetting at the moment. Impression: Chronic kidney disease stage 5D. Patient did not SLED yesterday. She continues to be restless and voices respiratory distress. We will plan for hemodialysis today. Her blood pressure is stable at the moment. Blood pressure. Stable. Fluid volume. No change. We will plan to hemodialyze her today. Electrolytes and acid base balance. Stable on last labs. Nutrition. Awaiting swallow eval. Given parenteral nutrition with dialysis. Medication review.
[2019-03-25] MEDS ORDERED: ZOSYN 0.75 GM in NS 50 ML IV ONE (17:00)
[2019-03-25] MEDS: DIFLUCAN 100 MG/NS 100 MG/50 ML IVPB IV SCH (18:26)
--- NOTE | 2019-03-25 19:33 | PROGRESS NOTE ---
DATE: 03/25/2019 SUBJECTIVE: The patient is sitting in bed, leaning forward. She is moaning, but is able to stop moaning long enough to answer questions and to appropriately carry on a conversation. She states that she is hurting all over. She states that she is still short of breath. OBJECTIVE: Vital Signs: Temperature 98.0, 79, 24, 164/86, 50% Venturi mask. The patient still has some wheezes in the left upper lobe. She seems to be moving air fairly well. She is slightly tachypneic. Cardiovascular: Regular. It is difficult to get clear hearing of the heart given her breathing pattern and her moaning. Neurologic: She is awake, alert, interactive, in appropriate fashion. ASSESSMENT AND PLAN: 1. Urology has seen the patient for her altered mental status. EEG was negative for any sign of seizure. Last night, the patient had some pain, but I was reluctant to give her anything that might affect her mental status, and so she ended up with some Ofirmev and some Toradol, which seemed to work fairly well. 2. The patient's respiratory status and respiratory failure is somewhat perplexing. X-ray appears to be pulmonary edema. The patient is scheduled for dialysis today and hopefully some volume will be able to be removed since her blood pressure is at a reasonable place. 3. The patient's difficulty with swallowing is still under evaluation. She is supposed to have a repeat swallowing study today. We did not perform EGD yesterday. She says she is very, very hungry. I asked the patient if she would consider a gastrostomy tube if necessary and she said yes. 4. End-stage renal disease and fluid balance. Will be handled per Dr. Padilla's team in the hemodialysis unit. 5. Dr. Colunga was consulted for enterococcal infection in the patient's urine as well as Proteus mirabilis in her wounds. He left her on Zosyn as previously and felt that was an appropriate approach. He recommended 10 days of treatment. 6. Coronary artery disease. Aware. 7. Diabetes. The patient has had a few low sugars, but has generally been well controlled given the fact she is not eating. 8. Clostridium difficile history. We are aware. I spoke at length with the patient and her daughter about what we needed to do going forward. Of primary concern of the respiratory status secondarily is going to be nutrition and swallowing. cc: Sebastian James MD
[2019-03-25] MEDS ORDERED: D50W SYRINGE ONE (20:36)
[2019-03-25] MEDS ORDERED: D5 1/2 NS 1,000 ML IV SCH (20:45)
[2019-03-25] MEDS: LOVENOX SUBQ SCH (20:52)
[2019-03-26] MEDS: HUMALOG SUBQ SCH ×7 (00:14→16:34)
[2019-03-26] MEDS: PLETAL PO SCH ×2 (00:15→08:46)
[2019-03-26] MEDS: ZOSYN 0.75 GM in NS 50 ML IV SCH (00:26)
[2019-03-26] MEDS: ZOSYN 2.25 GM in NS 50 ML IV SCH ×2 (00:29→12:00)
[2019-03-26] MEDS: CULTURELLE PO SCH ×2 (00:30→08:45)
[2019-03-26] MEDS: LIVALO PO SCH (00:31)
[2019-03-26] MEDS: DUONEB (A & A) INH SCH ×6 (03:47→23:50)
[2019-03-26] MEDS ORDERED: XENADERM OINTMENT TOP PRN (04:11)
[2019-03-26] MEDS ORDERED: VASELINE TOP PRN (04:40)
--- NOTE | 2019-03-26 05:03 | PULMONOLOGY PROGRESS NOTE ---
DATE: 03/25/2019 SUBJECTIVE: The patient is awake and alert. She reports she hurts allover. She says she is hungry. OBJECTIVE: Vital Signs: Blood pressure 173/97, heart rate 90, oxygen saturation 100% on Venturi mask. HEENT: Pupils are equal. Oropharynx appears clear. Neck: Supple. Chest: reveals wheezing and rhonchi bilaterally. Cardiac: S1, S2. Abdomen: Soft. Extremities: Reveal prior amputation. LABORATORIES: No new sputum culture or pulmonary bacterial data. No CBC. No chemistry. IMPRESSION: A 68-year-old with 1. Esophageal dysfunction with possible achalasia. 2. Recurrent aspiration. 3. Bronchospasm. 4. Transient syncope. PLAN: 1. Continue oxygen for hypoxemic respiratory failure. 2. Initiate D5 half-normal saline for hypoglycemia. 3. Continue NPO status pending radiographic and clinical improvement. 4. Additional planning/treatment after pulmonary status improves. cc: MD Sebastian Wilkes MD
[2019-03-26 05:58] LABS: HEMATOCRIT 34.1 % (37.0-47.0); HEMOGLOBIN 10.4 g/dL (12.0-16.0); MCH 29.3 PG (27-31); MCHC 30.5 g/dL (33-37); MCV 96.1 FL (81-99); MPV 12.3 FL (7.4-10.4); RBC 3.55 XMIL (4.2-5.4); RDW 14.1 % (11.5-14.5); WBC 2.43 X1000 (4.8-10.8)
[2019-03-26 06:22] LABS: CREATININE 2.4 mg/dL (0.5-0.9); POTASSIUM 3.1 mmol/L (3.5-5.1)
--- NOTE | 2019-03-26 07:01 | Diag Imaging Result Doc PS360 ---
CHEST-PORTABLE - 03/26/2019 INDICATION: abnormal exam COMPARISON: 03/24/2019 FINDINGS: Stable CABG changes. Stable cardiomegaly and pulmonary vascular congestion. There has been significant decrease in the density of the central infiltrates/pulmonary edema. Stable trace pleural effusions. IMPRESSION: Significant improvement in the central infiltrates/pulmonary edema. Electronically signed by Chauncey Whitmore 03/26/2019 6:59 AM
[2019-03-26] MEDS: D5 1/2 NS 1,000 ML IV SCH (07:44)
[2019-03-26] MEDS: CREON PO SCH ×3 (08:44→16:34)
[2019-03-26] MEDS: PLAVIX PO SCH (08:45)
[2019-03-26] MEDS: ASPIRIN PO SCH (08:45)
[2019-03-26] MEDS: LOPRESSOR PO SCH (08:45)
[2019-03-26] MEDS: PROTONIX IV SCH (10:28)
[2019-03-26] MEDS: SODIUM CHLORIDE 0.9% INJ SCH (10:28)
--- NOTE | 2019-03-26 12:15 | PROGRESS NOTE ---
DATE: 03/26/2019 Ms. Sanchez is awake, alert, attentive, bright, cheerful. She is much more spontaneous and appropriate today than yesterday. Family at the bedside agrees that she continues to improve but is still not quite back to baseline of a week or so ago. She has not had any further periods of altered awareness, staring, or unresponsiveness. We discussed the uncertainty regarding previous episode. Some features are consistent with seizure but we have not established seizure as a definite diagnosis. I do not think we need to do anything differently today from a neurology standpoint. I would continue to follow without specific medicine for seizure control at this point. If she has further episodes, we can consider repeating EEG and reconsider seizure medicine. Thanks for asking neurology to see Ms. Sanchez. cc: MD Sebastian Moon III, MD
[2019-03-26] MEDS: OFIRMEV 1000 MG/ISOTONIC SOLN 1,000 MG/100 ML BOTTLE IV PRN ×2 (14:33→20:22)
--- NOTE | 2019-03-26 14:44 | GASTROENTEROLOGY PROGRESS NOTE ---
DATE: 03/26/2019 SUBJECTIVE: Ms. Sanchez is a 68-year-old, female. She was sitting in bed. Family at the bedside. The patient mentioned feeling better today. She is on nasal cannula at 3 L. OBJECTIVE: Vital Signs: Temperature 97.8 degrees, pulse 94, respirations 22, blood pressure 140/91, oxygen saturation 100% on 3 L nasal cannula. The patient's weight is 90 pounds. BMI is 15.5 kg/m2. General: She is alert, oriented x3, and in no acute distress. HEENT: Pale conjunctivae. No icterus. PERRL. Neck: Supple. Lungs: Decreased breath sounds heard in the anterior cazares. Cardiovascular: The patient is tachycardic. Abdomen: Soft, nontender, nondistended. Active bowel sounds heard in all 4 quadrants. Extremities: No clubbing. No cyanosis. No edema in the left lower extremity. The patient has a right [id number]-utn-[id number] amputation. Pedal pulses 2+ present in the left lower extremity. Neurologic: She is alert, oriented x3. Laboratory Data: WBCs of 2.43, RBCs 3.55, hemoglobin is 10.4, hematocrit is 34.1, platelet count is 56,000. Sodium is 138, potassium is 3.1, chloride is 100, carbon dioxide is 26, anion gap is 12, BUN is 18, creatinine is 2.4, glucose is 236, calcium is 8.0, phosphorus is 3.0. The patient's chest x-ray today showed significant improvement in the central infiltrates/pulmonary edema. IMPRESSION AND PLAN: Dysphagia Malnutrition ESRD on dialysis Diabetes type II CAD UTI CHF Aspiration risk Dilated esophagus-? Achalasia H/o Esophageal Candidiasis PLAN: Ms. Sanchez is an 68-year-old, female with a history of end-stage renal disease, diabetes, coronary artery disease, and congestive heart failure. GI is following her for her dysphagia. We were unable to do an endoscopy on Saturday. The patient's breathing is much better today. She is on nasal cannula, 3 L. The patient agreed to do a PEG placement, we will do an EGD with a PEG placement tomorrow with Dr Diaz. We will continue the patient with PPIs daily, antiemetics, and Diflucan. The patient is also receiving antibiotics, Zosyn. Further plan of care will be based on the EGD with PEG tube placement. We will continue to monitor the patient and follow the plan of care per PCP. This plan was discussed with Dr. Howell. Please call us for any further questions or concerns. Dictated by MICHAEL Crowley for Chris Howell MD cc: MD Sebastian Yeager MD I have seen and examined the patient myself and I agree with the above plan of care. Please call us with any further questions or concerns. [facility]
--- NOTE | 2019-03-26 15:07 | PROGRESS NOTE ---
DATE: 03/26/2019 SUBJECTIVE: The patient is sitting up in bed this morning. She looks markedly improved from yesterday. She states that she is feeling better. She states that she still has some shortness of breath. She states that she is hungry. OBJECTIVE: Vital Signs: 98.9, 90, 22, 142/78, 3 L nasal cannula. Physical exam: The patient has bilateral expiratory wheezes with fair air movement. I hear a little bit more of the wheezing on the right side as opposed to the left, which is a slight change from previous examinations. Cardiovascular: Regular. Neurologic: The patient is alert, oriented, conversive and appropriate. Extremities: I do not see any peripheral edema. I did not review her wound. LABORATORY: White cell count 2.4, hemoglobin 10.4, potassium 3.1. BUN 18, creatinine 2.4. ASSESSMENT AND PLAN: 1. The neurology team has been seeing the patient for her episodes of altered mental status. She has had no further episodes. She is getting treated with pain medication in the form of Ofirmev and occasional Toradol. 2. The patient's respiratory status is improving. X-ray appears to be improved. Her subjective state has improved. Her physical exam has really not changed all that much to be honest. We will continue to monitor this. 3. Dr. Gonzalez's last note stated that the patient's respiratory status, should it improve, would be an indication that we can try a repeat swallowing study and perhaps begin to feed her. She states that she is hungry. 4. Dr. Padilla is following end-stage renal disease, electrolytes and fluids. 5. The patient is being treated for enterococcal urinary tract infection and Proteus mirabilis in her wounds. She is on Zosyn for a total of 10 days. 6. Coronary artery disease and peripheral arterial disease. Aware. 7. Diabetes. Patient has had some low sugars. She is very, very responsive to sliding scale insulin, and will need to lower that overall dosage rate because of the fact that she is so brittle. 8. Clostridium difficile history. Aware. cc: Sebastian James MD
[2019-03-26] MEDS: DIFLUCAN 100 MG/NS 100 MG/50 ML IVPB IV SCH (17:35)
--- NOTE | 2019-03-26 18:39 | PROVIDER PROGRESS NOTE ---
Progress Note Subjective: Pt voices not feeling well But says she is breathing easier at the moment. Objective: temperature 98.9, pulse 90, respirations 22, blood pressure 150/80, O2 sat 100% on nasal cannula at 3 L. General: chronically ill and frail -[place] female lying in bed in no acute distress HEENT: normocephalic, atraumatic, pupils equal and reactive, mucous membranes dry. Skin: warm and dry. Neck: supple, No JVD observed Cardiovascular: S1S2 regular rate and rhythm, no murmur or gallop. Respiratory: Rales and rhonchi bilaterally anteriorly Abdomen: soft, nontender, nondistended, bowel sounds present. Extremities: Right BKA, no clubbing, edema, or cyanosis in left lower. : non inspected, Lemon in place. Neurological: drowsy, oriented to person, place, and time Impression: Chronic kidney disease stage 5D. Patient received SLED yesterday. She voices feeling better today. We will hold on renal replacement therapy today. Blood pressure. Stable. Fluid volume. Euvolemic on exam. Electrolytes and acid base balance. Stable. Mild hypokalemia. D51/2 NS infusing. Nutrition. Given parenteral nutrition with dialysis. Medication review.
[2019-03-26] MEDS: LOVENOX SUBQ SCH (20:22)
--- NOTE | 2019-03-27 00:34 | PULMONOLOGY PROGRESS NOTE ---
DATE: 03/26/2019 SUBJECTIVE: The patient is awake, alert, and conversant. She reports her shortness of breath has diminished. She is hungry. OBJECTIVE: Vital Signs: The patient has been afebrile for the last 24 hours. Blood pressure 140/91, heart rate 93, respiratory rate 23, oxygen saturation 100% on 3 L per nasal cannula. HEENT: Pupils are equal and reactive. Oropharynx appears clear. Neck: Supple. Chest: Reveals wheezing bilaterally, but improved compared to yesterday. Cardiac: S1-S2. Abdomen: Soft. Extremities: Reveal prior amputation. LABORATORIES: Chest x-ray reveals cardiomegaly with decreasing infiltrates. IMPRESSION: A 68-year-old with: 1. Esophageal dysfunction with recurrent aspiration pneumonia. 2. Acute hypoxemic respiratory failure. 3. Bronchospasm. 4. Transient syncope. PLAN: 1. Continue oxygen for hypoxemic respiratory failure. 2. Anticipate PEG tube tomorrow. 3. IDPN per Dr. Padilla. cc: MD Sebastian Wilkes MD
[2019-03-27] MEDS: HUMALOG SUBQ SCH ×7 (01:00→21:32)
[2019-03-27] MEDS: CULTURELLE PO SCH ×3 (01:13→21:30)
[2019-03-27] MEDS: LIVALO PO SCH ×2 (01:14→21:29)
[2019-03-27] MEDS: PLETAL PO SCH ×3 (01:14→21:29)
[2019-03-27] MEDS: ZOSYN 2.25 GM in NS 50 ML IV SCH ×2 (01:15→12:40)
[2019-03-27] MEDS: DUONEB (A & A) INH SCH ×6 (03:15→23:20)
[2019-03-27] MEDS: D5 1/2 NS 1,000 ML IV SCH (05:45)
[2019-03-27 06:11] LABS: HEMATOCRIT 36.7 % (37.0-47.0); HEMOGLOBIN 11.3 g/dL (12.0-16.0); MCH 29.4 PG (27-31); MCHC 30.8 g/dL (33-37); MCV 95.3 FL (81-99); MPV 11.9 FL (7.4-10.4); RBC 3.85 XMIL (4.2-5.4); RDW 14.1 % (11.5-14.5); WBC 2.89 X1000 (4.8-10.8)
[2019-03-27 06:19] LABS: UR AMPHETAMINES QUAL NONE DETECTED (NONE DETECT); UR BARBITUATES QUAL NONE DETECTED (NONE DETECT); UR BENZODIAZEPIN QUAL NONE DETECTED (NONE DETECT); UR CANNABINOIDS QUAL NONE DETECTED (NONE DETECT); UR COCAINE QUAL NONE DETECTED (NONE DETECT); UR METHADONE QUAL NONE DETECTED (NONE DETECT); UR OPIATES QUAL NONE DETECTED (NONE DETECT); UR OXYCODONE QUAL NONE DETECTED (NONE DETECT); UR PCP QUAL NONE DETECTED (NONE DETECT)
[2019-03-27 06:51] LABS: ALBUMIN 3.2 g/dL (3.5-5.0); CALCIUM 8.3 mg/dL (8.8-10.2); CREATININE 3.6 mg/dL (0.5-0.9); PHOSPHORUS 3.5 mg/dL (2.7-4.5); POTASSIUM 3.5 mmol/L (3.5-5.1)
[2019-03-27] MEDS ORDERED: DIPRIVAN 1% ONE (07:35)
[2019-03-27] MEDS: LOPRESSOR IV PRN (09:08)
[2019-03-27] MEDS: PROTONIX IV SCH (09:08)
[2019-03-27] MEDS: LOPRESSOR PO SCH (09:14)
[2019-03-27] MEDS: CREON PO SCH ×3 (09:14→18:31)
[2019-03-27] MEDS: PLAVIX PO SCH (09:14)
[2019-03-27] MEDS: ASPIRIN PO SCH (09:15)
[2019-03-27] MEDS ORDERED: FENTANYL ONE (09:38)
--- NOTE | 2019-03-27 10:08 | ENDOSCOPY OPERATIVE NOTE ---
[facility] ENDOSCOPY OPERATIVE NOTE , EGD WITH PEG PROCEDURE REPORT EXAM DATE: 03/27/2019 PATIENT NAME: Agueda Sanchez MR #: [id number] BIRTHDATE: 1950 ATTENDING: Saud Diaz MD STATUS: inpatient CNS: INDICATIONS: The patient is a 68 yr old female here for an EGD with PEG due to dysphagia, pharyngeal -esophageal and severe protein calorie malnutrition. PROCEDURE PERFORMED: EGD w/ percutaneous gastrostomy tube placement MEDICATIONS: Per Anesthesia TOPICAL ANESTHETIC: Xylocaine 1% CONSENT: The patient understands the risks and benefits of the procedure and understands that these r isks include, but are not limited to: sedation, allergic reaction, infection, perforation and/or bleeding. Alternative means of evaluation and treatment include, among others: physical exam, x-rays, and/or surgical intervention. The patient elects to proceed with this endoscopic procedure. HISTORY AND PHYSICAL: 03/27/2019 DESCRIPTION OF PROCEDURE: During pre-op preparation period all mechanical and medical equipment was c hecked for proper function. Hand hygiene and appropriate measures for infection prevention was taken. After the risks, benefits and alternatives of the procedure were thoroughly explained, Informed consent was verified, confirmed and timeout was successfully executed by the treatment team. The patient was anesthetized with topical anesthesia and the [id number]-[id number] ([id number]) endoscope was introduced through the mouth and advanced to the second portion of the duoden um. The instrument was slowly withdrawn as the mucosa was fully examined. ESOPHAGUS: Esophagitis was found at the gastroesophageal junction. Esophagitis was LA Class C: Mucos al breaks continuous between > 2 mucosal folds, but involving less than 75% of the esophageal circumference. STOMACH: The stomach was normal. DUODENUM: The duodenum was normal. The stomach was then inflated with air, and by a combination of transillumination and manual palpatio n, the site for the gastrostomy tube placement was selected and marked on the anterior abdominal wall. The skin of the a nterior abdomen was surgically prepped and draped with sterile towels. Utilizing strict sterile technique, the selected site was then anesthetized with 1% xylocaine (3mL) b y injection into the skin and subcutaneous tissue. A 1 cm incision was made through the skin and subcutaneous tissue, and the needle/cannula assembly was then passed through the abdominal wall and through the anterior wall of t he stomach, maintaining visualization with the endoscope. A snare device previously placed through the instrumen t channel was then opened and placed around the cannula, the needle was removed, and the insertion wire was passed throu gh the cannula and into the stomach lumen. The snare was then loosened from the cannula, and repositioned to snare the insertion wire. The snare was then pulled up to the endoscope distal tip, and the scope was then withdrawn bringing w ith it the snare and insertion wire. The insertion wire was then released from the snare, and then loop-attached to the Tahir Cook 20 Fr gastrostomy tube. Using the "pull technique", the G-tube was then pulled into place by traction on the insertion wire a t the abdominal wall end. The G-tube insertion site was then cleansed once again, and the external bolster was placed over the tube to secure it to the abdominal wall at 2cm from skin. Iodine ointment and sterile dressing was t hen applied, and the procedure terminated. Placement was confirmed endoscopically. Retroflexion was performed in the stomach and revealed no abnormalities. The gastroscope was then sl owly withdrawn and removed. ADVERSE EVENT: There were no complications. IMPRESSIONS: 1. Esophagitis at the gastroesophageal junction 2. The stomach was normal 3. The duodenum was normal RECOMMENDATIONS: PEG ok to use for flushes and meds Start tube feeds in 4 hours per remote inpatient coder Routine PEG care Monitor for signs of infection or bleeding Continue PPI REPEAT EXAM: Saud Diaz MD eSigned: Saud Diaz MD 03/27/2019 10:07 AM cc: CPT CODES: 16207 Upper gastrointestinal endoscopy including esophagus, stomach, and either the du odenum and/or jejunum as appropriate; with directed placement of percutaneous gastrostomy tube ICD CODES: 787.20 Dysphagia,unspecified 530.10 Esophagitis,unspecified The ICD and CPT codes recommended by this software are interpretations from the data that the [facility] staff has captured with the software. The verification of the translation of this report to the ICD and CPT co melissa and modifiers is the sole responsibility of the health care institution and practicing physician where this report was generated. [employer] will not be held responsible for the validity of the ICD and CPT codes i ncluded on this report. AMA assumes no liability for data contained or not contained herein. CPT is a registered tra demark of the [employer]. PATIENT NAME: Agueda Sanchez MR#: [id number]
[2019-03-27] MEDS ORDERED: NS 2,000 ML MISC PRN (13:38)
--- NOTE | 2019-03-27 16:14 | PROGRESS NOTE ---
DATE: 03/27/2019 SUBJECTIVE: The patient just completed upper endoscopy with PEG tube placement per Dr. Diaz at the time of my examination. She was in the recovery room and was still asleep. She did not rouse up and was being monitored by the recovery team. I spoke with Dr. Diaz and the patient's nurse. OBJECTIVE: Vital Signs: 97.9, 77, 14, 156/112 postoperatively. PHYSICAL EXAMINATION: Respiratory: The patient had bilateral crackles, but no expiratory wheeze. She had good air movement, was not tachypneic or in any distress. Neuropsych: The patient was still asleep soundly from the anesthesia. Abdomen: The PEG tube site was not viewed. Extremities: No peripheral edema. LABORATORY: White cell count 2.8, hemoglobin 11.3, BUN 23, creatinine 3.6, blood sugar 121. ASSESSMENT AND PLAN: 1. The patient's cute mental status changes at the onset of her hospitalization have not repeated themselves. She had an evaluation by Neurology with no specific findings. We will continue to monitor. 2. The patient's respiratory status continues to improve and the x-ray appears to be improved. She still has a respiratory cycle on exam which is indicative of ongoing lung processes. She is being treated for recurrent aspiration pneumonitis and seems to be improving. Dr. Gonzalez is following in this regard. 3. The patient had a PEG tube placed today. We will see how she does with this. We will likely be incorporating tube feeds shortly once she is a little more with it and we are able to obtain clearance from the other subspecialties. 4. Dr. Padilla is following end-stage renal disease. She has 3 times a week dialysis. 5. The patient is being treated for enterococcal urinary tract infection and Proteus mirabilis in her wounds and aspiration pneumonitis. She is on Zosyn for a total of [address] Colunga' consultation note. 6. Coronary artery disease and peripheral arterial disease. Aware. 7. The patient's diabetes has been fairly easy to control since she has not been eating. As we begin tube feeds, we will likely have to incorporate sliding scale. She is exquisitely sensitive to short-acting insulin probably due to her kidneys and the fact that she is a brittle diabetic anyway. She is on the lowest possible coordination of sliding scale insulin, which I customized yesterday. Hopefully, we can avoid hypoglycemic episodes. 8. The patient has a history of Clostridium difficile. We will continue to monitor for signs and symptoms associated with that. cc: Sebastian James MD
[2019-03-27] MEDS ORDERED: ZOSYN 0.75 GM in NS 50 ML IV ONE (17:00)
[2019-03-27] MEDS: OFIRMEV 1000 MG/ISOTONIC SOLN 1,000 MG/100 ML BOTTLE IV PRN (18:31)
[2019-03-27] MEDS: DIFLUCAN 100 MG/NS 100 MG/50 ML IVPB IV SCH (19:30)
--- NOTE | 2019-03-27 19:49 | NEPHROLOGY PROGRESS NOTE ---
DATE: 03/27/2019 SUBJECTIVE: She is in the recovery room and arousable, but unable to verbalize. PEG tube placed today. OBJECTIVE: Blood pressure 189/89, heart rate 87, respirations 15, afebrile.General: No acute distress. Neurologic: As above. Skin: Warm and dry. Neck: Veins are not distended. Heart: Regular with systolic murmur. Lungs: Equal, shallow. No crackles. Abdomen: Soft. PEG tube in place. Minimal sanguinous discharge on the dressing. Extremities: No edema, clubbing, or cyanosis. IMPRESSION/PLAN: 1. Chronic kidney disease 5D. She will have her next routine dialysis tomorrow. 2. Electrolytes/acid base/volume status/anemia. All in target. 3. Aspiration pneumonia. PEG tube was placed. Continue IV antibiotics. cc: MD Sebastian Dean MD
[2019-03-27] MEDS: D50W SYRINGE IV PRN (20:28)
--- NOTE | 2019-03-27 20:46 | PULMONOLOGY PROGRESS NOTE ---
DATE: 03/27/2019 SUBJECTIVE: The patient is drowsy. She is status post PEG tube placement. OBJECTIVE: Vital Signs: Blood pressure is 170/80 with a heart rate of 77, respirations are 12 to 14, temperature is 98.1 degrees temporal with O2 saturations 100% on 4 L nasal cannula. Cardiovascular: Regular rate and rhythm. S1 and S2 are appreciated. She has no lower extremity edema. Pulmonary: She has wheezing bilateral. Chest rises and falls symmetric with respiration. Gastrointestinal: Abdomen is soft, nontender, nondistended with bowel sounds in all 4 quadrants. Skin: Warm and dry. LABS: WBC is 2.8 with hemoglobin 11.3, hematocrit 36.7 and platelets of 60,000. Sodium 139, potassium 3.5, BUN 23, creatinine 3.6 with a glucose of 121. ASSESSMENT AND PLAN: 1. Esophageal dysfunction with recurrent aspiration pneumonia. 2. Acute hypoxemic respiratory failure. 3. Bronchospasm. 4. Transient syncope. 5. Status post percutaneous endoscopic gastrostomy tube placement. PLAN: continue oxygen for hypoxemic respiratory failure, PEG tube care and feedings per Gastroenterology. continue with current treatment of bronchodilators. Plan was discussed with Dr. Gonzalez. Dictated by MICHAEL Thornton for Rene Gonzalez MD The clinical exam was performed by MICHAEL Tobin. I have reviewed and agree with the assessment and plan. Rene Gonzalez M.D. cc: MICHAEL Thornton MD Timothy P. Weirich, MD [facility]
[2019-03-27] MEDS: LOVENOX SUBQ SCH (22:00)
[2019-03-28] MEDS: ZOSYN 2.25 GM in NS 50 ML IV SCH ×2 (00:45→12:38)
[2019-03-28] MEDS: HUMALOG SUBQ SCH ×6 (01:00→20:22)
[2019-03-28] MEDS: DUONEB (A & A) INH SCH ×7 (03:30→23:30)
[2019-03-28] MEDS: D5 1/2 NS 1,000 ML IV SCH (07:13)
[2019-03-28 07:36] LABS: HEMOGLOBIN 11.9 g/dL (12.0-16.0); MCH 29.5 PG (27-31); MCHC 31.3 g/dL (33-37); MCV 94.1 FL (81-99); MPV 12.4 FL (7.4-10.4); RBC 4.04 XMIL (4.2-5.4); RDW 13.9 % (11.5-14.5); WBC 6.1 X1000 (4.8-10.8)
[2019-03-28 07:40] LABS: CALCIUM 7.9 mg/dL (8.8-10.2); CREATININE 2.7 mg/dL (0.5-0.9); PHOSPHORUS 2.6 mg/dL (2.7-4.5); POTASSIUM 3.7 mmol/L (3.5-5.1)
[2019-03-28 08:27] LABS: MAGNESIUM 1.4 mg/dL (1.5-2.7); PHOSPHORUS 2.6 mg/dL (2.7-4.5); PREALBUMIN 13.3 mg/dL (20-40)
[2019-03-28] MEDS: CREON PO SCH ×5 (09:08→16:40)
[2019-03-28] MEDS: CULTURELLE PO SCH ×2 (09:08→20:17)
[2019-03-28] MEDS: PROTONIX IV SCH (09:09)
[2019-03-28] MEDS: PLAVIX PO SCH ×2 (09:09→09:46)
[2019-03-28] MEDS: PLETAL PO SCH ×3 (09:09→20:20)
[2019-03-28] MEDS: LOPRESSOR PO SCH (09:09)
[2019-03-28] MEDS: SODIUM CHLORIDE 0.9% INJ SCH (09:09)
[2019-03-28] MEDS: ASPIRIN PO SCH ×2 (09:14→09:47)
[2019-03-28] MEDS: OFIRMEV 1000 MG/ISOTONIC SOLN 1,000 MG/100 ML BOTTLE IV PRN ×2 (10:16→20:14)
--- NOTE | 2019-03-28 12:09 | PROGRESS NOTE ---
DATE: 03/28/2019 Ms. Sanchez says she is having diarrhea, that is her main complaint. She was awake. Her daughter was at the bedside. OBJECTIVE: Vital signs: Afebrile, temperature 98.9 degrees, pulse 99, respirations 18, blood pressure this morning was 88/59, but she has been running 158/102, 133/70, 54/110. HEENT: Pupils are equal and round. Lungs: Clear in all lung cazares. Cardiovascular: Regular rhythm and rate without murmur or S3. Abdomen: Soft. Skin: Warm and dry. ASSESSMENT AND PLAN: 1. Esophageal dysfunction, recurrent aspiration pneumonia. 2. Acute hypoxemic respiratory failure. 3. Bronchospasm. 4. Transient syncope. 5. Status post percutaneous endoscopic gastrostomy tube placement and that was done yesterday and hopefully incorporate tube feeding soon. 6. End-stage renal disease. Dr. Padilla following. She gets dialysis 3 times a week. She has been treated for enterococcal urinary tract infection and Proteus mirabilis in her wound, aspiration pneumonitis. She has coronary artery disease, peripheral artery disease. She has diabetes and history of Clostridium difficile. Look at her orders: She is on Pletal 50 mg b.i.d., aspirin 81 mg a day, fluconazole 100 mg IV daily, lactobacillus rhamnosus 1 tablet b.i.d., lipase protease amylase 09768 units t.i.d., Lopressor 50 mg a day, Protonix 40 mg IV daily, Zosyn 2.25 g IV q.12. We may send I think a stool off for white blood cells. We also sent it off for Clostridium difficile toxin which was negative. We will try some Imodium for the diarrhea. cc: MD Sebastian Esqueda MD
[2019-03-28] MEDS: IMODIUM LIQUID PO PRN (12:26)
[2019-03-28] MEDS: D50W SYRINGE IV PRN (13:23)
--- NOTE | 2019-03-28 16:06 | PULMONOLOGY PROGRESS NOTE ---
DATE: 03/28/2019 SUBJECTIVE: Ms. Sanchez is sitting up in the bed, talking with family members. She has no complaints. OBJECTIVE: Vital signs: Blood pressure is 143/89 with heart rate of 90, respirations are 16, temperature is 98.9 degrees oral with O2 saturations 100%. General: A 68-year-old female who is sitting up in the bed in no distress. HEENT: Head is normocephalic, atraumatic. Mucous membranes are moist. Neck: Supple with trachea midline. Cardiovascular: Regular rate and rhythm. S1 and S2 appreciated. She has no lower extremity edema. Calves are nontender bilateral. Pulmonary: She has expiratory wheezes throughout with good air entry. Chest rises and falls symmetric with respiration Gastrointestinal: Abdomen is soft, nondistended, with bowel sounds in all 4 quadrants. PEG site is clear. Genitourinary: Lemon is patent to bedside bag with clear urine draining. ASSESSMENT AND PLAN: 1. Esophageal dysfunction with recurrent aspiration pneumonia, status post PEG placement. 2. Acute hypoxemic respiratory failure. 3. Bronchospasm. 4. Transient syncope. 5. End-stage renal disease on hemodialysis per Dr. Padilla. PLAN: continue oxygen for hypoxemic respiratory failure, PEG tube care and feedings per Gastroenterology. continue with current treatment of bronchodilators. Plan discussed with Dr Gonzalez. Dictated by MICHAEL Thornton for Rene Gonzalez MD cc: MICHAEL Thornton MD Timothy P. Weirich, MD [facility]ITAL[facility]
--- NOTE | 2019-03-28 16:26 | NEPHROLOGY PROGRESS NOTE ---
DATE: 03/28/2019 SUBJECTIVE: She is awake and alert today. Hurting at surgery site. OBJECTIVE: Vital Signs: Blood pressure 88/59, heart rate 99, respiration 18, blood pressures range from 88 to 134 systolic over the last hour. General: No acute distress. Skin she is frail and thin. Neck: Neck veins are not visible. Heart: Regular with S4 and a murmur. Lungs: Equal. No crackles. Abdomen: Tender. Bowel sounds are present. Extremities: No edema, clubbing, or cyanosis. IMPRESSION: 1. Chronic kidney disease 5d. She will have her next routine dialysis treatment on Saturday. She appears euvolemic and electrolytes/acid base/anemia all in target. 2. Anticoagulation: I will change Lovenox to heparin and hold it until tomorrow. cc: MD Sebastian Dean MD
[2019-03-28] MEDS: DIFLUCAN 100 MG/NS 100 MG/50 ML IVPB IV SCH (17:07)
[2019-03-28] MEDS ORDERED: CALMOSEPTINE OINTMENT TOP ONE (18:38)
[2019-03-28] MEDS: LIVALO PO SCH (20:23)
--- NOTE | 2019-03-28 20:32 | GASTROENTEROLOGY PROGRESS NOTE ---
DATE: 03/28/2019 SUBJECTIVE: The patient resting in bed. She had a PEG tube placed yesterday by Dr. Diaz. She is doing well. She is on tube feeds well. She was noted to have a small amount of blood on aspiration of the PEG tube, likely from trauma from the PEG tube insertion and also being on Pletal and Plavix for antiplatelet treatment. The hematocrit is stable. VITALS: Temperature 98.6 degrees, pulse rate 75, respiratory rate of 19, blood pressure 133/73, saturating 100% on room air. Body weight of 99 pounds, 3.2 ounces. BMI 17 kg. PHYSICAL EXAMINATION: The patient is thinly built, lying in bed, in no acute distress. HEENT: No pallor. No icterus. Nasal cannula in place. Neck is supple. Abdomen has a PEG tube in place. External bumper appeared normal. No erythema noted or pus noted around the external bumper. Abdomen: Soft, nondistended. No guarding. No rebound. Extremities: No cyanosis, clubbing. Neurologic: She is alert, awake, and oriented x3. Extremities: The patient has a right below-knee amputation. LABORATORIES: Hemoglobin and hematocrit are 11.9 and 38, white count of 6.1, platelet count of 57,000. Sodium 135, potassium 3.7, chloride 97, bicarb 29, anion gap 17, BUN of 15, creatinine of 2.7. Glucose of 139, calcium 7.9, phosphorus 2.6, magnesium 1.4, albumin 3.0, prealbumin of 13.3. Stool studies: Stool for white cells were none and stool for C difficile toxin is negative and flu screen was done on 03/22/2019. It was negative for A and B. IMPRESSION: 1. Dysphagia status post percutaneous gastrostomy tube (PEG) tube placement. 2. Dilated esophagus. An esophagogastroduodenoscopy showed evidence of esophagitis at the gastroesophageal junction. 3. Recurrent aspiration pneumonia. 4. Malnutrition. Now started on PEG tube feeding. 5. End-stage renal disease, on hemodialysis. 6. Type 2 diabetes. 7. Status post right below-knee amputation. 8. Coronary artery disease. 9. Peripheral arterial disease. 10. Urinary tract infection (UTI). 11. Congestive heart failure. 12. Aspiration risk. 13. History of esophageal candidiasis. RECOMMENDATIONS: 1. She will continue on PEG tube feeding, being managed by Nutrition. Continue to watch the residuals. Her respiratory status is being monitored by the Pulmonary team. We will continue on PPIs daily for esophagitis. She will continue on routine PEG tube care and monitor for signs of bleeding or infection. We will hold her Plavix and Pletal for today as the patient had some bleeding on PEG tube aspiration. She is on deep venous thrombosis prophylaxis with heparin every 12 hours. We have to watch her closely for any signs of bleeding as the patient has thrombocytopenia, is on heparin which can exacerbate thrombocytopenia. 2. Anti-platelet agents including aspirin, Pletal and Plavix and also increased risk of bleeding from the PEG tube site. We have to be cautious about that and continue to be watching for any signs of active bleeding. 3. She will continue on fluconazole for a total of 10 days and the Lovenox can be discontinued on 04/02/2019. She will continue on Humalog sliding scale. She is on antibiotics per the primary care team, as well as Zosyn. She will continue on aspiration precautions. 4. The above plans were discussed with the patient and the nursing staff and all questions answered. We will sign off at this time. Please call with any further questions. cc: MD Sebastian Yeager MD
[2019-03-29] MEDS: ZOSYN 2.25 GM in NS 50 ML IV SCH ×2 (01:07→12:15)
[2019-03-29] MEDS: HUMALOG SUBQ SCH ×6 (01:07→20:49)
[2019-03-29] MEDS: OFIRMEV 1000 MG/ISOTONIC SOLN 1,000 MG/100 ML BOTTLE IV PRN ×2 (04:22→15:30)
[2019-03-29] MEDS: IMODIUM LIQUID PO PRN ×3 (05:17→17:10)
[2019-03-29] MEDS: DUONEB (A & A) INH SCH ×5 (06:09→23:25)
[2019-03-29] MEDS: D5 1/2 NS 1,000 ML IV SCH ×2 (06:22→08:47)
[2019-03-29 07:05] LABS: HEMATOCRIT 34.1 % (37.0-47.0); HEMOGLOBIN 10.7 g/dL (12.0-16.0); MCH 29.3 PG (27-31); MCHC 31.4 g/dL (33-37); MCV 93.4 FL (81-99); MPV 12.9 FL (7.4-10.4); RBC 3.65 XMIL (4.2-5.4); RDW 13.8 % (11.5-14.5); WBC 5.95 X1000 (4.8-10.8)
--- NOTE | 2019-03-29 07:22 | Diag Imaging Result Doc PS360 ---
EXAM: CHEST-PORTABLE 03/29/2019 HISTORY: abnormal exam TECHNIQUE: AP portable at 0528 COMMENT: There are bilateral pleural effusions. The volume of fluid on the right is apparently diminished since 03/26/2019. There continues to be cardiomegaly. There is increased interstitial opacity in the lung bases which has also improved since the previous study. IMPRESSION: Improved pulmonary edema and pleural effusions. Electronically signed by Misbah Kirkland 03/29/2019 7:19 AM
[2019-03-29 07:55] LABS: ALBUMIN 2.9 g/dL (3.5-5.0); CALCIUM 8.1 mg/dL (8.8-10.2); CREATININE 3.7 mg/dL (0.5-0.9); PHOSPHORUS 2.7 mg/dL (2.7-4.5)
[2019-03-29] MEDS: LOPRESSOR PO SCH (08:26)
[2019-03-29] MEDS: ZOSYN 0.75 GM in NS 50 ML IV SCH ×2 (08:26→12:20)
[2019-03-29] MEDS: ASPIRIN PO SCH (08:27)
[2019-03-29] MEDS: CULTURELLE PO SCH ×2 (08:27→20:49)
[2019-03-29] MEDS: PLETAL PO SCH ×2 (08:27→20:49)
[2019-03-29] MEDS: HEPARIN SUBQ SCH ×2 (08:27→20:49)
[2019-03-29] MEDS: PLAVIX PO SCH (08:27)
[2019-03-29] MEDS: CREON PO SCH ×3 (08:27→17:00)
[2019-03-29] MEDS: PROTONIX IV SCH (08:46)
[2019-03-29] MEDS: D50W SYRINGE IV PRN (12:38)
[2019-03-29] MEDS ORDERED: POTASSIUM CHLORIDE 20% LIQUID PO ONE (13:51)
--- NOTE | 2019-03-29 14:15 | PULMONOLOGY PROGRESS NOTE ---
DATE: 03/29/2019 SUBJECTIVE: Ms. Sanchez is sitting up in the bed talking with family members. She states she feels much better today. She has no complaints. OBJECTIVE: Vital Signs: Blood pressure 134/68 with a heart rate of 67, respirations are 16, temperature is 98.3 degrees with room air saturations 96 to 99%. PHYSICAL EXAMINATION: HEENT: Head is normocephalic, atraumatic. Mucous membranes are moist. Neck: Supple with trachea midline. Cardiovascular: Regular rate and rhythm. S1 and S2 appreciated. She has no lower extremity edema. Calves are nontender bilateral. Pulmonary: She continues with some expiratory wheezes scattered throughout. Chest rises and falls symmetrically with respiration. Chest wall is nontender to palpation. Gastrointestinal: Abdomen soft, nontender nondistended with bowel sounds in all 4 quadrants. PEG site is clear. Genitourinary: Lemon is patent to bedside bag with clear yellow urine draining. LABS: WBC is 5.9 with hemoglobin 10.7, hematocrit 34.1, and platelets of 58,000. Sodium 133, potassium 3, BUN 25, creatinine 3.7 with a glucose of 215. Chest x-ray reveals improved pulmonary edema and pleural effusions. ASSESSMENT AND PLAN: 1. Esophageal dysfunction with recurrent aspiration pneumonia, status post percutaneous endoscopic gastrostomy tube placement. 2. Acute hypoxemic respiratory failure. This has resolved. She is maintaining saturations of 96 to 99% on room air. 3. Bronchospasm, resolved. 4. Transient syncope. Patient has had no further syncope. 5. End-stage renal disease on hemodialysis per Dr. Padilla. continue duo nebs and follow and aspiration precautions. Plan was discussed with Dr. Gonzalez. Dictated by MICHAEL Thornton for Rene Gonzalez MD cc: MICHAEL Thornton MD Timothy P. Weirich, MD [facility]ITALJavan
--- NOTE | 2019-03-29 14:25 | PROGRESS NOTE ---
DATE: 03/29/2019 SUBJECTIVE: Ms. Sanchez feels better today. She is breathing comfortably. She is awake, alert, and oriented x3. OBJECTIVE: Vital Signs: Temp is 98.4 degrees, pulse 69, respirations 13, blood pressure 122/56. HEENT: Pupils are equal and round. Lungs: Clear in all lung cazares. Cardiovascular: Regular rhythm and rate without murmur or S3. Urine output is 2600 mL. IMAGING: Chest x-ray: Improved pulmonary edema and pleural effusions. ASSESSMENT AND PLAN: 1. Dysphagia, status post percutaneous gastrostomy tube placement. Tolerating the feeding advances as able. 2. Dilated esophagus. Esophagogastroduodenoscopy showed evidence of esophagitis at the gastroesophageal junction. 3. Recurrent aspiration pneumonia. 4. Malnutrition. She has lost a lot of weight. Severe protein calorie malnutrition. Trying to start supplementing her feeding and giving her adequate nutrition through the percutaneous endoscopic gastrostomy tube. 5. End-stage renal disease, on hemodialysis. 6. Diabetes mellitus type 2. 7. Status post [id number] amputation on the right. 8. Coronary artery disease. 9. Peripheral artery disease. 10. Urinary tract infection. 11. Congestive heart failure. Her volume status seems to be doing better. Chest x-ray appears improved. 12. Aspiration risk. 13. History of esophageal candidiasis. REVIEW OF ORDERS: I do not see any change. She is on Livalo 2 mg p.o. at bedtime. She is on heparin low dose 5000 units subcutaneously every 12 hours, aspirin 81 mg a day, Pletal 50 mg p.o. b.i.d., Plavix 75 mg every a.m., she is on D5 half-normal and it is running at 25 mL an hour, fluconazole 100 mg IV every 24 hours. She gets pancreatic supplement with lipase, protease, and amylase 24,000 units 3 times a day, metoprolol 50 mg p.o. every a.m., Protonix 40 mg IV every 24 hours, and Zosyn 2.25 grams IV every 12 hours. LABORATORY DATA: This morning, white count 5950, hematocrit is 34, platelet count is 58,000. Sodium 133, potassium 3.0, chloride 95, BUN 25, creatinine 3.7, so I am going to give her a little bit of potassium, see if we have already done that. She gets dialysis. I will give her 20 mg of potassium just to take p.o. cc: MD Sebastian Esqueda MD
--- NOTE | 2019-03-29 15:30 | GASTROENTEROLOGY PROGRESS NOTE ---
DATE: 03/29/2019 SUBJECTIVE: The patient is resting in bed. She is feeling better. She is tolerating tube feeds well. She is at 30 mL per hour. No signs of any active bleeding around the PEG tube site and no blood noted in PEG tube aspiration. Her hematocrit has trended slightly down but no signs of active bleeding. PHYSICAL EXAMINATION: Vital Signs: Temperature 98.4, pulse rate of 69, respiratory rate is 13, blood pressure 122/56, saturating 92% on room air. Body weight of 100 pounds and 5 ounces. BMI 17.2 kg/m2. General Appearance: Thinly built, lying in bed, in no acute distress. HEENT: Pale conjunctivae. No icterus. Nasal cannula in place. Neck is supple. Abdomen has a PEG tube in place. The external bumper appeared normal. No evidence of any fresh or old blood noted on the PEG tube site. No evidence of any pus from the PEG tube site. I removed the dressing. Abdomen: Soft, nontender, nondistended. No guarding. Extremities: No cyanosis, clubbing. She has a right below knee amputation. Neurologic: She is alert, awake, oriented to time, place, and person. LABS: Hemoglobin and hematocrit are 10.7 and 34.1, white count of 5.95, platelet count of 58,000. Sodium 133, potassium of 3, chloride 95, bicarb 20, anion gap 15, BUN of 25, creatinine 0.7, glucose of 215, calcium is 8.1, phosphorus 2.7, magnesium is not checked today, albumin is 2.9. Chest x-ray done today showed improved pulmonary edema and pleural effusion. IMPRESSION AND PLAN: 1. Dysphagia, status post percutaneous endoscopic gastrostomy tube placement by Dr. Diaz on 03/27/2019. Tolerating percutaneous endoscopic gastrostomy tube feeding well. 2. Dilated esophagus and esophagogastroduodenoscopy showed evidence of esophagitis at gastroesophageal junction. Continue proton pump inhibitors. 3. Recent aspiration pneumonia requiring percutaneous endoscopic gastrostomy tube placement. 4. Pneumonia is improving, being followed by Dr. Gonzalez. 5. Malnutrition. She will continue to have recommendations of nutrition team for helping manage the percutaneous endoscopic gastrostomy tube feeding. 6. Anemia. Continue to watch for now. There was a question of some blood in the percutaneous endoscopic gastrostomy tube aspirate but has resolved now. 7. End-stage renal disease, on hemodialysis. 8. Type 2 diabetes, being managed by primary care team. 9. Thrombocytopenia. Continue to watch for now. We have to be extra careful as the patient is on aspirin, Pletal, and Plavix which can increase the risk of internal bleeding. 10. Coronary artery disease. Aware. 11. Peripheral arterial disease. Aware. 12. Urinary tract infection, being treated by primary care team with antibiotics. 13. Congestive heart failure. Aware. 14. The patient continues to be an aspiration risk. She will continue aspiration precautions. 15. History of esophageal candidiasis. She has been treated with fluconazole. 16. Deep venous thrombosis prophylaxis with heparin twice a day. We have to be extra careful with heparin as patient has a high risk of internal bleeding with thrombocytopenia. 17. Routine percutaneous endoscopic gastrostomy tube care to continue. 18. The above plans were discussed with the patient and the nursing staff, and all questions were answered. Please call us with any further questions. We will sign off at this time. cc: MD Sebastian Yeager MD
[2019-03-29] MEDS ORDERED: NS 50 ML ONE (16:19)
[2019-03-29] MEDS: DIFLUCAN 100 MG/NS 100 MG/50 ML IVPB IV SCH (18:16)
[2019-03-29] MEDS: LIVALO PO SCH (20:49)
[2019-03-30] MEDS: ZOSYN 0.75 GM in NS 50 ML IV SCH ×2 (00:29→13:57)
[2019-03-30] MEDS: ZOSYN 2.25 GM in NS 50 ML IV SCH ×5 (00:30→23:36)
[2019-03-30] MEDS: HUMALOG SUBQ SCH ×6 (00:32→21:55)
[2019-03-30] MEDS: OFIRMEV 1000 MG/ISOTONIC SOLN 1,000 MG/100 ML BOTTLE IV PRN (02:57)
[2019-03-30] MEDS: D5 1/2 NS 1,000 ML IV SCH ×2 (05:49→23:41)
[2019-03-30] MEDS: DUONEB (A & A) INH SCH ×6 (06:05→23:55)
[2019-03-30] MEDS ORDERED: TIGHT: 0.2 ML/HR FOR DIALYSIS MISC PRN (06:42)
[2019-03-30] MEDS ORDERED: HEPARIN IV PRN (06:42)
[2019-03-30] MEDS ORDERED: NS 2,000 ML MISC PRN (06:42)
[2019-03-30 07:05] LABS: HEMOGLOBIN 10.4 g/dL (12.0-16.0); MCH 29.5 PG (27-31); MCHC 31.5 g/dL (33-37); MCV 93.5 FL (81-99); MPV 11.5 FL (7.4-10.4); RBC 3.53 XMIL (4.2-5.4); RDW 13.7 % (11.5-14.5); WBC 5.06 X1000 (4.8-10.8)
[2019-03-30 07:19] LABS: ALBUMIN 2.7 g/dL (3.5-5.0); CALCIUM 8.1 mg/dL (8.8-10.2); CREATININE 4.5 mg/dL (0.5-0.9); PHOSPHORUS 2.6 mg/dL (2.7-4.5); POTASSIUM 3.5 mmol/L (3.5-5.1)
[2019-03-30] MEDS: CREON PO SCH ×3 (13:41→16:57)
[2019-03-30] MEDS: PLAVIX PO SCH (13:58)
[2019-03-30] MEDS: LOPRESSOR PO SCH (13:58)
[2019-03-30] MEDS: PROTONIX IV SCH (13:59)
[2019-03-30] MEDS: TYLENOL PO PRN ×2 (13:59→21:56)
[2019-03-30] MEDS: CULTURELLE PO SCH ×2 (14:00→21:50)
[2019-03-30] MEDS: ASPIRIN PO SCH (14:00)
[2019-03-30] MEDS: PLETAL PO SCH ×2 (14:17→21:51)
--- NOTE | 2019-03-30 14:23 | PULMONOLOGY PROGRESS NOTE ---
DATE: 03/30/2019 SUBJECTIVE: The patient is currently in dialysis. She is awake and alert. She is breathing comfortably. OBJECTIVE: Vital Signs: She has been afebrile for the last 24 hours. Blood pressure 118/62, heart rate 72, respiratory rate 18, oxygen saturation 100% on 3 L per nasal cannula. HEENT: Pupils are equal and reactive. Oropharynx appears clear. Neck: Supple. Chest: Reveals occasional rhonchi bilaterally but significantly better than at her last evaluation. Abdomen: Soft with PEG tube in position. Extremities: Without edema. IMPRESSION: 68-year-old with 1. Esophageal dysfunction. 2. Recurrent aspiration pneumonia. 3. Hypoxemic respiratory failure. 4. End-stage renal disease. PLAN: 1. Continue bronchial hygiene. 2. Wean oxygen as tolerated. 3. Continue tube feeds. 4. Hemodialysis per Dr. Padilla. cc: MD Sebastian Wilkes MD
[2019-03-30] MEDS: HEPARIN SUBQ SCH ×2 (15:44→21:50)
--- NOTE | 2019-03-30 16:09 | PROGRESS NOTE ---
DATE: 03/30/2019 SUBJECTIVE: I tracked the patient down in dialysis and spoke briefly with her and with Dr. Padilla. The patient states that she is breathing better. She states that she hurts all over, but is not struggling as she was previously. OBJECTIVE: Vital Signs: 97.8, 72, 18, 118/62, 100% saturated on room air. General: The patient is lying in the bed motionless. She is awake and alert and interactive in an appropriate fashion. Lungs: Clear to auscultation. There are no longer any wheezes on either side. Her air movement is good. She is not struggling. Cardiovascular: Regular. LABORATORY: White cell count 5.0, hemoglobin 10.4. BUN 35, creatinine 4.5. ASSESSMENT AND PLAN: 1. The patient's mental status has been stable for a number of days now. 2. Respiratory status has improved greatly. We will need to touch base with Dr. Gonzalez to see if and when she should have repeat swallowing testing. 3. The patient had PEG tube and has tube feeds flowing at the present time. 4. Dr. Padilla is managing end-stage renal disease. 5. Enterococcal urinary tract infection with Proteus mirabilis in the wound infection, along with aspiration pneumonitis. The patient was on Zosyn for a total of [address] Colunga wrote consultation notes for that treatment. 6. Coronary artery disease and peripheral arterial disease. Aware. 7. The patient's diabetes has been reasonably well controlled. We will continue to make adjustments to sliding scale. She is very brittle and is easy to go hypoglycemic if were not careful. 8. History of Clostridium difficile. 9. I think the patient's care can be transferred to the step-down unit and we will see how she progresses at that point. cc: Sebastian James MD
--- NOTE | 2019-03-30 16:27 | PROVIDER PROGRESS NOTE ---
Progress Note Subjective: Ms. Sanchez voices not sleeping well and is drowsy at the moment. No other complaints noted. Objective: temperature 97.8, pulse 72, respirations 18, blood pressure 118/62, O2 sat 100% on room air. General: chronically ill and frail -[place] female lying in bed in no acute distress HEENT: normocephalic, atraumatic, pupils equal and reactive, mucous membranes dry. Skin: warm and dry. Neck: supple, No JVD observed Cardiovascular: S1S2 regular rate and rhythm, no murmur or gallop. Respiratory: few scattered expiratory wheezes Abdomen: soft, nontender, nondistended, bowel sounds present. Peg tube in place with dressing. Extremities: Right BKA, no clubbing, edema, or cyanosis in left lower. : non inspected, Lemon in place. Neurological: drowsy, oriented to person, place, and time Impression: Chronic kidney disease stage 5D. She will have her routine hemodialysis treatment with a 2K bath and attempt a 2-3 L ultrafiltration. Blood pressure. In target. Fluid volume. Euvolemic on exam. Electrolytes and acid base balance. Stable. Nutrition. Peg tube in place with continuous feedings. Ambulation. Ok from my perspective to begin PT. Medication review. No change.
[2019-03-30] MEDS: DIFLUCAN 100 MG/NS 100 MG/50 ML IVPB IV SCH (19:44)
[2019-03-30] MEDS: LIVALO PO SCH (21:50)
[2019-03-31] MEDS: DUONEB (A & A) INH SCH ×6 (00:10→19:51)
[2019-03-31] MEDS: HUMALOG SUBQ SCH ×6 (01:20→21:45)
[2019-03-31 08:27] LABS: ALBUMIN 2.8 g/dL (3.5-5.0); CALCIUM 8.1 mg/dL (8.8-10.2); CREATININE 2.9 mg/dL (0.5-0.9); PHOSPHORUS 1.8 mg/dL (2.7-4.5); POTASSIUM 4.1 mmol/L (3.5-5.1)
[2019-03-31] MEDS: ASPIRIN PO SCH (09:24)
[2019-03-31] MEDS: LOPRESSOR PO SCH (09:24)
[2019-03-31] MEDS: CREON PO SCH ×3 (09:24→17:23)
[2019-03-31] MEDS: SODIUM CHLORIDE 0.9% INJ SCH (09:24)
[2019-03-31] MEDS: PLETAL PO SCH ×2 (09:24→21:45)
[2019-03-31] MEDS: CULTURELLE PO SCH ×2 (09:24→21:45)
[2019-03-31] MEDS: PLAVIX PO SCH (09:24)
[2019-03-31] MEDS: PROTONIX IV SCH (09:25)
[2019-03-31] MEDS: HEPARIN SUBQ SCH ×2 (09:25→21:45)
--- NOTE | 2019-03-31 10:08 | NEPHROLOGY PROGRESS NOTE ---
DATE: 03/31/2019 SUBJECTIVE: Ms. Sanchez is resting quietly in bed. Head of the bed is slightly elevated. She continues with her tube feedings through the PEG tube. She is tolerating this well. She has no complaints. OBJECTIVE: Most recent vital signs, her last temperature 98.1 degrees, blood pressure 131/79, heart rate 72, respirations 16. She is on room air. Last recorded saturation is 100%. She has had 1450 in 2100 out with 2 L on dialysis yesterday. LABORATORY DATA: These are currently pending. Previous potassium was 3.5, previous hemoglobin 10.4, with an albumin of 2.7 on yesterday's labs. PHYSICAL EXAMINATION: General: This is a 68-year-old female. She is resting quietly in bed. She appears chronically ill. No acute distress today. Skin: Warm and dry. HEENT: Normocephalic, atraumatic. Conjunctiva is pale. [place]. Mucous membranes are dry. Neck: Supple. Trachea midline. No evidence of JVD. Cardiovascular: She is regular rate and rhythm. She is without murmur or gallop. Lungs: Clear to auscultation bilaterally. Equal excursion on room air. Abdomen: Soft, nontender, positive bowel sounds. PEG tube to the right lower quadrant. Dressing is in place, dry and intact. Feedings remain with Nepro at 35 mL an hour. Extremities: Right BKA, no clubbing to the left lower extremity. Genitourinary: Not inspected. Lemon catheter is in place with minimal urine out. Neurological: Patient is alert to person, place and time. She is drowsy this a.m. ASSESSMENT AND PLAN: 1. Chronic kidney disease stage 5D. The patient had a routine dialysis treatment yesterday. No indications for intervention today. 2. Electrolytes. Her labs are currently pending. 3. Acid-base balance this has been stable. 4. Anemia. Hemoglobin of 10.4 on previous labs. 5. Nutrition. Percutaneous endoscopic gastrostomy tube remains with Nepro tube feedings. I discussed her caloric/free water/potassium/phosphate needs with the dietitian. rg I would like to thank you for allowing us to follow with this patient. Dictated by MICHAEL House for Doug Padilla MD Face to face encounter, data reviewed, discussed with Yoselyn Marie on 03/31/19. I agree with the above assessment and plan of care. cc: MICHAEL House MD Timothy P. Weirich, MD MTDD
[2019-03-31] MEDS: ZOSYN 2.25 GM in NS 50 ML IV SCH (12:49)
[2019-03-31] MEDS: TYLENOL PO PRN (13:11)
--- NOTE | 2019-03-31 16:22 | PROGRESS NOTE ---
DATE: 03/31/2019 SUBJECTIVE: The patient is sitting in bed. She is asleep but easily aroused. She spoke to me and is functioning at baseline. She has no complaints. She states that she is not short of breath. I had a discussion with the patient and with Dr. Gonzalez about what to do in regard to her eating and her possible aspiration. Vital signs are afebrile, 71, 12, 139/64, 100% saturated on room air. PHYSICAL EXAM: Thin, black female in no acute distress. She is asleep but easily awakens. She is lucid. She is awake, alert, conversive and appropriate.Lungs: Have a slight expiratory wheeze, more present in the right upper but present on both sides. She is not struggling to breathe. Cardiovascular: Regular. LABORATORIES: Noted. ASSESSMENT AND PLAN: 1. The patient's mental status is stable and returned to baseline. 2. The patient's respiratory status has improved. She is a little bit wheezy today. Dr. Gonzalez recommended that we keep her off of any oral nutrition for at least 2 weeks while we are using the percutaneous endoscopic gastrostomy tube. Then we can do a followup swallowing reevaluation and see if this is improved at all. 3. The patient has percutaneous endoscopic gastrostomy tube with tube feeds going at the present time. 4. Dr. Padilla managing end-stage renal disease. 5. Enterococcal urinary tract infection and Proteus mirabilis and wound infection. The patient is on Zosyn for a total of 10 days. 6. Coronary disease and peripheral arterial disease. Aware. 7. Diabetes reasonably well controlled. 8. History of Clostridium difficile was noted. 9. The patient is transferred successfully to the step-down unit. We will continue all other modalities at the present time. I think I left out vital signs and exam. cc: Sebastian James MD
[2019-03-31] MEDS: DIFLUCAN 100 MG/NS 100 MG/50 ML IVPB IV SCH (17:23)
[2019-03-31] MEDS: LIVALO PO SCH (21:45)
--- NOTE | 2019-03-31 22:02 | PULMONOLOGY PROGRESS NOTE ---
DATE: 03/31/2019 SUBJECTIVE: The patient is awake and alert. She has been fatigued all day, but she does feel stronger than she did 2 days ago. OBJECTIVE: The patient has been afebrile for the last 24 hours. She has been transitioned to room air.HEENT: Pupils are equal and reactive. Oropharynx appears clear. Neck: Supple. Chest: Occasional rhonchi, but significant improvement over the last 48 hours. Cardiac: S1- S2. Abdomen: Soft. Extremities: Prior amputation, but no edema. IMPRESSION: A 68-year-old with: 1. Recurrent aspiration pneumonia. 2. Esophageal dysfunction. 3. End-stage renal disease, on hemodialysis. 4. Severe diabetes with vascular disease. 5. Respiratory failure, which has resolved. PLAN: 1. Continue bronchial hygiene. 2. Continue tube feeds with anticipation of a followup swallowing study in the future. 3. Hemodialysis per Dr. Padilla. 4. Initiate physical therapy for strengthening. cc: MD Sebastian Wilkes MD
[2019-04-01] MEDS: DUONEB (A & A) INH SCH ×7 (00:11→23:50)
[2019-04-01] MEDS: TYLENOL PO PRN (00:49)
[2019-04-01] MEDS: HUMALOG SUBQ SCH ×6 (00:50→20:48)
[2019-04-01] MEDS: ZOSYN 2.25 GM in NS 50 ML IV SCH ×2 (00:51→13:06)
[2019-04-01] MEDS: D5 1/2 NS 1,000 ML IV SCH (00:54)
[2019-04-01] MEDS ORDERED: TIGHT: 0.2 ML/HR FOR DIALYSIS MISC PRN (06:24)
[2019-04-01] MEDS ORDERED: NS 2,000 ML MISC PRN (06:24)
[2019-04-01] MEDS ORDERED: HEPARIN IV PRN (06:24)
[2019-04-01] MEDS: CREON PO SCH ×3 (11:07→16:52)
--- NOTE | 2019-04-01 11:15 | NEPHROLOGY PROGRESS NOTE ---
DATE: 04/01/2019 TIME SEEN: 07:05 SUBJECTIVE: Ms. Sanchez is resting quietly in bed. She had been sleeping well during the night. She has no complaints. OBJECTIVE: Vital Signs: Temperature 97.5 degrees, blood pressure 127/70, heart rate 72, respirations are 17. She is on room air, last recorded saturation 99%. She has had 1540 in, 75 mL out to Lemon. LABORATORY DATA: These are currently pending. Previous potassium 4.1. Previous CO2 of 24. Previous hemoglobin 10.4. PHYSICAL EXAMINATION: General: This is a 68-year-old female resting quietly in bed. She appears chronically ill. She is in no acute distress. Skin: Warm and dry. HEENT: Normocephalic, atraumatic. Conjunctivae pale. She has [place]. Mucous membranes are dry. Neck: Supple. Trachea midline. No evidence of JVD. Cardiovascular: Regular rate and rhythm without murmur or gallop. Lungs: Clear to auscultation bilaterally. Equal excursion on room air. Abdomen: Soft, nontender. Positive bowel sounds. PEG tube to the right lower quadrant. This is currently clamped. Dressing is in place, dry and intact. Extremities: Has right BKA. No clubbing to the left lower extremity. Genitourinary: Not inspected. Lemon catheter is in place. We will have this removed today. Neurological: Alert to person and to place. Drowsy this a.m. ASSESSMENT AND PLAN: 1. Chronic kidney disease stage 5D. She is due for her routine dialysis treatment today. We will place her on a 2 K bath. She is to dialyze for 3.5 hours. We will attempt to pull her to her dry weight. 2. Electrolytes and acid-base balance. These are all currently pending with correction on dialysis. 3. Anemia. Hemoglobin has been stable. 4. Nutrition. Nepro on hold because of high residual. Would like to thank you for allowing us to follow with this patient. Dictated by MICHAEL House for Doug Padilla MD Face to face encounter, data reviewed, discussed with Yoselyn Marie on 04/01/19. I agree with the above assessment and plan of care. cc: MICHAEL House MD Timothy P. Weirich, MD [facility]
[2019-04-01 11:44] LABS: CALCIUM 8.5 mg/dL (8.8-10.2); CREATININE 1.1 mg/dL (0.5-0.9); POTASSIUM 2.8 mmol/L (3.5-5.1)
[2019-04-01 12:01] LABS: PHOSPHORUS 0.9 mg/dL (2.7-4.5)
[2019-04-01] MEDS: CULTURELLE PO SCH ×2 (13:04→20:46)
[2019-04-01] MEDS: PLETAL PO SCH ×2 (13:04→20:46)
[2019-04-01] MEDS: LOPRESSOR PO SCH (13:04)
[2019-04-01] MEDS: ASPIRIN PO SCH (13:05)
[2019-04-01] MEDS: REGLAN LIQUID NG SCH ×3 (13:05→20:46)
[2019-04-01] MEDS: SODIUM CHLORIDE 0.9% INJ SCH (13:05)
[2019-04-01] MEDS: PROTONIX IV SCH (13:05)
[2019-04-01] MEDS: PLAVIX PO SCH (13:05)
[2019-04-01] MEDS: HEPARIN SUBQ SCH ×2 (13:05→20:46)
[2019-04-01] MEDS: DIFLUCAN 100 MG/NS 100 MG/50 ML IVPB IV SCH (17:01)
[2019-04-01] MEDS ORDERED: SODIUM PHOSPHATE IV ONE (17:07)
[2019-04-01] MEDS ORDERED: NS IV ONE (17:07)
--- NOTE | 2019-04-01 17:47 | PROGRESS NOTE ---
DATE: 04/01/2019 SUBJECTIVE: The patient was tracked down in dialysis. She was asleep but easily aroused and spoke with me at length. She states that her breathing is generally doing good. They had to hold her tube feeds due to increased residuals. I spoke with the dietitian about this, and they may try and change some formulas going forward. OBJECTIVE: Vital Signs: 97.5, 72, 17, 127/70. Lungs: Clear. Cardiovascular: Regular. Neurologic: The patient is alert, oriented, conversive and appropriate. LABORATORIES: Were pending at the time of my visit. ASSESSMENT: 1. Mental status is stable. 2. Respiratory status has continued to improve. There was no wheezing today. 3. The patient has a percutaneous endoscopic gastrostomy tube. Tube feeds were held today. I have added some Reglan to see if we can improve gastric emptying. 4. Dr. Padilla is managing end-stage renal disease. 5. Enterococcal urinary tract infection and Proteus mirabilis wound infection. Patient on Zosyn for a total of 10 days. 6. Coronary artery disease and peripheral artery disease. Aware. 7. Diabetes, adequately controlled. 8. History of Clostridium difficile and exocrine pancreatic dysfunction noted. PLAN: The patient is reaching a point where we may be able to transfer her to a floor bed even though she is relatively high maintenance with her tube feeds and such. I think I would like to see those residuals improve or be eliminated before we go to the floor, but we are getting very close in that regard. As for long-term placement, it is very difficult to tell. The patient will likely need to go to rehab, but I am not sure that she will easily regain her feet given how emaciated she is and the chronic gravities of all of her other disease entities. cc: Sebastian James MD
[2019-04-01] MEDS: LIVALO PO SCH (20:46)
[2019-04-02] MEDS: HUMALOG SUBQ SCH ×6 (00:48→22:38)
[2019-04-02] MEDS: ZOSYN 2.25 GM in NS 50 ML IV SCH ×3 (01:10→23:46)
[2019-04-02] MEDS: D5 1/2 NS 1,000 ML IV SCH ×2 (01:10→23:46)
[2019-04-02] MEDS: DUONEB (A & A) INH SCH ×3 (04:38→20:04)
[2019-04-02 07:08] LABS: ALBUMIN 2.8 g/dL (3.5-5.0); CALCIUM 8.3 mg/dL (8.8-10.2); CREATININE 2.5 mg/dL (0.5-0.9); PHOSPHORUS 3.3 mg/dL (2.7-4.5); POTASSIUM 3.3 mmol/L (3.5-5.1)
[2019-04-02] MEDS: PLAVIX PO SCH (09:44)
[2019-04-02] MEDS: CULTURELLE PO SCH ×2 (09:44→21:27)
[2019-04-02] MEDS: REGLAN LIQUID NG SCH ×4 (09:44→21:27)
[2019-04-02] MEDS: CREON PO SCH ×3 (09:44→17:05)
[2019-04-02] MEDS: PLETAL PO SCH ×2 (09:44→21:27)
[2019-04-02] MEDS: LOPRESSOR PO SCH (09:44)
[2019-04-02] MEDS: ASPIRIN PO SCH (09:45)
[2019-04-02] MEDS: HEPARIN SUBQ SCH ×2 (09:45→21:26)
[2019-04-02] MEDS: SODIUM CHLORIDE 0.9% INJ SCH (09:45)
[2019-04-02] MEDS: PROTONIX IV SCH (09:45)
--- NOTE | 2019-04-02 12:54 | PROGRESS NOTE ---
DATE: 04/02/2019 SUBJECTIVE: I came into the room this morning. The patient was sleeping soundly. I did a brief exam, but did not bother her. OBJECTIVE: Vital Signs: Temperature 98.2, pulse 75, respiratory rate 16, blood pressure 110/49, and 93% oxygen saturations on room air. General: On physical exam, the patient is asleep. Lungs: Clear. There is no wheezing. Cardiovascular: Regular. LABORATORY: Potassium 3.3, BUN 17, creatinine 2.5. ASSESSMENT AND PLAN: 1. Mental status has generally been stable. 2. Respiratory status continues to improve. There is no wheezing. 3. The patient has a percutaneous endoscopic gastrostomy tube. Tube feeds were held yesterday, but then dietitian started her back on her TwoCal formula at a lower rate. I have added Reglan to improve gastric emptying. Thus far, she has tolerated that well. 4. Dr. Padilla is managing end-stage renal disease. 5. The patient has a known enterococcal urinary tract infection. She no longer has a Lemon catheter in. She has Proteus mirabilis growing from wound infection on her stump. The patient is on Zosyn for a total of [address] Logan Colunga' recommendations. 6. Coronary artery disease and peripheral arterial disease. Aware. 7. Diabetes, reasonably well controlled. She is very brittle and requires very little in the way of sliding scale to correct her sugar. 8. History of Clostridium difficile and exocrine pancreatic dysfunction. 9. We will be able to transfer the patient to the floor as long as her tube feedings are going well. She will continue dialysis. We will need to seek rehab and/or manager terminal placement at the time of discharge. cc: Sebastian James MD
--- NOTE | 2019-04-02 14:11 | NEPHROLOGY PROGRESS NOTE ---
DATE: 04/02/2019 SUBJECTIVE: Ms. Sanchez is resting quietly in bed. I had to awaken her for her exam. 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 OBJECTIVE: Vital Signs: Temperature 97.3 degrees, blood pressure 109/62, heart rate 66, respirations 17. She is on room air. Last recorded saturation 97%. She has had 536 in, 1953 out per dialysis. LABORATORY DATA: Sodium is 135, potassium is 3.3, chloride 97, CO2 is 25, BUN 17, creatinine is 2.5, glucose 105. The patient has an anion gap of 13. She has a calcium of 8.3, phosphorus 3.3, albumin is 2.8. Previous hemoglobin 10.4. PHYSICAL EXAMINATION: General: This is a 68-year-old female resting quietly in bed. She appears chronically ill in no acute distress. Skin: Warm and dry. HEENT: Normocephalic, atraumatic. Conjunctiva is pale pink. She has [place]. Mucous membranes are dry. Neck: Supple. Trachea midline. No JVD in the upright position. Cardiovascular: Regular rate and rhythm without murmur or gallop. Lungs: Clear to auscultation bilateral. Equal excursion on room air. Abdomen: Soft, nontender. Positive bowel sounds. PEG tube remains to right lower quadrant. She currently has her tube feedings clamped due to excess residual. Dressing is dry and intact. Extremities: Right BKA. No edema or clubbing or cyanosis to the left. Genitourinary: Not inspected. Minimal void with dialysis assist. We have removed the Lemon catheter. Neurological: Alert and oriented x3. ASSESSMENT AND PLAN: 1. Chronic kidney disease stage 5D. The patient is due for routine treatment in the a.m. No indications for intervention today. 2. Electrolytes and acid-base balance. These are acceptable. 3. Anemia. This is low but stable. 4. Nutrition. This is being followed by the primary care. She currently has her tube feedings on hold due to increased residual. I would like to thank you for allowing us to follow with this patient. Dictated by MICHAEL House for Doug Padilla MD Face to face encounter, data reviewed, discussed with Yoselyn Marie on 04/02/19. I agree with the above assessment and plan of care. cc: MICHAEL House MD Timothy P. Weirich, MD MTDD
[2019-04-02] MEDS: DIFLUCAN 100 MG/NS 100 MG/50 ML IVPB IV SCH (17:05)
[2019-04-02] MEDS: TYLENOL PO PRN (21:43)
[2019-04-02] MEDS: LIVALO PO SCH (22:39)
[2019-04-03] MEDS: HUMALOG SUBQ SCH ×6 (01:13→21:07)
[2019-04-03] MEDS: DUONEB (A & A) INH SCH ×9 (02:13→23:30)
--- NOTE | 2019-04-03 02:40 | PULMONOLOGY PROGRESS NOTE ---
DATE: 04/02/2019 SUBJECTIVE: The patient was sleeping upon arrival. I did briefly wake her. She appears to be comfortable. OBJECTIVE: Vital Signs: The patient has been afebrile for the last 24 hours. Blood pressure 108/63, heart rate 72, respiratory rate 17, oxygen saturation 98% on nasal cannula. HEENT: Pupils are equal and reactive. Oropharynx appears clear. Neck: Supple. Chest: Reveals occasional rhonchi, but significantly improved compared to prior exams. Cardiac: S1-S2. Abdomen: Soft. Extremities: Unchanged. IMPRESSION: A 68-year-old with: 1. Recurrent aspiration pneumonia. 2. Hypoxemic respiratory failure, on minimal O2. 3. Esophageal dysfunction. 4. Severe diabetes with coronary and peripheral vascular disease. 5. End-stage renal disease, on hemodialysis. PLAN: 1. Continue bronchial hygiene. 2. Continue tube feeds as tolerated. 3. Encourage physical therapy. 4. Continue hemodialysis. cc: MD Sebastian Wilkes MD
[2019-04-03 06:15] LABS: ALBUMIN 2.6 g/dL (3.5-5.0); CALCIUM 8.2 mg/dL (8.8-10.2); CREATININE 3.2 mg/dL (0.5-0.9); PHOSPHORUS 3.1 mg/dL (2.7-4.5); POTASSIUM 3.2 mmol/L (3.5-5.1)
[2019-04-03] MEDS ORDERED: NS 2,000 ML MISC PRN (07:19)
[2019-04-03] MEDS ORDERED: HEPARIN IV PRN (07:19)
[2019-04-03] MEDS ORDERED: TIGHT: 0.2 ML/HR FOR DIALYSIS MISC PRN (07:19)
[2019-04-03] MEDS: D50W 250 ML, AMINOSYN 15% 500 ML, LIPOSYN 20% 250 ML IV SCH ×3 (09:00)
--- NOTE | 2019-04-03 12:48 | PROGRESS NOTE ---
DATE: 04/03/2019 SUBJECTIVE: The patient is in dialysis. I tracked her down and spoke with her at length. She states that her breathing is fine. She has no complaints. She did have a bit of diarrhea after starting the TwoCal formula, but it has not been severe. OBJECTIVE: Vital Signs: 98.2, 78, 15, and 97/52, 100 percent saturated on room air. General: Thin black female in no acute distress. She was initially asleep but was easily aroused and was alert, oriented, conversive and appropriate. Lungs: Show bilateral mild expiratory wheeze. Cardiovascular: Regular. LABORATORY: Potassium is 3.2, BUN 26, creatinine 3.2. ASSESSMENT AND PLAN: 1. Mental status has been stable. 2. Respiratory status is stable. There is some wheezing today. Dr. Gonzalez is following. 3. Percutaneous endoscopic gastrostomy tube is in place and functioning normally. She was put on some Raglan to advanced gastric emptying and she has been put on TwoCal formula which has resulted in a little bit of diarrhea. Appropriate adjustments should be made to this as necessary. 4. End-stage renal disease, managed per Dr. Padilla. 5. Enterococcal urinary tract infection and Proteus mirabilis from a wound infection. She has a total of [address] Colunga. 6. Coronary artery disease and peripheral arterial disease. Aware. 7. Diabetes is reasonably well controlled. She is a brittle diabetic. 8. History of Clostridium difficile in exocrine pancreatic dysfunction. 9. The patient has been transferred to the 1st floor near the dialysis unit. Physical therapy has been written for and they are going to continue to try and improve her strength. Hopefully, she will be able to go home sometime early next week. cc: Sebastian James MD
[2019-04-03] MEDS: CREON PO SCH ×3 (13:06→17:05)
[2019-04-03] MEDS: ASPIRIN PO SCH (13:08)
[2019-04-03] MEDS: HEPARIN SUBQ SCH ×2 (13:08→20:50)
[2019-04-03] MEDS: CULTURELLE PO SCH ×2 (13:08→20:50)
[2019-04-03] MEDS: PLAVIX PO SCH (13:09)
[2019-04-03] MEDS: LOPRESSOR PO SCH (13:09)
[2019-04-03] MEDS: PLETAL PO SCH ×2 (13:11→20:50)
[2019-04-03] MEDS: PROTONIX IV SCH (13:12)
[2019-04-03] MEDS: REGLAN LIQUID NG SCH ×4 (13:12→20:50)
[2019-04-03] MEDS: SODIUM CHLORIDE 0.9% INJ SCH (13:13)
[2019-04-03] MEDS: ZOSYN 2.25 GM in NS 50 ML IV SCH (13:15)
[2019-04-03] MEDS ORDERED: ZOSYN 0.75 GM in NS 50 ML IV ONE (17:00)
[2019-04-03] MEDS: DIFLUCAN 100 MG/NS 100 MG/50 ML IVPB IV SCH (18:01)
--- NOTE | 2019-04-03 20:15 | NEPHROLOGY PROGRESS NOTE ---
DATE: 04/03/2019 SUBJECTIVE: She is on dialysis, intermittently dozing. No complaints. No nausea or vomiting. Tolerating tube feeds. OBJECTIVE: Blood pressure 97/52, heart rate 78, respirations 15, afebrile.General: No acute distress. Skin: Warm and dry. Neck veins are not appreciated. Heart: Regular with a gallop and murmur. Lungs: Equal. No crackles. Abdomen: Soft. Bowel sounds present. Extremities: No edema. IMPRESSION/PLAN: Chronic kidney disease 5D. Hemodialysis today using a 4K bath. One liter ultrafiltration. Electrolytes are acceptable, though potassium is moderately low at 3.2. Again, we will use a 4K bath. Otherwise, she is receiving tube feeds. No changes. cc: MD Sebastian Dean MD
[2019-04-03] MEDS: LIVALO PO SCH (20:54)
[2019-04-04] MEDS: ZOSYN 0.75 GM in NS 50 ML IV SCH ×2 (00:53→23:56)
[2019-04-04] MEDS: ZOSYN 2.25 GM in NS 50 ML IV SCH ×2 (01:02→12:16)
[2019-04-04] MEDS: HUMALOG SUBQ SCH ×6 (01:04→21:08)
[2019-04-04] MEDS: D5 1/2 NS 1,000 ML IV SCH ×2 (01:34→23:56)
[2019-04-04] MEDS: DUONEB (A & A) INH SCH ×5 (05:25→20:25)
[2019-04-04 06:30] LABS: ALBUMIN 2.8 g/dL (3.5-5.0); CALCIUM 8.3 mg/dL (8.8-10.2); CREATININE 2.2 mg/dL (0.5-0.9); PHOSPHORUS 1.7 mg/dL (2.7-4.5); POTASSIUM 3.7 mmol/L (3.5-5.1)
--- NOTE | 2019-04-04 07:37 | Diag Imaging Result Doc PS360 ---
CHEST-1 VIEW - 04/04/2019 INDICATION: SOB COMPARISON: 03/29/2019 FINDINGS: Stable CABG changes. Stable cardiomegaly and diffuse pulmonary vascular congestion. There is been improvement in the background pulmonary edema. Stable trace pleural effusions. IMPRESSION: Improvement in the background interstitial pulmonary edema. Electronically signed by Chauncey Whitmore 04/04/2019 7:34 AM
[2019-04-04] MEDS: PLAVIX PO SCH (09:22)
[2019-04-04] MEDS: LOPRESSOR PO SCH (09:22)
[2019-04-04] MEDS: PLETAL PO SCH ×2 (09:22→21:07)
[2019-04-04] MEDS: CREON PO SCH ×4 (09:22→16:31)
[2019-04-04] MEDS: HEPARIN SUBQ SCH ×2 (09:23→21:07)
[2019-04-04] MEDS: CULTURELLE PO SCH ×2 (09:23→21:07)
[2019-04-04] MEDS: PROTONIX IV SCH (09:23)
[2019-04-04] MEDS: ASPIRIN PO SCH (09:23)
[2019-04-04] MEDS: REGLAN LIQUID NG SCH ×5 (09:23→21:07)
--- NOTE | 2019-04-04 12:48 | PROGRESS NOTE ---
DATE: 04/04/2019 Mrs. Sanchez was admitted to [facility] with recurrent aspiration pneumonia. Clinically, she continues to improve. Chest x-ray showed improvement in the interstitial edema and infiltrates. She is currently on piperacillin. She is awake and easily arousable. She is maintaining O2 saturations of 97% to 98% on room air. There does not appear to be any increased work of breathing or respiratory distress. She is tolerating tube feedings. Blood sugars are still fluctuating. Temperature 98.1 degrees, pulse 91, respirations 16, BP 111/60. CV: Regular rate and rhythm. Lungs: Occasional end-expiratory wheezing with forced expiration. Abdomen: Soft, nontender, with active bowel sounds. ASSESSMENT AND PLAN: 1. Bilateral aspiration pneumonia. Clinically, she is better. We will continue supplemental O2, DuoNeb nebulizer treatments and piperacillin. 2. Given her recurrent aspiration, we will continue tube feedings via the percutaneous endoscopic gastrostomy tube. 3. End-stage renal disease. She undergoes dialysis on Saturday, Saturday, and Saturday. 4. 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 We will continue Humalog sliding scale. cc: MD Sebastian Siegel MD
[2019-04-04] MEDS: DIFLUCAN 100 MG/NS 100 MG/50 ML IVPB IV SCH (17:52)
[2019-04-04] MEDS: LIVALO PO SCH (21:07)
[2019-04-04] MEDS: IMODIUM LIQUID PO PRN (21:09)
[2019-04-05] MEDS: ZOSYN 2.25 GM in NS 50 ML IV SCH ×3 (00:02→23:57)
[2019-04-05] MEDS: DUONEB (A & A) INH SCH ×7 (00:18→22:44)
[2019-04-05] MEDS: HUMALOG SUBQ SCH ×6 (00:33→20:44)
[2019-04-05 05:15] LABS: ALBUMIN 2.7 g/dL (3.5-5.0); CALCIUM 8.4 mg/dL (8.8-10.2); CREATININE 3.1 mg/dL (0.5-0.9); PHOSPHORUS 1.8 mg/dL (2.7-4.5); POTASSIUM 4.6 mmol/L (3.5-5.1)
--- NOTE | 2019-04-05 09:31 | PROGRESS NOTE ---
DATE: 04/05/2019 SUBJECTIVE: Mrs. Sanchez has a history of recurrent aspiration pneumonia. Clinically, she is doing well. She is breathing comfortably. She is maintaining O2 saturations of 100% on room air. She has a minimal cough. She denies any pleuritic chest pain. She is tolerating tube feedings. OBJECTIVE: Vital Signs: She is afebrile, pulse 80, respirations 17, blood pressure 109/62. CV: Regular rate and rhythm. Lungs: Clear. Abdomen: Soft, nontender, with active bowel sounds. ASSESSMENT AND PLAN: 1.Recurrent aspiration pneumonia. Clinically, she is doing well. We will continue DuoNeb nebulizer treatments and intravenous piperacillin. We will continue tube feedings to reduce the risk of aspiration. 2. ESRD--She will dialyse on . cc: MD Sebastian Siegel MD MTDD
[2019-04-05] MEDS: PROTONIX IV SCH (09:40)
[2019-04-05] MEDS: HEPARIN SUBQ SCH ×2 (09:41→20:43)
[2019-04-05] MEDS: LOPRESSOR PO SCH (09:41)
[2019-04-05] MEDS: SODIUM CHLORIDE 0.9% INJ SCH (09:41)
[2019-04-05] MEDS: ASPIRIN PO SCH (09:41)
[2019-04-05] MEDS: REGLAN LIQUID NG SCH ×4 (09:41→20:43)
[2019-04-05] MEDS: CREON PO SCH ×3 (09:41→18:05)
[2019-04-05] MEDS: PLAVIX PO SCH (09:41)
[2019-04-05] MEDS: PLETAL PO SCH ×2 (09:41→20:43)
[2019-04-05] MEDS: CULTURELLE PO SCH ×2 (09:41→20:44)
[2019-04-05] MEDS: DIFLUCAN 100 MG/NS 100 MG/50 ML IVPB IV SCH (18:05)
[2019-04-05] MEDS: LIVALO PO SCH (20:44)
[2019-04-06] MEDS: HUMALOG SUBQ SCH ×6 (00:14→22:12)
[2019-04-06] MEDS: DUONEB (A & A) INH SCH ×5 (03:37→23:20)
[2019-04-06] MEDS: D5 1/2 NS 1,000 ML IV SCH (03:45)
[2019-04-06] MEDS ORDERED: HEPARIN IV PRN (06:03)
[2019-04-06] MEDS ORDERED: NS 2,000 ML MISC PRN (06:03)
[2019-04-06] MEDS ORDERED: TIGHT: 0.2 ML/HR FOR DIALYSIS MISC PRN (06:03)
[2019-04-06] MEDS: SODIUM CHLORIDE 0.9% INJ SCH (08:26)
[2019-04-06] MEDS: REGLAN LIQUID NG SCH ×4 (08:26→21:18)
[2019-04-06] MEDS: PROTONIX IV SCH ×2 (08:26→09:09)
[2019-04-06] MEDS: CULTURELLE PO SCH ×2 (08:27→21:18)
[2019-04-06] MEDS: ASPIRIN PO SCH (08:27)
[2019-04-06] MEDS: CREON PO SCH ×3 (08:27→17:20)
[2019-04-06] MEDS: PLAVIX PO SCH (08:27)
[2019-04-06] MEDS: HEPARIN SUBQ SCH ×2 (08:27→21:18)
[2019-04-06] MEDS: PLETAL PO SCH ×2 (08:27→21:18)
[2019-04-06] MEDS: LOPRESSOR PO SCH (08:34)
[2019-04-06] MEDS: D50W 250 ML, AMINOSYN 15% 500 ML, LIPOSYN 20% 250 ML IV SCH ×3 (09:00)
[2019-04-06] MEDS: ZOSYN 2.25 GM in NS 50 ML IV SCH (13:09)
--- NOTE | 2019-04-06 14:35 | PROVIDER PROGRESS NOTE ---
Progress Note Subjective: Pt voices feeling hungry. She denies any uremic complaints. Objective: temperature 98.5, pulse 77, respiration 16, blood pressure 132/69, O2 sat 100% on room air. General: chronically ill and frail -[place] female lying in bed in no acute distress HEENT: normocephalic, atraumatic, pupils equal and reactive, mucous membranes dry. Skin: warm and dry. Neck: supple, 6cm JVD Cardiovascular: S1S2S4, regular rate and rhythm, no murmur. Respiratory: clear anteriorly with equal air entry Abdomen: soft, nontender, nondistended, bowel sounds present. Peg tube in place with dressing. Extremities: Right BKA, no clubbing, edema, or cyanosis in left lower. : non inspected Neurological: alert and oriented to person, place, and time. Labs: intake 600, output 100. Impression: Chronic kidney disease stage 5D. She will have her routine hemodialysis treatment with a 2K bath and attempt to pull to her outpatient dry weight. Blood pressure. In target. Fluid volume. Stable. We will plan to hemodialyze her today. Anemia. In target on last labs. Electrolytes and acid base balance. Stable on last labs. Nutrition. Enteral feeding in place.Tolerating currently. Recent high residuals.. Medication review. No changes.
[2019-04-06] MEDS ORDERED: ZOSYN 0.75 GM in NS 50 ML IV ONE (17:00)
--- NOTE | 2019-04-06 17:10 | PROGRESS NOTE ---
DATE: 04/06/2019 SUBJECTIVE: The patient was in dialysis. I met her there. She stated that her breathing was better. She really had no complaints other than being hungry. We again discussed at least 2 weeks off of food by mouth until we could do a swallowing trial again. OBJECTIVE: Vital Signs: 97.9, 87, 18, 109/59, 97% saturated on room air. PHYSICAL EXAMINATION: General: The patient is awake, alert, oriented, conversive and appropriate. Lungs: Clear. Cardiovascular: Regular. She appears emaciated. ASSESSMENT AND PLAN: 1. Mental status is stable. 2. Respiratory status is stable. 3. Percutaneous endoscopic gastrostomy tube appears to be functioning normally. She is not having any significant residual. She is on a slightly reduced dose of the 2 kinza formula I believe but seems to be doing okay with this. 4. End-stage renal disease, managed per Dr. Padilla. 5. Enterococcal urinary tract infection, Proteus mirabilis wound infection. I think she has completed [address] Colunga at this point. 6. Coronary artery disease. 7. Diabetes is reasonably well controlled. Of note, she is still on D5. We were going to cut this down and make sure that her sugars are stable. 8. Clostridium difficile history and pancreatic exocrine dysfunction. 9. Once we get all of the IVs discontinued. We are going to see how the patient does from a blood sugar and blood pressure standpoint. If all goes well, I am hopeful to send her home with home health care on Saturday after dialysis. cc: Sebastian James MD
[2019-04-06] MEDS: DIFLUCAN 100 MG/NS 100 MG/50 ML IVPB IV SCH (18:44)
[2019-04-06] MEDS: LIVALO PO SCH (21:18)
--- NOTE | 2019-04-06 22:13 | PULMONOLOGY PROGRESS NOTE ---
DATE: 04/06/2019 SUBJECTIVE: The patient is awake and alert. She reports her breathing has significantly improved. She would like to begin eating again. OBJECTIVE: Vital Signs: The patient has been afebrile for the last 24 hours. Blood pressure 141/79, heart rate 78, respiratory rate 18, oxygen saturation 99% on room air. HEENT: Pupils are equal and reactive. Oropharynx appears clear. Neck: Supple. Chest: Good air entry bilaterally without wheezing or rhonchi. Cardiac: S1-S2. Abdomen: Soft. Extremities: Prior amputation. LABORATORIES: No new chemistries or CBC. IMPRESSION: A 68 year old with: 1. Recurrent pneumonia due to aspiration. 2. Hypoxemic respiratory failure, which has resolved. 3. Esophageal dysfunction status post PEG tube. 4. End-stage renal disease. 5. Severe diabetes with coronary artery disease, peripheral vascular disease, and component of gastroparesis. PLAN: 1. Continue bronchial hygiene. 2. Continue tube feeds. 3. Anticipate repeat swallowing study in 2 weeks after she has gained some more strength. cc: MD Sebastian Wilkes MD
[2019-04-07] MEDS: HUMALOG SUBQ SCH ×6 (01:13→20:30)
[2019-04-07 06:27] LABS: ALB/GLOB RATIO 0.8; ALBUMIN 2.5 g/dL (3.5-5.0); CALCIUM 8.2 mg/dL (8.8-10.2); CREATININE 2.2 mg/dL (0.5-0.9); MAGNESIUM 1.5 mg/dL (1.5-2.7); PHOSPHORUS 1.9 mg/dL (2.7-4.5); TOTAL BILIRUBIN 0.23 mg/dL (0.20-1.00); TOTAL PROTEIN 5.8 g/dL (6.3-8.3)
[2019-04-07] MEDS: DUONEB (A & A) INH SCH ×3 (08:11→21:40)
--- NOTE | 2019-04-07 08:54 | PROGRESS NOTE ---
DATE: 04/07/2019 SUBJECTIVE: The patient is sitting in bed. I interviewed her briefly along with Dr. Padilla and performed physical exam. PHYSICAL EXAMINATION: Vital Signs: 98.4 degrees, 85, 15, 168/63, 99% saturated on room air. General: Patient is alert, oriented, conversive and appropriate. Lungs: Clear. Cardiovascular: Regular. ASSESSMENT AND PLAN: 1. Respiratory status is stable. 2. Percutaneous endoscopic gastrostomy tube appears to be functioning normally. She has continuous tube feeds at 2 count formula. 3. End-stage renal disease, managed per Dr. Padilla. 4. Enterococcal UTI and Proteus mirabilis wound infection. Her wound infection appears to be getting better. According to the notes, she has completed 10 days of Zosyn. 5. Coronary artery disease, aware. 6. Diabetes is reasonably well controlled. She just has sliding scale low-dose insulin. She is not on any D5 that I am aware of right now. 7. Clostridium difficile history with pancreatic exocrine dysfunction, aware. 8. Although I had broached the subject of rehab multiple times with the patient, she still had entertained the hope of going home. I think Dr. Padilla and Mary concurring that she would do better with rehabs with the feeding tube finally hit home with her and she agreed to rehabilitation stay. I think this is the best option for her and that at completion rehab maybe she will have regain her feet, some of her strength and she can undergo swallowing tested to determine whether she will need to continue to administer medications and feedings through the tube or whether she can take anything by mouth. It would be ideal to have that done prior to discharge from rehab. cc: Sebastian James MD
[2019-04-07] MEDS: PROTONIX IV SCH (10:06)
[2019-04-07] MEDS: HEPARIN SUBQ SCH ×2 (10:07→20:31)
[2019-04-07] MEDS: PLAVIX PO SCH (10:09)
[2019-04-07] MEDS: CREON PO SCH ×3 (10:09→18:08)
[2019-04-07] MEDS: LOPRESSOR PO SCH (10:09)
[2019-04-07] MEDS: ASPIRIN PO SCH (10:10)
[2019-04-07] MEDS: REGLAN LIQUID NG SCH ×4 (10:10→20:31)
[2019-04-07] MEDS: PLETAL PO SCH ×2 (10:10→20:31)
[2019-04-07] MEDS: CULTURELLE PO SCH ×2 (12:18→20:31)
--- NOTE | 2019-04-07 13:16 | PROVIDER PROGRESS NOTE ---
Progress Note Subjective: She denies any uremic complaints. Voices going to rehab when she discharged in the new future. Objective: temperature 98.4, pulse 94, respirations 18, blood pressure 168/63, 02 sat 99% on room air. General: chronically ill and frail -[place] female lying in bed in no acute distress HEENT: normocephalic, atraumatic, pupils equal and reactive, mucous membranes moist. Skin: warm and dry. Neck: supple, 6cm JVD Cardiovascular: S1S2S4, regular rate and rhythm, no murmur. Respiratory: clear anteriorly with equal air entry Abdomen: soft, nontender, nondistended, bowel sounds present. Peg tube in place with dressing. Extremities: Right BKA, no clubbing, edema, or cyanosis in left lower. : non inspected Neurological: alert and oriented to person, place, and time. Labs: intake 1288, output 1749. Impression: Chronic kidney disease stage 5D. She had her routine hemodialysis treatment yesterday without complications. 1L ultrafiltration noted. No changes, will continue to follow up in outpatient setting when she discharges. Blood pressure. In target. Fluid volume. Stable. Anemia. In target on last labs. Electrolytes and acid base balance. Stable on last labs. Nutrition. Enteral feeding in place. Tolerating well at the moment. Medication review. No changes
[2019-04-07] MEDS: DIFLUCAN 100 MG/NS 100 MG/50 ML IVPB IV SCH (18:07)
[2019-04-07] MEDS: LIVALO PO SCH (20:31)
[2019-04-08] MEDS: HUMALOG SUBQ SCH ×4 (01:57→15:38)
[2019-04-08] MEDS ORDERED: HEPARIN IV PRN (05:51)
[2019-04-08] MEDS ORDERED: TIGHT: 0.2 ML/HR FOR DIALYSIS MISC PRN (05:51)
[2019-04-08] MEDS ORDERED: NS 2,000 ML MISC PRN (05:51)
[2019-04-08 07:59] VITALS: BP 140/88
[2019-04-08] MEDS: DUONEB (A & A) INH SCH (08:48)
[2019-04-08] MEDS: PLAVIX PO SCH (09:39)
[2019-04-08] MEDS: CREON PO SCH ×2 (09:39→11:52)
[2019-04-08] MEDS: CULTURELLE PO SCH (09:39)
[2019-04-08] MEDS: PLETAL PO SCH (09:39)
[2019-04-08] MEDS: ASPIRIN PO SCH (09:39)
[2019-04-08] MEDS: LOPRESSOR PO SCH (09:39)
[2019-04-08] MEDS: REGLAN LIQUID NG SCH ×2 (09:40→15:38)
[2019-04-08] MEDS: HEPARIN SUBQ SCH (09:41)
[2019-04-08] MEDS: PROTONIX IV SCH (09:41)
[2019-04-08] MEDS: SODIUM CHLORIDE 0.9% INJ SCH (09:41)
[2019-04-08 10:08] LABS: AGAP 9; ALBUMIN 2.7 g/dL (3.5-5.0); BUN 32 mg/dL (8-22); CALCIUM 8.5 mg/dL (8.8-10.2); CHLORIDE 96 mmol/L (98-107); COSMO 281; GLUCOSE 177 mg/dL (70-104); POTASSIUM 4.5 mmol/L (3.5-5.1); SODIUM 135 mmol/L (136-145); TCO2 29 mmol/L (25-35)
[2019-04-08 10:09] LABS: PHOSPHORUS 2.2 mg/dL (2.7-4.5)
[2019-04-08] MEDS: D50W 250 ML, AMINOSYN 15% 500 ML, LIPOSYN 20% 250 ML IV SCH ×3 (10:45)
--- NOTE | 2019-04-08 12:07 | DISCHARGE SUMMARY ---
ADMISSION DATE: 03/21/2019 DISCHARGE DATE: 04/08/2019 DISCHARGE DIAGNOSES: 1. Pulmonary edema. 2. Chronic aspiration pneumonitis. 3. Esophageal dysfunction. 4. Candidal esophagitis. 5. Cardiomyopathy. 6. End-stage renal disease, on dialysis. 7. Brittle type 1 diabetes with hyperglycemia. 8. Peripheral vascular disease. 9. Alteration in mental status. 10. Chronic anemia. CONSULTATIONS: Dr. Rene Gonzalez, Dr. Logan Colunga, Dr. Saud Diaz, Dr. Doug Padilla, Dr. Marcie Dye. OPERATIVE PROCEDURES: EGD with PEG tube placement. HOSPITAL COURSE: The patient was admitted on 03/21/2019 with profound shortness of breath. She was hyperglycemic and was as well with near respiratory failure. She was admitted to the ICU and managed for several days there. She had fever prior to admission while she was on dialysis the previous day but had no other difficulty up to that point. The patient had recently been admitted and found to have candidal esophagitis, which was contributing to her vomiting and such. The night after admission, the patient had acute mental status changes, was unresponsive. She had a similar episode a day later. These were brief but very frightening. We had neurological consultation which showed no significant findings to indicate the reason that she became unresponsive. The patient was treated with broad-spectrum antibiotics. Cardiology weighed in as well. Ultimately, Dr. Gonzalez felt that the patient had recurrent chronic aspiration pneumonitis due to esophageal dysfunction, possible achalasia, and candidal esophagitis. Once the patient was stabilized, multiple days into her hospitalization, an EGD was performed and PEG tube was placed, and the patient began to get tube feedings through that PEG almost immediately. She was kept NPO and all medications were put through the PEG tube during her hospitalization. Due to her chronic malnutrition, the patient was put on TwoCal formula which she tolerated fairly well. The patient had no further mental status changes. With the reinstitution of the patient's hemodialysis and use of Zosyn over the course of 10 days, the patient's breathing gradually improved as to where she was not wheezing and required little or no oxygen. The patient was also found to have an enterococcal UTI and an ulceration/wound on her right leg stump was also infected. She had an enterococcal UTI and a Proteus mirabilis wound infection which was covered by the Zosyn according to culture results and sensitivities. During her hospitalization, the patient required very little in the way of insulin, which had been the case recently. She is a brittle diabetic and requires only minute amounts of insulin to significantly lower her blood sugar at this point. Part of that has to do with overall weight loss and deconditioning, part with her kidney failure, in part with the length of time that she has dealt with disease. Ultimately, the patient was stabilized. Her breathing was improved. We had her on an adequate tube feeding regimen and she agreed to go to rehab, as I do not think she would have enough immediate support to be able to put her medications and her feedings through the tube. It is the overall thought that over some 2 weeks after discharge, she should have a swallowing study and evaluation radiologically to see if she has had improvement in the anatomy or the function of her esophagus. At that point, we can decide whether she can take p.o. in the way of medications or nutrition. cc: Sebastian James MD
[2019-04-08] MEDS: ZOFRAN IV PRN (12:18)
[2019-04-08] MEDS ORDERED: ZOFRAN IV ONE (13:26)
--- NOTE | 2019-04-08 14:47 | PROVIDER PROGRESS NOTE ---
Progress Note Subjective: She is resting quietly in bed. Aroused to verbal stimuli and denies any uremic complaints. Objective: temperature and a 9.0, pulse 88, respirations 16, blood pressure 140/88, 02 sat 99% on room air. General: chronically ill and frail -[place] female lying in bed in no acute distress HEENT: normocephalic, atraumatic, pupils equal and reactive, mucous membranes moist. Skin: warm and dry. Neck: supple, 6cm JVD Cardiovascular: S1S2S4, regular rate and rhythm, no murmur. Respiratory: clear anteriorly with equal air entry Abdomen: soft, nontender, nondistended, bowel sounds present. Peg tube in place with dressing. Extremities: Right BKA, no clubbing, edema, or cyanosis in left lower. : non inspected Neurological: alert and oriented to person, place, and time. Labs: intake 1280, output 100 Impression: Chronic kidney disease stage 5D. She will receive her routine hemodialysis with a 2k bath and attempt ultrafiltration 1-2 liters. Blood pressure. In target. Fluid volume. Euvolemic. Anemia. In target on last labs. Electrolytes and acid base balance. Stable on last labs. Nutrition. Enteral feeding in place. Tolerating well. Medication review. No changes Vomiting during dialysis. We provided a second dose of Zofran 4mg IV.
== END 2019-04-08 16:01 | DRG 177 ==
LOC: SUPCPDRO → ED 17:04 → ICU 21:32 → 2N 03-30 18:02 → 1N 04-02 23:15
PROVIDERS: ADMIT Internal Medicine; ATTEND Internal Medicine
PROC: MS.CXOR (2019-03-24 09:00)